=== PATIENT | male | born 1950 | race Caucasian/White ===

== ENCOUNTER 2017-11-16 08:35 | Inpatient (IN) | payer OTHER ==
--- NOTE | 2017-11-12 09:00 | EKG ---
Test Date: 2017-11-12 Test Time: 08:38:21 Director Of Web Marketing: JOSE MEASUREMENT RESULTS: Intervals: Rate: 95 ID: [id number] QRSD: 102 QT: 380 QTc: 477 [place]: P: 46 ID: [id number] QRS: 47 T: 48 INTERPRETIVE STATEMENTS: Normal sinus rhythm Possible Left atrial enlargement Borderline ECG No previous ECG available for comparison Electronically Signed On 11-12-17 08:59:56 CDT by Dash Keith
--- NOTE | 2017-11-12 09:51 | RAD REPORT ---
EXAM DESCRIPTION: RAD - Chest Pa And Lat (2 Views) - 11/12/2017 9:36 am CLINICAL HISTORY: Preop chest, pending cholecystectomy COMPARISON: None. TECHNIQUE: PA and lateral views of the chest were obtained. FINDINGS: The lungs are fibrotic. No failure, infiltrate or mass. As a baseline study, a minimal inf iltrate could be masked by fibrotic change. In the absence of any acute respiratory symptoms chest fi ndings are all believed to be chronic. Mediastinum is accentuated slightly by rotation. Heart size i s normal and central vasculature is within normal limits. No pleural effusion or pneumothorax seen. Thoracic spine degenerative changes are present with accentuated kyphosis. No acute compression frac tures suspected. No aortic abnormality. IMPRESSION: Chronic interstitial fibrotic pattern. Acute cardiopulmonary process is doubtful.
[2017-11-12 09:55] LABS: Absolute Lymphocytes (CBC) 1.1 K/uL (0.7-4.9); Absolute Monocytes 1.1 K/uL (0.1-1.3); Basophils % 0.6 % (0-1.3); Eosinophils % 6.5 % (0-4.4); Hematocrit 39.3 % (39.6-49.0); Lymphocytes % 14.4 % (15.3-44.8); MCH 33.6 pg (27.0-35.0); MCV 96.9 fL (80-100); MPV 8.8 fL (7.6-11.3); Monocytes % 14.1 % (3.3-12.3); RBC Red Blood Cell Count 4.06 M/uL (4.33-5.43)
[2017-11-12 10:21] LABS: BUN Blood Urea Nitrogen 4 mg/dL (7-18); Bicarbonate 28 mmol/L (21-32); Glucose Level 101 mg/dL (74-106); Potassium 3.6 mmol/L (3.5-5.1); Sodium Level 129 mmol/L (136-145)
[2017-11-12 10:23] LABS: Albumin 3.2 g/dL (3.4-5.0); Bilirubin Direct 0.2 mg/dL (0-0.2); Bilirubin Total 0.6 mg/dL (0.2-1.0); Protein, Total 7.5 g/dL (6.4-8.2)
[2017-11-16] MEDS ORDERED: BUPIVACAINE 0.5% PF 10 ML VIAL ONE (09:19)
[2017-11-16] MEDS ORDERED: ROCURONIUM 50 MG/5 ML VIAL IV ONE (09:20)
[2017-11-16] MEDS ORDERED: MIDAZOLAM HCL 2 MG/2 ML INJ ONE (09:20)
[2017-11-16] MEDS ORDERED: PROPOFOL 200 MG/20 ML VIAL IV ONE (09:20)
[2017-11-16] MEDS ORDERED: LIDOCAINE 1% MPF 5 ML VIAL ONE (09:20)
[2017-11-16] MEDS ORDERED: FENTANYL CITR 250 MCG/5 ML ONE (09:20)
[2017-11-16] MEDS ORDERED: CEFOXITIN/SWI 1gm 1 GM/10 ML SYR ONE (09:35)
[2017-11-16] MEDS ORDERED: Ringers Lactate 1,000 ML IV ONE ×3 (09:35→13:19)
[2017-11-16] MEDS ORDERED: NA CHLORIDE 0.9% 500 ML ONE (09:55)
[2017-11-16] MEDS ORDERED: NA CHLORIDE 0.9% 1,000 ML ONE (11:06)
[2017-11-16] MEDS ORDERED: ALBUMIN HUM 5% 500 ML IV ONE (11:10)
[2017-11-16] MEDS ORDERED: NS 0.9% VIAL 10 ML ONE (11:22)
[2017-11-16] MEDS ORDERED: VECURONIUM 10 MG/VIAL IV ONE (11:32)
[2017-11-16] MEDS ORDERED: METHYLENE BLUE 0.5% 10 ML AMP ONE ×2 (11:34→11:39)
[2017-11-16] MEDS ORDERED: Phenylephrine HCl 10 MG/ML 1 ML VIAL ONE (11:48)
[2017-11-16 12:17] LABS: Hematocrit 27.5 % (39.6-49.0)
[2017-11-16 12:39] LABS: BUN Blood Urea Nitrogen 5 mg/dL (7-18); Bicarbonate 25 mmol/L (21-32); Glucose Level 157 mg/dL (74-106); Potassium 3.5 mmol/L (3.5-5.1); Sodium Level 135 mmol/L (136-145)
[2017-11-16] MEDS: MEPERIDINE HCL 50 MG/ML AMP ONE ×2 (12:47→13:23)
[2017-11-16] MEDS ORDERED: Ringers Lactate 2,000 ML IV ONE (13:26)
[2017-11-16] MEDS ORDERED: FENTANYL CITR 100 MCG/2 ML ONE (13:57)
[2017-11-16] MEDS ORDERED: HYDROMORPHONE/PCA 10 MG/50 ML SYR IV PRN (15:00)
[2017-11-16] MEDS ORDERED: SODIUM CHLORIDE 0.9% 10ML INJ IV PRN ×2 (15:00)
[2017-11-16] MEDS ORDERED: NA CHLORIDE 0.9% 1,000 ML IV SCH (15:00)
[2017-11-16] MEDS ORDERED: LIDOCAINE 1% MPF 5 ML VIAL IM PRN (15:00)
[2017-11-16] MEDS: HYDROMORPHONE HCL 1 MG/ML INJ IV PRN ×3 (16:16→23:23)
[2017-11-16] MEDS: ONDANSETRON 4 MG/2 ML VIAL IV PRN (16:22)
--- NOTE | 2017-11-16 17:08 | RAD REPORT ---
EXAM DESCRIPTION: RAD - Chest Single View - 11/16/2017 4:56 pm CLINICAL HISTORY: Device placement PICC line placement COMPARISON: November 12, 2017 FINDINGS: A PICC line has been inserted with its tip in the superior vena cava. The lungs appear clear of acute infiltrate. The heart is mildly enlarged Artifact overlies the chest. IMPRESSION: PICC line with its tip in the superior vena cava
[2017-11-16] MEDS: METRONIDAZOLE 500mg IVPB 500 MG/100 ML BAG IV SCH ×2 (17:12→23:23)
[2017-11-16] MEDS: CEFOXITIN/SWI 1gm 1 GM/10 ML SYR IV SCH ×2 (17:30→23:24)
--- NOTE | 2017-11-16 17:38 | P.CNS ---
Date of Consult: 11/16/17 Reason for Consult: Medical management Requesting Physician: Martin Davis Primary Care Provider: Dr. Brewster Chief Complaint: Repair of choleduodenum fistula History of Present Illness: 67-year-old male presented to surgery for laparoscopic cholecystectomy for symptomatic cholelithiasis. Patient ended up with laparoscopic cholecystectomy, exploratory laparotomy, lysis of adhesions, open cholecystectomy and repair of choleduodenum fistula. I was asked to evaluate patient for medical management. Patient stable in recovery. Case discussed with surgery. Will review home medications. Previous records will be reviewed. Hemoglobin slightly low from initial presentation. Patient with hyponatremia. Patient not able to give further history. Will reassess tomorrow. Allergies No Known Allergies Allergy (Verified 11/16/17 09:58) Home medications list reviewed: Yes Home Medications: Amlodipine Besylate 10 mg PO [id number] 11/12/17 Atenolol 100 mg PO [id number] 11/12/17 Furosemide [Lasix] 40 mg PO DAILY 11/12/17 Gabapentin [Gralise] 300 mg PO DAILY 11/12/17 Ibuprofen 800 mg PO PRN PRN 11/12/17 L.acidoph,Paracasei, B.lactis [Probiotic] 1 each PO DAILY 11/12/17 Losartan Potassium 100 mg PO [id number] 11/12/17 Omeprazole [Prilosec] 40 mg PO DAILY 11/12/17 - Past Medical/Surgical History -: Hypertension -: GERD Past Surgical History: Unable to obtain Psychosocial/ Personal History: Patient is - Family History Father Medical History: Other (see notes) Family History: Reviewed- Non-Contributory - Social History Smoking Status: Unknown if ever smoked Alcohol use: No CD- Drugs: No Caffeine use: No Place of Residence: Home Review of Systems is unable to be obtained Physical Examination Temp Pulse Resp BP Pulse Ox 97.7 F 76 20 98/53 L 11/16/17 14:12 11/16/17 14:12 11/16/17 14:12 11/16/17 14:12 General: Alert, In no apparent distress, Cooperative HEENT: Atraumatic, Normocephalic Neck: Supple Respiratory: Clear to auscultation bilaterally, Normal air movement Cardiovascular: Normal pulses, Regular rate/rhythm Gastrointestinal: Hypoactive, Non-distended, Other (Postsurgical changes noted.) Musculoskeletal: No erythema, No tenderness, No warmth Integumentary: No erythema, No warmth, No cyanosis Neurological: Normal speech, Normal tone, Normal affect Laboratory Data (last 24 hrs) 11/16/17 11:58: Sodium 135 L, Potassium 3.5, BUN 5 L, Creatinine 0.60, Glucose 157 H 11/16/17 11:58: Hgb 9.6 L D, Hct 27.5 L D - Problems (1) Cholecystenteric fistula Current Visit: Yes Status: Acute Plan: Patient is status post open cholecystectomy, lysis of adhesions, repair of choleduodenum fistula. Case discussed briefly with surgery. Patient will continue with TPN for at least 1 week. Patient will have procedure next week to make sure fistula repair is in place. Continue monitor patient closely. Continue with IV fluids and TPN. Will make adjustments as appropriate. Will follow along. (2) Hyponatremia Current Visit: Yes Status: Acute Plan: Continue IV fluids. Will monitor closely. (3) Anemia Current Visit: Yes Status: Acute Plan: Likely postsurgical. Will monitor closely. Patient may require transfusion if hemoglobin less than 7.0 Qualifiers: Anemia type: other cause (4) Hypertension Current Visit: Yes Status: Chronic Plan: Will review home medication. Blood pressure stable this time. Hold medication at this time. Qualifiers: Hypertension type: essential hypertension Qualified Code(s): I10 - Essential (primary) hypertension Time Spent Managing Pts care (In Minutes): 55
[2017-11-16] MEDS ORDERED: KCL 20 MEQ/100 mL IVPB 20 MEQ/100 ML BAG IV SCH (21:00)
[2017-11-16] MEDS: AA 5%/D20W/ELECTROLYTES-TPN 2,000 ML, Lipids 20% 250 ML with MULTIVITAMINS INJ 10 ML IV SCH ×3 (21:01)
[2017-11-16] MEDS: SODIUM CHLORIDE 0.9% 10ML INJ IV SCH (23:24)
[2017-11-16] MEDS ORDERED: D50W 25 GM/50 ML SYRINGE IV PRN (23:49)
[2017-11-16] MEDS ORDERED: GLUCAGON 1 MG/VIAL IM PRN (23:49)
--- NOTE | 2017-11-17 00:04 | OP ---
Date of Procedure: 11/16/2017 Surgeon: Martin Davis MD Debeaker: Migel Malhotra MD. Preoperative Diagnoses: Chronic cholecystitis and cholelithiasis. Postoperative Diagnoses: Chronic cholecystitis and cholelithiasis. 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 Procedures Performed: Diagnostic laparoscopy, exploratory laparotomy, lysis of adhesions, cholecyste ctomy and repair of cholecystoduodenal fistula. Estimated Blood Loss: 450 cc. Specimen: Gallbladder and cholecystoduodenal fistula tissue. Findings: As above. Anesthesia: General. Complications: None. Drains: KELLI #10 flat. Record KELLI per protocol. Complications: None. Disposition: The patient tolerated the procedure in stable condition, taken to Recovery in good gene ral condition. Procedure In Detail: The patient brought to the OR, placed in supine position. General anesthesia b egun. The patient was prepped and draped in usual sterile fashion. Marcaine 0.5% was infiltrated lo wilda. A 15 blade used to make a 1 cm supraumbilical midline incision. Subcutaneous tissue divided. The fascia was identified and divided with #1 Vicryl. Stay suture was placed. Peritoneal cavity w as entered with blunt dissection. A 12-mm trocar was placed into the peritoneal cavity under direct vision. Pneumoperitoneum was established, and three 5 mm trocars placed, one in the epigastrium just to the right of midline and two in the right subcostal region. Laparoscopy revealed extensive adhes ions in the right upper quadrant between the liver and the peritoneal surface which was taken out wit h sharp dissection. Then, there was complete omental caking of the gallbladder which could not be vi sualized, very difficult to dissect laparoscopically. At this point, the case was converted to an op en procedure. A right subcostal incision was made. Fascia was identified and divided. The muscle w as divided. Posterior sheath was divided, and then the more adhesions were taken down. Liver was mo bilized into the wound and then careful dissection proceeded to take the omental adhesions down from the gallbladder. The gallbladder was attached to the duodenum, the first portion of it; and in order to separate it, there was a fistula there, so there remained a 3 cm opening in the duodenum which wa s confirmed by palpating the NG tube near by, and then this was controlled with Allis clamps for the time being, and then sharp and blunt dissection was utilized with lots of adhesions encountered, and the gallbladder was intrahepatic. There was bleeding noted which was controlled with 2-0 silk ties a nd cautery; and then cystic duct, cystic artery were clearly identified. Clips placed and 2-0 silk s uture used, and divided between clamps. The gallbladder removed and sent to Pathology as specimen. Then, the first portion was mobilized. Good mucosal edges were obtained and then an Endo RIVER staplin g device was used to close the open wound, opening in the duodenum, and there was no evidence of blee ding or leakage from the repair site noted, and right upper quadrant was irrigated. There was no inocente dence of any bile leakage or bleeding noted. Subsequently, the Mikal-Joy drain #10 flat, placed and secured next to the duodenal repair and the gallbladder fossa, and through this nylon used to sec ure the tube to the abdominal wall. Then, entire count was correct. Stay sutures at the umbilicus t ied to each other across the fascial defect and then #1 chromic used to close the posterior sheath an d #2 nylon used to close the fascia. Subcutaneous wounds were irrigated between layers of closure an d oliver used to close skin. Sterile dressing applied. Patient awakened, taken to Recovery in good g eneral condition. /MODL Voice ID: [id number] Report ID: [id number]
[2017-11-17] MEDS: INSULIN -REGULAR HUMAN 50 UNIT/0.5 ML ML SQ SCH ×4 (00:10→18:00)
[2017-11-17] MEDS: HYDROMORPHONE HCL 1 MG/ML INJ IV PRN ×5 (02:27→21:39)
[2017-11-17] MEDS: ONDANSETRON 4 MG/2 ML VIAL IV PRN (02:31)
[2017-11-17] MEDS: CEFOXITIN/SWI 1gm 1 GM/10 ML SYR IV SCH ×4 (05:02→23:51)
[2017-11-17] MEDS: METRONIDAZOLE 500mg IVPB 500 MG/100 ML BAG IV SCH ×4 (05:02→23:51)
[2017-11-17 06:33] LABS: Absolute Lymphocytes (CBC) 0.7 K/uL (0.7-4.9); Absolute Monocytes 1.1 K/uL (0.1-1.3); Absolute Neutrophil 9.2 K/uL (1.8-8.0); Basophils % 0.2 % (0-1.3); Eosinophils % 0.1 % (0-4.4); Hematocrit 29.6 % (39.6-49.0); Lymphocytes % 6.5 % (15.3-44.8); MCH 34.4 pg (27.0-35.0); MCV 97.4 fL (80-100); MPV 7.2 fL (7.6-11.3); Monocytes % 10.1 % (3.3-12.3); RBC Red Blood Cell Count 3.04 M/uL (4.33-5.43)
[2017-11-17 06:43] LABS: ALT/SGPT 65 U/L (12-78); AST/SGOT 51 U/L (15-37); Albumin 2.6 g/dL (3.4-5.0); Alkaline Phosphatase 48 U/L (45-117); BUN Blood Urea Nitrogen 8 mg/dL (7-18); Bicarbonate 25 mmol/L (21-32); Bilirubin Total 0.5 mg/dL (0.2-1.0); Glucose Level 166 mg/dL (74-106); Magnesium 1.6 mg/dL (1.8-2.4); Phosphorus 1.9 mg/dL (2.5-4.9); Potassium 3.7 mmol/L (3.5-5.1); Protein, Total 5.8 g/dL (6.4-8.2); Sodium Level 135 mmol/L (136-145)
[2017-11-17] MEDS ORDERED: POTASSIUM PHOS IN 0.9 % NACL 15 MMOL/250 ML BAG IV ONE (08:00)
[2017-11-17] MEDS ORDERED: MAGNESIUM SULFATE 1 gm IVPB 1 GM/100 ML BAG IV ONE (08:00)
[2017-11-17] MEDS ORDERED: HYDRALAZINE HCL 20 MG/ML VIAL IV PRN (08:07)
--- NOTE | 2017-11-17 08:07 | P.PN ---
Subjective Date of Service: 11/17/17 Primary Care Provider: Dr. Brewster Chief Complaint: Repair of choleduodenum fistula Subjective: Doing well (Patient doing well today. No significant abdominal pain noted.) Physical Examination - Vital Signs Temperature: 97.4 F Blood Pressure: 146/62 Pulse: 88 Respirations: 23 Pulse Ox (%): 96 - Physical Exam General: Alert, In no apparent distress, Oriented x3, Cooperative HEENT: Atraumatic Neck: Supple Respiratory: Clear to auscultation bilaterally, Normal air movement Cardiovascular: Normal pulses, Regular rate/rhythm Gastrointestinal: Normal bowel sounds, Hypoactive, Non-distended, No masses, No rebound, No guarding, Other (Abdominal binding in place. KELLI tube in place.) Musculoskeletal: No erythema, No tenderness, No warmth Integumentary: No tenderness/swelling, No erythema, No warmth, No cyanosis Neurological: Normal speech, Normal strength at 5/5 x4 extr, Normal tone, Normal affect - Studies Laboratory Data (last 24 hrs) 11/17/17 06:00: Sodium 135 L, Potassium 3.7, BUN 8, Creatinine 0.60, Glucose 166 H, Phosphorus 1.9 L, Magnesium 1.6 L, Total Bilirubin 0.5, AST 51 H, ALT 65 , Alkaline Phosphatase 48 11/17/17 06:00: WBC 11.1 H D, Hgb 10.4 L, Hct 29.6 L, Plt Count 344 11/17/17 05:00: Sodium Cancelled, Potassium Cancelled, BUN Cancelled, Creatinine Cancelled, Glucose Cancelled, Total Bilirubin Cancelled, AST Cancelled, ALT Cancelled, Alkaline Phosphatase Cancelled 11/16/17 11:58: Sodium 135 L, Potassium 3.5, BUN 5 L, Creatinine 0.60, Glucose 157 H 11/16/17 11:58: Hgb 9.6 L D, Hct 27.5 L D Medications List Reviewed: Yes Assessment & Plan - Problems (Diagnosis) (1) Cholecystenteric fistula Current Visit: Yes Status: Acute Plan: Patient is status post open cholecystectomy, lysis of adhesions, repair of choleduodenum fistula. TPN has been started. TPN will continue. Strict NPO at this time. Next week patient will have procedure to make sure repair of fistula has resolved. This was explained to the patient. Patient understands this. Continue incentive spirometer. Continue DVT prophylaxis. (2) Hyponatremia Current Visit: Yes Status: Acute Plan: Continue IV fluids/TPN. Will monitor closely. (3) Anemia Current Visit: Yes Status: Acute Plan: Likely postsurgical. Will monitor closely. Patient may require transfusion if hemoglobin less than 7.0 Qualifiers: Anemia type: other cause (4) Hypertension Current Visit: Yes Status: Chronic Plan: Will review home medication. Blood pressure stable this time. Hold medication at this time. Will provide IV medication as needed. Qualifiers: Hypertension type: essential hypertension Qualified Code(s): I10 - Essential (primary) hypertension (5) Hypomagnesemia Current Visit: Yes Status: Acute Plan: Will monitor and replace. (6) GERD (gastroesophageal reflux disease) Current Visit: Yes Status: Chronic Plan: Continue with PPI Qualifiers: Esophagitis presence: esophagitis presence not specified Qualified Code(s) : K21.9 - Gastro-esophageal reflux disease without esophagitis (7) Cholecystitis with cholelithiasis Current Visit: Yes Status: Chronic Plan: Patient status post cholecystectomy. Continue as above. Qualifiers: Cholelithiasis location: gallbladder Cholecystitis acuity: chronic Biliary obstruction: without biliary obstruction Qualified Code(s): K80.10 - Calculus of gallbladder with chronic cholecystitis without obstruction Discharge Plan: Home Plan to discharge in: Greater than 2 days Time Spent Managing Pts Care (In Minutes): 55
[2017-11-17] MEDS: ENOXAPARIN 40 MG/0.4 ML SQ SCH (08:37)
[2017-11-17] MEDS: SODIUM CHLORIDE 0.9% 10ML INJ IV SCH ×3 (08:37→21:39)
[2017-11-17] MEDS: PANTOPRAZOLE 40 MG INJ IV SCH (08:37)
--- NOTE | 2017-11-17 13:34 | PN ---
Date of Progress Note: 11/17/2017 Subjective: The patient is awake, alert. No complaint. Thirsty. Objective: His vital signs are stable. He is afebrile. Laboratory Data: Shows a white count 11.1, H and H is 10.4 and 29.6, slight left shift. Chemistry r eviewed; his sodium is 135, phosphorus and magnesium were low and being replaced, he is already on TP N. His NG tube put out 150 cc and has adequate urine output and his KELLI has a total of 130 cc serosan guineous fluid. Abdomen is benign. Assessment: Status post cholecystectomy and repair of a cholecystoduodenal fistula. Recommendations: Continue TPN, n.p.o., NG tube, IV antibiotics, electrolyte replacements. If the pa mitchell does well with physical therapy, he can be transferred to the regular floor. The patient will need a Gastrografin or barium study in a week to make sure the duodenum is healed prior to beginning oral diet. /MODL Voice ID: [id number] Report ID: [id number]
[2017-11-17] MEDS ORDERED: AA 5%/D20W/ELECTROLYTES-TPN 2,000 ML, Lipids 20% 250 ML with MULTIVITAMINS INJ 10 ML IV SCH ×3 (17:00)
[2017-11-17] MEDS: AA 5%/D20W/ELECTROLYTES-TPN 2,000 ML, Lipids 20% 250 ML with MULTIVITAMINS INJ 10 ML IV SCH ×3 (17:21)
[2017-11-18] MEDS: METRONIDAZOLE 500mg IVPB 500 MG/100 ML BAG IV SCH ×3 (05:16→17:52)
[2017-11-18] MEDS: CEFOXITIN/SWI 1gm 1 GM/10 ML SYR IV SCH ×3 (05:17→17:52)
[2017-11-18 05:56] LABS: Absolute Lymphocytes (CBC) 0.8 K/uL (0.7-4.9); Absolute Neutrophil 9.8 K/uL (1.8-8.0); Basophils % 0.2 % (0-1.3); Eosinophils % 0.7 % (0-4.4); Hematocrit 27.7 % (39.6-49.0); Lymphocytes % 6.9 % (15.3-44.8); MCV 97.1 fL (80-100); MPV 7.1 fL (7.6-11.3); Monocytes % 8.4 % (3.3-12.3); RBC Red Blood Cell Count 2.85 M/uL (4.33-5.43)
[2017-11-18] MEDS: INSULIN -REGULAR HUMAN 50 UNIT/0.5 ML ML SQ SCH ×4 (06:00→17:52)
[2017-11-18 06:14] LABS: ALT/SGPT 44 U/L (12-78); AST/SGOT 19 U/L (15-37); Albumin 2.4 g/dL (3.4-5.0); Alkaline Phosphatase 50 U/L (45-117); BUN Blood Urea Nitrogen 9 mg/dL (7-18); Bicarbonate 25 mmol/L (21-32); Bilirubin Total 0.3 mg/dL (0.2-1.0); Glucose Level 145 mg/dL (74-106); Phosphorus 1.8 mg/dL (2.5-4.9); Potassium 3.4 mmol/L (3.5-5.1); Sodium Level 133 mmol/L (136-145)
[2017-11-18] MEDS ORDERED: KCL 20 MEQ/100 mL IVPB 20 MEQ/100 ML BAG IV SCH (08:00)
[2017-11-18] MEDS ORDERED: POTASSIUM PHOS IN 0.9 % NACL 15 MMOL/250 ML BAG IV ONE (08:00)
--- NOTE | 2017-11-18 08:09 | P.PN ---
Subjective Date of Service: 11/18/17 Primary Care Provider: Dr. Brewster Chief Complaint: Repair of choleduodenum fistula Subjective: Doing well (Patient doing well this time. Patient ambulating but prefers to ambulate more.) Physical Examination - Vital Signs Temperature: 98 F Blood Pressure: 161/77 Pulse: 105 Respirations: 18 Pulse Ox (%): 93 - Physical Exam General: Alert, In no apparent distress, Oriented x3, Cooperative HEENT: Atraumatic, Other (NG tube in place) Neck: Supple Respiratory: Clear to auscultation bilaterally, Normal air movement Cardiovascular: Normal pulses, Regular rate/rhythm Gastrointestinal: Normal bowel sounds, Hypoactive, Soft and benign, No masses, No rebound, No guarding, Other (Abdominal binding in place.) Musculoskeletal: No erythema, No tenderness, No warmth Integumentary: No tenderness/swelling, No erythema, No warmth, No cyanosis Neurological: Normal speech, Normal strength at 5/5 x4 extr, Normal tone, Normal affect Lymphatics: No axilla or inguinal lymphadenopathy - Studies Laboratory Data (last 24 hrs) 11/18/17 05:23: Sodium 133 L, Potassium 3.4 L, BUN 9, Creatinine 0.50 L, Glucose 145 H, Phosphorus 1.8 L, Magnesium 2.0, Total Bilirubin 0.3, AST 19, ALT 44, Alkaline Phosphatase 50 11/18/17 05:23: WBC 11.8 H, Hgb 9.7 L, Hct 27.7 L, Plt Count 309 Medications List Reviewed: Yes Assessment & Plan - Problems (Diagnosis) (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 Continue TPN. Patient wishes to be more active. Will check to see if physical therapy can ambulate him at least twice daily. Patient with strict NPO. Case discussed with surgery yesterday. Stricture will need to be reassessed next week before oral intake is implemented. Continue with incentive spirometer. (2) Hyponatremia Onset Date: 11/17/17 Current Visit: Yes Status: Acute Plan: Continue IV TPN. Will monitor closely. (3) Anemia Onset Date: 11/17/17 Current Visit: Yes Status: Acute Plan: Likely postsurgical. Will monitor closely. Patient may require transfusion if hemoglobin less than 7.0 Qualifiers: Anemia type: other cause (4) Hypertension Onset Date: 11/17/17 Current Visit: Yes Status: Chronic Plan: Will provide IV medication as needed. Qualifiers: Hypertension type: essential hypertension Qualified Code(s): I10 - Essential (primary) hypertension (5) Hypomagnesemia Onset Date: 11/17/17 Current Visit: Yes Status: Acute Plan: Will monitor and replace. (6) GERD (gastroesophageal reflux disease) Onset Date: 11/17/17 Current Visit: Yes Status: Chronic Plan: Continue with PPI Qualifiers: Esophagitis presence: esophagitis presence not specified Qualified Code(s) : K21.9 - Gastro-esophageal reflux disease without esophagitis (7) Cholecystitis with cholelithiasis Onset Date: 11/17/17 Current Visit: Yes Status: Chronic Plan: Patient status post cholecystectomy. Continue as above. Qualifiers: Cholelithiasis location: gallbladder Cholecystitis acuity: chronic Biliary obstruction: without biliary obstruction Qualified Code(s): K80.10 - Calculus of gallbladder with chronic cholecystitis without obstruction Discharge Plan: Home Plan to discharge in: Greater than 2 days Time Spent Managing Pts Care (In Minutes): 55
[2017-11-18] MEDS: SODIUM CHLORIDE 0.9% 10ML INJ IV SCH ×3 (09:00→21:00)
[2017-11-18] MEDS: PANTOPRAZOLE 40 MG INJ IV SCH (10:11)
[2017-11-18] MEDS: ENOXAPARIN 40 MG/0.4 ML SQ SCH (10:11)
[2017-11-18] MEDS: HYDROMORPHONE HCL 1 MG/ML INJ IV PRN ×2 (11:56→18:14)
--- NOTE | 2017-11-18 13:59 | PN ---
Date of Progress Note: 11/18/2017 Subjective: The patient is awake, alert, no complaints. His vital signs are stable. Heart rate is slightly up. He is afebrile currently. He is awake, alert. His KELLI put out 20 cc. His urine output is more than adequate and NG tube put out 300 cc. Laboratory Data: His white count is 11.8, H and H is 9.7 and 27.7, slight left shift. Chemistry rev iewed. He has low phosphorus and potassium which is being replaced. Physical Examination: His abdomen is benign. The drainage from the KELLI is serosanguineous. Assessment: Status post cholecystectomy and repair of cholecystoduodenal fistula. Recommendations: Continue n.p.o., NG tube, IV antibiotics. We will discontinue the Lopez today and patient is clinically doing well. Encourage ambulation, DVT prophylaxis, and incentive spirometry. /MODL Voice ID: [id number] Report ID: [id number]
[2017-11-18] MEDS ORDERED: NA CHLORIDE 0.9% 250 ML IV ONE (14:03)
[2017-11-18] MEDS ORDERED: ENOXAPARIN 80 MG/0.8 ML SQ SCH (15:15)
[2017-11-18] MEDS: METOPROLOL TARTRATE 5 MG/5 ML INJ IV PRN (16:04)
[2017-11-18] MEDS ORDERED: AMIODARONE HCL 150 MG in D5W 100 ML IV STA (16:40)
[2017-11-18] MEDS: AA 5%/D20W/ELECTROLYTES-TPN 2,000 ML, Lipids 20% 250 ML with MULTIVITAMINS INJ 10 ML IV SCH ×3 (16:58)
[2017-11-18] MEDS ORDERED: AMIODARONE HCL 900 MG in Dextrose 5%-Water 482 ML IV SCH (17:00)
[2017-11-18] MEDS: ONDANSETRON 4 MG/2 ML VIAL IV PRN (18:14)
[2017-11-18] MEDS ORDERED: ACETAMINOPHEN 650MG/RECT SUPP PR PRN (19:03)
--- NOTE | 2017-11-18 20:05 | RAD REPORT ---
EXAM DESCRIPTION: [place] Single View11/18/2017 7:56 pm CLINICAL HISTORY: Shortness breath COMPARISON: November 16 FINDINGS: A mild left basilar opacity is present. The right lung appears clear. The heart is mildly enlarged. PICC line has its tip in the right atrium. Nasogastric tube has its tip in the stomach IMPRESSION: Mild left basilar opacity may represent atelectasis or infiltrate
[2017-11-18] MEDS: ENOXAPARIN 80 MG/0.8 ML SQ SCH (21:36)
[2017-11-18] MEDS: LORazepam 2 MG/ML VIAL IV PRN (21:37)
--- NOTE | 2017-11-19 00:18 | CON ---
Admitted to the ICU today from the floor by Dr. Dutta for new onset atrial fibrillation. History Of Present Illness: Mr. Garcia is a 67-year-old white male. He was admitted to the hospital few days ago and was seen by Dr. Dutta on November 16. He has a history of hypertension, gastroeso phageal reflux disease. He had cholecystitis and cholelithiasis and cholecystoduodenal fistula statu s post surgery by Dr. Davis and Dr. Malhotra. He tolerated the procedure well. Had multiple adhesio ns. Initially, he was to have a laparoscopic surgery, but he ended up with an open surgery because o f adhesions and fistulas. Has done well from a surgical standpoint, but today he went to atrial fibr illation with rapid ventricular response in the 140s. Dr. Dutta and I discussed the case. The isma ent was moved to the ICU and placed on IV amiodarone. He is still unable to take p.o. Lovenox was s tarted as well. Echocardiogram was ordered. Allergies: NONE. Review of Systems: Negative. Social History: Negative. Family History: Noncontributory. Medications: At home prior to admission include Norvasc, atenolol, Lasix, gabapentin, losartan, and Prilosec. Physical Examination: Vital Signs: Stable, atrial fibrillation. No symptoms. HEENT: Negative. Neck: Supple, no bruit. Chest: Clear. Cardiac: Revealed atrial fibrillation. Abdomen: Tender. No rebound or rigidity. Extremities: Revealed no clubbing, cyanosis, or edema. Laboratory Data: Creatinine is 0.5. Hemoglobin is 9.7. EKG showed atrial fibrillation. Impression And Plan: 1.New onset atrial fibrillation. The patient unable to take p.o. We will put him on amiodarone dri p after a bolus. Check an echocardiogram. Check a TSH. Continue Lovenox and see how he does. Hope fully, this is temporary and we can always give him IV beta-blockers in addition to the amiodarone on an as-needed basis if his heart rate stays over 120. 2.Hypertension, well controlled. 3.Gastroesophageal reflux disease. 4.Neuropathy. 5.Status post surgery for cholecystitis, for cholelithiasis, and for cholecystoduodenal fistula. ASHLEY/MODL Voice ID: [id number] Report ID: [id number]
[2017-11-19] MEDS: CEFOXITIN/SWI 1gm 1 GM/10 ML SYR IV SCH ×5 (00:27→23:54)
[2017-11-19] MEDS: METRONIDAZOLE 500mg IVPB 500 MG/100 ML BAG IV SCH ×5 (00:27→23:55)
[2017-11-19] MEDS: KCL 20 MEQ/100 mL IVPB 20 MEQ/100 ML BAG IV SCH ×2 (02:55→04:20)
[2017-11-19] MEDS: ONDANSETRON 4 MG/2 ML VIAL IV PRN ×3 (04:18→18:05)
[2017-11-19] MEDS: HYDROMORPHONE HCL 1 MG/ML INJ IV PRN ×3 (04:19→18:05)
[2017-11-19 05:25] LABS: Absolute Lymphocytes (CBC) 0.8 K/uL (0.7-4.9); Absolute Monocytes 0.8 K/uL (0.1-1.3); Absolute Neutrophil 8.1 K/uL (1.8-8.0); Basophils % 0.5 % (0-1.3); Eosinophils % 2.2 % (0-4.4); Hematocrit 26.8 % (39.6-49.0); Lymphocytes % 8.3 % (15.3-44.8); MCH 34.7 pg (27.0-35.0); MCV 97.4 fL (80-100); MPV 7.3 fL (7.6-11.3); Monocytes % 8.1 % (3.3-12.3); RBC Red Blood Cell Count 2.76 M/uL (4.33-5.43)
[2017-11-19 05:46] LABS: ALT/SGPT 32 U/L (12-78); AST/SGOT 14 U/L (15-37); Albumin 2.4 g/dL (3.4-5.0); Alkaline Phosphatase 49 U/L (45-117); BUN Blood Urea Nitrogen 6 mg/dL (7-18); Bicarbonate 27 mmol/L (21-32); Bilirubin Total 0.4 mg/dL (0.2-1.0); Glucose Level 136 mg/dL (74-106); Magnesium 1.9 mg/dL (1.8-2.4); Potassium 3.4 mmol/L (3.5-5.1); Protein, Total 6.1 g/dL (6.4-8.2); Sodium Level 133 mmol/L (136-145)
[2017-11-19] MEDS: INSULIN -REGULAR HUMAN 50 UNIT/0.5 ML ML SQ SCH ×5 (06:00→23:57)
[2017-11-19 06:13] LABS: Phosphorus 2.7 mg/dL (2.5-4.9)
[2017-11-19] MEDS ORDERED: SOD CHLORIDE 0.65% NASAL SPRAY NAS PRN (07:12)
--- NOTE | 2017-11-19 08:14 | P.PN ---
Subjective Date of Service: 11/19/17 Primary Care Provider: Dr. Brewster Chief Complaint: Repair of choleduodenum fistula Subjective: Doing well (Patient doing well. Patient converted to normal sinus rhythm after about 2 hr on amiodarone. Patient stable this time.) Physical Examination - Vital Signs Temperature: 97.1 F Blood Pressure: 148/75 Pulse: 86 Respirations: 14 Pulse Ox (%): 93 - Physical Exam General: Alert, In no apparent distress, Oriented x3, Cooperative HEENT: Atraumatic, Other (NG tube in place. Some nasal congestion noted.) Neck: Supple Respiratory: Clear to auscultation bilaterally, Normal air movement Cardiovascular: Normal pulses, Regular rate/rhythm Gastrointestinal: Hypoactive, Non-distended, Other (Abdominal binding in place.) Musculoskeletal: No erythema, No tenderness, No warmth Integumentary: No tenderness/swelling, No erythema, No warmth, No cyanosis Neurological: Normal speech, Normal strength at 5/5 x4 extr, Normal tone, Normal affect - Studies Laboratory Data (last 24 hrs) 11/19/17 05:01: Sodium 133 L, Potassium 3.4 L, BUN 6 L, Creatinine 0.50 L, Glucose 136 H, Phosphorus 2.7, Magnesium 1.9, Total Bilirubin 0.4, AST 14 L, ALT 32, Alkaline Phosphatase 49 11/19/17 05:01: WBC 10.0 D, Hgb 9.6 L, Hct 26.8 L, Plt Count 305 11/18/17 22:34: Potassium 3.2 L Medications List Reviewed: Yes Assessment & Plan - Problems (Diagnosis) (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 Continue TPN. Patient went into atrial fibrillation yesterday. Patient was transferred to ICU. Cardiology was consulted. Amiodarone was started. After about 2 hr on medication patient converted to normal sinus rhythm. Will continue with amiodarone. Continue with Lovenox. Continue with strict NPO. (2) Hyponatremia Onset Date: 11/17/17 Current Visit: Yes Status: Acute Plan: Continue IV TPN. Will monitor closely. (3) Anemia Onset Date: 11/17/17 Current Visit: Yes Status: Acute Plan: Likely postsurgical. Will monitor closely. Patient may require transfusion if hemoglobin less than 7.0 Qualifiers: Anemia type: other cause (4) Hypertension Onset Date: 11/17/17 Current Visit: Yes Status: Chronic Plan: Will provide IV medication as needed. Qualifiers: Hypertension type: essential hypertension Qualified Code(s): I10 - Essential (primary) hypertension (5) Hypomagnesemia Onset Date: 11/17/17 Current Visit: Yes Status: Acute Plan: Will monitor and replace. (6) GERD (gastroesophageal reflux disease) Onset Date: 11/17/17 Current Visit: Yes Status: Chronic Plan: Continue with PPI Qualifiers: Esophagitis presence: esophagitis presence not specified Qualified Code(s) : K21.9 - Gastro-esophageal reflux disease without esophagitis (7) Cholecystitis with cholelithiasis Onset Date: 11/17/17 Current Visit: Yes Status: Chronic Plan: Patient status post cholecystectomy. Continue as above. Qualifiers: Cholelithiasis location: gallbladder Cholecystitis acuity: chronic Biliary obstruction: without biliary obstruction Qualified Code(s): K80.10 - Calculus of gallbladder with chronic cholecystitis without obstruction (8) Atrial fibrillation Current Visit: Yes Status: Acute Plan: Patient placed to ICU and started on amiodarone. Patient now normal sinus rhythm. Cardiology consulted. Continue with IV amiodarone since the patient is on strict NPO. Will continue with anti coagulation therapy. Echocardiogram order. Tsh unremarkable. Qualifiers: Atrial fibrillation type: paroxysmal Qualified Code(s): I48.0 - Paroxysmal atrial fibrillation (9) Nasal congestion Current Visit: Yes Status: Acute Plan: Will provide nasal saline spray and Flonase. Discharge Plan: Home Plan to discharge in: Greater than 2 days Time Spent Managing Pts Care (In Minutes): 55
[2017-11-19] MEDS: FLUTICASONE 50MCG NASAL SPRAY NAS SCH (08:38)
[2017-11-19] MEDS: ENOXAPARIN 80 MG/0.8 ML SQ SCH ×2 (08:39→20:14)
[2017-11-19] MEDS: PANTOPRAZOLE 40 MG INJ IV SCH (08:40)
[2017-11-19] MEDS: SODIUM CHLORIDE 0.9% 10ML INJ IV SCH ×3 (08:42→20:14)
--- NOTE | 2017-11-19 09:23 | RAD REPORT ---
EXAM DESCRIPTION: RAD - Chest Single View - 11/19/2017 6:30 am CLINICAL HISTORY: picc placement COMPARISON: Chest Single View dated 11/18/2017; Chest Single View dated 11/16/2017; Chest Pa And Lat ( 2 Views) dated 11/12/2017 FINDINGS: Portable chest was obtained following placement of a right upper extremity PICC line. The catheter tip projects over the right atrium. Enteric tube descends in the stomach..
--- NOTE | 2017-11-19 09:33 | EKG ---
Test Date: 2017-11-18 Test Time: 14:06:26 Business Process Coordinator: SALENA MEASUREMENT RESULTS: Intervals: Rate: 140 [place]: QRSD: 96 QT: 292 QTc: 445 [place]: P: MN: QRS: 49 T: 198 INTERPRETIVE STATEMENTS: Atrial fibrillation with rapid ventricular response ST & T wave abnormality, consider lateral ischemia or digitalis effect Abnormal ECG Compared to ECG 11/12/2017 08:38:21 ST (T wave) deviation now present Possible ischemia now present Sinus rhythm no longer present Electronically Signed On 11-19-17 09:32:18 CDT by Tk Iverson
[2017-11-19] MEDS: AMIODARONE HCL 450 MG in D5W 241 ML IV SCH (12:29)
[2017-11-19] MEDS ORDERED: KCL 20 MEQ/100 mL IVPB 20 MEQ/100 ML BAG IV SCH (16:00)
[2017-11-19] MEDS: AA 5%/D20W/ELECTROLYTES-TPN 2,000 ML, Lipids 20% 250 ML with MULTIVITAMINS INJ 10 ML IV SCH ×3 (17:07)
--- NOTE | 2017-11-19 17:22 | ECHO ---
HEIGHT: 5 ft 9 in WEIGHT: 175 lb 0 oz DATE OF STUDY: 11/19/[address]: Robin Dutta DO 2-DIMENSIONAL: YES M.MODE: YES DOPPLER: YES COLOR FLOW: YES TDS: YES PORTABLE: YES DEFINITY: BUBBLE STUDY: DIAGNOSIS: ATRIAL FIBRILLATION CARDIAC HISTORY: CATHERIZATION: NO SURGERY: NO PROSTHETIC VALVE: NO PACEMAKER: NO MEASUREMENTS (cm) DIASTOLIC (NORMALS) SYSTOLIC (NORMALS) Ao Diam 3.0 (2.0-3.7) LVEF 56% 2 DIMENSIONAL ASSESSMENT: RIGHT ATRIUM: NORMAL LEFT ATRIUM: NORMAL RIGHT VENTRICLE: NORMAL LEFT VENTRICLE: NORMAL TRICUSPID VALVE: NORMAL MITRAL VALVE: NORMAL PULMONIC VALVE: NORMAL AORTIC VALVE: NORMAL PERICARDIAL EFFUSION: NONE AORTIC ROOT: NORMAL LEFT VENTRICULAR WALL MOTION: NORMAL DOPPLER/COLOR FLOW: NORMAL COMMENTS: NORMAL LEFT VENTRICULAR SIZE AND FUNCTION. NORMAL LEFT ATRIAL SIZE. NO EFFUSION. NO WALL MOTION ABNORMALITY. TECHNOLOGIST: JEFF MORTENSEN
[2017-11-19] MEDS: LORazepam 2 MG/ML VIAL IV PRN (20:34)
--- NOTE | 2017-11-19 22:11 | RAD REPORT ---
EXAM DESCRIPTION: RAD - Chest Single View - 11/19/2017 9:05 pm CLINICAL HISTORY: PICC line repositioning COMPARISON: November 19, November 18 TECHNIQUE: AP portable chest image was obtained 3 hours . FINDINGS: Tip of the right upper extremity PICC line is at distal SVC. There is slight motion degrad ation present. NG tube tip extends below the diaphragm. No new or progressive lung parenchymal finding. IMPRESSION: Right upper extremity PICC line in place. Tip is distal SVC.
[2017-11-20] MEDS: AMIODARONE HCL 450 MG in D5W 241 ML IV SCH ×3 (03:00→18:00)
[2017-11-20] MEDS: ONDANSETRON 4 MG/2 ML VIAL IV PRN ×2 (04:13→18:43)
[2017-11-20] MEDS: HYDROMORPHONE HCL 1 MG/ML INJ IV PRN ×2 (04:20→18:44)
[2017-11-20 05:39] LABS: Absolute Lymphocytes (CBC) 0.8 K/uL (0.7-4.9); Absolute Monocytes 0.7 K/uL (0.1-1.3); Absolute Neutrophil 4.6 K/uL (1.8-8.0); Basophils % 0.5 % (0-1.3); Eosinophils % 6.9 % (0-4.4); Hematocrit 28.7 % (39.6-49.0); Lymphocytes % 11.6 % (15.3-44.8); MCH 33.8 pg (27.0-35.0); MPV 7.7 fL (7.6-11.3); RBC Red Blood Cell Count 2.96 M/uL (4.33-5.43)
[2017-11-20] MEDS: METRONIDAZOLE 500mg IVPB 500 MG/100 ML BAG IV SCH ×3 (05:53→17:22)
[2017-11-20] MEDS: CEFOXITIN/SWI 1gm 1 GM/10 ML SYR IV SCH ×3 (05:53→17:22)
[2017-11-20] MEDS: INSULIN -REGULAR HUMAN 50 UNIT/0.5 ML ML SQ SCH ×3 (06:00→17:38)
[2017-11-20 06:26] LABS: ALT/SGPT 27 U/L (12-78); AST/SGOT 14 U/L (15-37); Albumin 2.3 g/dL (3.4-5.0); Alkaline Phosphatase 48 U/L (45-117); BUN Blood Urea Nitrogen 6 mg/dL (7-18); Bicarbonate 25 mmol/L (21-32); Bilirubin Total 0.3 mg/dL (0.2-1.0); Ferritin 327.2 ng/mL (26-388); Glucose Level 118 mg/dL (74-106); Magnesium 1.9 mg/dL (1.8-2.4); Phosphorus 3.3 mg/dL (2.5-4.9); Potassium 3.6 mmol/L (3.5-5.1); Sodium Level 132 mmol/L (136-145); Transferrin 116 mg/dL (200-360)
[2017-11-20] MEDS ORDERED: KCL 20 MEQ/100 mL IVPB 20 MEQ/100 ML BAG IV SCH (07:00)
[2017-11-20] MEDS ORDERED: ALTEPLASE 2 MG/VIAL IV SCH (08:00)
--- NOTE | 2017-11-20 08:21 | P.PN ---
Subjective Date of Service: 11/20/17 Primary Care Provider: Dr. Brewster Chief Complaint: Repair of choleduodenum fistula Subjective: Doing well Physical Examination - Vital Signs Temperature: 97.1 F Blood Pressure: 137/80 Pulse: 109 Respirations: 19 Pulse Ox (%): 100 - Physical Exam General: Alert, In no apparent distress, Oriented x3, Cooperative HEENT: Atraumatic Neck: Supple Respiratory: Clear to auscultation bilaterally, Normal air movement Cardiovascular: Irregular heart rate/rhythm (Atrial fibrillation, rate slightly elevated) Gastrointestinal: Normal bowel sounds, Soft and benign, Non-distended, No tenderness, No masses, No rebound, No guarding, Other (Abdominal binding in place) Musculoskeletal: No erythema, No tenderness, No warmth Integumentary: No tenderness/swelling, No erythema, No warmth, No cyanosis Neurological: Normal speech, Normal strength at 5/5 x4 extr, Normal tone, Normal affect - Studies Laboratory Data (last 24 hrs) 11/20/17 05:11: Sodium 132 L, Potassium 3.6, BUN 6 L, Creatinine 0.50 L, Glucose 118 H, Phosphorus 3.3, Magnesium 1.9, Total Bilirubin 0.3, AST 14 L, ALT 27, Alkaline Phosphatase 48 11/20/17 05:11: WBC 6.5 D, Hgb 10.0 L, Hct 28.7 L, Plt Count 332 11/19/17 13:55: Potassium 3.6 Medications List Reviewed: Yes Assessment & Plan - Problems (Diagnosis) (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 Continue TPN. Patient still going in and out of atrial fibrillation. Patient on amiodarone drip. Continue with physical therapy. Patient will remain in ICU. Patient will have procedure on Thursday to evaluate GI status. If stable after that time the patient will be started on oral intake. Anticipate discharge next week on Thursday if tolerating food. Case discussed with surgery. Patient remains strict NPO for now. (2) Hyponatremia Onset Date: 11/17/17 Current Visit: Yes Status: Acute Plan: Continue IV TPN. Will monitor closely. (3) Anemia Onset Date: 11/17/17 Current Visit: Yes Status: Acute Plan: Likely postsurgical mild acute blood loss with noted of iron deficiency anemia. Hemoglobin stable this time. Will consider iron supplementation. Will monitor closely. Patient may require transfusion if hemoglobin less than 7.0 Qualifiers: Anemia type: other cause (4) Hypertension Onset Date: 11/17/17 Current Visit: Yes Status: Chronic Plan: Will provide IV medication as needed. Qualifiers: Hypertension type: essential hypertension Qualified Code(s): I10 - Essential (primary) hypertension (5) Hypomagnesemia Onset Date: 11/17/17 Current Visit: Yes Status: Acute Plan: Will monitor and replace. (6) GERD (gastroesophageal reflux disease) Onset Date: 11/17/17 Current Visit: Yes Status: Chronic Plan: Continue with PPI Qualifiers: Esophagitis presence: esophagitis presence not specified Qualified Code(s) : K21.9 - Gastro-esophageal reflux disease without esophagitis (7) Cholecystitis with cholelithiasis Onset Date: 11/17/17 Current Visit: Yes Status: Chronic Plan: Patient status post cholecystectomy. Continue as above. Qualifiers: Cholelithiasis location: gallbladder Cholecystitis acuity: chronic Biliary obstruction: without biliary obstruction Qualified Code(s): K80.10 - Calculus of gallbladder with chronic cholecystitis without obstruction (8) Atrial fibrillation Current Visit: Yes Status: Acute Plan: Patient goes in and out of atrial fibrillation. Continue IV amiodarone. Tsh unremarkable. Echocardiogram also unremarkable. Qualifiers: Atrial fibrillation type: paroxysmal Qualified Code(s): I48.0 - Paroxysmal atrial fibrillation (9) Nasal congestion Current Visit: Yes Status: Acute Plan: Will continue with nasal saline spray and Flonase. Discharge Plan: Home Plan to discharge in: Greater than 2 days Time Spent Managing Pts Care (In Minutes): 55
[2017-11-20] MEDS: PANTOPRAZOLE 40 MG INJ IV SCH (08:28)
[2017-11-20] MEDS: SODIUM CHLORIDE 0.9% 10ML INJ IV SCH ×3 (08:28→21:04)
[2017-11-20] MEDS: ENOXAPARIN 80 MG/0.8 ML SQ SCH ×2 (08:29→21:03)
[2017-11-20] MEDS: FLUTICASONE 50MCG NASAL SPRAY NAS SCH (08:31)
--- NOTE | 2017-11-20 16:41 | PN ---
Date of Progress Note: 11/20/2017 Subjective: The patient is awake, alert, no complaint. NG output is minimal. KELLI output is minimal, serosanguineous in nature. Vital signs stable, afebrile. Laboratory Data: Reviewed. White count is normal. There is no left shift. Physical Examination: Abdomen is benign. Wound is clean dry and intact. Assessment: Status post cholecystectomy and repair of cholecystoduodenal fistula. Recommendations: Continue n.p.o., NG tube, TPN IV antibiotics. We will get an upper GI with Gastrog rafin on Thursday and the patient is on amiodarone drip for atrial fibrillation and is being anticoagul ated appropriately. /MODL Voice ID: [id number] Report ID: [id number]
[2017-11-20] MEDS: AA 5%/D20W/ELECTROLYTES-TPN 2,000 ML, Lipids 20% 250 ML with MULTIVITAMINS INJ 10 ML IV SCH ×3 (17:22)
[2017-11-20] MEDS: PHENOL 1.4% ORAL SPRAY 180ML MM PRN (21:04)
[2017-11-20] MEDS: LORazepam 2 MG/ML VIAL IV PRN (22:07)
[2017-11-21] MEDS: CEFOXITIN/SWI 1gm 1 GM/10 ML SYR IV SCH ×5 (00:12→23:44)
[2017-11-21] MEDS: METOPROLOL TARTRATE 5 MG/5 ML INJ IV PRN (00:12)
[2017-11-21] MEDS: METRONIDAZOLE 500mg IVPB 500 MG/100 ML BAG IV SCH ×5 (00:12→23:44)
[2017-11-21] MEDS: ONDANSETRON 4 MG/2 ML VIAL IV PRN ×3 (01:26→20:44)
[2017-11-21] MEDS: HYDROMORPHONE HCL 1 MG/ML INJ IV PRN ×5 (01:27→23:54)
[2017-11-21] MEDS: AMIODARONE HCL 450 MG in D5W 241 ML IV SCH ×4 (03:10→23:44)
[2017-11-21] MEDS: PHENOL 1.4% ORAL SPRAY 180ML MM PRN ×2 (05:01→18:19)
[2017-11-21] MEDS: INSULIN -REGULAR HUMAN 50 UNIT/0.5 ML ML SQ SCH ×5 (05:01→23:45)
[2017-11-21 05:09] LABS: Absolute Lymphocytes (CBC) 1.1 K/uL (0.7-4.9); Absolute Monocytes 0.9 K/uL (0.1-1.3); Absolute Neutrophil 4.5 K/uL (1.8-8.0); Basophils % 0.5 % (0-1.3); Eosinophils % 6.4 % (0-4.4); Hematocrit 29.2 % (39.6-49.0); Lymphocytes % 15.4 % (15.3-44.8); MCH 34.4 pg (27.0-35.0); MCV 97.3 fL (80-100); MPV 7.1 fL (7.6-11.3); Monocytes % 12.9 % (3.3-12.3)
[2017-11-21 05:32] LABS: ALT/SGPT 24 U/L (12-78); AST/SGOT 17 U/L (15-37); Albumin 2.4 g/dL (3.4-5.0); Alkaline Phosphatase 63 U/L (45-117); BUN Blood Urea Nitrogen 9 mg/dL (7-18); Bicarbonate 26 mmol/L (21-32); Bilirubin Total 0.3 mg/dL (0.2-1.0); Glucose Level 119 mg/dL (74-106); Magnesium 1.9 mg/dL (1.8-2.4); Phosphorus 3.6 mg/dL (2.5-4.9); Potassium 5.1 mmol/L (3.5-5.1); Protein, Total 6.4 g/dL (6.4-8.2); Sodium Level 132 mmol/L (136-145)
--- NOTE | 2017-11-21 07:35 | P.PN ---
Subjective Date of Service: 11/21/17 Primary Care Provider: Dr. Brewster Chief Complaint: Repair of choleduodenum fistula Subjective: Doing well, Other (Patient is passing some gas.) Physical Examination - Vital Signs Temperature: 98.7 F Blood Pressure: 152/77 Pulse: 78 Respirations: 13 Pulse Ox (%): 97 - Physical Exam General: Alert, In no apparent distress, Oriented x3, Cooperative HEENT: Atraumatic Neck: Supple Respiratory: Clear to auscultation bilaterally, Normal air movement Cardiovascular: Normal pulses, Regular rate/rhythm Gastrointestinal: Normal bowel sounds, Soft and benign, Non-distended, No tenderness, No masses, No rebound, No guarding Musculoskeletal: No erythema, No tenderness, No warmth Integumentary: No tenderness/swelling, No erythema, No warmth, No cyanosis Neurological: Normal speech, Normal strength at 5/5 x4 extr, Normal tone, Normal affect - Studies Laboratory Data (last 24 hrs) 11/21/17 04:51: Sodium 132 L, Potassium 5.1, BUN 9, Creatinine 0.60, Glucose 119 H, Phosphorus 3.6, Magnesium 1.9, Total Bilirubin 0.3, AST 17, ALT 24, Alkaline Phosphatase 63 11/21/17 04:51: WBC 7.0, Hgb 10.3 L, Hct 29.2 L, Plt Count 388 Medications List Reviewed: Yes Assessment & Plan - Problems (Diagnosis) (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 Continue TPN. Continue strict NPO. Patient now in normal sinus rhythm. Continue with amiodarone drip. Patient is passing gas. Patient will have GI evaluation on Thursday. If stable patient will start oral intake. Anticipate discharge next week on Thursday if tolerating food. (2) Hyponatremia Onset Date: 11/17/17 Current Visit: Yes Status: Acute Plan: Continue IV TPN. Will monitor closely. (3) Anemia Onset Date: 11/17/17 Current Visit: Yes Status: Acute Plan: Likely postsurgical mild acute blood loss with noted of iron deficiency anemia. Hemoglobin stable this time. Will consider iron supplementation. Will monitor closely. Patient may require transfusion if hemoglobin less than 7.0 Qualifiers: Anemia type: other cause (4) Hypertension Onset Date: 11/17/17 Current Visit: Yes Status: Chronic Plan: Will provide IV medication as needed. Qualifiers: Hypertension type: essential hypertension Qualified Code(s): I10 - Essential (primary) hypertension (5) Hypomagnesemia Onset Date: 11/17/17 Current Visit: Yes Status: Acute Plan: Will monitor and replace. (6) GERD (gastroesophageal reflux disease) Onset Date: 11/17/17 Current Visit: Yes Status: Chronic Plan: Continue with PPI Qualifiers: Esophagitis presence: esophagitis presence not specified Qualified Code(s) : K21.9 - Gastro-esophageal reflux disease without esophagitis (7) Cholecystitis with cholelithiasis Onset Date: 11/17/17 Current Visit: Yes Status: Chronic Plan: Patient status post cholecystectomy. Continue as above. Qualifiers: Cholelithiasis location: gallbladder Cholecystitis acuity: chronic Biliary obstruction: without biliary obstruction Qualified Code(s): K80.10 - Calculus of gallbladder with chronic cholecystitis without obstruction (8) Atrial fibrillation Current Visit: Yes Status: Acute Plan: Patient now in normal sinus rhythm. Continue IV amiodarone drip. Tsh unremarkable. Echocardiogram also unremarkable. Qualifiers: Atrial fibrillation type: paroxysmal Qualified Code(s): I48.0 - Paroxysmal atrial fibrillation (9) Nasal congestion Current Visit: Yes Status: Acute Plan: Will continue with nasal saline spray and Flonase. Discharge Plan: Home Plan to discharge in: Greater than 2 days Time Spent Managing Pts Care (In Minutes): 55
[2017-11-21] MEDS: FLUTICASONE 50MCG NASAL SPRAY NAS SCH (08:24)
[2017-11-21] MEDS: SODIUM CHLORIDE 0.9% 10ML INJ IV SCH ×3 (08:25→20:45)
[2017-11-21] MEDS: PANTOPRAZOLE 40 MG INJ IV SCH (08:25)
[2017-11-21] MEDS: ENOXAPARIN 80 MG/0.8 ML SQ SCH ×2 (08:25→20:42)
--- NOTE | 2017-11-21 13:33 | PN ---
Date of Progress Note: 11/21/2017 Subjective: The patient is awake, alert, no complaint. Vital signs stable, afebrile. Minimal seros anguineous output from KELLI. Minimal output from the NG tube. Laboratory Data: White count is normal. There is no left shift. Electrolytes are reviewed. Objective: Abdomen is benign. Assessment: Status post cholecystectomy and repair of cholecystoduodenal fistula and atrial fibrilla tion. Recommendations: Continue amiodarone b.i.d. We will get an upper GI with Gastrografin on Thursday. C ontinue antibiotics and TPN. /MODL Voice ID: [id number] Report ID: [id number]
[2017-11-21] MEDS: AA 5%/D20W/ELECTROLYTES-TPN 2,000 ML, Lipids 20% 250 ML with MULTIVITAMINS INJ 10 ML IV SCH ×3 (17:40)
[2017-11-21] MEDS: LORazepam 2 MG/ML VIAL IV PRN (20:43)
[2017-11-22] MEDS: METRONIDAZOLE 500mg IVPB 500 MG/100 ML BAG IV SCH ×4 (05:00→23:57)
[2017-11-22] MEDS: INSULIN -REGULAR HUMAN 50 UNIT/0.5 ML ML SQ SCH ×4 (05:00→23:59)
[2017-11-22] MEDS: CEFOXITIN/SWI 1gm 1 GM/10 ML SYR IV SCH ×4 (05:00→23:57)
[2017-11-22 05:44] LABS: Absolute Lymphocytes (CBC) 0.8 K/uL (0.7-4.9); Absolute Monocytes 1.4 K/uL (0.1-1.3); Absolute Neutrophil 10.3 K/uL (1.8-8.0); Basophils % 0.7 % (0-1.3); Eosinophils % 1.3 % (0-4.4); Lymphocytes % 6.2 % (15.3-44.8); MCH 34.1 pg (27.0-35.0); MCV 96.2 fL (80-100); MPV 7.2 fL (7.6-11.3); Monocytes % 10.6 % (3.3-12.3); RBC Red Blood Cell Count 2.91 M/uL (4.33-5.43)
[2017-11-22 06:07] LABS: ALT/SGPT 24 U/L (12-78); AST/SGOT 22 U/L (15-37); Albumin 2.3 g/dL (3.4-5.0); Alkaline Phosphatase 57 U/L (45-117); BUN Blood Urea Nitrogen 11 mg/dL (7-18); Bicarbonate 25 mmol/L (21-32); Bilirubin Total 0.4 mg/dL (0.2-1.0); Glucose Level 135 mg/dL (74-106); Magnesium 1.7 mg/dL (1.8-2.4); Potassium 4.1 mmol/L (3.5-5.1); Sodium Level 129 mmol/L (136-145)
[2017-11-22] MEDS ORDERED: MAGNESIUM SULFATE 1 gm IVPB 1 GM/100 ML BAG IV ONE (06:28)
--- NOTE | 2017-11-22 07:43 | P.PN ---
Subjective Date of Service: 11/22/17 Primary Care Provider: Dr. Brewster Chief Complaint: Repair of choleduodenum fistula Subjective: Other (Patient doing well. Patient reported some chest pain yesterday but unremarkable.) Physical Examination - Vital Signs Temperature: 97.7 F Blood Pressure: 125/77 Pulse: 93 Respirations: 17 Pulse Ox (%): 99 - Physical Exam General: Alert, In no apparent distress, Oriented x3, Cooperative HEENT: Atraumatic Neck: Supple Respiratory: Clear to auscultation bilaterally, Normal air movement Cardiovascular: Normal pulses, Regular rate/rhythm Gastrointestinal: Hypoactive (Throughout), Non-distended, No tenderness, No masses, No rebound, No guarding, Other (Abdominal binding in place) Musculoskeletal: No erythema, No tenderness, No warmth Integumentary: No tenderness/swelling, No erythema, No warmth, No cyanosis Neurological: Normal speech, Normal strength at 5/5 x4 extr, Normal tone, Normal affect Lymphatics: No axilla or inguinal lymphadenopathy - Studies Laboratory Data (last 24 hrs) 11/22/17 05:27: Sodium 129 L, Potassium 4.1, BUN 11, Creatinine 0.80, Glucose 135 H, Magnesium 1.7 L, Total Bilirubin 0.4, AST 22, ALT 24, Alkaline Phosphatase 57 11/22/17 05:27: WBC 12.8 H D, Hgb 9.9 L, Hct 28.0 L, Plt Count 403 Microbiology Data (last 24 hrs): 11/21/17 12:34 Sputum Gram Stain - Final Medications List Reviewed: Yes Assessment & Plan - Problems (Diagnosis) (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 Continue TPN. Continue strict NPO. Patient now in normal sinus rhythm. Continue with amiodarone drip. Patient is passing gas. Patient will have GI evaluation on Thursday. If stable patient will start oral intake. Will check chest x-ray today. Encourage incentive spirometer. Will continue with physical therapy. Anticipate discharge next week on Thursday if tolerating food. (2) Hyponatremia Onset Date: 11/17/17 Current Visit: Yes Status: Acute Plan: Continue IV TPN. Will monitor closely. (3) Anemia Onset Date: 11/17/17 Current Visit: Yes Status: Acute Plan: Likely postsurgical mild acute blood loss with noted of iron deficiency anemia. Hemoglobin stable this time. Will consider iron supplementation. Will monitor closely. Patient may require transfusion if hemoglobin less than 7.0 Qualifiers: Anemia type: other cause (4) Hypertension Onset Date: 11/17/17 Current Visit: Yes Status: Chronic Plan: Will provide IV medication as needed. Qualifiers: Hypertension type: essential hypertension Qualified Code(s): I10 - Essential (primary) hypertension (5) Hypomagnesemia Onset Date: 11/17/17 Current Visit: Yes Status: Acute Plan: Will monitor and replace. (6) GERD (gastroesophageal reflux disease) Onset Date: 11/17/17 Current Visit: Yes Status: Chronic Plan: Continue with PPI Qualifiers: Esophagitis presence: esophagitis presence not specified Qualified Code(s) : K21.9 - Gastro-esophageal reflux disease without esophagitis (7) Cholecystitis with cholelithiasis Onset Date: 11/17/17 Current Visit: Yes Status: Chronic Plan: Patient status post cholecystectomy. Continue as above. Encourage ambulation. Encourage incentive spirometer. Qualifiers: Cholelithiasis location: gallbladder Cholecystitis acuity: chronic Biliary obstruction: without biliary obstruction Qualified Code(s): K80.10 - Calculus of gallbladder with chronic cholecystitis without obstruction (8) Atrial fibrillation Current Visit: Yes Status: Acute Plan: Patient now in normal sinus rhythm. Continue IV amiodarone drip. Tsh unremarkable. Echocardiogram also unremarkable. Patient can be transition to oral medication once he is taking oral intake. Qualifiers: Atrial fibrillation type: paroxysmal Qualified Code(s): I48.0 - Paroxysmal atrial fibrillation (9) Nasal congestion Current Visit: Yes Status: Acute Plan: Will continue with nasal saline spray and Flonase. (10) Chest pain Current Visit: Yes Status: Acute Plan: Suspect atelectasis. Will check chest x-ray. Encourage incentive spirometer. Encourage ambulation. Qualifiers: Chest pain type: unspecified Qualified Code(s): R07.9 - Chest pain, unspecified Discharge Plan: Home Plan to discharge in: Greater than 2 days Time Spent Managing Pts Care (In Minutes): 55
[2017-11-22] MEDS: ENOXAPARIN 80 MG/0.8 ML SQ SCH ×2 (08:04→20:43)
[2017-11-22] MEDS: PANTOPRAZOLE 40 MG INJ IV SCH (08:04)
[2017-11-22] MEDS: SODIUM CHLORIDE 0.9% 10ML INJ IV SCH ×3 (08:05→20:44)
[2017-11-22] MEDS: FLUTICASONE 50MCG NASAL SPRAY NAS SCH (08:06)
[2017-11-22] MEDS: HYDROMORPHONE HCL 1 MG/ML INJ IV PRN ×3 (08:42→20:43)
[2017-11-22] MEDS: ONDANSETRON 4 MG/2 ML VIAL IV PRN ×2 (08:42→16:55)
[2017-11-22] MEDS: AMIODARONE HCL 450 MG in D5W 241 ML IV SCH (14:07)
--- NOTE | 2017-11-22 15:16 | PN ---
Subjective: The patient is awake, alert, had some chest discomfort yesterday. No radiation or anyth ing, and it did not last long. The patient went to sleep and woke up without any discomfort at all. His vitals have remained stable. He is afebrile. The laboratory data shows a slight increase in th e white count, and hyponatremia and hypomagnesemia. Abdomen is soft, nondistended, nontender. Wound is clean, dry and intact. KELLI put out minimal amount of serosanguineous fluid. NG tube, 200 cc over the last 24 hours. Assessment: Status post cholecystectomy and repair of cholecystoduodenal fistula. Recommendations: This patient is scheduled for upper GI with Gastrografin tomorrow morning. We will get the results; if everything is well, then we will proceed with a diet. Continue TPN and antibiot ics at time being. /MODL Voice ID: [id number] Report ID: [id number]
--- NOTE | 2017-11-22 15:41 | RAD REPORT ---
EXAM DESCRIPTION: RAD - Chest Single View - 11/22/2017 3:11 pm CLINICAL HISTORY: productive cough Chest pain. COMPARISON: Chest Single View dated 11/19/2017; Chest Single View dated 11/19/2017; Chest Single View dated 11/18/2017; Chest Single View dated 11/16/2017 FINDINGS: Portable technique limits examination quality. Mild linear opacities are present in the left lung base laterally probably representing a small area subsegmental atelectasis. The heart is upper limit normal size. Enteric tube descends in the stomach. Right-sided PICC line has tip in the SVC.
[2017-11-22] MEDS: AA 5%/D20W/ELECTROLYTES-TPN 2,000 ML, Lipids 20% 250 ML with MULTIVITAMINS INJ 10 ML IV SCH ×3 (17:27)
[2017-11-22] MEDS: LORazepam 2 MG/ML VIAL IV PRN (20:43)
[2017-11-23] MEDS: HYDROMORPHONE HCL 1 MG/ML INJ IV PRN ×5 (03:42→21:28)
[2017-11-23] MEDS: ONDANSETRON 4 MG/2 ML VIAL IV PRN ×3 (03:42→19:06)
[2017-11-23 05:16] LABS: Absolute Lymphocytes (CBC) 0.7 K/uL (0.7-4.9); Absolute Monocytes 1.1 K/uL (0.1-1.3); Basophils % 0.5 % (0-1.3); Eosinophils % 7.7 % (0-4.4); Hematocrit 27.6 % (39.6-49.0); Lymphocytes % 8.7 % (15.3-44.8); MCH 34.8 pg (27.0-35.0); MCV 97.9 fL (80-100); MPV 7.2 fL (7.6-11.3); Monocytes % 13.2 % (3.3-12.3); RBC Red Blood Cell Count 2.82 M/uL (4.33-5.43)
[2017-11-23] MEDS: METRONIDAZOLE 500mg IVPB 500 MG/100 ML BAG IV SCH ×4 (05:20→23:55)
[2017-11-23] MEDS: AMIODARONE HCL 450 MG in D5W 241 ML IV SCH ×2 (05:20→16:56)
[2017-11-23] MEDS: CEFOXITIN/SWI 1gm 1 GM/10 ML SYR IV SCH ×4 (05:20→23:55)
[2017-11-23 05:33] LABS: ALT/SGPT 25 U/L (12-78); AST/SGOT 20 U/L (15-37); Albumin 2.2 g/dL (3.4-5.0); Alkaline Phosphatase 52 U/L (45-117); BUN Blood Urea Nitrogen 10 mg/dL (7-18); Bicarbonate 28 mmol/L (21-32); Bilirubin Total 0.3 mg/dL (0.2-1.0); Glucose Level 145 mg/dL (74-106); Magnesium 2.1 mg/dL (1.8-2.4); Phosphorus 3.1 mg/dL (2.5-4.9); Potassium 4.5 mmol/L (3.5-5.1); Protein, Total 6.1 g/dL (6.4-8.2); Sodium Level 129 mmol/L (136-145)
[2017-11-23] MEDS: INSULIN -REGULAR HUMAN 50 UNIT/0.5 ML ML SQ SCH ×4 (06:00→23:56)
[2017-11-23] MEDS: ENOXAPARIN 80 MG/0.8 ML SQ SCH ×2 (08:12→20:47)
[2017-11-23] MEDS: FLUTICASONE 50MCG NASAL SPRAY NAS SCH (08:12)
[2017-11-23] MEDS: SODIUM CHLORIDE 0.9% 10ML INJ IV SCH ×3 (08:13→20:47)
[2017-11-23] MEDS: PANTOPRAZOLE 40 MG INJ IV SCH (08:14)
[2017-11-23] MEDS: LORazepam 2 MG/ML VIAL IV PRN ×2 (09:16→17:30)
--- NOTE | 2017-11-23 09:47 | EKG ---
Test Date: 2017-11-21 Test Time: 20:35:09 Linux Server Administrator: RT MEASUREMENT RESULTS: Intervals: Rate: 100 [place]: 176 QRSD: 102 QT: 378 QTc: 487 [place]: P: 30 [place]: 176 QRS: 37 T: 46 INTERPRETIVE STATEMENTS: Normal sinus rhythm Prolonged QT Abnormal ECG Compared to ECG 11/18/2017 14:06:26 Prolonged QT interval now present Atrial fibrillation no longer present ST (T wave) deviation no longer present Possible ischemia no longer present Electronically Signed On 11-23-17 09:45:48 CDT by Dash Keith
--- NOTE | 2017-11-23 11:06 | RAD REPORT ---
EXAM DESCRIPTION: RAD - Upper GI W/ Sm Bowel - 11/23/2017 10:50 am CLINICAL HISTORY: Surgical repair of choledocho duodenal fistula COMPARISON: None. FINDINGS: NG tube is in place. Manager Part imaging shows surgical staple line in the right upper quadrant. Cholecystectomy clips are in place. Drain tube is in place in the right upper quadrant. Chronic inte rstitial lung disease is present. No abnormal free air collections seen. Limited upper GI examination was performed. Patient was medicated and unable to stand or sit upright for the examination. Gastrografin contrast material was instilled via the indwelling NG tube. Stomach and upper abdomen imaging was performed. Gastric size in gastric mucosal fold pattern are normal. A minimal amount of contrast refluxed into t he lower thoracic esophagus, not unexpected given the presence of an NG tube. Patient was in a revers e Trendelenburg position to prevent or minimize possibility of Gastrografin aspiration. There was no delay in transit of contrast from the stomach into the duodenum. Near the second and thi rd portion duodenum junction approximately 2 centimeter contrast collection was identifiable on the m edial margin. A well-defined neck was identifiable. This is a duodenal diverticulum. No extravasation of contrast from the duodenum seen on any of the images. Examination was continued u ntil contrast reached well into the jejunum. IMPRESSION: No extravasation of contrast from the duodenum. No duodenal leak or persistence of the f istula seen. 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
--- NOTE | 2017-11-23 14:49 | P.PN ---
Subjective Date of Service: 11/23/17 Primary Care Provider: Dr. Brewster Chief Complaint: Repair of choleduodenum fistula Subjective: Improving Physical Examination - Vital Signs Temperature: 97.5 F Blood Pressure: 103/81 Pulse: 106 Respirations: 23 Pulse Ox (%): 97 - Physical Exam General: Alert, In no apparent distress, Oriented x3, Cooperative HEENT: Atraumatic Neck: Supple Respiratory: Clear to auscultation bilaterally, Normal air movement Cardiovascular: Irregular heart rate/rhythm (Atrial fibrillation, rate controlled) Gastrointestinal: Normal bowel sounds, Soft and benign, Non-distended, No tenderness, No masses, No rebound, No guarding Musculoskeletal: No erythema, No tenderness, No warmth Integumentary: No tenderness/swelling, No erythema, No warmth, No cyanosis Neurological: Normal speech, Normal strength at 5/5 x4 extr, Normal tone, Normal affect - Studies Laboratory Data (last 24 hrs) 11/23/17 04:50: Sodium 129 L, Potassium 4.5, BUN 10, Creatinine 0.60, Glucose 145 H, Phosphorus 3.1, Magnesium 2.1, Total Bilirubin 0.3, AST 20, ALT 25, Alkaline Phosphatase 52 11/23/17 04:50: WBC 8.5 D, Hgb 9.8 L, Hct 27.6 L, Plt Count 405 Microbiology Data (last 24 hrs): 11/21/17 12:34 Sputum Gram Stain - Final 11/21/17 12:34 Sputum Culture & Sensitivity - Final Medications List Reviewed: Yes Assessment & Plan - Problems (Diagnosis) (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 GI series shows no leak. Patient will be transitioned to clear liquid diet. If tolerating can remove NG tube. If tolerating diet can transfer patient to the floor and transition to oral medication. Patient currently on amiodarone drip, TPN. Continue with incentive spirometer as atelectasis is noted. Continue with physical therapy. Anticipate discharge by Thursday if tolerating regular food. I will turn the service over to Dr. Loza tomorrow. I will go over the plan of care with him. (2) Hyponatremia Onset Date: 11/17/17 Current Visit: Yes Status: Acute Plan: Continue IV TPN. Will monitor closely. If tolerating diet TPN can be discontinued. (3) Anemia Onset Date: 11/17/17 Current Visit: Yes Status: Acute Plan: Likely postsurgical mild acute blood loss with noted of iron deficiency anemia. Hemoglobin stable this time. Will consider iron supplementation. Will monitor closely. Patient may require transfusion if hemoglobin less than 7.0 Qualifiers: Anemia type: other cause (4) Hypertension Onset Date: 11/17/17 Current Visit: Yes Status: Chronic Plan: Will provide IV medication as needed. Qualifiers: Hypertension type: essential hypertension Qualified Code(s): I10 - Essential (primary) hypertension (5) Hypomagnesemia Onset Date: 11/17/17 Current Visit: Yes Status: Acute Plan: Will monitor and replace. (6) GERD (gastroesophageal reflux disease) Onset Date: 11/17/17 Current Visit: Yes Status: Chronic Plan: Continue with PPI Qualifiers: Esophagitis presence: esophagitis presence not specified Qualified Code(s) : K21.9 - Gastro-esophageal reflux disease without esophagitis (7) Cholecystitis with cholelithiasis Onset Date: 11/17/17 Current Visit: Yes Status: Chronic Plan: Patient status post cholecystectomy. Continue as above. Encourage ambulation. Encourage incentive spirometer. Qualifiers: Cholelithiasis location: gallbladder Cholecystitis acuity: chronic Biliary obstruction: without biliary obstruction Qualified Code(s): K80.10 - Calculus of gallbladder with chronic cholecystitis without obstruction (8) Atrial fibrillation Current Visit: Yes Status: Acute Plan: Patient now in normal sinus rhythm. Continue IV amiodarone drip. Tsh unremarkable. Echocardiogram also unremarkable. Patient can be transition to oral medication once he is taking oral intake. Qualifiers: Atrial fibrillation type: paroxysmal Qualified Code(s): I48.0 - Paroxysmal atrial fibrillation (9) Nasal congestion Current Visit: Yes Status: Acute Plan: Will continue with nasal saline spray and Flonase. (10) Chest pain Current Visit: Yes Status: Acute Plan: Suspect atelectasis. Continue with incentive spirometer. Qualifiers: Chest pain type: unspecified Qualified Code(s): R07.9 - Chest pain, unspecified (11) Atelectasis Current Visit: Yes Status: Acute Plan: Continue with incentive spirometer and ambulation. (12) Malnutrition Current Visit: Yes Status: Acute Plan: Patient currently on TPN. Patient to be transitioned from TPN to oral diet if tolerating clear liquid diet. Qualifiers: Malnutrition type: protein-calorie malnutrition Protein-calorie malnutrition severity: mild Qualified Code(s): E44.1 - Mild protein-calorie malnutrition Discharge Plan: Home Plan to discharge in: 48 Hours Time Spent Managing Pts Care (In Minutes): 55
[2017-11-23] MEDS: AA 5%/D20W/ELECTROLYTES-TPN 2,000 ML, Lipids 20% 250 ML with MULTIVITAMINS INJ 10 ML IV SCH ×3 (16:55)
[2017-11-24] MEDS: HYDROMORPHONE HCL 1 MG/ML INJ IV PRN ×3 (00:07→08:32)
[2017-11-24] MEDS: ONDANSETRON 4 MG/2 ML VIAL IV PRN (04:11)
[2017-11-24] MEDS: METRONIDAZOLE 500mg IVPB 500 MG/100 ML BAG IV SCH ×3 (05:32→17:11)
[2017-11-24] MEDS: CEFOXITIN/SWI 1gm 1 GM/10 ML SYR IV SCH ×3 (05:33→17:10)
[2017-11-24] MEDS: INSULIN -REGULAR HUMAN 50 UNIT/0.5 ML ML SQ SCH ×3 (06:00→18:00)
[2017-11-24 06:13] LABS: BUN Blood Urea Nitrogen 9 mg/dL (7-18); Bicarbonate 26 mmol/L (21-32); Glucose Level 141 mg/dL (74-106); Phosphorus 3.1 mg/dL (2.5-4.9); Potassium 3.9 mmol/L (3.5-5.1); Sodium Level 130 mmol/L (136-145)
[2017-11-24] MEDS ORDERED: KCL 20 MEQ/100 mL IVPB 20 MEQ/100 ML BAG IV SCH (07:00)
[2017-11-24] MEDS: AMIODARONE HCL 450 MG in D5W 241 ML IV SCH (08:32)
[2017-11-24] MEDS: ENOXAPARIN 80 MG/0.8 ML SQ SCH (08:32)
[2017-11-24] MEDS: PANTOPRAZOLE 40 MG INJ IV SCH (08:32)
[2017-11-24] MEDS: SODIUM CHLORIDE 0.9% 10ML INJ IV SCH ×3 (08:33→20:25)
[2017-11-24] MEDS: FLUTICASONE 50MCG NASAL SPRAY NAS SCH (08:35)
--- NOTE | 2017-11-24 10:46 | P.PN ---
Subjective Date of Service: 11/24/17 Primary Care Provider: Dr. Brewster Chief Complaint: Repair of choleduodenum fistula The patient feels gradually better, no nausea or vomiting, he is tolerating well clear liquids diet. No fever Physical Examination - Vital Signs Temperature: 97.8 F Blood Pressure: 133/70 Pulse: 89 Respirations: 13 Pulse Ox (%): 95 - Physical Exam General: Alert, In no apparent distress HEENT: Atraumatic, PERRLA, EOMI Neck: Supple, JVD not distended Respiratory: Clear to auscultation bilaterally, Normal air movement Cardiovascular: Normal S1 S2, Irregular heart rate/rhythm Gastrointestinal: Normal bowel sounds, No tenderness Musculoskeletal: No tenderness Integumentary: No rashes Neurological: Normal speech, Normal tone, Normal affect Lymphatics: No axilla or inguinal lymphadenopathy - Studies Laboratory Data (last 24 hrs) 11/24/17 05:26: Sodium 130 L, Potassium 3.9, BUN 9, Creatinine 0.40 L, Glucose 141 H, Phosphorus 3.1, Magnesium 2.0 Microbiology Data (last 24 hrs): 11/18/17 19:23 Blood - Blood Aerobic Blood Culture - Final No growth in 5 days. 11/18/17 19:23 Blood - Blood Anaerobic Blood Culture - Final No growth in 5 days. 11/18/17 19:30 Blood - Blood Aerobic Blood Culture - Final No growth in 5 days. 11/18/17 19:30 Blood - Blood Anaerobic Blood Culture - Final No growth in 5 days. 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 Current Visit: Yes Status: Acute (2) Hyponatremia Onset Date: 11/17/17 Current Visit: Yes Status: Acute (3) Cholecystitis with cholelithiasis Onset Date: 11/17/17 Current Visit: Yes Status: Chronic Qualifiers: Cholelithiasis location: gallbladder Cholecystitis acuity: chronic Biliary obstruction: without biliary obstruction Qualified Code(s): K80.10 - Calculus of gallbladder with chronic cholecystitis without obstruction - Plan 1) Cholecystitis: S/P cholecystectomy, F/U Dr Davis 2) Cholecystoduodenal fistula repair: The patient is gradually improving, he is tolerating well clear liquids, diet has been advanced to full liquids today. NGT will be D/C today. Continue monitoring. 3) Afib: rate is well controlled, will change amiodarone to PO today. Continue Lovenox, will switch to oral anticoagulant before discharge. 4) Hyponatremia: 130 today, continue monitoring. No symptomatic 5) plan: transfer to regular floor. - Code Status/Comfort Care Code Status Assessed: Yes Code Status: Full Code
[2017-11-24] MEDS: METOPROLOL TAR 50 MG TAB PO SCH ×2 (13:41→20:23)
--- NOTE | 2017-11-24 15:30 | PN ---
Date of Progress Note: 11/24/2017 Subjective: The patient is awake, alert, tolerating a little bit of his clear liquids. Residuals ar e less than 25 cc. Upper GI was reviewed with Dr. Zavala and no evidence of the leak. Objective: Vital Signs: Stable. Afebrile. Abdomen: Benign. KELLI, very minimal output, serosanguineous. Laboratory Data: White count is normal. Assessment: Status post cholecystectomy, repair of cholecystoduodenal fistula. Recommendations: We will advance the diet to full liquids. DC the NG tube. Taper the TPN off. The patient can be transferred to the floor on oral amiodarone once he is tolerating regular diet. Hope fully tomorrow or , he can be discharged to home. Plan of care discussed with Dr. Loza. /MODL Voice ID: [id number] Report ID: [id number]
[2017-11-24] MEDS: RIVAROXABAN 15 MG TABLET PO SCH (17:10)
[2017-11-24] MEDS: CODEINE 30MG/APAP 300MG TAB PO PRN (20:24)
[2017-11-24] MEDS: LORazepam 2 MG/ML VIAL IV PRN (21:07)
[2017-11-25] MEDS: METRONIDAZOLE 500mg IVPB 500 MG/100 ML BAG IV SCH ×5 (00:18→23:07)
[2017-11-25] MEDS: CEFOXITIN/SWI 1gm 1 GM/10 ML SYR IV SCH ×5 (00:18→23:08)
[2017-11-25] MEDS: CODEINE 30MG/APAP 300MG TAB PO PRN ×2 (00:30→21:30)
[2017-11-25 05:46] LABS: Absolute Lymphocytes (CBC) 1.1 K/uL (0.7-4.9); Absolute Monocytes 0.9 K/uL (0.1-1.3); Absolute Neutrophil 4.7 K/uL (1.8-8.0); Basophils % 1.4 % (0-1.3); Eosinophils % 8.1 % (0-4.4); Hematocrit 31.1 % (39.6-49.0); Lymphocytes % 14.9 % (15.3-44.8); MCH 33.5 pg (27.0-35.0); MCV 96.9 fL (80-100); MPV 7.9 fL (7.6-11.3); Monocytes % 11.9 % (3.3-12.3); RBC Red Blood Cell Count 3.21 M/uL (4.33-5.43)
[2017-11-25 05:53] LABS: BUN Blood Urea Nitrogen 7 mg/dL (7-18); Bicarbonate 25 mmol/L (21-32); Glucose Level 97 mg/dL (74-106); Magnesium 1.9 mg/dL (1.8-2.4); Phosphorus 2.6 mg/dL (2.5-4.9); Potassium 4.3 mmol/L (3.5-5.1); Sodium Level 132 mmol/L (136-145)
[2017-11-25] MEDS: INSULIN -REGULAR HUMAN 50 UNIT/0.5 ML ML SQ SCH ×5 (07:30→21:00)
[2017-11-25] MEDS: SODIUM CHLORIDE 0.9% 10ML INJ IV SCH ×2 (09:00→09:01)
[2017-11-25] MEDS: FLUTICASONE 50MCG NASAL SPRAY NAS SCH (09:00)
[2017-11-25] MEDS: PANTOPRAZOLE 40 MG INJ IV SCH (09:00)
[2017-11-25] MEDS: METOPROLOL TAR 50 MG TAB PO SCH ×2 (09:01→21:31)
--- NOTE | 2017-11-25 14:40 | PN ---
Date of Progress Note: 11/25/2017 Subjective: The patient is awake, alert, tolerating a little bit of his regular diet, but no nausea or vomiting. KELLI drain has 20 cc of serous fluid. Vital signs are stable. He is went into atrial fi brillation last night, but he is back into sinus. His abdomen is soft, slightly distended. Positive bowel sounds. No peritonitis. No tenderness. Assessment: Status post cholecystectomy repair of cholecystoduodenal fistula. Atrial fibrillation. Recommendations: I would like to keep the patient in 1 more day as he went into atrial fibrillation last night again, make sure he does not have any issues. Also encouraged him to tolerate regular t a little bit better prior to discharge. We will discontinue the KELLI drains and oliver prior to dis charge, which I am hoping would be likely tomorrow. /MODL Voice ID: [id number] Report ID: [id number]
--- NOTE | 2017-11-25 16:18 | EKG ---
Test Date: 2017-11-25 Test Time: 01:52:46 [place] [employer]: RT MEASUREMENT RESULTS: Intervals: Rate: 81 IL: 170 QRSD: 96 QT: 432 QTc: 501 [place]: P: 20 IL: 170 QRS: 59 T: 80 INTERPRETIVE STATEMENTS: Sinus rhythm with premature atrial complexes Low voltage QRS Nonspecific T wave abnormality Prolonged QT Abnormal ECG Compared to ECG 11/21/2017 20:35:09 Atrial premature complex(es) now present Low QRS voltage now present T-wave abnormality now present Electronically Signed On 11-25-17 16:14:39 CDT by Tk Iverson
--- NOTE | 2017-11-25 16:45 | P.PN ---
Subjective Date of Service: 11/25/17 Primary Care Provider: Dr. Brewster Chief Complaint: Repair of choleduodenum fistula Patient seen and examined at bedside with RN. Chart reviewed. Case discussed with general surgery. Currently patient has no complaints to offer. Has been doing well overall. Has been having a bowel movement and passed flatulence. Currently patient is awaiting discharge in 24-48 hr. Has been on clear liquid was advanced to a full liquid diet. Review of Systems 10-point ROS is otherwise unremarkable General: As per HPI Physical Examination - Vital Signs Temperature: 97 F Blood Pressure: 124/67 Pulse: 99 Respirations: 18 Pulse Ox (%): 95 - Physical Exam General: Alert, In no apparent distress HEENT: Atraumatic, PERRLA, EOMI Neck: Supple, JVD not distended Respiratory: Clear to auscultation bilaterally, Normal air movement Cardiovascular: Regular rate/rhythm, Normal S1 S2 Gastrointestinal: Normal bowel sounds, No tenderness Musculoskeletal: No tenderness Integumentary: No rashes Neurological: Normal speech, Normal tone, Normal affect Lymphatics: No axilla or inguinal lymphadenopathy - Studies Laboratory Data (last 24 hrs) 11/25/17 04:49: WBC 7.4, Hgb 10.8 L, Hct 31.1 L, Plt Count 543 H D 11/25/17 04:49: Sodium 132 L, Potassium 4.3, BUN 7, Creatinine 0.80, Glucose 97 , Phosphorus 2.6, Magnesium 1.9 Medications List Reviewed: Yes Assessment And Plan - Current Problems (Diagnosis) (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 This been doing well overall. Has been passing gas and had a bowel movement this morning. Ambulating well. Tolerating his clear liquid diet. Will advance to full liquid diet and then GI soft. Anticipate discharge in 24-48 hr. (2) Cholecystitis with cholelithiasis Onset Date: 11/17/17 Current Visit: Yes Status: Chronic Plan: Status post cholecystectomy. -general surgery on board. Appreciated recommendations. -on clear liquid diet well advanced to a full liquid diet and then GI soft if possible. Qualifiers: Cholelithiasis location: gallbladder Cholecystitis acuity: chronic Biliary obstruction: without biliary obstruction Qualified Code(s): K80.10 - Calculus of gallbladder with chronic cholecystitis without obstruction (3) GERD (gastroesophageal reflux disease) Onset Date: 11/17/17 Current Visit: Yes Status: Chronic Qualifiers: Esophagitis presence: esophagitis presence not specified Qualified Code(s) : K21.9 - Gastro-esophageal reflux disease without esophagitis (4) Hypertension Onset Date: 11/17/17 Current Visit: Yes Status: Chronic Qualifiers: Hypertension type: essential hypertension Qualified Code(s): I10 - Essential (primary) hypertension (5) Atrial fibrillation Current Visit: Yes Status: Chronic Qualifiers: Atrial fibrillation type: paroxysmal Qualified Code(s): I48.0 - Paroxysmal atrial fibrillation - Plan Anticipate discharge in 24-48 hr. Currently patient is on a clear liquid diet well advanced to a full liquid diet and then GI soft if patient is able to tolerate it while patient will be discharged home under stable condition. Discharge Plan: Home Plan to discharge in: 24 Hours - Code Status/Comfort Care Code Status Assessed: Yes Critical Care: No
[2017-11-25] MEDS: RIVAROXABAN 15 MG TABLET PO SCH (17:59)
[2017-11-25] MEDS ORDERED: LORazepam 2 MG/ML VIAL IV ONE (21:51)
[2017-11-26] MEDS: METRONIDAZOLE 500mg IVPB 500 MG/100 ML BAG IV SCH ×2 (05:01→11:14)
[2017-11-26] MEDS: CEFOXITIN/SWI 1gm 1 GM/10 ML SYR IV SCH ×2 (05:01→11:14)
--- NOTE | 2017-11-26 05:47 | PN ---
Date of Progress Note: 11/24/2017 Mr. Garcia had been followed in the hospital for atrial fibrillation following an extensive abdominal surgery. He was initially placed on IV amiodarone and converted to normal rhythm, but then he rever anabel back to atrial fibrillation with rate controlled on the IV amiodarone. He was able to take p.o. and was ready to go home, so we switched him to p.o. beta-blockers. We will continue Xarelto and I f eel that he can go home with rate control and Xarelto, and hopefully once the abdominal surgery sympt oms resolve, he will revert to normal rhythm. While he was in the hospital, he had a normal echo and normal thyroid. Dr. Davis is aware of the plan. I will make sure he sees me within the next week o r two. We will decide on his atrial fibrillation treatment down the road depending on his rate and h is symptoms. ASHLEY/FCO Voice ID: [id number] Report ID: [id number]
[2017-11-26] MEDS: INSULIN -REGULAR HUMAN 50 UNIT/0.5 ML ML SQ SCH ×2 (07:30→11:13)
[2017-11-26] MEDS: PANTOPRAZOLE 40 MG INJ IV SCH (08:32)
[2017-11-26] MEDS: METOPROLOL TAR 50 MG TAB PO SCH (08:32)
[2017-11-26] MEDS: FLUTICASONE 50MCG NASAL SPRAY NAS SCH (08:33)
--- NOTE | 2017-11-26 14:49 | PN ---
Date of Progress Note: 11/26/2017 Subjective: The patient is awake, alert, tolerating diet, ambulating, pain controlled on p.o. pain m edication. Objective: Vital signs: Stable, afebrile. Abdomen: KELLI, minimal serosanguinous drainage. Benign. Assessment: Status post cholecystectomy and repair of cholecystoduodenal fistula and atrial fibrilla tion. Recommendations: The patient is cleared from surgery for discharge. Cardiac meds per Dr. Iverson. Anxiety meds per Dr. Borrego. Followup in my office 10 days, call for appointment. Discharge instruct ions given. /MODL Voice ID: [id number] Report ID: [id number]
--- NOTE | 2017-12-19 23:27 | DS ---
Date of Discharge: 11/26/2017 Admitting Diagnosis: Symptomatic cholelithiasis. Discharge Diagnoses: Symptomatic cholelithiasis and cholecystoduodenal fistula. Procedures Performed: Diagnostic laparoscopy, exploratory laparotomy, lysis of adhesion, cholecystec fred, and repair of cholecystoduodenal fistula. Hospital Course: The patient is a 67-year-old gentleman with the aforementioned procedure. Postoper atively, he was in the ICU. Medicine was consulted to manage his medical issues. He did well in the ICU, was transferred to the floor. He was placed on TPN, IV antibiotics, and G tube. He remained f airly stable until he had an upper GI and small bowel series on the and there was no extravasati on of contrast from the duodenum, no duodenal leak, or fistula persistency. Subsequently, the patien t was started on diet. KELLI output was monitored. He tolerated his diet. There was no increasing KELLI output. It was serosanguineous. His laboratory data, electrolytes were checked and corrected and he was discharged to home on 11/26. He had some issues with anxiety and Dr. Borrego managed that and he had some issues with atrial fibrillation. Dr. Iverson was consulted and he managed that. He was con sulted during stay as well. He was started on Xarelto and metoprolol and he was tolerating that, amb ulating. Pain was controlled on p.o. pain medication, afebrile. Therefore, the patient was discharg ed to home. Disposition: Home. Condition: Stable. Discharge Instructions: Resume home medications as ordered by Dr. Borrego. Resume new medications as order by Dr. Borrego and Dr. Iverson. Followup: Follow up in my office in 1 week. Call for appointment. /MODL Voice ID: [id number] Report ID: [id number]
== END 2017-11-26 13:19 | disposition home or self-care (01) | DRG 415 ==
LOC: OR 08:35 → 3RD-ICU 12:20 → 2ND 11-17 15:40 → 3RD-ICU 11-18 16:23 → 2ND 11-24 14:52
PROVIDERS: ADMIT Surgery; ATTEND Family Medicine
PROC: 0DQ90ZZ Repair Duodenum, Open Approach (ICD-10-PCS; 2017-11-16)
PROC: 0DNW4ZZ Release Peritoneum, Percutaneous Endoscopic Approach (ICD-10-PCS; 2017-11-16)
PROC: 0FN40ZZ Release Gallbladder, Open Approach (ICD-10-PCS; 2017-11-16)
PROC: 02HV33Z Insertion of Infusion Device into Superior Vena Cava, Percutaneous Approach (ICD-10-PCS; 2017-11-16)
PROC: 0FT40ZZ Resection of Gallbladder, Open Approach (ICD-10-PCS; principal; 2017-11-16 10:00)
PROC: 3E0436Z Introduction of Nutritional Substance into Central Vein, Percutaneous Approach (ICD-10-PCS; 2017-11-17)
DX: K80.10 Calculus of gallbladder with chronic cholecystitis without obstruction (principal); E87.1 Hypo-osmolality and hyponatremia; D62 Acute posthemorrhagic anemia; J98.11 Atelectasis; E44.1 Mild protein-calorie malnutrition; Z53.31 Laparoscopic surgical procedure converted to open procedure; K21.9 Gastro-esophageal reflux disease without esophagitis; I48.0 Paroxysmal atrial fibrillation; I10 Essential (primary) hypertension; E83.42 Hypomagnesemia; R09.81 Nasal congestion; G62.9 Polyneuropathy, unspecified; K66.0 Peritoneal adhesions (postprocedural) (postinfection)
CPT/HCPCS: 36415; 71045; 71046; 74245; 80048; 80053; 80076; 82150; 82607; 82728; 82962; 83540; 83735; 84100; 84132; 84443; 84466; 85014; 85018; 85025; 86850; 86900; 86901; 87040; 87070; 87205; 88304; 93005; 93306; 97002; 97163; C9113; J0282; J1170; J1650; J2175; J2250; J2370; J2405; J3010; J3475; J7030; J7060; P9045

== ENCOUNTER 2018-08-14 18:56 | Inpatient (IN) | payer OTHER ==
[2018-08-14] MEDS ORDERED: IPRATROPIUM BROM 0.5MG/2.5ML ONE (19:15)
[2018-08-14] MEDS ORDERED: ALBUTEROL 2.5 MG/3 ML NEB SOL ONE (19:15)
[2018-08-14 19:22] LABS: Absolute Lymphocytes (CBC) 0.8 K/uL (0.7-4.9); Absolute Neutrophil 6.3 K/uL (1.8-8.0); Basophils % 0.7 % (0-1.3); Eosinophils % 12.9 % (0-4.4); Hematocrit 46.2 % (39.6-49.0); Lymphocytes % 8.9 % (15.3-44.8); Monocytes % 10.8 % (3.3-12.3); RBC Red Blood Cell Count 4.76 M/uL (4.33-5.43)
[2018-08-14] MEDS ORDERED: FUROSEMIDE 100 MG/10 ML VIAL IV ONE (19:22)
[2018-08-14 19:27] LABS: Protime INR 1.04
[2018-08-14 19:40] LABS: ALT/SGPT 21 U/L (12-78); AST/SGOT 12 U/L (15-37); Albumin 4.1 g/dL (3.4-5.0); Alkaline Phosphatase 89 U/L (45-117); BUN Blood Urea Nitrogen 8 mg/dL (7-18); Bicarbonate 27 mmol/L (21-32); Bilirubin Direct 0.2 mg/dL (0-0.2); Bilirubin Total 0.8 mg/dL (0.2-1.0); Glucose Level 115 mg/dL (74-106); Magnesium 1.7 mg/dL (1.8-2.4); NT PRO-BNP 96 pg/mL (<125); Potassium 3.5 mmol/L (3.5-5.1); Protein, Total 8.5 g/dL (6.4-8.2); Sodium Level 128 mmol/L (136-145); Troponin (Emerg Dept Use Only) < 0.02 ng/mL (0.0-0.045)
--- NOTE | 2018-08-14 19:44 | RAD REPORT ---
EXAM DESCRIPTION: Talya Single View08/14/2018 7:35 pm CLINICAL HISTORY: Shortness of breath COMPARISON: August 12, 2018 FINDINGS: The lungs appear clear of acute infiltrate. The heart is mildly enlarged IMPRESSION: No acute abnormalities displayed
--- NOTE | 2018-08-14 20:51 | EDPHYS ---
Physician Documentation [facility] Name: Javi Garcia Age: 67 yrs Sex: Male : 1950 Arrival Date: 08/14/2018 Time: 18:57 Bed 6 Private MD: ED Physician Brett Chase Historical: - Allergies: 08/14 19:21 No Known Allergies; ak1 - Home Meds: 19:21 Lasix Oral [Active]; Atenolol Oral [Active]; losartan oral oral [Active]; amlodipine ak1 oral [Active]; - PMHx: 19:21 CHF; COPD; Hypertension; ak1 - Immunization history:: Adult Immunizations unknown. - Social history:: Smoking status: Patient/guardian denies using tobacco, the patient reports quitting approximately .5 years ago. - Ebola Screening: : No symptoms or risks identified at this time. Vital Signs: 19:07 BP 196 / 110; Pulse 105; Resp 34; Temp 98.4(TE); Pulse Ox 85% on R/A; Weight 72.57 kg; ph Height 5 ft. 9 in. (175.26 cm); Pain 0/10; 19:21 BP 159 / 79; Pulse 112; Resp 20; Pulse Ox 100% on BiPAP; ak1 19:43 Pulse 106; Resp 24; Pulse Ox 100% on 45% BiPAP; ak1 20:16 BP 135 / 77; Pulse 100; Resp 15; Temp 98.1(TE); Pulse Ox 100% on 45% BiPAP; Pain 0/10; ak1 21:32 Pulse 107; Resp 25; Pulse Ox 89% on 2 lpm NC; ak1 21:45 BP 131 / 68; Pulse 97; Resp 18; Temp 98.1(TE); Pulse Ox 100% on 50% BiPAP; ak1 19:07 Body Mass Index 23.63 (72.57 kg, 175.26 cm) ph 19:43 RT decreased oxygen % from 50% to 40% ak1 MDM: 19:18 Patient medically screened. tw4 08/14 19:07 Order name: Basic Metabolic Panel 08/14 19:07 Order name: CBC with Diff 08/14 19:07 Order name: LFT's 08/14 19:07 Order name: Magnesium 08/14 19:07 Order name: NT PRO-BNP 08/14 19:07 Order name: PT-INR 08/14 19:07 Order name: Troponin (emerg Dept Use Only) 08/14 19:07 Order name: Blood Culture* 08/14 19:07 Order name: Basic Metabolic Panel EDDE 08/14 19:07 Order name: CBC with Automated Diff EDDE 08/14 19:08 Order name: Liver (Hepatic) Function EDDE 08/14 19:10 Order name: Lactate la1 08/14 20:51 Order name: Procalcitonin [facility] 08/14 21:01 Order name: Urine Dipstick--Ancillary (enter results) ar5 08/14 19:07 Order name: XRAY Chest (1 view) 08/14 19:07 Order name: EKG; Complete Time: 19:08 08/14 19:07 Order name: Cardiac monitoring; Complete Time: 19:13 08/14 19:07 Order name: EKG - Nurse/Tech; Complete Time: 19:13 08/14 19:07 Order name: IV Saline Lock; Complete Time: 19:29 08/14 19:07 Order name: Labs collected and sent; Complete Time: 19:29 08/14 19:07 Order name: O2 Per Protocol; Complete Time: 19:14 08/14 19:07 Order name: O2 Sat Monitoring; Complete Time: 19:14 Administered Medications: 19:10 Drug: Albuterol 2.5 mg Route: Inhalation; ak1 19:10 Drug: AtroVENT Aerosol 0.5 mg Route: Inhalation; ak1 19:15 Drug: Lasix 60 mg Route: IVP; Site: right antecubital; ak1 19:48 Follow up: Response: No adverse reaction; Other; Other - resp even and unlabored. ak1 Disposition: 08/14/18 20:50 Hospitalization ordered by Fercho Christensen for Observation. Preliminary diagnosis is Unspecified systolic (congestive) heart failure. - Bed requested for Telemetry/MedSurg (observation). - Status is Observation. ak1 - Condition is Stable. - Problem is new. - Symptoms have improved. UTI on Admission? No Signatures: Dispatcher [employer] EDDE hSea Patterson RN RN ak1 Sudha Medeiros RN RN cg Starr, Gregory, MD MD gs Brett Chase MD MD tw4 Corrections: (The following items were deleted from the chart) 21:45 20:50 Hospitalization Ordered by Fercho Christensen MD for Observation. Preliminary cg diagnosis is Unspecified systolic (congestive) heart failure. Bed requested for Telemetry/MedSurg (observation). Status is Observation. Condition is Stable. Problem is new. Symptoms have improved. UTI on Admission? No. tw4 21:48 21:45 08/14/2018 20:50 Hospitalization Ordered by Fercho Christensen MD for Observation. cg Preliminary diagnosis is Unspecified systolic (congestive) heart failure. Bed requested for Telemetry/MedSurg (observation). Status is Observation. Condition is Stable. Problem is new. Symptoms have improved. UTI on Admission? No. cg 22:40 21:48 08/14/2018 20:50 Hospitalization Ordered by Fercho Christensen MD for Observation. ak1 Preliminary diagnosis is Unspecified systolic (congestive) heart failure. Bed requested for Telemetry/MedSurg (observation). Status is Observation. Condition is Stable. Problem is new. Symptoms have improved. UTI on Admission? No. cg
--- NOTE | 2018-08-14 20:51 | ER ---
Nurse's Notes [facility] Name: Javi Garcia Age: 67 yrs Sex: Male : 1950 Arrival Date: 08/14/2018 Time: 18:57 Bed 6 Private MD: Diagnosis: Unspecified systolic (congestive) heart failure Presentation: 08/14 19:06 Acuity: PATRICIA 1 ph 19:17 Presenting complaint: states: increased SOB started tonight but original start ak1 date was . pt with "head cold" congestion and productive cough for a month. pt with increased bilateral lower leg swelling starting today. pt stated pt stopped smoking 6 months ago. Transition of care: patient was not received from another setting of care. Onset of symptoms is unknown. Care prior to arrival: None. 19:17 Method Of Arrival: Wheelchair ak1 19:28 Risk Assessment: Do you want to hurt yourself or someone else? Patient reports no ak1 desire to harm self or others. 19:28 Initial Sepsis Screen: Does the patient meet any 2 criteria? RR > 20 per min. HR > 90 ak1 bpm. Yes Does the patient have a suspected source of infection? Yes: Productive cough/pneumonia If YES to both, name of provider notified: Brett Chase MD Triage Assessment: 19:21 General: Appears distressed, uncomfortable, Behavior is calm, cooperative. Pain: Denies ak1 pain. EENT: Parent/caregiver reports the patient having nasal congestion since "a month or so". Neuro: Level of Consciousness is awake, alert, obeys commands, Oriented to person, place, time, situation, Hip Hop Dancer are equal bilaterally Moves all extremities. Gait is steady, Speech normal with SOB . Facial symmetry appears normal. Cardiovascular: No deficits noted. Respiratory: Reports shortness of breath at rest on exertion since 08/12/18 cough that is productive, Airway is patent Respiratory effort is labored, with retractions, Breath sounds with rhonchi Onset: The symptoms/episode began/occurred 08/12/18, the patient has moderate shortness of breath. GI: No signs and/or symptoms were reported involving the gastrointestinal system. : No signs and/or symptoms were reported regarding the genitourinary system. Derm: No signs and/or symptoms reported regarding the dermatologic system. Musculoskeletal: No signs and/or symptoms reported regarding the musculoskeletal system. Historical: - Allergies: 19:21 No Known Allergies; ak1 - Home Meds: 19:21 Lasix Oral [Active]; Atenolol Oral [Active]; losartan oral oral [Active]; amlodipine ak1 oral [Active]; - PMHx: 19:21 CHF; COPD; Hypertension; ak1 - Immunization history:: Adult Immunizations unknown. - Social history:: Smoking status: Patient/guardian denies using tobacco, the patient reports quitting approximately .5 years ago. - Ebola Screening: : No symptoms or risks identified at this time. Screenin:26 Abuse screen: Denies threats or abuse. Denies injuries from another. Nutritional ak1 screening: No deficits noted. Tuberculosis screening: No symptoms or risk factors identified. Fall Risk Ambulatory Aid- Crutches/Cane/Walker (15 pts). Assessment: 19:26 Cardiovascular: Rhythm is sinus tachycardia. ak1 19:27 Reassessment: pt improved since being placed on BiPap. pt tolerating BiPap well. pt and ak1 informed of possible admission. pt resp even and unlabored at this time. will continue to monitor. 20:19 Reassessment: Patient appears in no apparent distress at this time. Patient is alert, ak1 oriented x 3, equal unlabored respirations, skin warm/dry/pink. pt using urinal at this time. Patient denies pain at this time. 21:32 Reassessment: pt and family informed of admission status as well as wait for room ak1 assignment. pt placed on NC at 2L with oxygen saturation decreased to 89%. pt resp [address] Luna notified. RT paged to place pt back on Bipap. 21:46 Reassessment: pt resp even unlabored once placed by on BiPap. Patient denies pain at ak1 this time. Patient states symptoms have improved. Vital Signs: 19:07 BP 196 / 110; Pulse 105; Resp 34; Temp 98.4(TE); Pulse Ox 85% on R/A; Weight 72.57 kg; ph Height 5 ft. 9 in. (175.26 cm); Pain 0/10; 19:21 BP 159 / 79; Pulse 112; Resp 20; Pulse Ox 100% on BiPAP; ak1 19:43 Pulse 106; Resp 24; Pulse Ox 100% on 45% BiPAP; ak1 20:16 BP 135 / 77; Pulse 100; Resp 15; Temp 98.1(TE); Pulse Ox 100% on 45% BiPAP; Pain 0/10; ak1 21:32 Pulse 107; Resp 25; Pulse Ox 89% on 2 lpm NC; ak1 21:45 BP 131 / 68; Pulse 97; Resp 18; Temp 98.1(TE); Pulse Ox 100% on 50% BiPAP; ak1 19:07 Body Mass Index 23.63 (72.57 kg, 175.26 cm) ph 19:43 RT decreased oxygen % from 50% to 40% ak1 ED Course: 18:57 Patient arrived in ED. la1 19:06 Triage completed. ph 19:09 Inserted saline lock: 20 gauge in right antecubital area, using aseptic technique. hb Blood collected. 19:10 Shea Patterson, RN is Primary Nurse. ak1 19:18 Brett Chase MD is Attending Physician. tw4 19:25 Arm band placed on Patient placed in an exam room, on a stretcher, on oxygen, on ak1 classroom monitor, on pulse oximetry, Patient notified of wait time. 19:26 Patient has correct armband on for positive identification. Placed in gown. Bed in low ak1 position. Call light in reach. Side rails up X2. Adult w/ patient. cafeteria monitor on. Pulse ox on. NIBP on. 19:33 XRAY Chest (1 view) In Process Unspecified. EDMS 19:34 Warm blanket given. Pillow given. Head of bed elevated. ak1 20:48 Fercho Christensen MD is Hospitalizing Provider. tw4 21:46 No provider procedures requiring assistance completed. Patient admitted, IV remains in ak1 place. Administered Medications: 19:10 Drug: Albuterol 2.5 mg Route: Inhalation; ak1 19:10 Drug: AtroVENT Aerosol 0.5 mg Route: Inhalation; ak1 19:15 Drug: Lasix 60 mg Route: IVP; Site: right antecubital; ak1 19:48 Follow up: Response: No adverse reaction; Other; Other - resp even and unlabored. ak1 Output: 20:16 Urine: 300ml (Voided); Total: 300ml. ak1 21:43 Urine: 280ml (Voided); Total: 580ml. ak1 Outcome: 20:50 Decision to Hospitalize by Provider. tw4 21:46 Condition: stable ak1 21:46 Instructed on the need for admit. 22:39 Admitted to Tele accompanied by nurse, family with patient, via stretcher, room 424, ak1 with oxygen, with chart, Report called to [place] 22:40 Patient left the ED. ak1 Signatures: Dispatcher [employer] EDMS Colin Jennings RN RN la1 Krenek, Amber RN RN gallito1 Jumana Lynch RN RN ph Brian, Marycarmen, RN LUIS ALFREDO Brett Chase MD MD tw4 Corrections: (The following items were deleted from the chart) 19:10 19:07 BP 196 / 110; Pulse 105bpm; Resp 32bpm; ph ph 20:23 20:16 BP 135 / 77; Pulse 100bpm; Resp 15bpm; Pulse Ox 100% 02 45% BiPAP; Pain 0/10; ak1 ak1 21:44 21:43 Pulse 107bpm; Resp 25bpm; Pulse Ox 89% 2 lpm Nasal Cannula; ak1 ak1 21:46 21:45 Pulse 97bpm; Resp 18bpm; Pulse Ox 100% 02 50% BiPAP; ak1 ak1
[2018-08-14] MEDS ORDERED: METHYLPREDNISOLONE 125 MG INJ IV ONE (21:05)
--- NOTE | 2018-08-14 21:25 | P.HP ---
Certification for Inpatient Patient admitted to: Observation With expected LOS: <2 Midnights Practitioner: I am a practitioner with admitting privileges, knowledge of patient current condition, hospital course, and medical plan of care. Services: Services provided to patient in accordance with Admission requirements found in Title 42 Section 412.3 of the Code of Federal Regulations Patient History Date of Service: 08/14/18 Reason for admission: acute respirtory failure History of Present Illness: Mr Garcia is a 67 years old male with history of COPD, chronic diastolic CHF, HTN, who start about 3 weeks ago with progressive SOB. He states that previously had a cold for a few days. He has had more cough than usual, but did not change sputum color, no history of fever or chills. No chest pain. He noticed increasing in lower extremity edema. Lasix was recently increasing by his PCP to 60 mg daily due to his symptoms. Today his brought him to ER due to worsening symptoms. At arrival his O2 sat was 85% on RA. No fever, BP was 196/110, HR 105. He was placed on BiPAP and treated with IV lasix. The patient responded well to diuretics, and improved his symptoms. Lab work shows normal WBC count, normal lactate, procalcitonin still pending, sodium level 128 , similar to previous encountes. CXR no acute abnormalities, according to ratiologist report. Allergies No Known Allergies Allergy (Verified 11/16/17 09:58) Home Medications: Furosemide [Lasix*] 40 mg PO DAILY 11/12/17 Gabapentin [Gralise] 300 mg PO DAILY 11/12/17 Ibuprofen 800 mg PO PRN PRN 11/12/17 L.acidoph,Paracasei, B.lactis [Probiotic] 1 each PO DAILY 11/12/17 Omeprazole [Prilosec] 40 mg PO DAILY 11/12/17 ALPRAZolam [Xanax] 0.25 mg PO BEDTIME PRN #4 tab 11/26/17 Metoprolol Tartrate [Lopressor*] 50 mg PO BID #60 tab 11/26/17 Rivaroxaban [Xarelto*] 15 mg PO DAILY AT SUPPER #30 tablet 11/26/17 - Past Medical/Surgical History Diabetic: No -: Hypertension -: GERD -: chronic diastolic CHF -: paroxismal A.Fib -: HTN -: COPD -: Diagnostic laparoscopy -: exploratory laparotomy -: lysis of adhesion -: cholecystectomy Psychosocial/ Personal History: Patient is - Family History Family History: Reviewed- Non-Contributory - Family History Father -: Other (see notes) - Social History Smoking Status: Former smoker (currently still vaping) Alcohol use: Yes CD- Drugs: No Caffeine use: No Place of Residence: Home Review of Systems 10-point ROS is otherwise unremarkable Physical Examination - Physical Exam General: Alert, In no apparent distress HEENT: Atraumatic, PERRLA, Mucous membr. moist/pink, EOMI, Sclerae nonicteric Neck: Supple, 2+ carotid pulse no bruit, No LAD, Without JVD or thyroid abnormality Respiratory: Diminished, Crackles/rales (bibasilar rales), Expiratory wheezes Cardiovascular: Regular rate/rhythm, Normal S1 S2 Gastrointestinal: Normal bowel sounds, No tenderness Musculoskeletal: No tenderness Integumentary: No rashes Neurological: Normal speech, Normal strength at 5/5 x4 extr, Normal tone, Normal affect Lymphatics: No axilla or inguinal lymphadenopathy - Studies Laboratory Data (last 24 hrs) 08/14/18 19:05: PT 12.3, INR 1.04 08/14/18 19:05: WBC 9.4, Hgb 15.8, Hct 46.2, Plt Count 302 08/14/18 19:05: Sodium 128 L, Potassium 3.5, BUN 8, Creatinine 0.77, Glucose 115 H, Magnesium 1.7 L, Total Bilirubin 0.8, AST 12 L, ALT 21, Alkaline Phosphatase 89 Assessment and Plan - Problems (Diagnosis) (1) Acute respiratory failure Current Visit: Yes Status: Acute Qualifiers: Respiratory failure complication: hypoxia Qualified Code(s): J96.01 - Acute respiratory failure with hypoxia (2) COPD (chronic obstructive pulmonary disease) Current Visit: Yes Status: Acute Qualifiers: COPD type: unspecified COPD Qualified Code(s): J44.9 - Chronic obstructive pulmonary disease, unspecified (3) Hyponatremia Onset Date: 11/17/17 Current Visit: No Status: Acute (4) Hypertension Onset Date: 11/17/17 Current Visit: No Status: Chronic Qualifiers: Hypertension type: essential hypertension Qualified Code(s): I10 - Essential (primary) hypertension - Plan Will admit the patient due to acute respiratory failure due to CHF exacerbation. He has signs of bronchospasm, that might be secondary to CHF, but also consider COPD exacerbation. Hyponatremia, likely due to volume overload. Will continue with IV lasix, start IV steroids and breathing treatments. Consult Dr Iverson for evaluation and recommendations. - Advance Directives Does patient have a Living Will: No Does patient have a Durable POA for Healthcare: No - Code Status/Comfort Care Code Status Assessed: Yes Code Status: Full Code
[2018-08-14] MEDS ORDERED: METHYLPREDNISOLONE 125 MG INJ ONE (21:50)
[2018-08-14 22:04] LABS: Urine Blood NEGATIVE (NEG); Urine Glucose NEGATIVE (NEG); Urine Protein NEGATIVE (NEG)
[2018-08-14] MEDS ORDERED: MAGNESIUM SULFATE 1 gm IVPB 1 GM/100 ML BAG IV ONE (23:13)
[2018-08-14] MEDS ORDERED: ALBUTEROL 2.5 MG/3 ML NEB SOL NEB PRN (23:18)
[2018-08-14] MEDS ORDERED: ONDANSETRON 4 MG/2 ML VIAL IV PRN (23:18)
[2018-08-14] MEDS ORDERED: POTASSIUM CL SA 10 MEQ TAB PO ONE (23:27)
[2018-08-15] MEDS: ALPRAZOLAM 0.25 MG TABLET PO PRN ×2 (00:03→20:51)
--- NOTE | 2018-08-15 06:19 | EKG ---
Test Date: 2018-08-14 Test Time: 19:10:10 Dental Assisting Instructor: GENNARO MEASUREMENT RESULTS: Intervals: Rate: 106 [place]: 178 QRSD: 98 QT: 342 QTc: 454 Finley: P: 48 [place]: 178 QRS: 55 T: 67 INTERPRETIVE STATEMENTS: Sinus tachycardia with occasional premature ventricular complexes Low voltage QRS Nonspecific ST and T wave abnormality Abnormal ECG Compared to ECG 11/25/2017 01:52:46 Ventricular premature complex(es) now present ST (T wave) deviation now present Sinus rhythm no longer present Atrial premature complex(es) no longer present T-wave abnormality no longer present Prolonged QT interval no longer present Electronically Signed On 08-15-18 06:19:04 CDT by Dash Keith
[2018-08-15 06:28] LABS: Urine Appearance CLEAR; Urine Bilirubin NEGATIVE (NEG); Urine Blood NEGATIVE (NEG); Urine Color YELLOW; Urine Glucose NEGATIVE (NEG); Urine Protein 1+ (NEG); Urine Urobilinogen 0.2 mg/dL (0.2-1.0); Urine pH 5.5 (5.0-7.0)
[2018-08-15 06:33] LABS: Urine Microscopic Reflex ORDER UMIC
[2018-08-15 06:34] LABS: Absolute Lymphocytes (CBC) 0.2 K/uL (0.7-4.9); Absolute Monocytes 0.1 K/uL (0.1-1.3); Absolute Neutrophil 5.8 K/uL (1.8-8.0); Basophils % 0.2 % (0-1.3); Eosinophils % 0.1 % (0-4.4); Hematocrit 42.1 % (39.6-49.0); Lymphocytes % 3.1 % (15.3-44.8); MPV 7.6 fL (7.6-11.3); Monocytes % 1.7 % (3.3-12.3); RBC Red Blood Cell Count 4.34 M/uL (4.33-5.43)
[2018-08-15 06:49] LABS: BUN Blood Urea Nitrogen 8 mg/dL (7-18); Bicarbonate 28 mmol/L (21-32); Glucose Level 169 mg/dL (74-106); Potassium 4.2 mmol/L (3.5-5.1); Sodium Level 128 mmol/L (136-145)
[2018-08-15 06:53] LABS: Urine Bacteria <20 /HPF (NONE SEEN); Urine Culture Reflex Order NOT NEEDED; Urine RBC <5 /HPF (NONE SEEN)
[2018-08-15 06:54] LABS: Urine Mucus SLIGHT /HPF (NONE SEEN)
[2018-08-15 08:18] LABS: Blood Morphology Comment NOT SEEN (NOT SEEN); Platelet Estimate ADEQ
[2018-08-15] MEDS ORDERED: FUROSEMIDE 40 MG/4 ML VIAL IV SCH (09:00)
[2018-08-15] MEDS ORDERED: PNEUMOCOCCAL VACCINE 0.5 ML IMVAC ONE (10:00)
--- NOTE | 2018-08-15 12:06 | P.PN ---
Subjective Date of Service: 08/15/18 Chief Complaint: acute respirtory failure pt seen and examined no overnight events saturating 94% on 2 l NC Review of Systems 10-point ROS is otherwise unremarkable Physical Examination - Vital Signs Temperature: 96.6 F Blood Pressure: 153/74 Pulse: 85 Respirations: 18 Pulse Ox (%): 94 - Physical Exam General: Alert, In no apparent distress, Oriented x3 HEENT: Atraumatic, Normocephalic, PERRLA Neck: Supple, JVD not distended Respiratory: Normal air movement, Inspiratory wheezes Cardiovascular: No edema, Regular rate/rhythm, Normal S1 S2 Gastrointestinal: Normal bowel sounds, Soft and benign, Non-distended Musculoskeletal: No clubbing, No swelling, No erythema, No tenderness Integumentary: No rashes Neurological: Normal speech - Studies Laboratory Data (last 24 hrs) 08/14/18 19:05: PT 12.3, INR 1.04 08/14/18 19:05: WBC 9.4, Hgb 15.8, Hct 46.2, Plt Count 302 08/14/18 19:05: Sodium 128 L, Potassium 3.5, BUN 8, Creatinine 0.77, Glucose 115 H, Magnesium 1.7 L, Total Bilirubin 0.8, AST 12 L, ALT 21, Alkaline Phosphatase 89 Assessment And Plan - Current Problems (Diagnosis) (1) Acute respiratory failure Current Visit: Yes Status: Acute Qualifiers: Respiratory failure complication: hypoxia Qualified Code(s): J96.01 - Acute respiratory failure with hypoxia (2) COPD (chronic obstructive pulmonary disease) Current Visit: Yes Status: Acute Qualifiers: COPD type: unspecified COPD Qualified Code(s): J44.9 - Chronic obstructive pulmonary disease, unspecified (3) Anemia Onset Date: 11/17/17 Current Visit: No Status: Acute Qualifiers: Anemia type: other cause (4) Hyponatremia Onset Date: 11/17/17 Current Visit: Yes Status: Acute - Plan Acute hypoxic respiratory failure most likley due to CHF VS COPD started on lasix IV losartan I & O daily weight f/up repeat echo cardiology consult O2 therapy nebulizers hyponatremia most likly hypervolumic nephrology consult monitor Na fluid restriction Afib continue xaretlo DVt ppx Discharge Plan: Home Plan to discharge in: 48 Hours
[2018-08-15] MEDS: FUROSEMIDE 40 MG/4 ML VIAL IV SCH ×2 (13:27→20:51)
--- NOTE | 2018-08-15 13:50 | CON ---
History Of Present Illness: Mr. Garcia has had about a week history of progressively worsening shortness of breath. He notices it is worse if he lays down. He has also noted weight gain, swelling of his shins and feet. Mr. Garcia has not changed any of his dietary habits or medications recently. He had atrial fibrillation in October 2017 that was related to his surgery and presently has not had any atrial fib since then. 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 Presently, he does not take any medications for AFib, no anticoagulant. Remotely something more than 10 years ago, he was diagnosed with a viral cardiomyopathy. A cardiac cath was done. His coronary arteries were normal. His ejection fraction was low. He was placed on medications, and several years later, the ejection fraction was normal. He continued the medications, and in October 2017, his ejection fraction was normal. Echocardiogram was normal. He has not had any chest pain. He has had shortness of breath, orthopnea, paroxysmal nocturnal dyspnea, edema. The patient does not follow a low-sodium diet. He smokes intermittently , but none for the last 6 months. Since he has been here in the hospital, he has had diuresis and seems to be breathing somewhat better. He has had normal troponins. His chest x-ray reveals pulmonary edema, cardiomegaly consistent with congestive heart failure. His sodium is low at 128, creatinine 0.77. Blood sugars are 115 and 169 since he has been here. Outpatient Medications: Omeprazole, furosemide, losartan, atenolol, and amlodipine. Allergies: HE HAS NO ALLERGIES. Physical Examination: Vital signs: He is 5 feet and 10 inches, 182 pounds, mildly overweight. Lungs: Reveal diffuse wheezes and crackles. Heart: Reveals normal heart tones. Apical impulse maybe a little bit laterally displaced. I do not appreciate diastolic or systolic murmur. Abdomen: Mildly obese, but tender. Extremities: 2+ edema. Distal pulses palpable. Electrocardiogram reveals sinus tachycardia, occasional PVCs, low voltage QRS, nonspecific ST and T-wave abnormality. Impression: The patient has congestive heart failure. I wonder if he has developed coronary heart disease. He does not seem to be on a statin or follow a low-sodium diet or low-fat diet, so he may have developed coronary heart disease. His EF may have deteriorated. Since he was last seen for his heart failure, may be mostly diastolic, so we should do a nuclear stress test and echo , put him on appropriate medications for heart failure, teach him about sodium restriction. PARKER/FCO Voice ID: [id number] Report ID: [id number] HANH
--- NOTE | 2018-08-15 16:42 | CON ---
Date of Consultation: 08/15/2018 Consulting Physician: Dr. Mckay. Reason For Consultation: Hyponatremia. History Of Present Illness: This is a 67-year-old gentleman with significant past medical history of COPD, congestive heart failure, diastolic dysfunction, hypertension. The patient was brought to the hospital because of shortness of breath that was gradually getting worse, try as outpatient with inc reasing the Lasix, but his shortness of breath and leg swelling get worse. For that reason, he repor anabel to the emergency room. In the emergency room, the patient was hypertensive, diastolic was above 110 and systolic 196 and hypoxemic saturation down to 85. The patient was placed on diuresis. Prima ry workup showed elevated BNP and congestion on the chest x-ray. With hyponatremia down to 128 for t hat reason, we have been consulted. The patient according to him he is excessive drinker and drink o n a daily basis beer and also drink water excessively. The patient taking occasional nonsteroidal. No fever or chills. No sputum. Past Medical History: Include; 1.Hypertension. 2.COPD. 3.Congestive heart failure, diastolic dysfunction. Home Medication: Include Lasix 40 mg, gabapentin, ibuprofen occasionally, omeprazole, alprazolam, me toprolol, and Xarelto. Past Surgical History: Include abdominal surgery, adhesiolysis, and cholecystectomy. Family History: Positive for hypertension. Social History: Ex-smoker, active alcohol, denies drug abuse. Review of Systems: Head and Neck: No red eye. No ear pain. GI: No nausea. No vomiting. : No polyuria. No dysuria. No hematuria. Vault Manager: Not applicable. Respiratory: Has shortness of breath. Cardiovascular: He has orthopnea, has leg swelling. Endocrine: No polydipsia. Skin: No rash. Neuro: No neuropathy. Musculoskeletal: No pain. Physical Examination: Vital Signs: When I saw the patient, blood pressure of 153/74, pulse of 85, afebrile. Chest: Crackles bilateral base. Heart: S1, S2. Regular. Abdomen: Soft. Nontender. Extremity: Trace edema, has venous stasis. Neurological: Alert and oriented x3. No focal. Laboratory Data: Sodium 128, potassium of 4.2, bicarb 28.3, BUN 8, creatinine 0.7, calcium 8.9. Uri ne analysis; specific gravity of 1.010. Chest x-ray; cardiomegaly with congestion bilateral. Current Medications: In the hospital include, 1.Albuterol. 2.Xarelto. 3.Alprazolam. 4.Lasix. 5.Zofran. 6.Magnesium. 7.Solu-Medrol. 8.KCl. Assessment And Plan: 1.Hyponatremia secondary to dilutional, secondary to congestive heart failure. I am going to go ahe ad and place the patient on a fluid restriction. Increase Lasix to 3 times a day and we will follow up the response. I am going to go ahead and send for cortisol level, TSH, and urine electrolyte and we will follow up. I had long discussion with the patient in the presence of the regarding the need of fluid restriction. The patient still not convinced. We will follow up. 2.Hypertension. We will utilize blood pressure for more diuresis. 3.Congestive heart failure, diastolic dysfunction as by Cardiology. Continue diuresis. 4.Hypokalemia, status post supplement, resolved. Thank you, Dr. Mckay for allowing us to participate in the care of your patient. BASILIO Voice ID: [id number] Report ID: [id number]
[2018-08-15] MEDS: RIVAROXABAN 15 MG TABLET PO SCH (16:57)
[2018-08-16 07:20] LABS: Albumin 3.4 g/dL (3.4-5.0); BUN Blood Urea Nitrogen 14 mg/dL (7-18); Bicarbonate 32 mmol/L (21-32); Glucose Level 111 mg/dL (74-106); Phosphorus 3.4 mg/dL (2.5-4.9); Potassium 3.7 mmol/L (3.5-5.1); Sodium Level 132 mmol/L (136-145)
[2018-08-16] MEDS ORDERED: REGADENOSON 0.4 MG/5 ML SYR IV ONE (08:39)
[2018-08-16] MEDS: FUROSEMIDE 40 MG/4 ML VIAL IV SCH ×3 (08:46→21:25)
[2018-08-16] MEDS ORDERED: HOME MED 1 EA UNK (Losartan Potassium [Losartan Potassium] 1 TAB) PO SCH (09:00)
[2018-08-16] MEDS ORDERED: ATENOLOL PO SCH (09:00)
[2018-08-16] MEDS: LOSARTAN POTASSIUM 50 MG TABLET PO SCH (10:09)
[2018-08-16] MEDS: POTASSIUM CL SA 10 MEQ TAB PO SCH (10:09)
[2018-08-16] MEDS: ATENOLOL 50 MG TAB PO SCH (10:10)
[2018-08-16] MEDS: IPRATROPIUM BROM 0.5MG/2.5ML NEB PRN (10:25)
--- NOTE | 2018-08-16 10:32 | ECHO ---
HEIGHT: 5 ft 10 in WEIGHT: 180 lb 4.8 oz DATE OF STUDY: 08/16/[address]: Dash Keith MD 2-DIMENSIONAL: YES M.MODE: YES DOPPLER: YES COLOR FLOW: YES TDS: YES PORTABLE: NO DEFINITY: NO BUBBLE STUDY: NO DIAGNOSIS: CONGESTIVE HEART FAILURE CARDIAC HISTORY: CATHERIZATION: NO SURGERY: NO PROSTHETIC VALVE: NO PACEMAKER: NO MEASUREMENTS (cm) DIASTOLIC (NORMALS) SYSTOLIC (NORMALS) IVSd 1.1 (0.6-1.2) LA Diam 2.8 (1.9-4.0) LVEF 67% LVIDd 3.3 (3.5-5.7) LVIDs 2.1 (2.0-3.5) %FS 36% LVPWd 1.2 (0.6-1.2) Ao Diam 3.4 (2.0-3.7) 2 DIMENSIONAL ASSESSMENT: RIGHT ATRIUM: NORMAL LEFT ATRIUM: NORMAL RIGHT VENTRICLE: NORMAL LEFT VENTRICLE: NORMAL TRICUSPID VALVE: NORMAL MITRAL VALVE: NORMAL PULMONIC VALVE: NORMAL AORTIC VALVE: NORMAL PERICARDIAL EFFUSION: NONE AORTIC ROOT: NORMAL LEFT VENTRICULAR WALL MOTION: NORMAL DOPPLER/COLOR FLOW: IMPAIRED LEFT VENTRICULAR RELAXATION. COMMENTS: NORMAL 2D ECHOCARDIOGRAM. IMPAIRED LEFT VENTRICULAR RELAXATION, OTHERWISE NORMAL CARDIAC DOPPLER. TECHNOLOGIST: Evon WHITE
--- NOTE | 2018-08-16 11:24 | P.PN ---
Subjective Date of Service: 08/16/18 Chief Complaint: acute respirtory failure Patient seen and examined at bedside with RN. Chart reviewed. Case discussed with nephrology, cardiology at this time. Currently patient is waiting echo and stress test this morning. Saturating well on 2 L of nasal cannula. Does complain of having a lot of cough this morning. Review of Systems 10-point ROS is otherwise unremarkable Physical Examination - Vital Signs Temperature: 97.9 F Blood Pressure: 140/78 Pulse: 92 Respirations: 20 Pulse Ox (%): 93 - Physical Exam General: Alert, Oriented x3 Respiratory: Normal air movement, Crackles/rales, Expiratory wheezes, Inspiratory wheezes Cardiovascular: Regular rate/rhythm, Normal S1 S2 Gastrointestinal: Normal bowel sounds, No tenderness Musculoskeletal: No tenderness, Swelling (2+ pedal edema bilaterally) Integumentary: No rashes Neurological: Normal speech, Normal tone, Normal affect Lymphatics: No axilla or inguinal lymphadenopathy - Studies Medications List Reviewed: Yes Assessment And Plan - Current Problems (Diagnosis) (1) Acute respiratory failure Current Visit: Yes Status: Acute Plan: Acute respiratory failure most likely secondary to CHF versus COPD exacerbation -patient currently off of BiPAP and on nasal cannula saturating well -will continue to monitor patient closely Qualifiers: Respiratory failure complication: hypoxia Qualified Code(s): J96.01 - Acute respiratory failure with hypoxia (2) CHF (congestive heart failure) Current Visit: Yes Status: Acute Plan: Acute on chronic congestive heart failure exacerbation -echocardiogram and stress test pending at this time -patient currently on Lasix t.i.d. -appears to be improving today -fluid restriction, low sodium diet and daily weights at this time -will monitor patient closely Qualifiers: Heart failure type: unspecified Heart failure chronicity: acute on chronic Qualified Code(s): I50.9 - Heart failure, unspecified (3) COPD (chronic obstructive pulmonary disease) Current Visit: Yes Status: Acute Plan: COPD with acute exacerbation -duo nebs, currently on oxygen 2 L saturating well -will monitor patient closely Qualifiers: COPD type: COPD with acute exacerbation Qualified Code(s): J44.1 - Chronic obstructive pulmonary disease with (acute) exacerbation (4) Hyponatremia Onset Date: 11/17/17 Current Visit: Yes Status: Acute Plan: Hyponatremia with initial sodium less than 120 now resolving -patient currently on fluid restriction and low sodium diet. -sodium levels today 132, will continue to monitor (5) Atrial fibrillation Current Visit: No Status: Chronic Plan: Currently patient on beta-michael along with anti coagulation as well Qualifiers: Atrial fibrillation type: paroxysmal Qualified Code(s): I48.0 - Paroxysmal atrial fibrillation (6) GERD (gastroesophageal reflux disease) Onset Date: 11/17/17 Current Visit: No Status: Chronic Qualifiers: Esophagitis presence: esophagitis presence not specified Qualified Code(s) : K21.9 - Gastro-esophageal reflux disease without esophagitis (7) Hypertension Onset Date: 11/17/17 Current Visit: No Status: Chronic Qualifiers: Hypertension type: essential hypertension Qualified Code(s): I10 - Essential (primary) hypertension - Plan Pending clinical improvement at this time. Discharge Plan: Home Plan to discharge in: 48 Hours - Code Status/Comfort Care Code Status Assessed: Yes Critical Care: No
[2018-08-16] MEDS: LEVALBUTEROL 0.63 MG/3 ML NEB NEB SCH ×2 (14:20→19:38)
--- NOTE | 2018-08-16 15:44 | RAD REPORT ---
EXAM DESCRIPTION: NM - Rest Stress Cardiac Imaging - 08/16/2018 3:37 pm CLINICAL HISTORY: Chest pain. COMPARISON: None. TECHNIQUE: The patient was administered approximately 10mCi of Tc 99m Sestamibi prior to resting SPE CT imaging of the heart. The patient was then administered approximately 30 mCi of Tc 99m Sestamibi f ollowing exercise or pharmacologic stress. Multiplanar SPECT images were reviewed. FINDINGS: There is uniformity of radiotracer uptake involving the entire left ventricular myocardiu m on rest and stress images. The left ventricular ejection fraction equals 56% IMPRESSION: Negative for a myocardial perfusion defect
[2018-08-16] MEDS: RIVAROXABAN 15 MG TABLET PO SCH (16:10)
[2018-08-16] MEDS ORDERED: ACETAMINOPHEN 500 MG TAB PO PRN (18:19)
[2018-08-16] MEDS: ALPRAZOLAM 0.25 MG TABLET PO PRN (21:24)
[2018-08-16] MEDS ORDERED: GUAIFENESIN/CODEINE 5ML UCUP PO ONE (23:35)
[2018-08-17] MEDS: LEVALBUTEROL 0.63 MG/3 ML NEB NEB SCH ×4 (01:50→20:00)
--- NOTE | 2018-08-17 02:20 | PN ---
Date of Progress Note: 08/16/2018 Chief Complaint: Hypertensive kidney disease, hyponatremia, congestive heart failure. The patient w as found to have dilutional hyponatremia secondary to congestive heart failure with cardiorenal syndr ome. DICTATION ENDS HERE EB/MODKeven Voice ID: [id number] Report ID: [id number]
[2018-08-17 05:02] LABS: Albumin 3.3 g/dL (3.4-5.0); Potassium 3.6 mmol/L (3.5-5.1)
[2018-08-17] MEDS ORDERED: POTASSIUM CL SA 10 MEQ TAB PO ONE (06:00)
--- NOTE | 2018-08-17 07:35 | PN ---
Date of Progress Note: 08/16/2018 Chief Complaint: Hypertensive kidney disease, hyponatremia, congestive heart failure. History Of Present Illness: The patient was found to have dilutional hyponatremia secondary to conge stive heart failure with cardiorenal syndrome. The patient is 67-year-old man with significant histo ry of COPD, congestive heart failure with diastolic dysfunction, hypertension. He presented to the [facility] because of shortness of breath and this was gradually improving with Lasix. He was found to have hypoxemic respiratory failure with hypertensive emergency. Blood pressure was u p to 196/110 and BNP was elevated. Chest x-ray showed vascular congestion and the patient was on O2 nasal cannula for hypoxemic respiratory failure, SpO2 was 85. Review of Systems: Denies fever, chills. Physical Examination: Lungs: Few crackles at bases. Heart: S1-S2. Abdomen: Soft, benign. Extremities: Edema of both legs. Laboratory Date: Sodium 132 , potassium 3.7, chloride 95, CO2 32, BUN 14, creatinine 0.74, albumin 3 .3. Impression And Plan: Cardiorenal syndrome, hyponatremia. The patient is responding to diuretic. Co ntinue low-sodium diet and p.o. fluid restriction. The patient developed hyponatremia secondary to c ongestive heart failure exacerbation. The patient is tolerating Lasix. Renal function is stable. C ontinue to monitor for any other evidence of hyponatremia etiology. Cortisol level and TSH levels we re ordered. Congestive heart failure, diastolic dysfunction. Continue diuresis with Lasix. Hypokalemia, resolved. Supplementation as needed. Monitor magnesium level. JOSH/FCO Voice ID: [id number] Report ID: [id number]
--- NOTE | 2018-08-17 08:53 | TREADPHA ---
DX: CHEST PAIN Date of Study: 08/16/2018 Ht: 5 10 Wt: 178 lb 1.6 oz Consulting Physician: ALYSHA MEDICATIONS: PROVENTIL, XANAX, LASIX, TENORMIN, COZAAR HISTORY: CONGESTIVE HEART FAILURE, GERD, ATRIAL FIBRILLATION, HYPERTENSION, COPD, FORMER SMOKER QUIT X6 MONTHS AGO. PHYSICIAL EXAMINATION: RESTING B.P.: 127/69 RESTING H.R.: 71 RESTING EKG: NORMAL PROTOCOL: LEXISCAN EXERCISE TIME: 3:30 B.P. AT PEAK STRESS: 146/65 IMPRESSION: LEXISCAN STRESS TEST PERFORMED. CARDIOLITE INJECTED PER PROTOCOL. NO SUPRA VENTRICULAR TACHYCARDIA, NO VENTRICULAR TACHYCARDIA, NOTED. NO ARRHYTHMIAS, DENIES CHEST PAIN. SEE NUCLEAR MEDICINE REPORT. NON DIAGNOSTIC EKG WITH LEXISCAN STRESS.
[2018-08-17] MEDS: POTASSIUM CL SA 10 MEQ TAB PO SCH (08:57)
[2018-08-17] MEDS: FUROSEMIDE 40 MG/4 ML VIAL IV SCH (08:57)
[2018-08-17] MEDS: ATENOLOL 50 MG TAB PO SCH (08:57)
[2018-08-17] MEDS: LOSARTAN POTASSIUM 50 MG TABLET PO SCH (08:57)
[2018-08-17] MEDS ORDERED: ALPRAZOLAM 0.25 MG TABLET PO ONE (09:16)
--- NOTE | 2018-08-17 10:59 | RAD REPORT ---
EXAM DESCRIPTION: RAD - Chest Pa And Lat (2 Views) - 08/17/2018 10:41 am CLINICAL HISTORY: Acute CHF exacerbation COMPARISON: Aug 14 2018, October 2017 TECHNIQUE: PA and lateral views of the chest were obtained. FINDINGS: The lungs are fibrotic. No peripheral mass or consolidation. Fullness of the left hilum is not clearly different from prior imaging. Heart size is normal. Upper lobe vasculature within norm al limits. No pleural effusion or pneumothorax seen. No acute bony finding noted. No aortic abnorma lity. IMPRESSION: Patient has chronic interstitial lung disease that is not substantially different from c omparison. Heart, vasculature and lung markings do not indicate any significant degree of failure or volume over load.
--- NOTE | 2018-08-17 11:27 | P.DS ---
Admission Date: 08/15/18 Discharge Date: 08/17/18 Disposition: ROUTINE DISCHARGE Discharge Condition: GOOD Reason for Admission: acute respirtory failure Consultations: Cardiology - Problems (1) Acute respiratory failure Current Visit: Yes Status: Acute Qualifiers: Respiratory failure complication: hypoxia Qualified Code(s): J96.01 - Acute respiratory failure with hypoxia (2) CHF (congestive heart failure) Current Visit: Yes Status: Acute Qualifiers: Heart failure type: unspecified Heart failure chronicity: acute on chronic Qualified Code(s): I50.9 - Heart failure, unspecified (3) COPD (chronic obstructive pulmonary disease) Current Visit: Yes Status: Acute Qualifiers: COPD type: COPD with acute exacerbation Qualified Code(s): J44.1 - Chronic obstructive pulmonary disease with (acute) exacerbation (4) Hyponatremia Onset Date: 11/17/17 Current Visit: Yes Status: Acute (5) Atrial fibrillation Current Visit: No Status: Chronic Qualifiers: Atrial fibrillation type: paroxysmal Qualified Code(s): I48.0 - Paroxysmal atrial fibrillation (6) GERD (gastroesophageal reflux disease) Onset Date: 11/17/17 Current Visit: No Status: Chronic Qualifiers: Esophagitis presence: esophagitis presence not specified Qualified Code(s) : K21.9 - Gastro-esophageal reflux disease without esophagitis (7) Hypertension Onset Date: 11/17/17 Current Visit: No Status: Chronic Qualifiers: Hypertension type: essential hypertension Qualified Code(s): I10 - Essential (primary) hypertension Brief History of Present Illness: Mr Garcia is a 67 years old male with history of COPD, chronic diastolic CHF, HTN, who start about 3 weeks ago with progressive SOB. He states that previously had a cold for a few days. He has had more cough than usual, but did not change sputum color, no history of fever or chills. No chest pain. He noticed increasing in lower extremity edema. Lasix was recently increasing by his PCP to 60 mg daily due to his symptoms. Today his brought him to ER due to worsening symptoms. At arrival his O2 sat was 85% on RA. No fever, BP was 196/110, HR 105. He was placed on BiPAP and treated with IV lasix. The patient responded well to diuretics, and improved his symptoms. Lab work shows normal WBC count, normal lactate, procalcitonin still pending, sodium level 128 , similar to previous encountes. CXR no acute abnormalities, according to ratiologist report. Hospital Course: Overall during the hospital stay patient remained stable Patient was initially admitted to the hospital for acute respiratory failure which was most likely multifactorial in reasons. Patient had acute exacerbate of congestive heart failure, COPD exacerbation, hyponatremia on presentation. For patient's acute exacerbation of congestive heart failure patient was started on Lasix. Recently Lasix was increased to 60 mg daily by PCP however patient continued to get lower extremity edema and short of breath. Here on admission patient was started on 40 mg IV t.i.d.. Cardiology was consulted. Who also recommended patient to stop taking Norvasc and continue with losartan that he takes at home along with atenolol. Patient had marked improvement in his symptoms. At the time echo and stress test were also recommended by cardiology. Patient had echo and stress test done here in the hospital which were both within normal limits. Patient had marked improvement on the Lasix and had diuresed adequately at that time his Lasix was converted to 40 mg b.i.d.. Patient was weaned off of oxygen successfully as well. For patient's COPD exacerbation patient was started on duo nebs here in the hospital along with oxygen which she was weaned off successfully. For patient's hyponatremia which is most likely secondary to dilutional hyponatremia secondary to volume overload. Patient was kept on fluid restriction low-sodium diet along with Lasix which helped bring his sodium up to 134. At that time nephrology recommended the patient can be safely discharged home under stable condition and have close monitoring by PCP upon discharge. Patient was educated on low sodium diet along with fluid restriction 1 L and increase in Lasix to 40 mg b.i.d. now. Patient demonstrated understanding and agreed with the plan of care and thus was discharged home under stable condition. He was asked to follow up with cardiology, nephrology, and pulmonology in about 1-2 days post discharge along with primary care provider is well. Vital Signs/Physical Exam: Temp Pulse Resp BP Pulse Ox 98.2 F 76 24 H 123/64 96 08/17/18 08:00 08/17/18 08:57 08/17/18 08:00 08/17/18 08:57 08/17/18 08:00 General: Alert, In no apparent distress, Oriented x3 HEENT: Atraumatic, PERRLA, EOMI Neck: Supple, JVD not distended Respiratory: Clear to auscultation bilaterally, Normal air movement Cardiovascular: Regular rate/rhythm, Normal S1 S2 Gastrointestinal: Normal bowel sounds, No tenderness Musculoskeletal: No tenderness Integumentary: No rashes Neurological: Normal speech, Normal tone, Normal affect Lymphatics: No axilla or inguinal lymphadenopathy Laboratory Data at Discharge: WBC 6.2 K/uL (4.3-10.9) D 08/15/18 05:45 Hgb 14.8 g/dL (13.6-17.9) 08/15/18 05:45 Hct 42.1 % (39.6-49.0) 08/15/18 05:45 Plt Count 280 K/uL (152-406) 08/15/18 05:45 PT 12.3 SECONDS (9.5-12.5) 08/14/18 19:05 INR 1.04 08/14/18 19:05 Sodium 134 mmol/L (136-145) L 08/17/18 04:03 Potassium 3.6 mmol/L (3.5-5.1) 08/17/18 04:03 BUN 20 mg/dL (7-18) H 08/17/18 04:03 Creatinine 0.94 mg/dL (0.55-1.3) 08/17/18 04:03 Glucose 98 mg/dL (74-106) 08/17/18 04:03 Phosphorus 4.0 mg/dL (2.5-4.9) 08/17/18 04:03 Magnesium 2.1 mg/dL (1.8-2.4) 08/15/18 05:45 Total Bilirubin 0.8 mg/dL (0.2-1.0) 08/14/18 19:05 AST 12 U/L (15-37) L 08/14/18 19:05 ALT 21 U/L (12-78) 08/14/18 19:05 Alkaline Phosphatase 89 U/L (45-117) 08/14/18 19:05 Troponin I < 0.02 ng/mL (0.0-0.045) 08/15/18 07:50 Home Medications: Omeprazole [Prilosec] 40 mg PO DAILY 11/12/17 Atenolol 1 tab PO DAILY 08/15/18 Losartan Potassium 1 tab PO DAILY 08/15/18 Furosemide [Lasix*] 40 mg PO BID #60 tab 08/17/18 Rivaroxaban [Xarelto*] 15 mg PO DAILY AT SUPPER #30 tablet 08/17/18 New Medications: Furosemide [Lasix*] 40 mg PO BID #60 tab Rivaroxaban [Xarelto*] 15 mg PO DAILY AT SUPPER #30 tablet Diet: Regular Activity: Ad edelmira Followup: Tk Iverson MD [ACTIVE - CAN ADMIT] - 1 Week
[2018-08-17] MEDS ORDERED: PNEUMOCOCCAL VACCINE 0.5 ML IMVAC ONE (12:00)
--- NOTE | 2018-08-17 12:20 | P.PN ---
Subjective Date of Service: 08/17/18 Chief Complaint: acute respirtory failure Subjective: No new changes NA 134 repeated CXR: chronic changes, no pul edema or effusion wheezing, pulmonary f/u no need for O2 at this point cleared for discharge from nephrology point of view Physical Examination - Vital Signs Temperature: 98.2 F Blood Pressure: 123/64 Pulse: 76 Respirations: 24 Pulse Ox (%): 96 - Physical Exam General: Oriented x3, Mild distress HEENT: Atraumatic Neck: Supple, Without JVD or thyroid abnormality Respiratory: Inspiratory wheezes Cardiovascular: No edema, Regular rate/rhythm, Normal S1 S2 Gastrointestinal: Normal bowel sounds, Soft and benign - Studies Medications List Reviewed: Yes Assessment And Plan - Current Problems (Diagnosis) (1) Hyponatremia Onset Date: 11/17/17 Current Visit: Yes Status: Acute - Plan Hypervolemic Hyponatremia Improved on lasix fluid restriction HTN controlled CHF cont lasix COPD as pe rpulmonary
--- NOTE | 2018-08-17 12:47 | P.CNS ---
Date of Consult: 08/17/18 Reason for Consult: COPD exacerbation Chief Complaint: Shortness of breath History of Present Illness: Patient is 67 years of age former smoker quit about 5 months ago as been complaining of progressive dyspnea and was seen by his primary care doctor and headquarters and was prescribed but in inhaler according to his he became worse over the past week currently is patient is unable to speak a significantly distressed at the bedside unable to cough up sputum cardiac workup has been negative so far patient took [id number] medications with no relief has some swelling of his lower extremities Allergies No Known Allergies Allergy (Verified 08/14/18 22:44) Home Medications: Omeprazole [Prilosec] 40 mg PO DAILY 11/12/17 Atenolol 1 tab PO DAILY 08/15/18 Losartan Potassium 1 tab PO DAILY 08/15/18 Furosemide [Lasix*] 40 mg PO BID #60 tab 08/17/18 Rivaroxaban [Xarelto*] 15 mg PO DAILY AT SUPPER #30 tablet 08/17/18 predniSONE [Prednisone*] 20 mg PO BID #15 tab 08/17/18 - Past Medical/Surgical History Diabetic: No -: Hypertension -: GERD -: chronic diastolic CHF -: paroxismal A.Fib -: HTN -: COPD -: Diagnostic laparoscopy -: exploratory laparotomy -: lysis of adhesion -: cholecystectomy -: right ankle surgery Psychosocial/ Personal History: Patient is - Family History Father Medical History: Other (see notes) Notes: heart attack Mother Notes: heart attack - Social History Smoking Status: Unknown if ever smoked Alcohol use: Yes CD- Drugs: No Caffeine use: Yes Place of Residence: Home Review of Systems 10-point ROS is otherwise unremarkable General: Weakness Respiratory: Cough, Shortness of Breath Physical Examination Temp Pulse Resp BP Pulse Ox 98.2 F 76 24 H 123/64 96 08/17/18 12:20 08/17/18 12:20 08/17/18 12:20 08/17/18 12:20 08/17/18 12:20 General: Alert, Moderate distress Respiratory: Expiratory wheezes Cardiovascular: No edema, Normal S1 S2 - Problems (1) COPD exacerbation Current Visit: Yes Status: Acute Plan: Patient is 67 years of age admitted with worsening dyspnea became worse over the past week he has significantly distress right now I suggested aggressive bronchodilator therapy add steroids arterial blood gases resume BiPAP cardiac workup so far nondiagnostic echocardiogram is normal history of 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
[2018-08-17] MEDS: ARFORMOTEROL TARTRATE 15 MCG/2 ML VIAL.NEB NEB SCH ×2 (13:15→20:04)
[2018-08-17] MEDS: IPRATROPIUM BROM 0.5MG/2.5ML NEB PRN ×2 (13:15→20:04)
[2018-08-17] MEDS: METHYLPREDNISOLONE 40 MG INJ IV SCH ×2 (13:27→18:15)
[2018-08-17 13:29] LABS: Arterial Blood Carboxyhemoglob 0.9 % (0-1.5); Blood Gas Oxyhemoglobin 93.5 % (94-97)
[2018-08-17] MEDS ORDERED: FUROSEMIDE 40 MG TABLET PO SCH (17:00)
[2018-08-17] MEDS: RIVAROXABAN 15 MG TABLET PO SCH (17:51)
[2018-08-17] MEDS: FUROSEMIDE 40 MG TABLET PO SCH (17:51)
[2018-08-17] MEDS ORDERED: BENZONATATE 100 MG CAP PO ONE (20:57)
[2018-08-17] MEDS: ALPRAZOLAM 0.25 MG TABLET PO PRN (21:22)
[2018-08-18] MEDS: METHYLPREDNISOLONE 40 MG INJ IV SCH ×2 (00:26→08:40)
[2018-08-18] MEDS: ALPRAZOLAM 0.25 MG TABLET PO PRN (00:27)
[2018-08-18] MEDS: LEVALBUTEROL 0.63 MG/3 ML NEB NEB SCH ×2 (01:28→07:40)
[2018-08-18] MEDS: IPRATROPIUM BROM 0.5MG/2.5ML NEB PRN ×2 (01:29→07:40)
[2018-08-18 05:06] LABS: Albumin 3.4 g/dL (3.4-5.0); BUN Blood Urea Nitrogen 17 mg/dL (7-18); Bicarbonate 30 mmol/L (21-32); Glucose Level 136 mg/dL (74-106); Phosphorus 3.1 mg/dL (2.5-4.9); Sodium Level 130 mmol/L (136-145)
[2018-08-18] MEDS: ARFORMOTEROL TARTRATE 15 MCG/2 ML VIAL.NEB NEB SCH (07:40)
[2018-08-18] MEDS: ATENOLOL 50 MG TAB PO SCH (08:40)
[2018-08-18] MEDS: LOSARTAN POTASSIUM 50 MG TABLET PO SCH (08:40)
[2018-08-18] MEDS: FUROSEMIDE 40 MG TABLET PO SCH (08:41)
[2018-08-18] MEDS: POTASSIUM CL SA 10 MEQ TAB PO SCH (08:42)
--- NOTE | 2018-08-18 12:18 | P.PN ---
Subjective Date of Service: 08/18/18 Chief Complaint: Shortness of breath Patient seen and examined at bedside with RN. Chart reviewed. Case discussed with nephrology, cardiology and pulmonology at this time patient with marked improvement overnight. Review of Systems 10-point ROS is otherwise unremarkable Physical Examination - Vital Signs Temperature: 97.8 F Blood Pressure: 149/83 Pulse: 83 Respirations: 18 Pulse Ox (%): 95 - Physical Exam General: Alert, In no apparent distress HEENT: Atraumatic, PERRLA, EOMI Neck: Supple, JVD not distended Respiratory: Clear to auscultation bilaterally, Normal air movement Cardiovascular: Regular rate/rhythm, Normal S1 S2 Gastrointestinal: Normal bowel sounds, No tenderness Musculoskeletal: No tenderness Integumentary: No rashes Neurological: Normal speech, Normal tone, Normal affect Lymphatics: No axilla or inguinal lymphadenopathy - Studies Medications List Reviewed: Yes Assessment And Plan - Current Problems (Diagnosis) (1) Acute respiratory failure Status: Acute Plan: Acute respiratory failure most likely secondary to CHF versus COPD exacerbation -patient currently off of BiPAP and oxygen doing well Qualifiers: Respiratory failure complication: hypoxia Qualified Code(s): J96.01 - Acute respiratory failure with hypoxia (2) CHF (congestive heart failure) Status: Acute Plan: Acute on chronic congestive heart failure exacerbation -echo and stress test within normal limits -switch to oral Lasix did well overall -cardiology consulted. Appreciated recommendations -per cardiology patient okay to be Dc home Qualifiers: Heart failure type: unspecified Heart failure chronicity: acute on chronic Qualified Code(s): I50.9 - Heart failure, unspecified (3) COPD (chronic obstructive pulmonary disease) Status: Acute Plan: COPD with acute exacerbation -patient started on Symbicort and prednisone here in the hospital with marked improvement -pulmonology consulted. Appreciated recommendations -patient ready to be discharged home today per homes recommendation on some will order prednisone oral Qualifiers: COPD type: COPD with acute exacerbation Qualified Code(s): J44.1 - Chronic obstructive pulmonary disease with (acute) exacerbation (4) Hyponatremia Onset Date: 11/17/17 Status: Resolved Plan: Hyponatremia with initial sodium less than 120 -now resolved (5) Atrial fibrillation Status: Chronic Plan: Currently patient on beta-michael along with anti coagulation as well Qualifiers: Atrial fibrillation type: paroxysmal Qualified Code(s): I48.0 - Paroxysmal atrial fibrillation (6) GERD (gastroesophageal reflux disease) Onset Date: 11/17/17 Status: Chronic Qualifiers: Esophagitis presence: esophagitis presence not specified Qualified Code(s) : K21.9 - Gastro-esophageal reflux disease without esophagitis (7) Hypertension Onset Date: 11/17/17 Status: Chronic Qualifiers: Hypertension type: essential hypertension Qualified Code(s): I10 - Essential (primary) hypertension - Plan Patient ready for discharge home today Discharge Plan: Home Plan to discharge in: 24 Hours - Code Status/Comfort Care Code Status Assessed: Yes Critical Care: No
--- NOTE | 2018-08-18 12:20 | P.PN ---
Subjective Date of Service: 08/18/18 Chief Complaint: COPD exacerbation Subjective: Improving (Patient has done very well today he has shortness of breath is significantly better is ready to go home) Review of Systems General: Weakness Respiratory: Shortness of Breath Physical Examination - Vital Signs Temperature: 97.8 F Blood Pressure: 149/83 Pulse: 83 Respirations: 18 Pulse Ox (%): 95 - Physical Exam General: Alert, Oriented x3 Neck: Supple Respiratory: Clear to auscultation bilaterally, Diminished Cardiovascular: No edema, Regular rate/rhythm - Studies Medications List Reviewed: Yes Assessment & Plan - Problems (Diagnosis) (1) COPD exacerbation Status: Acute Plan: Patient is doing better he can be discharged home on prednisone and a long- acting bronchodilator to follow up with me in 2 weeks he will need outpatient pulmonary function testing patient has also quit smoking he does not qualify for home O2 (2) Alcohol abuse Status: Acute Plan: Patient has been console not to drink he had drinks about a 6 pack a day vital signs are stable
--- NOTE | 2018-08-18 15:23 | PN ---
Date of Progress Note: 08/18/2018 Subjective: The patient is feeling better. The patient was admitted with CHF exacerbation and sympt omatic hyponatremia. The patient was placed on fluid restriction and aggressive diuresis, feeling be tter. Sodium is trending up. The patient is planned for discharge today. Physical Examination: Vital Signs: The patient's blood pressure 122/78, pulse of 88. Chest: Clear to auscultation. Heart: S1, S2. Systolic murmur. Abdomen: Soft, nontender. Extremities: No edema. Laboratory Data: Reviewed. Current Medication: For the patient include; 1.Rituximab. 2.Losartan 100. 3.Lasix 40 b.i.d. 4.Alprazolam, breathing treatment. Laboratory Data: WBC 6.2, H and H 14.8/42.1, platelets 280. Sodium 130, potassium 4, bicarb 30, BUN 17, creatinine 0.7. Calcium and phosphorus within normal limit. Assessment And Plan: 1.Hyponatremia secondary to dilutional hypervolemic secondary to congestive heart failure, respondin g very well to current diuresis regimen, reinforced for the patient for fluid restriction and we will monitor the patient as outpatient. 2.Hypertension, controlled optimal. Continue current medication. 3.Coronary artery disease with congestive heart failure as above. We will try to establish better volume control. 4.Hyperkalemia, resolved. BASILIO Voice ID: [id number] Report ID: [id number]
== END 2018-08-18 11:05 | disposition home or self-care (01) | DRG 291 ==
LOC: ER 18:56 → ERHOLD 21:08 → 4TH 22:13 → OBSVTOIN 08-15 15:55
PROVIDERS: ADMIT Internal Medicine; ATTEND Internal Medicine
DX: I11.0 Hypertensive heart disease with heart failure (principal); J96.01 Acute respiratory failure with hypoxia; E87.1 Hypo-osmolality and hyponatremia; J44.1 Chronic obstructive pulmonary disease with (acute) exacerbation; I50.33 Acute on chronic diastolic (congestive) heart failure; I48.0 Paroxysmal atrial fibrillation; D64.9 Anemia, unspecified; E87.6 Hypokalemia; F10.10 Alcohol abuse, uncomplicated; I25.10 Atherosclerotic heart disease of native coronary artery without angina pectoris; K21.9 Gastro-esophageal reflux disease without esophagitis; Z23 Encounter for immunization; Z87.891 Personal history of nicotine dependence
CPT/HCPCS: 36415; 71045; 71046; 78452; 80048; 80069; 80076; 81003; 81015; 82533; 82805; 83605; 83735; 83880; 83930; 83935; 84132; 84145; 84300; 84443; 84484; 85025; 85610; 87040; 87070; 87205; 90471; 90670; 93005; 93017; 93306; 94660; 94760; 96365; 96374; 99291; 99292; A9500; G0378; J1940; J2785; J2920; J2930; J3475; J7605

== ENCOUNTER 2023-06-01 11:51 | Inpatient (IN) | payer OTHER ==
--- OUTSIDE RECORDS SUMMARY | 2023-06-01 11:54 | XMS REPORT | Continuity of Care Document ---
Author Name Unknown Address [address] [place] [address] [address] th[address] Address 1200 [facility] 1 [address] [place] [address] Care Team Providers Care Professor Of Literature Name Role Phone Christiano Robles Attending Clinician Unavailab le Payers Payer Name Policy Type Policy Number Effective Date Expirati on Date Source Allergies, Adverse Reactions, Alerts Allergy Name Allergy Type Status Severity Reaction(s) Onset Date Inactive Date Treating Clinician Comments Source No Known Drug Allergie s DA Active U 04-02 00:00: 00 [facility] predniso lone DA Active U Rash 04-02 00:00: 00 [facility] Encounters Start Date/Time End Date/Time Encounter Type Admission Type Attending Clinicians [facility] Facility Care Department Encounter ID Source 2023-04-02 12:31:00 2023-04-02 16:00:00 Outpatient Elective Christiano Robles [facility] [id number] 73 [facility] Notes Date/Time Note Provider Source 2023-04-02 14:48:00 [id number]:48:00 [facility] [address] [place] [address] Opthalmology Operative Note Signed Patient: Javi Garcia Medical Record#: [id number] : 1950 Acct:[id number] Age/Sex: 72 / M ADM Date: 04/02/23 Loc: [facility] Room: Report Number: [id number] Attending Dr: Christiano Robles MD General Surgery Operative Note Date of Procedure: 04/02/23 Time of Procedure: 14:48 Detailed Description of Procedure: PreOperative Diagnosis retinal detachment of the right eye with multiple retinal breaks PostOperative Diagnosis; same Procedure(s) Performed; vitrectomy endo photocoagulation gas fluid exchange Surgeon Christiano Robles M.D. Director Of Home Economics None Anesthesia Retrobulbar Block, Monitor Anesthesia Care Estimated Blood Loss Negligible Complications None Technique/Description The patient was given a retrobulbar block as well as retrobulbar steroid injection under monitored anesthesia care. The facial area was prepped and draped in the usual sterile fashion for ophthalmic surgery. A wire lid speculum was inserted. Three 25-gauge cannulas were placed superiorly and a chandelier light was placed inferiorly.. Anterior, central and posterior vitrectomy was carried out with the vitrector. Scleral depression was used to fine a larger horseshoe tear at the 2 o'clock position and a smaller 1 at the 11 o'clock position. These were marked with endo cautery and a posterior drainage retinotomy was made superior to the optic nerve. In air exchange was taken and subretinal fluid was successfully aspirated through the retinotomy. Double rows of endo photocoagulation placed around the drainage retinotomy and around both horseshoe tears. Additional photocoagulation was placed in triple rows in the retina periphery from 9:00 to 3:00 o'clock in casethere was another small missed break. Air was then exchanged for 22% sulfur hex a fluoride. All cannulas were removed, neomycin, polymyxin and dexamethasone ophthalmic ointment instilled and then a double patch applied over the eye. Disposition Patient was taken to the Day Surgery Unit in stable condition. Then discharged home after meeting Day Surgery Unit criteria. Keep patch on until tomorrow. No heavy lifting. Resume regular diet and systemic medications. Begin eye drops as prescribed. Follow-up in the office in the next 1-2 weeks. Dictated By: Christiano Robles MD Dictated By: Signed By: Christiano Robles MD 04/02/23 1451 DD/ 1448 TD/TT: 04/02/23 1448 Collection Systems Administrator: ASHLEY cc: ASHLEY; [id number]* Christiano Robles MD; Abdelrahman Brewster MD P.OPHT.OPNOphthalmology Operative [id number] HuertaA2024-01-04T14:48:00P.OPHT.OPN AVAvailable for patient [id number]:52:12 [facility] 2023-04-02 11:42:00 [id number]:42:00 [facility] [address] [place] [id number] Ophthalmology H P Signed Patient: JAVI GARCIA Medical Record#: [id number] : 1950 Acct:[id number] Age/Sex: 72 / M Admit/Reg Date: 04/02/23 Loc: [facility] Room: Report Number: [id number] Attending Dr: Christiano Robles MD Surgical HPI Date of Encounter: 04/02/23 Time of Encounter: 11:42 History of Present Illness: CHIEF COMPLAINT: Decreased vision of the right eye HISTORY OF PRESENT ILLNESS: Patient reports decreased vision of the right eye for the past 7 days. He noticed a inferior veil like loss of vision that was preceded by eyes seeing a large number of black dots. ALLERGIES: Oral prednisolone caused skin rash. Patient has used other steroids without complication and is currently using dexamethasone orally. MEDICATION LIST: Dexamethasone, omeprazole, alprazolam, citalopram, Xarelto, for most of my, losartan, atenolol, doxepin, hydroxycline HCL PAST MEDICAL HISTORY: Atrial fibrillation, bursitis of the spine, chronic obstructive pulmonary disease PAST SURGICAL HISTORY: Cataract posterior chamber lens implant both eyes hernia repair, cholecystectomy, ankle surgery, dental implant, FAMILY HISTORY: Negative retinal lid disorders SOCIAL HISTORY: Vapes tobacco REVIEW OF SYSTEMS: Denies cough fever shortness of breath PHYSICAL EXAM: General well-developed well-nourished male no acute distress. Eye examination visual acuity right eye measures hand motions only. Slit-lamp examination shows posterior chamber lens implant with early to moderate capsular haze. Dilated retinal examination shows macula off retinal detachment with only the lower 3rd of the retina attached there to superior horseshoe tears. Heart irregular rate. Abdomen soft nondistended. Allergies/Adverse Reactions: prednisolone Allergy (Verified 04/02/23 10:37) Rash Family/Social History Smoking Status: Former tobacco user Surgical A P (1) Retinal detachment with multiple breaks, right eye Status: Acute Assessment and Plan: Plan 25 gauge vitrectomy endo photocoagulation gas fluid exchange plan to use chandelier light. - Attestation Attestation: I have reviewed and updated the patient's past medical, social, and family history as necessary and have reviewed pertinent laboratory findings. Confirm PMH/FSH Attestation: Yes Problem List Attestation Statement: I have documented a relevant problem and problem plan for this visit. Attending Confirm Problem: Yes Attending Problem List Check: Pass Surgical Quality VTE Risk Level: Very low Dictated By: Christiano Robles MD Signed By: Christiano Robles MD 04/02/23 1150 DD/ 1142 TD/TT: 04/02/23 1142 Collection Systems Administrator: ASHLEY cc: ASHLEY* Christiano Robles MD P.OPHT.HPOphthalmology History \T\ XhxmataoNAEDJ48KaxwieqgzNita [id number]:42:00P.OPHT.[facility] VAvailable for patient [id number]:50:55 [facility]
[2023-06-01 12:32] LABS: Absolute Lymphocytes (CBC) 0.3 K/uL (0.7-4.9); Basophils % 0.2 % (0-1.3); Hematocrit 39.1 % (39.6-49.0); Lymphocytes % 3.3 % (15.3-44.8); MCV 98.7 fL (80-100); MPV 6.8 fL (7.6-11.3); Platelets 277 thou/uL (152-406); RBC Red Blood Cell Count 3.96 M/uL (4.33-5.43)
[2023-06-01 12:35] LABS: Protime INR 2.49
[2023-06-01 12:47] LABS: Specific Gravity 1.012 (1.005-1.030); Urine Bacteria None Seen /HPF (<20); Urine Bilirubin NEGATIVE (Negative); Urine Blood Negative (Negative); Urine Clarity Turbid (Clear); Urine Color Light-Yellow (Yellow); Urine Glucose NEGATIVE (Negative); Urine Protein NEGATIVE (Negative); Urine RBC <5 /HPF (None Seen); Urine Urobilinogen Normal (Normal)
[2023-06-01 12:47] LABS: Anion Gap 10.6 mEq/L (5.0-15.0); Potassium 3.6 mEq/L (3.5-5.1)
[2023-06-01] MEDS ORDERED: NA CHLORIDE 0.9% 500 ML ONE (12:59)
--- NOTE | 2023-06-01 13:11 | RAD REPORT ---
EXAM DESCRIPTION: [place] Single View06/01/2023 12:52 pm CLINICAL HISTORY: recent fall;Cough COMPARISON: Chest Pa And Lat (2 Views) dated 08/17/2018; Chest Single View dated 08/14/2018; Chest Pa And Lat (2 Views) dated 08/12/2018; Chest Single View dated 11/22/2017 TECHNIQUE: Portable AP view of the chest. FINDINGS: Patchy right midlung opacity with volume loss may indicate low or collapsed probably invol ving the middle lobe. Patient rotation somewhat limits evaluation. No pneumothorax or effusion. The c ardiomediastinal contours are unremarkable. IMPRESSION: Findings suggesting lobar collapse on the right with volume loss, probably involving the middle lobe. Concomitant pneumonia is difficult to exclude.
[2023-06-01 13:16] LABS: Band Neutrophils 1 % (0-1); Blood Morphology Comment NOT SEEN (NOT SEEN); Platelet Estimate ADEQ
--- NOTE | 2023-06-01 13:33 | RAD REPORT ---
EXAM DESCRIPTION: CT - Abdomen Pelvis W Contrast - 06/01/2023 1:07 pm CLINICAL HISTORY: recent trauma, no BM COMPARISON: Head C Spine Cap Wo Con dated 05/29/2023 TECHNIQUE: Thin cut axial CT imaging of the abdomen and pelvis was performed following intravenous a dministration of 100 mL Isovue 300. Multiplanar reformats were generated and reviewed. All CT scans are performed using dose optimization technique as appropriate and may include automated exposure control or mA/KV adjustment according to patient size. FINDINGS: Small right pleural effusion with underlying segmental atelectasis. The liver, spleen, adrenal glands, and pancreas show no suspicious findings. Gallbladder was surgical ly removed. Symmetric renal function is seen with no hydronephrosis or suspicious renal mass. Mildly distended small bowel loops, with short-segment air-fluid levels. No all discrete transition p oint. Moderate stool burden along the proximal colon. Appendix is unremarkable. No bowel wall thicken ing. No free air, free fluid or inflammatory stranding. No hernia, mass or bulky lymphadenopathy. The urinary bladder is without significant finding. Moderate compression deformity at L2, with mild adjacent paraspinous edematous changes. Posterior cor tical buckling of the vertebral body, at least mildly effacing the ventral CSF space. Mild superior e ndplate compression deformity at L1 is likely chronic. Healing bilateral lower rib fractures IMPRESSION: Likely acute/recent superior endplate compression deformity at L2. Mild effacement of th e ventral CSF space due to buckled posterior vertebral body cortex. Degree of compression is progress li since the prior CT. Mildly distended small bowel loops, suggesting ileus. Small right pleural effusion with underlying segmental atelectasis. Other incidental findings as above.
--- NOTE | 2023-06-01 15:01 | RAD REPORT ---
EXAM DESCRIPTION: CT - Thorax Wo Con - 06/01/2023 1:34 pm CLINICAL HISTORY: abnormal CXR;Cough COMPARISON: Lung Cancer Screening CT W/O dated 05/01/2022; Lung Cancer Screening CT W/O dated 07/30/2020 ; Lung Cancer Screening CT W/O dated 04/22/2019; Chest Single View dated 06/01/2023 TECHNIQUE: Axial thin cut images of the chest were obtained without IV contrast. Multiplanar reforma ts were generated and reviewed. All CT scans are performed using dose optimization technique as appropriate and may include automated exposure control or mA/KV adjustment according to patient size. FINDINGS: Small right pleural effusion with subsegmental dependent atelectasis predominantly involvi ng the right lower lobe. Additional platelike atelectasis in the peripheral right upper lobe. Overall right lung volume loss with right tracheal deviation. Mild predominantly subpleural emphysematous ch anges. Small right pleural effusion. No discrete consolidative changes or air bronchogram. No pneumot horax. No abnormal mediastinal or hilar masses or lymphadenopathy seen. No significant aortic or pulmonary a rtery findings. Assessment is limited in the absence of IV contrast. No chest wall mass or abnormal axillary lymphadenopathy. Evaluation of the solid abdominal structures reveals no suspicious findings. Healing left fourth, fifth, and seventh rib fractures. IMPRESSION: Small right pleural effusion. Atelectatic changes throughout the right lung, predominantly dependent, with volume loss. Healing left fourth, fifth, and seventh rib fractures.
--- NOTE | 2023-06-01 15:13 | ER ---
Nurse's Notes [facility] Name: Javi Garcia Age: 72 yrs Sex: Male : 1950 Arrival Date: 06/01/2023 Time: 11:51 Bed 5 Private MD: Diagnosis: Ileus, unspecified;Hypo-osmolality and hyponatremia Presentation: 05/31 12:00 Chief complaint:. ko1 12:00 Chief complaint: EMS states: called for generalized weakness and a fall a week ago, ko1 still complains of pain that has not been relieved despite pain medications. Coronavirus screen: At this time, the client does not indicate any symptoms associated with coronavirus-19. Ebola Screen: No symptoms or risks identified at this time. Initial Sepsis Screen: Does the patient meet any 2 criteria? No. Patient's initial sepsis screen is negative. Does the patient have a suspected source of infection? No. Patient's initial sepsis screen is negative. Risk Assessment: Do you want to hurt yourself or someone else? Patient reports no desire to harm self or others. Onset of symptoms is unknown. 12:00 Method Of Arrival: EMS: [facility] ko1 12:00 Acuity: PATRICIA 3 ko1 Triage Assessment: 12:00 General: Appears in no apparent distress. uncomfortable, Behavior is cooperative, ko1 appropriate for age. Pain: Complains of pain in "all over". Historical: - Allergies: 12:54 Prednisone; ko1 - Home Meds: 12:54 amlodipine oral [Active]; Atenolol Oral [Active]; Lasix Oral [Active]; losartan Oral ko1 [Active]; - PMHx: 12:54 Bursitis right hip; CHF; Hypertension; COPD; neuropathy; Alcohol dependence; ko1 - Immunization history:: Adult Immunizations unknown. - Social history:: Smoking status: Patient/guardian denies using tobacco, but has a distant history of tobacco abuse, Patient uses alcohol, on a daily basis. claims drinking about a 6 pack/day. patient/guardian reports chronic longstanding heavy alcohol consumption. - Family history:: not pertinent. - Hospitalizations: : No recent hospitalization is reported. Screenin:05 [facility] ED Fall Risk Assessment (Adult) History of falling in the last 3 months, ko1 including since admission Yes- fall prone (multiple falls) (3 pts) Confusion or Disorientation Yes (5 pts) Intoxicated or Sedated No (0 pts) Impaired Gait Yes (1 pt) Mobility Assist Device Used Yes (1 pt) Altered Elimination No (0 pt) Score/Fall Risk Level 3 or more points = High Risk Oriented to surroundings, Maintained a safe environment, Educated pt \\T\\ family on fall prevention, incl call for assistance when getting out of bed, Assessed \\T\\ reinforced patient's understanding of fall precautions, Provided non-skid footwear, Hourly rounding (assess needs \\T\\ fall precautionary measures) done, Used ambulatory aids as needed (educated on \\T\\ assisted with), Used gait belt as appropriate Implemented a Fall Risk Plan of Care, Apply high fall risk patient identification: yellow non skid footwear/ fall signage, Remained w/in arm's length of patient and in sight while toileting, Offered frequent toileting (1:1 observation), Remained with patient while ambulating, Utilized family, sitter, or virtual stem crusher as indicated. Abuse screen: Denies threats or abuse. Denies injuries from another. Nutritional screening: No deficits noted. Tuberculosis screening: No symptoms or risk factors identified. Assessment: 12:00 General: Appears in no apparent distress. Behavior is cooperative, appropriate for age. ko1 Pain: Complains of pain in generalized. Neuro: No deficits noted. Cardiovascular: No deficits noted. Respiratory: No deficits noted. GI: No deficits noted. : No deficits noted. EENT: No deficits noted. Derm: No deficits noted. Musculoskeletal: Reports weakness in generalized. 18:01 Reassessment: attempted to call report, Kiersten will call me back. ko1 18:12 Reassessment:. ko1 Vital Signs: 12:00 BP 121 / 79; Pulse 61; Resp 15; Temp 98; Pulse Ox 97% on R/A; ko1 12:00 BP 152 / 66; Pulse 71; Resp 16; Pulse Ox 98% ; ko1 14:30 BP 144 / 75; Pulse 69; Resp 15; Pulse Ox 98% ; ko1 17:44 BP 182 / 98; Pulse 67; Resp 17; Pulse Ox 98% ; ko1 ED Course: 11:55 Patient arrived in ED. rn 11:55 Amilcar Martines MD is Attending Physician. rn 11:59 Brendan, Aditi, RN is Primary Nurse. ko1 12:00 Inserted saline lock: 20 gauge in left antecubital area, using aseptic technique. Blood ko1 collected. 12:00 Arm band placed on right wrist. Patient placed in an exam room, on a stretcher, on ko1 fountain manager, on pulse oximetry, Patient notified of wait time. 12:05 Patient has correct armband on for positive identification. Allergy band placed. Fall ko1 risk band placed. Placed in gown. Bed in low position. Call light in reach. Side rails up X2. Provided Education on: na. Client placed on continuous cardiac and pulse oximetry monitoring. NIBP monitoring applied. junior designer on. Door closed. Noise minimized. Lights dimmed. Warm blanket given. 12:30 Assisted with urinal. ko1 12:39 Urinalysis w/ reflexes Sent. ko1 12:53 XRAY Chest (1 view) In Process Unspecified. EDMS 12:54 Triage completed. ko1 13:09 CT Abd/Pelvis - IV Contrast Only In Process Unspecified. EDMS 13:35 CT Chest Wo Con In Process Unspecified. EDMS 15:00 Assisted with urinal. Repositioned patient. ko1 15:11 Jason Gan MD is Hospitalizing Provider. rn 16:00 First set of blood cultures drawn by md. ko1 16:10 Initial lab(s) drawn, by me, sent to lab. ko1 16:15 Second set of blood cultures drawn by me. ko1 16:19 Lactate w/ 2H reflex if indic. Sent. ko1 16:19 Blood Culture Adult (2) Sent. ko1 17:00 Assisted with urinal. ko1 17:45 No provider procedures requiring assistance completed. Patient admitted, IV remains in ko1 place. Administered Medications: 13:20 Drug: NS 0.9% IV 500 ml IV at bolus once Route: IV; Rate: bolus; Site: left antecubital;ko1 14:30 Follow up: Response: No adverse reaction; IV Status: Completed infusion; IV Intake: ko1 500ml 16:19 Drug: Rocephin IV 1 grams IV at calculated rate once; Given slow IV push per pharmacy ko1 instructions Route: IV; Rate: calculated rate; Site: left antecubital; 17:37 Follow up: Response: No adverse reaction; IV Status: Completed infusion; IV Intake: ko1 100ml 17:48 Follow up: IV Status: Completed infusion ko1 16:19 Drug: Zithromax IVPB 500 mg IVPB once over 1 hrs; mix in 250 mL NS Route: IVPB; Infused ko1 Over: 1 hrs; Site: left antecubital; 17:36 Follow up: Response: No adverse reaction; IV Status: Completed infusion; IV Intake: ko1 250ml 17:48 Follow up: IV Status: Completed infusion ko1 Medication: 12:05 VIS not applicable for this client. ko1 Intake: 14:30 IV: 500ml; Total: 500ml. ko1 17:36 IV: 250ml; Total: 750ml. ko1 17:37 IV: 100ml; Total: 850ml. ko1 17:52 PO: 120ml (Water); IV: 800ml (IV Fluid); Total: 1770ml. ko1 Output: 17:52 Urine: 650ml (Voided); Total: 650ml. ko1 Outcome: 15:13 Decision to Hospitalize by Provider. rn 15:30 Admitted to ER Hold. Please see [facility] for further documentation. ko1 15:30 Condition: stable 15:30 Instructed on the need for admit, 18:12 Admitted to Med/surg accompanied by tech, via stretcher, room 401, with chart, Report ko1 called to LUIS ALFREDO Burch 18:12 Condition: stable 18:12 Instructed on the need for admit, 18:30 Patient left the ED. ko1 Signatures: Dispatcher [employer] EDAmilcar Ambrocio MD MD rn Oliver, Kathy, RN RN ko1 Corrections: (The following items were deleted from the chart) 12:57 12:54 Allergies: No Known Allergies; ko1 ko1
--- NOTE | 2023-06-01 15:13 | EDPHYS ---
Physician Documentation [facility] Name: Javi Garcia Age: 72 yrs Sex: Male : 1950 Arrival Date: 06/01/2023 Time: 11:51 Bed 5 Private MD: ED Physician Amilcar Martines HPI: 05/31 11:58 This 72 yrs old Male presents to ER via Unassigned with complaints of weak, no BM. rn 11:58 Patient reports generalized weakness and malaise. Fell approximately 1 week ago, no rn fractures to the back but states has been hurting since then. Has chronic back injuries as well. Patient reports generalized weakness and malaise for the last few days and no bowel movement for several days. Is passing gas. No vomiting or diarrhea. No chest pain or trouble breathing. Positive for mild cough.. Onset: The symptoms/episode began/occurred 1 week(s) ago. Severity of symptoms: At their worst the symptoms were moderate in the emergency department the symptoms are unchanged. The patient has not experienced similar symptoms in the past. The patient has been recently seen by a physician: The patient has been recently seen at the [facility] Emergency Department. Historical: - Allergies: 12:54 Prednisone; ko1 - Home Meds: 12:54 amlodipine oral [Active]; Atenolol Oral [Active]; Lasix Oral [Active]; losartan Oral ko1 [Active]; - PMHx: 12:54 Bursitis right hip; CHF; Hypertension; COPD; neuropathy; Alcohol dependence; ko1 - Immunization history:: Adult Immunizations unknown. - Social history:: Smoking status: Patient/guardian denies using tobacco, but has a distant history of tobacco abuse, Patient uses alcohol, on a daily basis. claims drinking about a 6 pack/day. patient/guardian reports chronic longstanding heavy alcohol consumption. - Family history:: not pertinent. - Hospitalizations: : No recent hospitalization is reported. ROS: 11:58 Constitutional: Negative for fever, chills, and weight loss, Neck: Negative for injury, rn pain, and swelling, Cardiovascular: Negative for chest pain, palpitations, and edema, Respiratory: Negative for shortness of breath, cough, wheezing, and pleuritic chest pain, Abdomen/GI: Positive for constipation and no bowel movement for 5 days Back: Positive for chronic back pain, no new injuries MS/Extremity: Negative for injury and deformity, Skin: Negative for injury, rash, and discoloration, Neuro: Positive for generalized weakness and malaise Exam: 11:58 Constitutional: This is a well developed, well nourished patient who is awake, alert, rn and in no acute distress. ENT: Dry mucous membranes, no stridor Chest/axilla: Normal chest wall appearance and motion. Nontender with no deformity. No lesions are appreciated. Cardiovascular: Regular rate and rhythm. No pulse deficits. Respiratory: Occasional cough during exam, clear bilateral breath sounds without signs of rib fracture or splinting Abdomen/GI: Soft, non-tender, nondistended MS/ Extremity: Pulses diminished but equal, no cyanosis. Signs of peripheral vascular disease evident. Neurovascular intact. Full, normal range of motion. Equal circumference. Neuro: Awake and alert, GCS 15, oriented to person, place. Cranial nerves II-XII grossly intact. Motor strength 4/5 in all extremities. Sensory grossly intact. Vital Signs: 12:00 BP 121 / 79; Pulse 61; Resp 15; Temp 98; Pulse Ox 97% on R/A; ko1 12:00 BP 152 / 66; Pulse 71; Resp 16; Pulse Ox 98% ; ko1 14:30 BP 144 / 75; Pulse 69; Resp 15; Pulse Ox 98% ; ko1 17:44 BP 182 / 98; Pulse 67; Resp 17; Pulse Ox 98% ; ko1 MDM: 11:55 Patient medically screened. rn 15:10 Differential Diagnosis altered mental status, Dehydration, electrolyte disorder, UTI, rn atelectasis, . Data reviewed: vital signs, nurses notes, lab test result(s), radiologic studies, CT scan, plain films, and as a result, I will admit patient. Consideration of Admission/Observation Patient was admitted/placed on observation. Escalation of care including admission/observation considered. Counseling: I had a detailed discussion with the patient and/or guardian regarding the historical points, exam findings, and any diagnostic results supporting the discharge/admit diagnosis, lab results, radiology results, the need for further work-up and treatment in the hospital. ED course: No acute findings and CT chest or abdomen and pelvis. Imaging shows healing rib fractures with small pleural effusion and abdomen shows possible ileus with subacute compression fracture of L2. Patient neurologically intact. Patient here today more for generalized weakness and constipation/ileus. Will admit to hospitalist service for the ileus and hyponatremia.. 05/31 11:56 Order name: CBC with Diff; Complete Time: 13:23 rn 05/31 11:56 Order name: Basic Metabolic Panel; Complete Time: 12:50 rn 05/31 11:56 Order name: Protime (+inr); Complete Time: 12:42 rn 05/31 11:56 Order name: Ptt, Activated; Complete Time: 12:42 rn 05/31 11:56 Order name: Urinalysis w/ reflexes; Complete Time: 12:50 rn 05/31 11:56 Order name: BNP; Complete Time: 12:50 rn 05/31 13:16 Order name: Manual Differential; Complete Time: 13:23 EDNH 05/31 15:10 Order name: Blood Culture Adult (2) rn 05/31 15:10 Order name: Lactate w/ 2H reflex if indic.; Complete Time: 16:55 rn 05/31 16:59 Order name: CBC with Automated Diff EDMS 05/31 16:59 Order name: CBC with Automated Diff EDMS 05/31 16:59 Order name: Comprehensive Metabolic Panel EDMS 05/31 16:59 Order name: Comprehensive Metabolic Panel EDMS 05/31 16:59 Order name: Protime (+INR) EDMS 05/31 16:59 Order name: Protime (+INR) EDMS 05/31 16:59 Order name: PTT, Activated Partial Thromb EDMS 05/31 16:59 Order name: PTT, Activated Partial Thromb EDMS 05/31 16:59 Order name: Troponin High Sensitivity EDMS 05/31 16:59 Order name: Troponin High Sensitivity EDMS 05/31 17:00 Order name: Basic Metabolic Panel EDMS 05/31 11:56 Order name: XRAY Chest (1 view); Complete Time: 13:16 rn 05/31 11:58 Order name: CT Abd/Pelvis - IV Contrast Only; Complete Time: 14:14 rn 05/31 13:22 Order name: CT Chest Wo Con; Complete Time: 15:06 rn 05/31 16:59 Order name: Physical Therapy Consult EDMS 05/31 17:00 Order name: Social Service Consult EDNH 05/31 11:56 Order name: IV Start; Complete Time: 12:52 rn Administered Medications: 13:20 Drug: NS 0.9% IV 500 ml IV at bolus once Route: IV; Rate: bolus; Site: left antecubital;ko1 14:30 Follow up: Response: No adverse reaction; IV Status: Completed infusion; IV Intake: ko1 500ml 16:19 Drug: Rocephin IV 1 grams IV at calculated rate once; Given slow IV push per pharmacy ko1 instructions Route: IV; Rate: calculated rate; Site: left antecubital; 17:37 Follow up: Response: No adverse reaction; IV Status: Completed infusion; IV Intake: ko1 100ml 17:48 Follow up: IV Status: Completed infusion ko1 16:19 Drug: Zithromax IVPB 500 mg IVPB once over 1 hrs; mix in 250 mL NS Route: IVPB; Infused ko1 Over: 1 hrs; Site: left antecubital; 17:36 Follow up: Response: No adverse reaction; IV Status: Completed infusion; IV Intake: ko1 250ml 17:48 Follow up: IV Status: Completed infusion ko1 Disposition Summary: 06/01/23 15:13 Hospitalization Ordered Notes: Hospitalization Status: Inpatient Admission rn Provider: Jason Gan rn Location: Telemetry/[facility] (Inpatient) rn Condition: Stable rn Problem: new rn Symptoms: have improved rn Bed/Room Type: Standard rn Room Assignment: 401(06/01/23 17:40) bd Diagnosis - Ileus, unspecified rn - Hypo-osmolality and hyponatremia rn Forms: - Medication Reconciliation Form rn - SBAR form rn - Leadership Thank You Letter rn Signatures: Dispatcher [employer] Dee Yan Roman, MD MD rn Oliver, Kathy, RN RN ko1 Corrections: (The following items were deleted from the chart) 12:57 12:54 Allergies: No Known Allergies; ko1 ko1 17:40 15:13 rn bd
[2023-06-01] MEDS ORDERED: CEFTRIAXONE 1000 MG/VIAL ONE (15:16)
[2023-06-01] MEDS ORDERED: NA CHLORIDE 0.9% 250 ML ONE (15:16)
[2023-06-01] MEDS ORDERED: AZITHROMYCIN 500 MG INJ IVPB ONE (15:16)
--- NOTE | 2023-06-01 16:47 | P.HP ---
Certification for Inpatient Patient admitted to: Inpatient With expected LOS: >2 Midnights Patient will require the following post-hospital care: Home Health Services Practitioner: I am a practitioner with admitting privileges, knowledge of patient current condition, hospital course, and medical plan of care. Services: Services provided to patient in accordance with Admission requirements found in Title 42 Section 412.3 of the Code of Federal Regulations Patient History Date of Service: 06/01/23 Reason for admission: Status post fall with L3 compression fracture; hyponatremia; myopathy History of Present Illness: Patient is a 72-year-old gentleman came to the hospital with generalized weakness. Patient apparently had suffered a fall 4 days ago. He was brought into the emergency room and patient had a L2 compression fracture at that time. Patient was ambulatory and was able to go home. Patient states that he is fallen on 4 different occasions this year. He is got rib fractures that appear to be healing as well as the lumbar compression fracture that was mentioned. There does appear to be some cord compression. Patient denies any ra diculopathy. I did tell the family that we do not have spine surgery available at this hospital, and that they wanted to transfer then we would be happy to try to get him transferred. However, they elected to stay at our facility for medical management. Will do further evaluation with an MRI imaging. Will also need to correct patient's sodium as patient with severe hyponatremia. Patient will be given saline and will slowly correct patient's sodium with IV fluids. Will check a urine sodium level as well. Patient has a history of tobacco abuse and quit about 10 years ago. He has diagnosed COPD as well as coronary artery disease. Patient appears to have some peripheral arterial disease which may be contributing to his myopathy and muscular atrophy. Patient will be admitted for an MRI of the spine as well as correction of his sodium. Once again, I did offer family the attempt to try to transfer from the emergency room, but they elected to stay in the hospital for further treatment. Allergies No Known Allergies Allergy (Verified 08/14/18 22:44) Home Medications: Omeprazole [Prilosec] 40 mg PO DAILY 11/12/17 Losartan Potassium 1 tab PO DAILY 08/15/18 atenoloL [Atenolol] 1 tab PO DAILY 08/15/18 Furosemide [Lasix*] 40 mg PO BID #60 tab 08/17/18 Rivaroxaban [Xarelto*] 15 mg PO DAILY AT SUPPER #30 tablet 08/17/18 predniSONE [Prednisone*] 20 mg PO BID #15 tab 08/17/18 Budesonide/Formoterol Fumarate [Symbicort 80-4.5 Mcg Inhaler] 2 puff IH BID #1 hfa.aer.ad 08/18/18 - Past Medical/Surgical History Diabetic: No -: Hypertension -: GERD -: chronic diastolic CHF -: paroxismal A.Fib -: HTN -: COPD -: Diagnostic laparoscopy -: exploratory laparotomy -: lysis of adhesion -: cholecystectomy -: right ankle surgery Psychosocial/ Personal History: Patient is - Family History Father Medical History: Other (see notes) Notes: heart attack Mother Notes: heart attack - Social History Smoking Status: Former smoker Alcohol use: Yes CD- Drugs: No Caffeine use: Yes Review of Systems 10-point ROS is otherwise unremarkable Physical Examination - Vital Signs Temperature: 98 F (reviewed) - Physical Exam General: Alert, In no apparent distress, Oriented x3 HEENT: Atraumatic, PERRLA, Mucous membr. moist/pink, EOMI, Sclerae nonicteric Neck: Supple, 2+ carotid pulse no bruit, No LAD, Without JVD or thyroid abnormality Respiratory: Clear to auscultation bilaterally, Normal air movement Cardiovascular: Regular rate/rhythm, Normal S1 S2, Systolic murmur Gastrointestinal: Normal bowel sounds, Soft and benign, Non-distended, No tenderness Musculoskeletal: No clubbing, No swelling, No tenderness Neurological: Normal speech, Normal tone, Sensation intact, Cranial nerves 3-12 intact, Normal affect, Abnormal gait, Abnormal strength Lymphatics: No axilla or inguinal lymphadenopathy - Studies Laboratory Data (last 24 hrs) 06/01/23 06/01/23 06/01/23 12:15 12:15 12:15 WBC 8.10 Hgb 13.8 Hct 39.1 L Plt Count 277 PT 26.7 H INR 2.49 APTT 39.1 H Sodium 117 L* Potassium 3.6 BUN 10 Creatinine 0.80 Glucose 119 H Assessment & Plan - Problems (Diagnosis) (1) Acute respiratory failure Current Visit: No Status: Acute Qualifiers: Respiratory failure complication: hypoxia Qualified Code(s): J96.01 - Acute respiratory failure with hypoxia (2) Atelectasis Current Visit: No Status: Acute (3) CHF (congestive heart failure) Current Visit: No Status: Acute Qualifiers: Heart failure type: unspecified Heart failure chronicity: acute on chronic Qualified Code(s): I50.9 - Heart failure, unspecified (4) COPD (chronic obstructive pulmonary disease) Current Visit: No Status: Acute Qualifiers: COPD type: COPD with acute exacerbation Qualified Code(s): J44.1 - Chronic obstructive pulmonary disease with (acute) exacerbation (5) Malnutrition Current Visit: No Status: Acute Qualifiers: Malnutrition type: protein-calorie malnutrition Protein-calorie malnutrition severity: mild Qualified Code(s): E44.1 - Mild protein-calorie malnutrition (6) Atrial fibrillation Current Visit: No Status: Chronic Qualifiers: Atrial fibrillation type: paroxysmal Qualified Code(s): I48.0 - Paroxysmal atrial fibrillation (7) GERD (gastroesophageal reflux disease) Onset Date: 11/17/17 Current Visit: No Status: Chronic Qualifiers: Esophagitis presence: esophagitis presence not specified Qualified Code(s): K21.9 - Gastro-esophageal reflux disease without esophagitis (8) Hypertension Onset Date: 11/17/17 Current Visit: No Status: Chronic Qualifiers: Hypertension type: essential hypertension Qualified Code(s): I10 - Essential (primary) hypertension (9) Hyponatremia Onset Date: 11/17/17 Current Visit: No Status: Resolved - Plan Plan: 1. MRI of the lumbar spine 2. Continue with saline 3. Sodium levels every 6 hours 4. Fractional excretion of sodium 5. Decadron IV 6. Physical therapy consultation 7. Echocardiogram to further evaluate cardiac function 8. GI and DVT prophylaxis Discharge Plan: Home Plan to discharge in: Greater than 2 days - Advance Directives Does patient have a Living Will: No Does patient have a Durable POA for Healthcare: No - Code Status/Comfort Care Code Status Assessed: Yes Code Status: Full Code Critical Care: No Time Spent Managing PTS Care (In Minutes): 45
[2023-06-01] MEDS ORDERED: ONDANSETRON 4 MG/2 ML VIAL IV PRN (16:52)
[2023-06-01] MEDS ORDERED: MORPHINE 2 MG/ML SYR IV PRN (16:52)
[2023-06-01 19:26] LABS: Anion Gap 11.7 mEq/L (5.0-15.0); Potassium 3.7 mEq/L (3.5-5.1)
[2023-06-01 19:44] VITALS: BMI 25.7
[2023-06-01] MEDS: dexAMETHasone 4 MG/ML VIAL IV SCH (20:08)
[2023-06-01] MEDS: NA CHLORIDE 0.9% 1,000 ML IV SCH (20:08)
[2023-06-02 06:22] LABS: Absolute Lymphocytes (CBC) 0.2 K/uL (0.7-4.9); Lymphocytes % 2.5 % (15.3-44.8); MCV 98.7 fL (80-100); MPV 6.7 fL (7.6-11.3); Platelets 275 thou/uL (152-406); RBC Red Blood Cell Count 3.95 M/uL (4.33-5.43)
[2023-06-02 06:34] LABS: Albumin 2.8 g/dL (3.4-5.0); Albumin/Globulin Ratio 0.7 (1.1-1.8); Anion Gap 11.8 mEq/L (5.0-15.0); Bilirubin Total 0.6 mg/dL (0.2-1.0); Potassium 4.8 mEq/L (3.5-5.1); Protein, Total 6.6 g/dL (6.4-8.2); Troponin High Sensitivity 6.4 pg/mL (<58.9)
[2023-06-02 06:37] LABS: Protime INR 1.26
--- NOTE | 2023-06-02 07:52 | P.PN ---
Subjective Date of Service: 06/02/23 Chief Complaint: Status post fall with L3 compression fracture; hyponatremia; myopathy Status post fall with compression fracture, myopathy, moderate generalized weakness requires assistance with ADL - Physical Exam General: Alert, In no apparent distress, Oriented x2 HEENT: Atraumatic, PERRLA, Mucous membr. moist/pink, EOMI, Sclerae nonicteric Neck: Supple, 2+ carotid pulse no bruit, No LAD, Without JVD or thyroid abnormality Respiratory: Clear to auscultation bilaterally, Normal air movement Cardiovascular: Regular rate/rhythm, Normal S1 S2, Systolic murmur Gastrointestinal: Normal bowel sounds, Soft and benign, Non-distended, No tenderness Musculoskeletal: No clubbing, No swelling, No tenderness Neurological: Normal speech, Normal tone, Sensation intact, Cranial nerves 3-12 intact, Normal affect, Abnormal gait, Abnormal strength Lymphatics: No axilla or inguinal lymphadenopathy <[place] - Last Filed: 06/02/23 16:40> Date of Service: 06/02/23 <Jason Gan - Last Filed: 06/05/23 15:57> Review of Systems PER HPI <Any [place] - Last Filed: 06/02/23 16:40> Physical Examination - Vital Signs Temperature: 97 F Blood Pressure: 190/94 Pulse: 89 Respirations: 17 Pulse Ox (%): 100 - Studies Laboratory Data (last 24 hrs) 06/01/23 06/01/23 06/01/23 12:15 12:15 12:15 WBC 8.10 Hgb 13.8 Hct 39.1 L Plt Count 277 PT 26.7 H INR 2.49 APTT 39.1 H Sodium 117 L* Potassium 3.6 BUN 10 Creatinine 0.80 Glucose 119 H <Any [place] - Last Filed: 06/02/23 16:40> Assessment And Plan - Plan Assessment plan Frequent falls L2 Compression fractures Rib fractures fourth, fifth, and seventh rib fractures. Myopathy Muscular atrophy Fall precautions, Pending MRI of the spine, As needed analgesics PT eval moderate to max assist with transfers, unsafe to ambulate independently Acute on chronic heart failure unknown baseline Atelectasis Acute hypoxic respiratory failure COPD O2 2 L keep sats greater than 90% Resume home nebs IV Decadron Elevated BNP 2908 CXR IMPRESSION: Findings suggesting lobar collapse on the right with volume loss, probably involving the middle lobe. Concomitant pneumonia is difficult to exclude. Chest CT IMPRESSION: Small right pleural effusion.Atelectatic changes throughout the right lung, predominantly dependent, with volume loss. Healing left fourth, fifth, and seventh rib fractures. Incentive spirometer, pulmonary consult Brain MRI ordered Bilateral lower extremity arterial ultrasound ordered Echocardiogram Hyponatremia Gentle IV fluids Serial sodium Malnutrition GERD Dietary consult Hypertension Resume appropriate home meds Full code DVT Diet: Cardiac Disposition , lives at home - Code Status/Comfort Care Code Status: Full Code Time Spent Managing PTS Care (In Minutes): 35 <[place] - Last Filed: 06/02/23 16:40> - Current Problems (Diagnosis) (1) Acute respiratory failure Current Visit: No Status: Acute Qualifiers: Respiratory failure complication: hypoxia Qualified Code(s): J96.01 - Acute respiratory failure with hypoxia (2) Atelectasis Current Visit: No Status: Acute (3) CHF (congestive heart failure) Current Visit: No Status: Acute Qualifiers: Heart failure type: unspecified Heart failure chronicity: acute on chronic Qualified Code(s): I50.9 - Heart failure, unspecified (4) COPD (chronic obstructive pulmonary disease) Current Visit: No Status: Acute Qualifiers: COPD type: COPD with acute exacerbation Qualified Code(s): J44.1 - Chronic obstructive pulmonary disease with (acute) exacerbation (5) Malnutrition Current Visit: No Status: Acute Qualifiers: Malnutrition type: protein-calorie malnutrition Protein-calorie malnutrition severity: mild Qualified Code(s): E44.1 - Mild protein-calorie malnutrition (6) Atrial fibrillation Current Visit: No Status: Chronic Qualifiers: Atrial fibrillation type: paroxysmal Qualified Code(s): I48.0 - Paroxysmal atrial fibrillation (7) GERD (gastroesophageal reflux disease) Onset Date: 11/17/17 Current Visit: No Status: Chronic Qualifiers: Esophagitis presence: esophagitis presence not specified Qualified Code(s): K21.9 - Gastro-esophageal reflux disease without esophagitis (8) Hypertension Onset Date: 11/17/17 Current Visit: No Status: Chronic Qualifiers: Hypertension type: essential hypertension Qualified Code(s): I10 - Essential (primary) hypertension (9) Hyponatremia Onset Date: 11/17/17 Current Visit: No Status: Resolved <Jason Gan - Last Filed: 06/05/23 15:57> Date of Service: 06/02/23 Patient seen and examined. Patient's mentation is altered secondary to sundowning and delirium. Start low-dose Seroquel. Continue with gentle hydration and prednisone for pain. Patient participating with physical therapy. <Jason Gan - Last Filed: 06/05/23 15:57>
[2023-06-02] MEDS: ACETAMINOPHEN 500 MG TAB PO PRN (11:21)
[2023-06-02 12:36] LABS: Blood Morphology Comment NOT SEEN (NOT SEEN); Platelet Estimate ADEQ; White Blood Cell Scan OK (OK)
[2023-06-02] MEDS: FUROSEMIDE 40 MG TABLET PO SCH (17:16)
[2023-06-03 00:55] VITALS: O2SAT 95
[2023-06-03] MEDS ORDERED: ALPRAZOLAM 0.5 MG TABLET PO PRN (02:47)
[2023-06-03] MEDS ORDERED: PANTOPRAZOLE 40MG TABLET PO PRN (02:47)
[2023-06-03] MEDS: ALPRAZOLAM 0.5 MG TABLET ONE (03:10)
[2023-06-03] MEDS: LABETALOL 20 MG/4ML SYRINGE IV ONE (03:12)
[2023-06-03] MEDS: ALPRAZOLAM 0.5 MG TABLET PO PRN (03:20)
--- NOTE | 2023-06-03 05:26 | P.PN ---
Subjective Date of Service: 06/03/23 Chief Complaint: Status post fall with L3 compression fracture; hyponatremia; myopathy Status post fall with compression fracture, myopathy, moderate generalized weakness requires assistance with ADL Patient confused, trying to calm out of bed today, at the - Physical Exam General: Alert, In no apparent distress, Oriented x2 HEENT: Atraumatic, PERRLA, Mucous membr. moist/pink, EOMI, Sclerae nonicteric Neck: Supple, 2+ carotid pulse no bruit, No LAD, Without JVD or thyroid abnormality Respiratory: Clear to auscultation bilaterally, Normal air movement Cardiovascular: Regular rate/rhythm, Normal S1 S2, Systolic murmur Gastrointestinal: Normal bowel sounds, Soft and benign, Non-distended, No tenderness Musculoskeletal: No clubbing, No swelling, No tenderness Neurological: Normal speech, Normal tone, Sensation intact, Cranial nerves 3-12 intact, Normal affect, Abnormal gait, Abnormal strength Lymphatics: No axilla or inguinal lymphadenopathy <[place] - Last Filed: 06/03/23 18:13> Date of Service: 06/03/23 <Jason Gan - Last Filed: 06/05/23 15:58> Review of Systems HPI <Any Bay - Last Filed: 06/03/23 18:13> Physical Examination - Vital Signs Temperature: 97 F Blood Pressure: 203/89 Pulse: 93 Respirations: 18 Pulse Ox (%): 95 <Any [place] - Last Filed: 06/03/23 18:13> Assessment And Plan - Plan Assessment plan Frequent falls L2 Compression fractures Rib fractures fourth, fifth, and seventh rib fractures. Myopathy Muscular atrophy Fall precautions, Pending MRI of the spine, As needed analgesics PT eval moderate to max assist with transfers, unsafe to ambulate independently Acute on chronic heart failure unknown baseline Atelectasis Acute hypoxic respiratory failure COPD O2 2 L keep sats greater than 90% Resume home nebs IV Decadron Elevated BNP 2908 CXR IMPRESSION: Findings suggesting lobar collapse on the right with volume loss, probably involving the middle lobe. Concomitant pneumonia is difficult to exclude. Chest CT IMPRESSION: Small right pleural effusion.Atelectatic changes throughout the right lung, predominantly dependent, with volume loss. Healing left fourth, fifth, and seventh rib fractures. Incentive spirometer, pulmonary consult Brain MRI ordered Bilateral lower extremity arterial ultrasound ordered Echocardiogram PAD Cardiology consulted Duplex arterial ultrasound-IMPRESSION: Findings indicating moderate to advanced right and moderate left peripheral vascular disease, with concern for focal stenosis along the right mid superficial femoral artery. Bilateral lower extremity weakness-not a candidate for intervention due to the stability of lumbar fractures Hyponatremia Gentle IV fluids Serial sodium Malnutrition GERD Dietary consult Hypertension Resume appropriate home meds Full code DVT Diet: Cardiac Disposition plan disposition [facility] - Code Status/Comfort Care Code Status: Full Code Critical Care: No Time Spent Managing PTS Care (In Minutes): 35 <Any [place] - Last Filed: 06/03/23 18:13> - Current Problems (Diagnosis) (1) Acute respiratory failure Current Visit: No Status: Acute Qualifiers: Respiratory failure complication: hypoxia Qualified Code(s): J96.01 - Acute respiratory failure with hypoxia (2) Atelectasis Current Visit: No Status: Acute (3) CHF (congestive heart failure) Current Visit: No Status: Acute Qualifiers: Heart failure type: unspecified Heart failure chronicity: acute on chronic Qualified Code(s): I50.9 - Heart failure, unspecified (4) COPD (chronic obstructive pulmonary disease) Current Visit: No Status: Acute Qualifiers: COPD type: COPD with acute exacerbation Qualified Code(s): J44.1 - Chronic obstructive pulmonary disease with (acute) exacerbation (5) Malnutrition Current Visit: No Status: Acute Qualifiers: Malnutrition type: protein-calorie malnutrition Protein-calorie malnutrition severity: mild Qualified Code(s): E44.1 - Mild protein-calorie malnutrition (6) Atrial fibrillation Current Visit: No Status: Chronic Qualifiers: Atrial fibrillation type: paroxysmal Qualified Code(s): I48.0 - Paroxysmal atrial fibrillation (7) GERD (gastroesophageal reflux disease) Onset Date: 11/17/17 Current Visit: No Status: Chronic Qualifiers: Esophagitis presence: esophagitis presence not specified Qualified Code(s): K21.9 - Gastro-esophageal reflux disease without esophagitis (8) Hypertension Onset Date: 11/17/17 Current Visit: No Status: Chronic Qualifiers: Hypertension type: essential hypertension Qualified Code(s): I10 - Essential (primary) hypertension (9) Hyponatremia Onset Date: 11/17/17 Current Visit: No Status: Resolved <Jason Gan - Last Filed: 06/05/23 15:58> Date of Service: 06/03/23 Patient seen and examined. Patient's mentation is improved. Continue with MRI and proceed with physical therapy. Continue with low-dose Seroquel. Continue with physical therapy and arrange for group home facility placement. <Jason Gan - Last Filed: 06/05/23 15:58>
[2023-06-03] MEDS: atenoloL 50 MG TAB ONE (05:33)
[2023-06-03] MEDS: LOSARTAN POTASSIUM 50 MG TABLET ONE (05:33)
[2023-06-03] MEDS: atenoloL 50 MG TAB PO SCH (05:36)
[2023-06-03] MEDS: LOSARTAN POTASSIUM 50 MG TABLET PO SCH (05:36)
[2023-06-03] MEDS: HALOPERIDOL LACT 5 MG/ML INJ IV ONE (06:12)
--- NOTE | 2023-06-03 08:17 | RAD REPORT ---
EXAM DESCRIPTION: US - Lower Extremity Arterial Bilat - 06/02/2023 11:52 pm CLINICAL HISTORY: pad COMPARISON: No comparisons TECHNIQUE: Bilateral lower extremity arterial Doppler examination was performed with adele montejo FINDINGS: Up to moderate atherosclerotic calcific plaque throughout both lower extremity arterial sy stems, more pronounced on the right. Biphasic waveforms are seen along the right common femoral artery and throughout the left lower extre mity arterial system to the level of the dorsalis pedis artery. Monophasic waveforms are seen along the remainder of the right lower extremity arterial system. Focal peak systolic velocity elevation at the level of the mid SFA. Reduced peak systolic velocities throu ghout the remainder of the distal lower extremity. IMPRESSION: Findings indicating moderate to advanced right and moderate left peripheral vascular dis ease, with concern for focal stenosis along the right mid superficial femoral artery.
[2023-06-03] MEDS ORDERED: FUROSEMIDE 40 MG TABLET PO SCH (09:00)
[2023-06-03] MEDS: CITALOPRAM 10 MG TABLET PO SCH (09:40)
[2023-06-03] MEDS: predniSONE 20 MG TAB PO SCH (09:43)
[2023-06-03 10:37] LABS: Absolute Lymphocytes (CBC) 0.2 K/uL (0.7-4.9); Hematocrit 38.2 % (39.6-49.0); MCV 98.9 fL (80-100); MPV 6.4 fL (7.6-11.3); Platelets 318 thou/uL (152-406); RBC Red Blood Cell Count 3.86 M/uL (4.33-5.43)
[2023-06-03] MEDS ORDERED: HALOPERIDOL LACT 5 MG/ML INJ IV PRN (10:40)
[2023-06-03] MEDS: NICOTINE 21 MG/PAT TD SCH ×2 (10:43→20:14)
[2023-06-03 11:00] LABS: Anion Gap 11.8 mEq/L (5.0-15.0); Potassium 3.8 mEq/L (3.5-5.1)
[2023-06-03] MEDS: QUETIAPINE 25 MG TAB PO ONE (11:38)
[2023-06-03] MEDS: METOPROLOL TARTRATE 5 MG/5 ML INJ IV SCH (11:40)
--- NOTE | 2023-06-03 17:39 | P.CNS ---
Date of Consult: 06/03/23 Chief Complaint: Status post fall with L3 compression fracture; hyponatremia; myopathy History of Present Illness: patient with PMH of AF, CHF and PAD presented with fall, multiple fractures including vertebrae and ribs, cardiology were consulted for weak legs, loss of muscle mass and abnormal SATISH. Allergies No Known Allergies Allergy (Verified 08/14/18 22:44) Home Medications: Omeprazole [Prilosec] 40 mg PO DAILY PRN 11/12/17 Losartan Potassium 1 tab PO DAILY 08/15/18 atenoloL [Atenolol] 100 mg PO BID 08/15/18 Rivaroxaban [Xarelto*] 15 mg PO DAILY AT SUPPER #30 tablet 08/17/18 predniSONE [Prednisone*] 20 mg PO BID #15 tab 08/17/18 ALPRAZolam [Xanax*] 1 tab PO PRN PRN 06/02/23 Citalopram [Celexa*] 10 mg PO DAILY 06/02/23 Furosemide [Lasix*] 40 mg PO DAILY 06/02/23 - Past Medical/Surgical History Diabetic: No -: Hypertension -: GERD -: chronic diastolic CHF -: paroxismal A.Fib -: HTN -: COPD -: Diagnostic laparoscopy -: exploratory laparotomy -: lysis of adhesion -: cholecystectomy -: right ankle surgery Psychosocial/ Personal History: Patient is - Family History Father Medical History: Heart disease, Other (see notes) Notes: heart attack Mother Medical History: Heart disease Notes: heart attack - Social History Smoking Status: Former smoker Alcohol use: Yes CD- Drugs: No Caffeine use: Yes Place of Residence: Home Review of Systems 10-point ROS is otherwise unremarkable Physical Examination Temp Pulse Resp BP Pulse Ox 97.5 F 93 H 18 161/96 H 94 06/03/23 12:00 06/03/23 11:41 06/03/23 11:41 06/03/23 11:41 06/03/23 11:41 General: Alert HEENT: Atraumatic Neck: Supple Respiratory: Clear to auscultation bilaterally Cardiovascular: No edema, Normal S1 S2 Capillary refill: <2 Seconds Gastrointestinal: Normal bowel sounds Musculoskeletal: No clubbing - Problems (1) PAD (peripheral artery disease) Current Visit: Yes Status: Acute Plan: patient with prior diagnosis of peripheral arterial disease, patient bilateral legs and feet are weak but warm to touch and no signs of wounds or infections, US duplex was reviewed and our recommendation will be to continue medical management at this time as patient is not candidate for intervention with his disability from lumbar fractures as there is no sign of acute limb ischemia. follow up with cardiology as outpatient to discuss further plans as outpatient.
[2023-06-03] MEDS: QUETIAPINE 25 MG TAB PO SCH (20:14)
[2023-06-04 07:42] LABS: Anion Gap 9.1 mEq/L (5.0-15.0); Potassium 4.1 mEq/L (3.5-5.1)
[2023-06-04] MEDS: ALPRAZOLAM 1 MG TABLET PO ONE (08:34)
[2023-06-04] MEDS ORDERED: NICOTINE 21 MG/PAT TD SCH (09:00)
[2023-06-04 09:35] LABS: Absolute Lymphocytes (CBC) 0.3 K/uL (0.7-4.9); Basophils % 0.1 % (0-1.3); Hematocrit 39.7 % (39.6-49.0); Lymphocytes % 4.4 % (15.3-44.8); MCV 100.2 fL (80-100); MPV 6.6 fL (7.6-11.3); Platelets 298 thou/uL (152-406); RBC Red Blood Cell Count 3.96 M/uL (4.33-5.43)
--- NOTE | 2023-06-04 09:59 | P.PN ---
Subjective Date of Service: 06/04/23 Chief Complaint: Status post fall with L3 compression fracture; hyponatremia; myopathy Status post fall with compression fracture, myopathy, moderate generalized weakness requires assistance with ADL at bedside, MRI of brain ordered, lumbar spine ordered - Physical Exam General: Alert, In no apparent distress, Oriented x2 HEENT: Atraumatic, PERRLA, Mucous membr. moist/pink, EOMI, Sclerae nonicteric Neck: Supple, 2+ carotid pulse no bruit, No LAD, Without JVD or thyroid abnormality Respiratory: Clear to auscultation bilaterally, Normal air movement Cardiovascular: Regular rate/rhythm, Normal S1 S2, Systolic murmur Gastrointestinal: Normal bowel sounds, Soft and benign, Non-distended, No tenderness Musculoskeletal: No clubbing, No swelling, No tenderness Neurological: Normal speech, Normal tone, Sensation intact, Cranial nerves 3-12 intact, Normal affect, Abnormal gait, Abnormal strength Lymphatics: No axilla or inguinal lymphadenopathy <Any Bay - Last Filed: 06/04/23 18:19> Date of Service: 06/04/23 <Jason Gan - Last Filed: 06/05/23 15:59> Review of Systems Per HPI <Any Bay - Last Filed: 06/04/23 18:19> Physical Examination - Vital Signs Temperature: 97.8 F Blood Pressure: 195/96 Pulse: 89 Respirations: 16 Pulse Ox (%): 97 <Any Bay - Last Filed: 06/04/23 18:19> Assessment And Plan - Plan Assessment plan Frequent falls acute L2 Compression fractures acute Rib fractures fourth, fifth, and seventh rib fractures. Myopathy acute Muscular atrophy acute Fall precautions, Pending MRI of the spine, As needed analgesics PT eval moderate to max assist with transfers, unsafe to ambulate independently 06/03 MRI of the L-spine IMPRESSION: Subacute/recent moderate compression deformity along the L2 endplates most pronounced at the superior endplate, stable compared to the 06/01/2023 CT.Buckling of the posterior L2 cortex contributes to mild central canal stenosis with crowding of the cauda equina roots at that level.Other mild spondylotic changes with mild bilateral neural foraminal narrowing at L1-2 (progressive since the prior MRI), and stable bilateral mild neural foraminal narrowing at L5-S1 3/7Brain MRI pending radiology for report Acute on chronic heart failure unknown baseline PAD Cardiology consulted Duplex arterial ultrasound-IMPRESSION: Findings indicating moderate to advanced right and moderate left peripheral vascular disease, with concern for focal amalia nosis along the right mid superficial femoral artery. Bilateral lower extremity weakness-not a candidate for intervention due to the stability of lumbar fractures Follow-up with cardiology outpatient Atelectasis improving Acute hypoxic respiratory failure COPD O2 2 L keep sats greater than 90% Resume home nebs IV Decadron Elevated BNP 2908 CXR IMPRESSION: Findings suggesting lobar collapse on the right with volume loss, probably involving the middle lobe. Concomitant pneumonia is difficult to exclude. Chest CT IMPRESSION: Small right pleural effusion.Atelectatic changes throughout the right lung, predominantly dependent, with volume loss. Healing left fourth, fifth, and seventh rib fractures. Incentive spirometer, pulmonary consult Hyponatremia improving Gentle IV fluids sodium 118, 123, 126 Serial sodium Malnutrition GERD Dietary consult Hypertension Resume appropriate home meds Full code DVT Diet: Cardiac Disposition plan disposition [facility] Discharge Plan: Group Home Physician Review: Patient Assessed, Agree with Above Assessment and Plan Critical Care: No Time Spent Managing PTS Care (In Minutes): 35 <Any Bay - Last Filed: 06/04/23 18:19> - Current Problems (Diagnosis) (1) Acute respiratory failure Current Visit: No Status: Acute Qualifiers: Respiratory failure complication: hypoxia Qualified Code(s): J96.01 - Acute respiratory failure with hypoxia (2) Atelectasis Current Visit: No Status: Acute (3) CHF (congestive heart failure) Current Visit: No Status: Acute Qualifiers: Heart failure type: unspecified Heart failure chronicity: acute on chronic Qualified Code(s): I50.9 - Heart failure, unspecified (4) COPD (chronic obstructive pulmonary disease) Current Visit: No Status: Acute Qualifiers: COPD type: COPD with acute exacerbation Qualified Code(s): J44.1 - Chronic obstructive pulmonary disease with (acute) exacerbation (5) Malnutrition Current Visit: No Status: Acute Qualifiers: Malnutrition type: protein-calorie malnutrition Protein-calorie malnutrition severity: mild Qualified Code(s): E44.1 - Mild protein-calorie malnutrition (6) Atrial fibrillation Current Visit: No Status: Chronic Qualifiers: Atrial fibrillation type: paroxysmal Qualified Code(s): I48.0 - Paroxysmal atrial fibrillation (7) GERD (gastroesophageal reflux disease) Onset Date: 11/17/17 Current Visit: No Status: Chronic Qualifiers: Esophagitis presence: esophagitis presence not specified Qualified Code(s): K21.9 - Gastro-esophageal reflux disease without esophagitis (8) Hypertension Onset Date: 11/17/17 Current Visit: No Status: Chronic Qualifiers: Hypertension type: essential hypertension Qualified Code(s): I10 - Essential (primary) hypertension (9) Hyponatremia Onset Date: 11/17/17 Current Visit: No Status: Resolved <Jason Gan - Last Filed: 06/05/23 15:59> Date of Service: 06/04/23 Patient seen and examined. Patient's mentation is improved. MRI completed. MRI of the brain is negative and MRI of the L-spine with no cord compression. Participating with therapy. Wean off of Seroquel. Continue with physical therapy and arrange for retirement facility placement. <Jason Gan - Last Filed: 06/05/23 15:59>
[2023-06-04 10:31] LABS: Band Neutrophils 1 % (0-1); Blood Morphology Comment NOT SEEN (NOT SEEN); Platelet Estimate ADEQ
[2023-06-04] MEDS: METOPROLOL TAR 25 MG TAB PO SCH (17:34)
--- NOTE | 2023-06-04 17:49 | RAD REPORT ---
EXAM DESCRIPTION: MRI - Lumbar Spine Wo Con - 06/04/2023 4:51 pm CLINICAL HISTORY: COMPRESSION FX COMPARISON: Lumbar Spine Wo Con dated 02/22/2020; Thorax Wo Con dated 06/01/2023; Abdomen Pelvis W C ontrast dated 06/01/2023; Head C Spine Cap Wo Con dated 05/29/2023; Brain Wo Cont dated 06/04/2023 TECHNIQUE: Multiplanar multisequence MRI of the lumbar spine performed, without intravenous gadolini um contrast. FINDINGS: Preserved lumbar lordosis without spondylolisthesis. Stable moderate compression deformit y most pronounced along the superior endplate at L2, with moderate marrow edematous changes throughou t the vertebral body, extending along the pedicles. Buckling of the posterior L2 cortex, extending ap proximately 3 mm posteriorly. Mild superior endplate compression deformity with possible Schmorl's no de at L1, without adjacent marrow signal abnormality. Other vertebral body heights are well maintaine d. No other suspicious marrow signal. No paraspinal masses or edema. Conus terminates at the T12-L1 level. Crowding of the cauda equina roots opposite upper L2 level. Cau da equina roots are otherwise unremarkable, with no clumping or thickening. T12-L1: No significant findings. L1-L2: Overall mild canal stenosis opposite upper L2 level. Mild ligamentum flavum buckling at this l evel contributes to the findings. Mild bilateral foraminal narrowing. L2-L3: Mild facet degenerative changes and trace effusion on the right. No significant canal or slim inal stenosis. L3-L4 level: No significant findings. L4-L5 level: No significant findings. L5-S1 level: Mild disc height loss and broad-based posterior disc bulge. . Mild bilateral facet arthr opathy with trace effusions and small extrinsic synovial cysts. Bilateral mild neural foraminal narro wing. IMPRESSION: Subacute/recent moderate compression deformity along the L2 endplates most pronounced at the superior endplate, stable compared to the 06/01/2023 CT. Buckling of the posterior L2 cortex contributes to mild central canal stenosis with crowding of the c auda equina roots at that level. Other mild spondylotic changes with mild bilateral neural foraminal narrowing at L1-2 (progressive si nce the prior MRI), and stable bilateral mild neural foraminal narrowing at L5-S1.
--- NOTE | 2023-06-04 18:38 | RAD REPORT ---
EXAM DESCRIPTION: MRI - Brain Wo Cont - 06/04/2023 4:51 pm CLINICAL HISTORY: WEAKNESS/AMS COMPARISON: Head CT 05/29/2023 TECHNIQUE: Multiplanar multisequence MRI of the brain performed without IV contrast. FINDINGS: No evidence of acute infarct or other diffusion signal abnormality. Left superior cerebell ar small region of encephalomalacia and adjacent gliosis, stable. Right cerebellar focus of encephalo malacia as well. Findings suggest sequelae of remote ischemia. No evidence of acute intracranial hemorrhage or abnormal extra-axial fluid collections. Moderate diffuse parenchymal volume loss. Ventricular caliber is stable. Midline structures are unrem arkable. Mild periventricular white matter T2/FLAIR hyperintensities, nonspecific, but suggestive of chronic s mall vessel ischemic changes. No mass effect or midline shift. Major vascular flow voids are preserved. Patchy opacification of the right mastoid air cells. Mucosal thickening with small air-fluid level ri ght maxillary sinus. IMPRESSION: No acute intracranial process. Chronic findings including sequelae of remote ischemia involving the cerebellar hemispheres most nota octaviano on the left, and nonspecific periventricular T2/FLAIR white matter signal abnormalities, most sug gestive of chronic small vessel ischemic changes.
[2023-06-05 06:53] LABS: Absolute Lymphocytes (CBC) 0.3 K/uL (0.7-4.9); Hematocrit 38.9 % (39.6-49.0); MCV 99.8 fL (80-100); MPV 6.5 fL (7.6-11.3); Platelets 291 thou/uL (152-406)
[2023-06-05 07:20] LABS: Albumin 2.7 g/dL (3.4-5.0); Albumin/Globulin Ratio 0.8 (1.1-1.8); Anion Gap 8.5 mEq/L (5.0-15.0); Bilirubin Total 0.7 mg/dL (0.2-1.0); Potassium 3.5 mEq/L (3.5-5.1); Protein, Total 6.2 g/dL (6.4-8.2); Thyroid Stimulating Hormone 0.253 uIU/mL (0.358-3.740)
--- NOTE | 2023-06-05 07:59 | P.DS ---
Admission Date: 06/01/23 Discharge Date: 06/05/23 Reason for Admission: Status post fall with L3 compression fracture; hyponatremia; myopathy Brief History of Present Illness: 72-year-old gentleman came to the hospital with generalized weakness. Patient apparently had suffered a fall 4 days ago. He was brought into the emergency room and patient had a L2 compression fracture at that time. Patient was ambulatory and was able to go home. Patient states that he is fallen on 4 dif ferent occasions this year. He is got rib fractures that appear to be healing as well as the lumbar compression fracture that was mentioned. There does appear to be some cord compression. Patient denies any radiculopathy. I did tell the family that we do not have spine surgery available at this hospital, and that they wanted to transfer then we would be happy to try to get him transferred. However, they elected to stay at our facility for medical management. Will do further evaluation with an MRI imaging. Will also need to correct patient's sodium as patient with severe hyponatremia. Patient will be given saline and will slowly correct patient's sodium with IV fluids. Will check a urine sodium level as well. Patient has a history of tobacco abuse and quit about 10 years ago. He has diagnosed COPD as well as coronary artery disease. Patient appears to have some peripheral arterial disease which may be contributing to his myopathy and muscular atrophy. Patient will be admitted for an MRI of the spine as well as correction of his sodium. Once again, I did offer family the attempt to try to transfer from the emergency room, but they elected to stay in the hospital for further treatment. - Physical Exam General: Alert, In no apparent distress, Oriented x3 HEENT: Atraumatic, PERRLA, Mucous membr. moist/pink, EOMI, Sclerae nonicteric Neck: Supple, 2+ carotid pulse no bruit, No LAD, Without JVD or thyroid abnormality Respiratory: Clear to auscultation bilaterally, Normal air movement Cardiovascular: Regular rate/rhythm, Normal S1 S2, Systolic murmur Gastrointestinal: Normal bowel sounds, Soft and benign, Non-distended, No tenderness Musculoskeletal: No clubbing, No swelling, No tenderness Neurological: Normal speech, Normal tone, Sensation intact, Cranial nerves 3-12 intact, Normal affect, Abnormal gait, Abnormal strength Lymphatics: No axilla or inguinal lymphadenopathy Hospital Course: 72 year-old male patient presented with frequent falls, L2 compression fracture, difficulty with ambulation. Family opted to stay in [facility] neurosurgery eval. Was noted to have rib fractures, hyponatremia, frequent falls, peripheral arterial disease contributed to myopathy. L2 compression fracture atelectasis with acute hypoxic respiratory failure. Congestive heart failure. COPD, malnutrition, Condition improved with physical therapy, normal saline. As needed analgesic patient tolerating diet, stable for discharge to [facility] with follow-up appointment with primary care physician. PROBLEM: Delirium versus metabolic encephalopathy likely secondary chronic ischemic small vessel disease Frequent falls Rib fracture L2 compression fracture Hyponatremia Myopathy Muscular atrophy COPD PAD patient not a candidate for intervention due to lumbar fractures PT evaluation and treatment evaluated by physical therapy-patient has been confused throughout hospital stay, standing active mid to the limited due to fear of falling standing for 10 seconds quickly returns to sitting easily irritated, Delirium versus metabolic encephalopathy likely secondary chronic ischemic small vessel disease, patient requiring Haldol, Xanax, 05/31 CT of the abdomen pelvis IMPRESSION: Likely acute/recent superior endplate compression deformity at L2. Mild effacement of the ventral CSF space due to buckled posterior vertebral body cortex. Degree of compression is progressive since the prior CT. Mildly distended small bowel loops, suggesting ileus. Small right pleural effusion with underlying segmental atelectasis. Other incidental findings as above 05/31 Chest x-ray IMPRESSION: Findings suggesting lobar collapse on the right with volume loss, probably involving the middle lobe. Concomitant pneumonia is difficult to exclude 06/01 Doppler ultrasound IMPRESSION: Findings indicating moderate to advanced right and moderate left peripheral vascular disease, with concern for focal stenosis along the right mid superficial femoral artery. Not stable for intervention 06/03 Lumbar MRI IMPRESSION: Subacute/recent moderate compression deformity along the L2 endplates most pronounced at the superior endplate, stable compared to the 06/01/2023 CT, Buckling of the posterior L2 cortex contributes to mild central canal stenosis with crowding of the cauda equina roots at that level. Other mild spondylotic changes with mild bilateral neural foraminal narrowing at L1-2 (progressive since the prior MRI), and stable bilateral mild neural foraminal narrowing at L5-S1 06/03 Brain MRI-MPRESSION: No acute intracranial process. Chronic findings including sequelae of remote ischemia involving the cerebellar hemispheres most notably on the left, and nonspecific periventricular T2/FLAIR white matter signal abnormalities, most suggestive of chronic small vessel ischemic changes. Continue home medicines as previously prescribed GOAL: Clear understanding of disease process INSTRUCTIONS: Physician Discharge Instructions: -Follow-up with PCP in 1 to 2 weeks -Please call Dr. Gan at [phone] if any questions regarding hospital stay -Please call nursing station at [phone] if any nursing or medication questions -Return to the emergency room if symptoms worsen Diet: ADA, low sodium Activity: Fall precautions <[place] - Last Filed: 06/05/23 07:42> Admission Date: 06/01/23 Discharge Date: 06/05/23 - Problems (1) Acute respiratory failure Current Visit: No Status: Acute Qualifiers: Respiratory failure complication: hypoxia Qualified Code(s): J96.01 - Acute respiratory failure with hypoxia (2) Atelectasis Current Visit: No Status: Acute (3) CHF (congestive heart failure) Current Visit: No Status: Acute Qualifiers: Heart failure type: unspecified Heart failure chronicity: acute on chronic Qualified Code(s): I50.9 - Heart failure, unspecified (4) COPD (chronic obstructive pulmonary disease) Current Visit: No Status: Acute Qualifiers: COPD type: COPD with acute exacerbation Qualified Code(s): J44.1 - Chronic obstructive pulmonary disease with (acute) exacerbation (5) Malnutrition Current Visit: No Status: Acute Qualifiers: Malnutrition type: protein-calorie malnutrition Protein-calorie malnutrition severity: mild Qualified Code(s): E44.1 - Mild protein-calorie malnutrition (6) Atrial fibrillation Current Visit: No Status: Chronic Qualifiers: Atrial fibrillation type: paroxysmal Qualified Code(s): I48.0 - Paroxysmal atrial fibrillation (7) GERD (gastroesophageal reflux disease) Onset Date: 11/17/17 Current Visit: No Status: Chronic Qualifiers: Esophagitis presence: esophagitis presence not specified Qualified Code(s): K21.9 - Gastro-esophageal reflux disease without esophagitis (8) Hypertension Onset Date: 11/17/17 Current Visit: No Status: Chronic Qualifiers: Hypertension type: essential hypertension Qualified Code(s): I10 - Essential (primary) hypertension (9) Hyponatremia Onset Date: 11/17/17 Current Visit: No Status: Resolved <Jason Gan - Last Filed: 06/05/23 16:00> Disposition: TRANSFER TO [facility] Discharge Condition: GOOD Vital Signs/Physical Exam: Temp Pulse Resp BP Pulse Ox 97.9 F 77 16 178/90 H 98 06/05/23 04:00 06/05/23 06:50 06/05/23 04:00 06/05/23 06:50 06/05/23 04:00 Laboratory Data at Discharge: WBC 7.00 thou/uL (4.3-10.9) 06/05/23 06:17 Hgb 13.6 g/dL (13.6-17.9) 06/05/23 06:17 Hct 38.9 % (39.6-49.0) L 06/05/23 06:17 Plt Count 291 thou/uL (152-406) 06/05/23 06:17 PT 13.8 SECONDS (9.5-12.5) H 06/02/23 05:50 INR 1.26 06/02/23 05:50 APTT 32.2 SECONDS (24.3-36.9) 06/02/23 05:50 Sodium 125 mEq/L (136-145) L 06/05/23 06:17 Potassium 3.5 mEq/L (3.5-5.1) D 06/05/23 06:17 BUN 15 mg/dL (7-18) 06/05/23 06:17 Creatinine 0.74 mg/dL (0.70-1.30) 06/05/23 06:17 Glucose 94 mg/dL (74-106) 06/05/23 06:17 Total Bilirubin 0.7 mg/dL (0.2-1.0) 06/05/23 06:17 AST 24 U/L (15-37) 06/05/23 06:17 ALT 68 U/L (16-61) H 06/05/23 06:17 Alkaline Phosphatase 84 U/L (45-117) 06/05/23 06:17 <Any Bay - Last Filed: 06/05/23 07:42> Vital Signs/Physical Exam: Temp Pulse Resp BP Pulse Ox 97.1 F 80 17 152/82 H 94 06/05/23 12:00 06/05/23 12:00 06/05/23 12:00 06/05/23 12:00 06/05/23 12:00 Laboratory Data at Discharge: WBC 7.00 thou/uL (4.3-10.9) 06/05/23 06:17 Hgb 13.6 g/dL (13.6-17.9) 06/05/23 06:17 Hct 38.9 % (39.6-49.0) L 06/05/23 06:17 Plt Count 291 thou/uL (152-406) 06/05/23 06:17 PT 13.8 SECONDS (9.5-12.5) H 06/02/23 05:50 INR 1.26 06/02/23 05:50 APTT 32.2 SECONDS (24.3-36.9) 06/02/23 05:50 Sodium 125 mEq/L (136-145) L 06/05/23 06:17 Potassium 3.5 mEq/L (3.5-5.1) D 06/05/23 06:17 BUN 15 mg/dL (7-18) 06/05/23 06:17 Creatinine 0.74 mg/dL (0.70-1.30) 06/05/23 06:17 Glucose 94 mg/dL (74-106) 06/05/23 06:17 Total Bilirubin 0.7 mg/dL (0.2-1.0) 06/05/23 06:17 AST 24 U/L (15-37) 06/05/23 06:17 ALT 68 U/L (16-61) H 06/05/23 06:17 Alkaline Phosphatase 84 U/L (45-117) 06/05/23 06:17 <Jason Gan - Last Filed: 06/05/23 16:00> Diet: AHA Activity: Fall precautions Time spent managing pt's care (in minutes): 55 <Any [place] - Last Filed: 06/05/23 07:42> <Jason Gan - Last Filed: 06/05/23 16:00> Home Medications: Omeprazole [Prilosec] 40 mg PO DAILY PRN 11/12/17 Losartan Potassium 1 tab PO DAILY 08/15/18 Rivaroxaban [Xarelto*] 15 mg PO DAILY AT SUPPER #30 tablet 08/17/18 ALPRAZolam [Xanax*] 1 tab PO PRN PRN 06/02/23 Citalopram [Celexa*] 10 mg PO DAILY 06/02/23 Furosemide [Lasix*] 40 mg PO DAILY 06/02/23 Metoprolol Tartrate [Lopressor*] 25 mg PO BID 6AM 6PM #30 tab 06/05/23 Nicotine [Nicoderm*] 21 mg TD Q24H #30 patch 06/05/23 Quetiapine [Seroquel] 25 mg PO BEDTIME #10 tab 06/05/23 Sodium Chloride Tab [Sodium Chloride*] 2 gm PO BID #120 tab 06/05/23 predniSONE [Prednisone*] 20 mg PO BID #11 tab 06/05/23 New Medications: Metoprolol Tartrate [Lopressor*] 25 mg PO BID 6AM 6PM #30 tab Nicotine [Nicoderm*] 21 mg TD Q24H #30 patch predniSONE [Prednisone*] 20 mg PO BID #11 tab Quetiapine [Seroquel] 25 mg PO BEDTIME #10 tab Sodium Chloride Tab [Sodium Chloride*] 2 gm PO BID #120 tab Physician Discharge Instructions: 72 year-old male patient presented with frequent falls, L2 compression fracture, difficulty with ambulation. Family opted to stay in [facility]. Was noted to have rib fractures, hyponatremia, frequent falls, peripheral arterial disease contributed to myopathy. L2 compression fracture atelectasis with acute hypoxic respiratory failure. Congestive heart failure. COPD, malnutrition, Condition improved with physical therapy, normal saline. As needed analgesic patient tolerating diet, stable for discharge to senior care [facility] with follow-up appointment with primary care physician. PROBLEM: Delirium versus metabolic encephalopathy likely secondary chronic ischemic small vessel disease Frequent falls Rib fracture L2 compression fracture Hyponatremia Myopathy Muscular atrophy COPD PAD patient not a candidate for intervention due to lumbar fractures PT evaluation and treatment evaluated by physical therapy-patient has been confused throughout hospital stay, standing active mid to the limited due to fear of falling standing for 10 seconds quickly returns to sitting easily irritated, Fall precaution Delirium versus metabolic encephalopathy likely secondary chronic ischemic small vessel disease, patient requiring Haldol, Xanax, 3/4 CT of the abdomen pelvis IMPRESSION: Likely acute/recent superior endplate compression deformity at L2. Mild effacement of the ventral CSF space due to buckled posterior vertebral body cortex. Degree of compression is progressive since the prior CT. Mildly distended small bowel loops, suggesting ileus. Small right pleural effusion with underlying segmental atelectasis. Other incidental findings as above 05/31 Chest x-ray IMPRESSION: Findings suggesting lobar collapse on the right with volume loss, probably involving the middle lobe. Concomitant pneumonia is difficult to exclude 06/01 Doppler ultrasound IMPRESSION: Findings indicating moderate to advanced right and moderate left peripheral vascular disease, with concern for focal stenosis along the right mid superficial femoral artery. Not stable for intervention 06/03 Lumbar MRI IMPRESSION: Subacute/recent moderate compression deformity along the L2 endplates most pronounced at the superior endplate, stable compared to the 06/01/2023 CT, Buckling of the posterior L2 cortex contributes to mild central canal stenosis with crowding of the cauda equina roots at that level. Other mild spondylotic changes with mild bilateral neural foraminal narrowing at L1-2 (progressive since the prior MRI), and stable bilateral mild neural foraminal narrowing at L5-S1 06/03 Brain MRI-MPRESSION: No acute intracranial process. Chronic findings including sequelae of remote ischemia involving the cerebellar hemispheres most notably on the left, and nonspecific periventricular T2/FLAIR white matter signal abnormalities, most suggestive of chronic small vessel ischemic changes. Continue home medicines as previously prescribed GOAL: Clear understanding of disease process INSTRUCTIONS: Physician Discharge Instructions: -Follow-up with PCP in 1 to 2 weeks -Please call Dr. Gan at [phone] if any questions regarding hospital stay -Please call nursing station at [phone] if any nursing or medication questions -Return to the emergency room if symptoms worsen Diet: ADA, low sodium Activity: Fall precautions Followup: Logan Brewster MD [Primary Care Provider] -
[2023-06-05 15:32] VITALS: BP 152/82; TEMP 97.1
--- NOTE | 2023-06-08 10:51 | ECHO ---
HEIGHT: 5 ft 9 in WEIGHT: 174 lb 0 oz DATE OF STUDY: 06/05/[address]: Jason Gan MD 2-DIMENSIONAL: YES M.MODE: YES DOPPLER: YES COLOR FLOW: YES TDS: YES PORTABLE: YES DEFINITY: NO BUBBLE STUDY: NO DIAGNOSIS: ATRIAL FIBRILLATION WITH RAPID VENTRICULAR RESPONSE CARDIAC HISTORY: CATHERIZATION: SURGERY: PROSTHETIC VALVE: PACEMAKER: MEASUREMENTS (cm) DIASTOLIC (NORMALS) SYSTOLIC (NORMALS) IVSd (0.6-1.2) LA Diam (1.9-4.0) LVEF % LVIDd (3.5-5.7) LVIDs (2.0-3.5) %FS % LVPWd (0.6-1.2) Ao Diam (2.0-3.7) 2 DIMENSIONAL ASSESSMENT: RIGHT ATRIUM: NOT WELL VISUALIZED LEFT ATRIUM: NOT WELL VISUALIZED RIGHT VENTRICLE: NORMAL LEFT VENTRICLE: NORMAL TRICUSPID VALVE: NORMAL MITRAL VALVE: NORMAL PULMONIC VALVE: NOT SEEN AORTIC VALVE: NORMAL PERICARDIAL EFFUSION: SMALL AORTIC ROOT: NOT SEEN LEFT VENTRICULAR WALL MOTION: NORMAL DOPPLER/COLOR FLOW: DIASTOLIC DYSFUNCTION. COMMENTS: 1. LIMITED STUDY. 2. NORMAL LEFT VENTRICULAR SYSTOLIC FUNCTION. LEFT VENTRICULAR EJECTION FRACTION 55-60%. NORMAL WALL MOTION. 3. DIASTOLIC DYSFUNCTION. TECHNOLOGIST: FLORES FRANCISCO
== END 2023-06-05 17:12 | DRG 640 ==
LOC: ER 11:51 → ERHOLD 17:07 → 4TH 17:41
PROVIDERS: ADMIT Hospitalist; ATTEND Hospitalist
DX: E87.1 Hypo-osmolality and hyponatremia (principal); G93.41 Metabolic encephalopathy; I50.33 Acute on chronic diastolic (congestive) heart failure; J96.01 Acute respiratory failure with hypoxia; K56.7 Ileus, unspecified; J44.1 Chronic obstructive pulmonary disease with (acute) exacerbation; E44.1 Mild protein-calorie malnutrition; J98.11 Atelectasis; F05 Delirium due to known physiological condition; I11.0 Hypertensive heart disease with heart failure; I73.9 Peripheral vascular disease, unspecified; I48.0 Paroxysmal atrial fibrillation; G72.9 Myopathy, unspecified; K21.9 Gastro-esophageal reflux disease without esophagitis; M62.50 Muscle wasting and atrophy, not elsewhere classified, unspecified site; I25.10 Atherosclerotic heart disease of native coronary artery without angina pectoris; S32.029D Unspecified fracture of second lumbar vertebra, subsequent encounter for fracture with routine healing; S22.42XD Multiple fractures of ribs, left side, subsequent encounter for fracture with routine healing; R29.6 Repeated falls; Z88.8 Allergy status to other drugs, medicaments and biological substances; Z79.01 Long term (current) use of anticoagulants; Z91.81 History of falling; Z68.25 Body mass index [BMI] 25.0-25.9, adult; Z90.49 Acquired absence of other specified parts of digestive tract; Z79.52 Long term (current) use of systemic steroids; Z87.891 Personal history of nicotine dependence; Z79.899 Other long term (current) drug therapy
CPT/HCPCS: 36415; 70551; 71045; 71250; 72148; 74177; 80048; 80053; 81001; 83605; 83880; 84439; 84443; 84484; 85025; 85610; 85730; 86140; 87040; 93306; 93925; 94010; 96361; 96365; 96368; 97110; 97116; 97161; 97530; 99285; J0696; J1100; J1630; J7030; J7040; J7050; J7512; Q9967

== ENCOUNTER 2023-10-26 09:18 | Inpatient (IN) | payer OTHER ==
--- OUTSIDE RECORDS SUMMARY | 2023-10-26 09:20 | XMS REPORT | Continuity of Care Document ---
Author Name Unknown Address [address] [place] [address] [address] thconnect Address [address] [facility] [address] [place] [address] Care Team Providers Care Steam And Power Supervisor Name Role Phone Christiano Robles Attending Clinician Unavailab le Payers Payer Name Policy Type Policy Number Effective Date Expirati on Date Source Allergies, Adverse Reactions, Alerts Allergy Name Allergy Type Status Severity Reaction(s) Onset Date Inactive Date Treating Clinician Comments Source No Known Drug Allergie s DA Active U 04-02 00:00: 00 [facility] predniso lone DA Active U Rash 04-02 00:00: 00 [facility] Encounters Start Date/Time End Date/Time Encounter Type Admission Type Attending Clinicians [facility] Facility Care Department Encounter ID Source 2023-04-02 12:31:00 2023-04-02 16:00:00 Outpatient Elective Christiano Robles [facility] [id number] [facility] Notes Date/Time Note Provider Source 2023-04-02 14:48:00 [id number]:48:00 [facility] [address] [place] [address] Opthalmology Operative Note Signed Patient: Javi Garcia Medical Record#: [id number] : 1950 Acct:[id number] Age/Sex: 72 / M ADM Date: 04/02/23 Loc: [facility] Room: Report Number: [id number]: Christiano Robles MD General Surgery Operative Note Date of Procedure: 04/02/23 Time of Procedure: 14:48 Detailed Description of Procedure: PreOperative Diagnosis retinal detachment of the right eye with multiple retinal breaks PostOperative Diagnosis; same Procedure(s) Performed; vitrectomy endo photocoagulation gas fluid exchange Surgeon Christiano Robles M.D. Registered Nurse Cardiac None Anesthesia Retrobulbar Block, Monitor Anesthesia Care [...] 04/02/23 1451 DD/ 1448 TD/TT: 04/02/23 1448 Equipment Operator: ASHLEY cc: ASHLEY; [id number]* Christiano Robles MD; Abdelrahman Brewster MD P.OPHT.OPNOphthalmology Operative [id number] HuertaA2024-01-04T14:48:00P.OPHT.OPN AVAvailable for patient [id number]:52:12 [facility] 2023-04-02 11:42:00 [id number]:42:00 [facility] [address] [place] [id number] Ophthalmology H P Signed Patient: JAVI GARCIA Medical Record#: [id number] : 1950 Acct:[id number] Age/Sex: 72 / M Admit/Reg Date: 04/02/23 Loc: [facility] Room: Report Number: [id number]: Christiano Robles MD Surgical HPI [...] 04/02/23 1150 DD/ 1142 TD/TT: 04/02/23 1142 Equipment Operator: ASHLEY cc: ASHLEY* Christiano Robles MD P.OPHT.HPOphthalmology History \T\ [id number] [id number]:42:00P.OPHT.[facility] VAvailable for patient [id number]:50:55 [facility]
[2023-10-26] MEDS ORDERED: LEVALBUTEROL 1.25 MG/3 ML NEB ONE (09:36)
[2023-10-26 09:53] LABS: Absolute Basophils 0.1 K/uL (0-0.5); Absolute Eosinophils 0.3 K/uL (0-0.5); Absolute Lymphocytes (CBC) 0.8 K/uL (0.7-4.9); Absolute Monocytes 0.8 K/uL (0.1-1.3); Absolute Neutrophil 4.3 K/uL (1.8-8.0); Basophils % 0.9 % (0-1.3); Eosinophils % 4.3 % (0-4.4); Hematocrit 37.1 % (39.6-49.0); Hemoglobin 12.3 g/dL (13.6-17.9); Lymphocytes % 13.3 % (15.3-44.8); MCH 32.1 pg (27.0-35.0); MCHC 33.3 g/dL (32.0-36.0); MCV 96.3 fL (80-100); MPV 6.6 fL (7.6-11.3); Monocytes % 12.5 % (3.3-12.3); Platelets 321 thou/uL (152-406); RBC Red Blood Cell Count 3.85 M/uL (4.33-5.43); Red Cell Distribution Width 14.6 % (12.1-15.2)
[2023-10-26 10:05] LABS: SARS-CoV-2 Antigen CONTROL BLUE LINE VIS/BG OK; SARS-CoV-2 Antigen Rapid Res Negative (Negative)
[2023-10-26 10:09] LABS: PT Prothrombin Time 13.2 SECONDS (9.4-12.5); Protime INR 1.18
[2023-10-26 10:15] LABS: Albumin 3.1 g/dL (3.4-5.0); Albumin/Globulin Ratio 0.9 (1.1-1.8); Anion Gap 8.7 mEq/L (5.0-15.0); Bilirubin Total 0.5 mg/dL (0.2-1.0); Globulin 3.3 g/dL (2.3-3.5); Potassium 3.7 mEq/L (3.5-5.1); Protein, Total 6.4 g/dL (6.4-8.2); Troponin High Sensitivity 5.6 pg/mL (<58.9)
[2023-10-26] MEDS ORDERED: FUROSEMIDE 40 MG/4 ML VIAL ONE (10:44)
--- NOTE | 2023-10-26 10:55 | RAD REPORT ---
EXAM DESCRIPTION: [place] Single View10/26/2023 10:22 am CLINICAL HISTORY: DYSPNEA COMPARISON: Chest Single View dated 06/01/2023; Chest Pa And Lat (2 Views) dated 08/17/2018; Chest Sing le View dated 08/14/2018; Chest Pa And Lat (2 Views) dated 08/12/2018 TECHNIQUE: Portable AP view of the chest. FINDINGS: Right basilar atelectasis with volume loss and rightward shift of the mediastinal structur es again seen. Decreased penetration limits evaluation, however there appears to be new right basilar airspace opacity and/or small effusion. No pneumothorax or other sizable effusion. The cardiomedias tinal contours are unremarkable. IMPRESSION: Possible new right basilar airspace opacity with small effusion.
--- NOTE | 2023-10-26 11:10 | ER ---
Nurse's Notes [facility] Name: Javi Garcia Age: 73 yrs Sex: Male : 1950 Arrival Date: 10/26/2023 Time: 09:18 Bed 6 Private MD: Diagnosis: COPD/ Chronic obstructive pulmonary disease with (acute) exacerbation;Acute pulmonary edema Presentation: 10/25 09:23 Chief complaint: EMS states: Difficulty breathing since last night, pt does not use ld1 home O2. Coronavirus screen: At this time, the client does not indicate any symptoms associated with coronavirus-19. Ebola Screen: No symptoms or risks identified at this time. Care prior to arrival: Medication(s) given: Albuterol Neb x 1, Atrovent Neb x 1. Care prior to arrival: Medication(s) given: SoluMedrol 125mg. 09:23 Method Of Arrival: EMS: [facility] ld1 11:39 Initial Sepsis Screen: Does the patient meet any 2 criteria? No. Patient's initial ld1 sepsis screen is negative. Does the patient have a suspected source of infection? No. Patient's initial sepsis screen is negative. Risk Assessment: Do you want to hurt yourself or someone else? Patient reports no desire to harm self or others. Onset of symptoms was October 26, 2023. 11:39 Acuity: PATRICIA 3 ld1 Triage Assessment: : General: Appears in no apparent distress. comfortable, Behavior is calm, cooperative, ld1 appropriate for age. Pain: Denies pain. EENT: No signs and/or symptoms were reported regarding the EENT system. Neuro: Level of Consciousness is awake, alert, obeys commands, Oriented to person, place, time, situation, Appropriate for age. Cardiovascular: Capillary refill < 3 seconds Patient's skin is warm and dry. Respiratory: Reports shortness of breath at rest on exertion Airway is patent Respiratory effort is even, unlabored. GI: Abdomen is flat, non-distended. : No signs and/or symptoms were reported regarding the genitourinary system. Derm: No signs and/or symptoms reported regarding the dermatologic system. Musculoskeletal: No signs and/or symptoms reported regarding the musculoskeletal system. Historical: - Allergies: 09:24 Prednisone; ld1 - Home Meds: 09:24 Xarelto oral [Active]; ld1 - PMHx: 09:24 Bursitis right hip; Alcohol dependence; CHF; COPD; Hypertension; neuropathy; Atrial ld1 fibrillation; - Immunization history:: Adult Immunizations up to date. - Infectious Disease History:: Denies. - Family history:: not pertinent. - Hospitalizations: : No recent hospitalization is reported. - Social history:: Smoking status: Patient/guardian denies using tobacco, the patient reports quitting approximately 1 years ago. Screenin:24 [facility] ED Fall Risk Assessment (Adult) History of falling in the last 3 months, ld1 including since admission No falls in past 3 months (0 pts) Confusion or Disorientation No (0 pts) Intoxicated or Sedated No (0 pts) Impaired Gait Yes (1 pt) Mobility Assist Device Used Yes (1 pt) Altered Elimination No (0 pt) Score/Fall Risk Level 0 - 2 = Low Risk Oriented to surroundings, Maintained a safe environment, Educated pt \T\ family on fall prevention, incl call for assistance when getting out of bed, Assessed \T\ reinforced patient's understanding of fall precautions, Provided non-skid footwear, Hourly rounding (assess needs \T\ fall precautionary measures) done, Used ambulatory aids as needed (educated on \T\ assisted with), Used gait belt as appropriate. Abuse screen: Denies threats or abuse. Denies injuries from another. Nutritional screening: No deficits noted. Tuberculosis screening: No symptoms or risk factors identified. Assessment: 09:29 Reassessment: See triage assessment. ld1 Vital Signs: 09:24 BP 135 / 76; Pulse 89; Resp 18; Temp 98.2(TE); Pulse Ox 98% on R/A; Weight 79 kg; ld1 Height 5 ft. 8 in. ; Pain 0/10; 09:50 BP 137 / 74; Pulse 81; Resp 18; Pulse Ox 100% on R/A; ld1 13:18 BP 127 / 94; Pulse 107; Resp 18; Pulse Ox 98% on R/A; ld1 09:24 Body Mass Index 26.48 (79.00 kg, 172.72 cm) ld1 09:24 Pain Scale: Adult ld1 ED Course: : Patient arrived in ED. rn 09:22 Amilcar Martines MD is Attending Physician. rn 09:23 Melanie Haney RN is Primary Nurse. ld1 09:24 Maintain EMS IV. Dressing intact. Good blood return noted. Site clean \T\ dry. Gauge \T\ ld 1 site: 20G LAC. 09:24 No provider procedures requiring assistance completed. Inserted saline lock: 20 gauge ld1 in right forearm, using aseptic technique. Blood collected. Flushed with 10 mL NS. 09:24 Patient has correct armband on for positive identification. Placed in gown. Bed in low ld1 position. Call light in reach. Side rails up X2. electronic device monitor on. Pulse ox on. NIBP on. Door closed. Noise minimized. Warm blanket given. 09:25 Initial lab(s) drawn, by vt, sent to lab. First set of blood cultures drawn by vt. zm 09:29 Arm band placed on right wrist. ld1 09:40 Second set of blood cultures drawn by me. zm 09:48 Troponin High Sensitivity Sent. zm 09:48 BNP Sent. zm 09:48 Flu Sent. zm 09:48 SARS RAPID Sent. zm 09:48 Blood Culture Adult (2) Sent. zm 09:48 CBC with Diff Sent. zm 09:48 CMP Sent. zm 09:48 Lactate w/ 2H reflex if indic. Sent. zm 09:48 Protime (+inr) Sent. zm 09:48 Ptt, Activated Sent. zm 09:48 COVID swab sent to lab. Flu and/or RSV swab sent to lab. zm 10:24 Chest Single View XRAY In Process Unspecified. EDMS 11:10 Jason Gan MD is Hospitalizing Provider. rn 11:39 Triage completed. ld1 18:57 Patient admitted, IV remains in place. ld1 Administered Medications: 09:50 Drug: Levalbuterol Inhalation 1.25 mg Inhalation once Route: Inhalation; ld1 12:19 Drug: Furosemide IVP 40 mg IVP once; give over 2 minutes Route: IVP; Site: left ld1 antecubital; 12:53 Drug: Rocephin IV 1 grams IV at calculated rate once; Given slow IV push per pharmacy ld1 instructions Route: IV; Rate: calculated rate; Site: left antecubital; 12:53 Drug: Zithromax IVPB 500 mg IVPB once over 1 hrs; mix in 250 mL NS Route: IVPB; Infused ld1 Over: 1 hrs; Site: right wrist; Medication: 09:24 VIS not applicable for this client. ld1 Outcome: 11:10 Decision to Hospitalize by Provider. rn 18:57 Admitted to Med/surg accompanied by marian thompson 18:57 Condition: stable 18:57 Instructed on the need for admit, 18:57 Patient left the ED. ld1 Signatures: Dispatcher [employer] EDAmilcar Ambrocio MD MD rn Sims, Lauren, RN RN ld1 Martinez, Zaina zm
--- NOTE | 2023-10-26 11:10 | EDPHYS ---
Physician Documentation [facility] Name: Javi Garcia Age: 73 yrs Sex: Male : 1950 Arrival Date: 10/26/2023 Time: 09:18 Bed 6 Private MD: ED Physician Amilcar Martines HPI: 10/25 09:25 This 73 yrs old Male presents to ER via EMS with complaints of sob. rn 09:25 The patient has shortness of breath at rest, with light activity. Onset: The rn symptoms/episode began/occurred 2 day(s) ago. Duration: The symptoms are intermittent. The patient's shortness of breath is aggravated by exertion, light activity, is alleviated by nebulizer treatment. Associated signs and symptoms: Pertinent positives: non-productive cough, Pertinent negatives: chest pain, dizziness, fever, hemoptysis. Severity of symptoms: At their worst the symptoms were moderate in the emergency department the symptoms have improved. The patient has experienced similar episodes in the past. Patient reports shortness of breath for the last 2 days, has a history of COPD, CHF and atrial fibrillation. Takes Xarelto. Denies fever or chills. Does not feel sick. No trauma or fall. Reports generalized weakness. Given Solu-Medrol and nebulizer treatment by EMS with improvement of symptoms.. Historical: - Allergies: 09:24 Prednisone; ld1 - Home Meds: 09:24 Xarelto oral [Active]; ld1 - PMHx: 09:24 Bursitis right hip; Alcohol dependence; CHF; COPD; Hypertension; neuropathy; Atrial ld1 fibrillation; - Immunization history:: Adult Immunizations up to date. - Infectious Disease History:: Denies. - Family history:: not pertinent. - Hospitalizations: : No recent hospitalization is reported. - Social history:: Smoking status: Patient/guardian denies using tobacco, the patient reports quitting approximately 1 years ago. ROS: 09:25 Constitutional: Negative for fever, chills, and weight loss, Cardiovascular: Negative rn for chest pain, palpitations, and edema, Respiratory: Positive for shortness of breath and cough with wheezing Abdomen/GI: Negative for abdominal pain, nausea, vomiting, diarrhea, and constipation, MS/Extremity: Negative for injury and deformity, Neuro: Negative for headache, numbness, tingling, and seizure, Exam: 09:25 Constitutional: This is a well developed, well nourished patient who is awake, alert, rn and in no acute distress. ENT: No stridor Cardiovascular: Irregularly irregular rhythm. No pulse deficits. Respiratory: Mild tachypnea, faint wheezing with diminished breath sounds at the bases Abdomen/GI: Soft, nontender MS/ Extremity: Pulses equal, no cyanosis. Neurovascular intact. Full, normal range of motion. Equal circumference. Neuro: Awake and alert, GCS 15 10:30 ECG was reviewed by the Attending Physician. rn Vital Signs: 09:24 BP 135 / 76; Pulse 89; Resp 18; Temp 98.2(TE); Pulse Ox 98% on R/A; Weight 79 kg; ld1 Height 5 ft. 8 in. ; Pain 0/10; 09:50 BP 137 / 74; Pulse 81; Resp 18; Pulse Ox 100% on R/A; ld1 13:18 BP 127 / 94; Pulse 107; Resp 18; Pulse Ox 98% on R/A; ld1 09:24 Body Mass Index 26.48 (79.00 kg, 172.72 cm) ld1 09:24 Pain Scale: Adult ld1 MDM: 09:22 Patient medically screened. rn 11:08 Differential diagnosis: Anxiety Reaction Bronchitis CHF exacerbation, Chronic rn Obstructive Pulmonary Disease Myocardial Infarction pneumonia, Pneumothorax pulmonary edema. Data reviewed: vital signs, nurses notes, lab test result(s), EKG, radiologic studies, plain films, and as a result, I will admit patient. Consideration of Admission/Observation Patient was admitted/placed on observation. Escalation of care including admission/observation considered. Counseling: I had a detailed discussion with the patient and/or guardian regarding the presence of at least one elevated blood pressure reading (>120/80) during this emergency department visit, lab results, radiology results, the need for further work-up and treatment in the hospital. Response to treatment: the patient's symptoms have mildly improved after treatment, and as a result, I will admit patient. ED course: Patient improved, workup reveals likely combination of CHF and COPD with questionable left lower lobe infiltrate. Will admit to hospitalist and started on antibiotics.. 10/25 09:23 Order name: Blood Culture Adult (2) rn 10/25 09:23 Order name: CBC with Diff; Complete Time: 10:24 rn 10/25 09:23 Order name: CMP; Complete Time: 10:24 10/25 09:23 Order name: Lactate w/ 2H reflex if indic.; Complete Time: 10:24 10/25 09:23 Order name: Protime (+inr); Complete Time: 10:24 10/25 09:23 Order name: Ptt, Activated; Complete Time: 10:24 10/25 09:23 Order name: SARS RAPID; Complete Time: 10:24 10/25 09:23 Order name: Flu; Complete Time: 10:10/25 09:23 Order name: BNP; Complete Time: 10:24 10/25 09:23 Order name: Troponin High Sensitivity; Complete Time: 10:24 10/25 09:23 Order name: Chest Single View XRAY; Complete Time: 10:55 10/25 09:23 Order name: Accucheck; Complete Time: 09:10/25 09:23 Order name: Cardiac monitoring; Complete Time: 09:10/25 09:23 Order name: EKG - Nurse/Tech; Complete Time: 09:45 10/25 09:23 Order name: IV Saline Lock - Large Bore; Complete Time: :10/25 09:23 Order name: Labs collected and sent; Complete Time: :45 10/25 09:23 Order name: O2 Per Protocol; Complete Time: :10/25 09:23 Order name: O2 Sat Monitoring; Complete Time: :10/25 09:23 Order name: Vital Signs; Complete Time: 09:28 rn EC:30 Rate is 80 beats/min. Rhythm is irregularly irregular. QRS [place] is Normal. QRS interval rn is normal. QT interval is normal. No Q waves. T waves are Normal. No ST changes noted. Clinical impression: Atrial Fibrillation. Interpreted by me. Reviewed by me. Administered Medications: 09:50 Drug: Levalbuterol Inhalation 1.25 mg Inhalation once Route: Inhalation; ld1 12:19 Drug: Furosemide IVP 40 mg IVP once; give over 2 minutes Route: IVP; Site: left ld1 antecubital; 12:53 Drug: Rocephin IV 1 grams IV at calculated rate once; Given slow IV push per pharmacy ld1 instructions Route: IV; Rate: calculated rate; Site: left antecubital; 12:53 Drug: Zithromax IVPB 500 mg IVPB once over 1 hrs; mix in 250 mL NS Route: IVPB; Infused ld1 Over: 1 hrs; Site: right wrist; Disposition Summary: 10/26/23 11:10 Hospitalization Ordered Notes: Hospitalization Status: Inpatient Admission rn Provider: Jason Gan rn Condition: Stable rn Problem: an acute exacerbation rn Symptoms: have improved rn Bed/Room Type: Standard rn Location: Telemetry/MedSurg (Inpatient)(10/26/23 16:43) bd Room Assignment: 215(10/26/23 16:43) bd Diagnosis - COPD/ Chronic obstructive pulmonary disease with (acute) exacerbation rn - Acute pulmonary edema rn Forms: - Medication Reconciliation Form rn - SBAR form rn - Leadership Thank You Letter rn Signatures: Dispatcher [employer] EDDee Jernigan Roman, MD MD rn Sims, Lauren, RN RN ld1 Natalee Slater RN RN kb3 Corrections: (The following items were deleted from the chart) 12:57 11:10 Telemetry/MedSurg (Inpatient) rn kb3 12:57 11:10 rn kb3 16:43 12:57 [facility] ER HOLD kb3 bd 16:43 12:57 ERHOLD- kb3 bd
[2023-10-26] MEDS ORDERED: CEFTRIAXONE 1000 MG/VIAL ONE (12:21)
[2023-10-26] MEDS ORDERED: NA CHLORIDE 0.9% 250 ML ONE (12:21)
[2023-10-26] MEDS ORDERED: AZITHROMYCIN 500 MG INJ IVPB ONE (12:21)
[2023-10-26] MEDS: NA CHLORIDE 0.9% 1,000 ML IV SCH (13:44)
[2023-10-26 13:53] VITALS: BMI 25.4
--- NOTE | 2023-10-26 13:57 | P.HP ---
Certification for Inpatient Patient admitted to: Observation With expected LOS: <2 Midnights Patient will require the following post-hospital care: None Practitioner: I am a practitioner with admitting privileges, knowledge of patient current condition, hospital course, and medical plan of care. Services: Services provided to patient in accordance with Admission requirements found in Title 42 Section 412.3 of the Code of Federal Regulations Patient History Date of Service: 10/26/23 Reason for admission: COPD exacerbation History of Present Illness: 73-year-old male with history of chronic diastolic congestive heart failure, atrial fibrillation on chronic anticoagulation, hypertension, GERD, COPD, BPH presents to the emergency department with chief complaint of shortness of breath. His family at bedside report progressive dyspnea worsening over the course of the last 2 days. He was evaluated in the emergency department and his labs were significant for white blood cell 6.3 hemoglobin 12.3 medic at 37.1 sodium 125 chloride 92 creatinine 0.64 lactic acid 1.3 BNP 1652 he tested negative for COVID chest x- ray was obtained which revealed possible new right basilar airspace opacity with small effusion. On 06/01/[address] scan of his chest which showed small right pleural effusion, atelectatic changes throughout the right lung, predominantly dependent with volume loss. Healing left fourth, fifth and seventh rib fractures. He denies any fever, chills or ill contacts, denies any edema of lower extremities. ED provider wishes to admit patient under observation for suspected COPD exacerbation. Allergies No Known Allergies Allergy (Verified 08/14/18 22:44) Home Medications: Omeprazole [Prilosec] 40 mg PO DAILY PRN 11/12/17 Losartan Potassium 1 tab PO DAILY 08/15/18 Rivaroxaban [Xarelto*] 15 mg PO DAILY AT SUPPER #30 tablet 08/17/18 ALPRAZolam [Xanax*] 1 tab PO PRN PRN 06/02/23 Citalopram [Celexa*] 10 mg PO DAILY 06/02/23 Furosemide [Lasix*] 40 mg PO DAILY 06/02/23 Metoprolol Tartrate [Lopressor*] 25 mg PO BID 6AM 6PM #30 tab 06/05/23 Nicotine [Nicoderm*] 21 mg TD Q24H #30 patch 06/05/23 Quetiapine [Seroquel] 25 mg PO BEDTIME #10 tab 06/05/23 Sodium Chloride Tab [Sodium Chloride*] 2 gm PO BID #120 tab 06/05/23 predniSONE [Prednisone*] 20 mg PO BID #11 tab 06/05/23 - Past Medical/Surgical History Has patient received pneumonia vaccine in the past: Yes Diabetic: No -: Hypertension -: GERD -: chronic diastolic CHF -: paroxismal A.Fib -: HTN -: COPD -: Diagnostic laparoscopy -: exploratory laparotomy -: lysis of adhesion -: cholecystectomy -: right ankle surgery Psychosocial/ Personal History: Patient is - Family History Father -: Heart disease, Other (see notes) Notes: heart attack Mother -: Heart disease Notes: heart attack - Social History Smoking Status: Never smoker Alcohol use: Yes CD- Drugs: No Caffeine use: Yes Place of Residence: Home Review of Systems 10-point ROS is otherwise unremarkable Respiratory: Shortness of Breath Physical Examination - Physical Exam General: Alert, In no apparent distress, Oriented x3 HEENT: Atraumatic, PERRLA, Mucous membr. moist/pink, EOMI, Sclerae nonicteric Neck: Supple, 2+ carotid pulse no bruit, No LAD, Without JVD or thyroid abnormality Respiratory: Diminished, Expiratory wheezes (Mild) Cardiovascular: Regular rate/rhythm, Normal S1 S2 Gastrointestinal: Normal bowel sounds, No tenderness Musculoskeletal: No tenderness Integumentary: No rashes Neurological: Normal gait, Normal speech, Normal strength at 5/5 x4 extr, Normal tone, Normal affect Lymphatics: No axilla or inguinal lymphadenopathy - Studies Laboratory Data (last 24 hrs) 10/26/23 10/26/23 10/26/23 09:40 09:40 09:40 WBC 6.30 Hgb 12.3 L Hct 37.1 L Plt Count 321 PT 13.2 H INR 1.18 APTT 32.0 Sodium 125 L Potassium 3.7 BUN 7 Creatinine 0.64 L Glucose 94 Total Bilirubin 0.5 AST 11 L ALT 26 Alkaline Phosphatase 75 Microbiology Data (last 24 hrs): 10/26/23 09:36 Nasopharnyx Influenza Type A Antigen Screen - Final 10/26/23 09:36 Nasopharnyx Influenza Type B Antigen Screen - Final Assessment and Plan - Plan Assessment: Dyspnea, suspect COPD with exacerbation Hyponatremia Chronic diastolic congestive heart failure Paroxysmal atrial fibrillation on chronic anticoagulation Hypertension GERD BPH Plan: Dyspnea, suspect COPD with exacerbation Currently takes dexamethasone 1 mg daily Pulmonology consulted, recommends increasing dexamethasone to 1 mg twice daily Continue as needed laser treatments, inhalers Appreciate further input from pulmonology Hyponatremia Similar to discharge numbers from previous admission Additional labs and urine studies ordered Continue gentle IV fluids overnight, patient does not appear grossly overloaded at this time Chronic diastolic congestive heart failure Was taken off his diuretic a few months ago by cardiology given concern for hyponatremia Echocardiogram performed on 06/05/2023 showed normal ejection fraction, diastolic dysfunction Monitor volume status closely Paroxysmal atrial fibrillation on chronic anticoagulation Continue metoprolol, Xarelto Hypertension GERD BPH Home medications continued DVT PPX: Continue Xarelto Code status: Full Discharge Plan: Home Plan to discharge in: 24 Hours - Advance Directives Does patient have a Living Will: No Does patient have a Durable POA for Healthcare: No - Code Status/Comfort Care Code Status Assessed: Yes (Full code) Critical Care: No Time Spent Managing Pts Care (In Minutes): 70
[2023-10-26] MEDS ORDERED: ALBUTEROL 2.5 MG/3 ML NEB SOL ONE (14:08)
[2023-10-26] MEDS: ALBUTEROL 2.5 MG/3 ML NEB SOL NEB SCH (14:20)
[2023-10-26] MEDS ORDERED: NA CHLORIDE 0.9% 1,000 ML ONE (14:33)
[2023-10-26] MEDS ORDERED: METOPROLOL TAR 25 MG TAB ONE (16:26)
[2023-10-26] MEDS ORDERED: RIVAROXABAN 20 MG TABLET PO ONE (16:26)
[2023-10-26] MEDS: RIVAROXABAN 15 MG TABLET PO SCH (16:28)
[2023-10-26] MEDS: METOPROLOL TAR 25 MG TAB PO SCH (17:30)
[2023-10-26] MEDS: DULERA 200/5 (MOMETASONE/FORMOTEROL) INHALER IH SCH (20:51)
[2023-10-26] MEDS: dexAMETHasone 4 MG TAB PO SCH (20:52)
[2023-10-26] MEDS: TAMSULOSIN 0.4 MG SR CAP PO SCH (20:52)
[2023-10-27] MEDS: QUETIAPINE 25 MG TAB ONE (00:29)
[2023-10-27] MEDS: QUETIAPINE 25 MG TAB PO SCH (00:34)
[2023-10-27] MEDS: HALOPERIDOL LACT 5 MG/ML INJ IV PRN (03:12)
[2023-10-27 05:07] LABS: Absolute Lymphocytes (CBC) 0.1 K/uL (0.7-4.9); Absolute Monocytes 0.2 K/uL (0.1-1.3); Absolute Neutrophil 3.5 K/uL (1.8-8.0); Basophils % 0.1 % (0-1.3); Hematocrit 36.4 % (39.6-49.0); Hemoglobin 12.5 g/dL (13.6-17.9); Lymphocytes % 3.5 % (15.3-44.8); MCH 32.4 pg (27.0-35.0); MCHC 34.4 g/dL (32.0-36.0); MCV 94.4 fL (80-100); MPV 6.3 fL (7.6-11.3); Monocytes % 5.4 % (3.3-12.3); Nucleated Red Blood Cells % 0.2 % (0-0); Platelets 306 thou/uL (152-406); RBC Red Blood Cell Count 3.85 M/uL (4.33-5.43)
[2023-10-27 05:21] LABS: Anion Gap 9.7 mEq/L (5.0-15.0); Potassium 3.7 mEq/L (3.5-5.1); Thyroid Stimulating Hormone 0.406 uIU/mL (0.358-3.740)
[2023-10-27] MEDS: PANTOPRAZOLE 40MG TABLET PO SCH (05:29)
[2023-10-27 06:46] LABS: Differential Total Cells Count 100; Lymphocytes 2 % (15-42); Monocytes 4 % (0-10); Segmented Neutrophils 94 % (40-80)
[2023-10-27 06:47] LABS: Blood Morphology Comment NOTED (NOT SEEN); Hypochromasia 1+; Platelet Estimate ADEQ
[2023-10-27] MEDS: CITALOPRAM 10 MG TABLET PO SCH (09:46)
[2023-10-27] MEDS: POTASSIUM CL SA 10 MEQ TAB PO ONE (09:46)
[2023-10-27] MEDS: HALOPERIDOL LACT 5 MG/ML INJ IM ONE (09:47)
[2023-10-27] MEDS: NICOTINE 14 MG/PAT TD SCH (11:24)
--- NOTE | 2023-10-27 12:50 | P.PN ---
Date of Service: 10/27/23 Subjective: Became agitated overnight requiring Haldol Agitated this morning ROS: 10 point ROS as noted above, otherwise negative Physical exam GEN: Alert, confused, oriented x 2, agitated HEENT: Normal conjunctiva, sclera anicteric CV: Regular rate and rhythm, no edema Pulm: Nonlabored respirations on room air ABD: Soft, nontender, nondistended MSK: No joint tenderness Integumentary: No rashes Neuro: Normal speech, normal affect Vitals reviewed Assessment: Dyspnea, suspect COPD with exacerbation versus acute on chronic diastolic congestive heart failure Agitation/delirium Hyponatremia Chronic diastolic congestive heart failure Paroxysmal atrial fibrillation on chronic anticoagulation Hypertension GERD BPH Plan: Dyspnea, suspect COPD with exacerbation versus acute on chronic diastolic congestive heart failure Currently takes dexamethasone 1 mg daily Pulmonology consulted, recommends increasing dexamethasone to 2 mg twice daily Continue as needed laser treatments, inhalers Repeat echocardiogram orderedechocardiogram May 2023 shows normal EF with diastolic dysfunction Patient taken off of his diuretics given his history of hyponatremia as well as lack of volume overload when seen outpatient Given concern of orthopnea, worsening dyspnea will start on spironolactone 25 mg by mouth twice daily Cardiology consulted Agitation/delirium Patient became very agitated overnight Is very suspicious of staff, very defensive Confused, oriented x 2 Similar episode during previous hospitalization in May Discussed with , reports this seems to happen when he is hospitalized As needed antipsychotics, redirection Hyponatremia Similar to discharge numbers from previous admission Started on spironolactone for possible acute on chronic diastolic congestive heart failure Monitor sodium level daily, cardiology consulted given possible need for diuresis with hyponatremia Paroxysmal atrial fibrillation on chronic anticoagulation Continue metoprolol, Xarelto Hypertension GERD BPH Home medications continued DVT PPX: Continue Xarelto Code status: Full Discharge Plan: Home Plan to discharge in: 24 to 48 hours Time Spent Managing Pts Care (In Minutes): 35
--- NOTE | 2023-10-27 13:47 | EKG ---
Test Date: 2023-10-26 Test Time: 09:46:01 [employer] Wind Up Helper: Keven VALENZUELA MEASUREMENT RESULTS: Intervals: Rate: 80 MN: QRSD: 104 QT: 396 QTc: 456 [place]: P: MN: QRS: 49 T: 63 INTERPRETIVE STATEMENTS: Atrial fibrillation Nonspecific ST abnormality, probably digitalis effect Abnormal ECG Compared to ECG 08/14/2018 19:10:10 Sinus tachycardia no longer present Ventricular premature complex(es) no longer present ST (T wave) deviation still present Electronically Signed On 10-27-23 13:45:56 CDT by Flaco Baldwin
--- NOTE | 2023-10-27 19:04 | CON ---
Date of Consultation: 10/27/2023 Reason For Consultation: Shortness of breath and ruling out heart failure. History Of Present Illness: 73-year-old male with history of diastolic heart failure, atrial fibrill ation, hypertension, COPD, enlarged prostate, presented with shortness of breath and that is progress li over the past 2 days. In the outpatient arena, he was put on low-dose Lasix in the past for his diastolic heart failure, but due to low sodium, Lasix was discontinued. Upon evaluation in the emerg ency room, was diagnosed with COPD exacerbation. I was consulted to rule out heart failure. I saw h im by bedside. There is no orthopnea or lower extremity edema or any signs of acute heart failure at the present time. No chest pain, but he appears to be confused with delirium since hospitalization. Past Medical History: As outlined above in the HPI. Medications: Refer to reconciliation sheet for detailed list. Allergies: NO KNOWN DRUG ALLERGIES. Family History: No premature coronary artery disease or cancer. Social History: He does not smoke or drink. Does not use any drugs. Review of Systems: All systems were reviewed and they were negative except as mentioned in HPI. Physical Examination: Vital Signs: Reviewed. Head and Neck: Pupils are equal, reactive to light. Intact eye movements. No JVD. No cervical lym phadenopathy. Neck is supple. Thyroid is not enlarged. Lungs: Clear to auscultation bilaterally. Decreased breathing sounds. No accessory muscle use or m uscle retraction. Heart: Irregular. No extra sounds. Abdomen: Soft, nontender. Bowel sounds positive. No organomegaly. No masses or hernia. No rigidi ty or rebound. Extremities: No clubbing or cyanosis. No edema. Neurologic: Alert, awake, oriented x3. No acute focal deficits appreciated. Investigations: BUN 8, creatinine 0.62, sodium 126. NT-proBNP is 1652 and hemoglobin is 12.8. Ches t x-ray showed possible pneumonia in the right lower lung. Assessment And Recommendations: 1.Shortness of breath, likely due to chronic obstructive pulmonary disease exacerbation, pneumonia. He does not look fluid overloaded clinically, even though NT-proBNP is elevated, but he has chronic diastolic heart failure. I believe treatment should be directed toward chronic obstructive pulmonary disease exacerbation and Pulmonary is on board. 2.Hyponatremia. He has history of congestive heart failure. With diuretics, he drops his sodium fu rther. Recommend Nephrology evaluation to evaluate the etiology behind hyponatremia. He is not flui d overloaded to give him that low sodium and this is not cardiac in origin and further investigation is recommended. 3.Atrial fibrillation. Increase metoprolol to 50 mg twice a day and continue Xarelto. 4.Elevated NT-proBNP, but no acute heart failure symptoms or signs at this moment. We will continue to monitor. SR/MODL Voice ID: [id number] Report ID: [id number]
[2023-10-27] MEDS: SPIRONOLACTONE 25 MG TABLET PO SCH (21:16)
[2023-10-28 06:18] LABS: Absolute Lymphocytes (CBC) 0.3 K/uL (0.7-4.9); Absolute Monocytes 0.5 K/uL (0.1-1.3); Absolute Neutrophil 5.3 K/uL (1.8-8.0); Basophils % 0.1 % (0-1.3); Eosinophils % 0.1 % (0-4.4); Hematocrit 34.7 % (39.6-49.0); Hemoglobin 11.9 g/dL (13.6-17.9); Lymphocytes % 4.5 % (15.3-44.8); MCH 32.6 pg (27.0-35.0); MCHC 34.3 g/dL (32.0-36.0); MCV 94.9 fL (80-100); MPV 6.5 fL (7.6-11.3); Monocytes % 8.4 % (3.3-12.3); Neutrophils % 86.9 % (41.7-73.7); Platelets 334 thou/uL (152-406); RBC Red Blood Cell Count 3.65 M/uL (4.33-5.43); Red Cell Distribution Width 14.8 % (12.1-15.2)
[2023-10-28 06:27] LABS: Anion Gap 9.1 mEq/L (5.0-15.0); Potassium 4.1 mEq/L (3.5-5.1)
--- NOTE | 2023-10-28 08:12 | P.CNS ---
Date of Consult: 10/27/23 Reason for Consult: Shortness of breath Chief Complaint: COPD exacerbation History of Present Illness: Patient is 73 years of age. With acute onset of dyspnea with orthopnea worse over the preceding week. In the hospital he remains very agitated disoriented present at the bedside denies any fever or chills compliant with his medication darted taking the dexamethasone over the weekend with no relief noticed audible wheezing and it appeared in the emergency room.'s of agitation when he gets admitted to the hospital Currently his diuretics were discontinued due to hyponatremia by cardiology Allergies No Known Allergies Allergy (Verified 08/14/18 22:44) Home Medications: Omeprazole [Prilosec] 40 mg PO DAILY PRN 11/12/17 Losartan Potassium 1 tab PO DAILY 08/15/18 Rivaroxaban [Xarelto*] 15 mg PO DAILY AT SUPPER #30 tablet 08/17/18 ALPRAZolam [Xanax*] 1 tab PO PRN PRN 06/02/23 Citalopram [Celexa*] 10 mg PO DAILY 06/02/23 Furosemide [Lasix*] 40 mg PO DAILY 06/02/23 Metoprolol Tartrate [Lopressor*] 25 mg PO BID 6AM 6PM #30 tab 06/05/23 Nicotine [Nicoderm*] 21 mg TD Q24H #30 patch 06/05/23 Quetiapine [Seroquel] 25 mg PO BEDTIME #10 tab 06/05/23 Sodium Chloride Tab [Sodium Chloride*] 2 gm PO BID #120 tab 06/05/23 predniSONE [Prednisone*] 20 mg PO BID #11 tab 06/05/23 - Past Medical/Surgical History Diabetic: No -: Hypertension -: GERD -: chronic diastolic CHF -: paroxismal A.Fib -: HTN -: COPD -: Diagnostic laparoscopy -: exploratory laparotomy -: lysis of adhesion -: cholecystectomy -: right ankle surgery Psychosocial/ Personal History: Patient is - Family History Father Medical History: Heart disease, Other (see notes) Notes: heart attack Mother Medical History: Heart disease Notes: heart attack - Social History Smoking Status: Former smoker Alcohol use: Yes CD- Drugs: No Caffeine use: Yes Place of Residence: Home Review of Systems is unable to be obtained Physical Examination Temp Pulse Resp BP Pulse Ox 97.8 F 91 H 18 165/85 H 99 07//24 04:00 10/28/23 04:00 10/28/23 04:00 10/28/23 04:00 10/28/23 04:00 General: Alert, Delirious Respiratory: Expiratory wheezes Cardiovascular: No edema, Regular rate/rhythm, Normal S1 S2 Gastrointestinal: Normal bowel sounds, Soft and benign Musculoskeletal: No clubbing, No swelling, No contractures - Problems (1) Respiratory distress Current Visit: Yes Status: Acute Plan: Patient is 73 years of age admitted with respiratory distress patient is mildly hyponatremic normal white count chest x-ray shows cardiomegaly minimal and interstitial changes BNP is elevated previous echocardiogram did show diastolic dysfunction agree with spironolactone for now and dexamethasone oxygenation s atisfactory
[2023-10-28] MEDS: METOPROLOL TAR 25 MG TAB PO SCH (09:16)
--- NOTE | 2023-10-28 11:03 | P.PN ---
Subjective Date of Service: 10/28/23 Chief Complaint: COPD exacerbation Subjective: No new changes, No C/O voiced, Tolerating diet, Ambulating, Improving Review of Systems 10-point ROS is otherwise unremarkable Physical Examination - Vital Signs Temperature: 96.1 F Blood Pressure: 182/99 Pulse: 71 Respirations: 16 Pulse Ox (%): 99 - Physical Exam General: Alert, In no apparent distress HEENT: Atraumatic, PERRLA, EOMI Neck: Supple, JVD not distended Respiratory: Clear to auscultation bilaterally, Normal air movement Cardiovascular: Regular rate/rhythm, Normal S1 S2 Gastrointestinal: Normal bowel sounds, No tenderness Musculoskeletal: No tenderness Integumentary: No rashes Neurological: Normal speech, Normal tone, Normal affect Lymphatics: No axilla or inguinal lymphadenopathy - Studies Medications List Reviewed: Yes Assessment And Plan - Current Problems (Diagnosis) (1) CHF (congestive heart failure) Current Visit: No Status: Acute Plan: Patient looks euvolemic on exam Stop IV Lasix continue lisinopril 20 mg daily continue metoprolol 50 mg BID continue spironlactone 25 mg daily may add hydralazine 25 mg TID if still hard to control BP cut back lasix to 40 mg oral daily Qualifiers: Heart failure type: unspecified Heart failure chronicity: acute on chronic Qualified Code(s): I50.9 - Heart failure, unspecified (2) Atrial fibrillation Current Visit: No Status: Chronic Plan: continue metoprolol and xarelto Qualifiers: Atrial fibrillation type: paroxysmal Qualified Code(s): I48.0 - Paroxysmal atrial fibrillation (3) Hypertension Onset Date: 11/17/17 Current Visit: No Status: Chronic Plan: continue medications as above. Qualifiers: Hypertension type: essential hypertension Qualified Code(s): I10 - Essential (primary) hypertension
--- NOTE | 2023-10-28 11:44 | P.PN ---
Date of Service: 10/28/23 Subjective: Mental status better with present Still easily agitated No acute events overnight breathing better Sodium still on the low side ROS: 10 point ROS as noted above, otherwise negative Physical exam GEN: Alert, confused, oriented x 2, agitated HEENT: Normal conjunctiva, sclera anicteric CV: Regular rate and rhythm, no edema Pulm: Nonlabored respirations on room air ABD: Soft, nontender, nondistended MSK: No joint tenderness Integumentary: No rashes Neuro: Normal speech, normal affect Vitals reviewed Assessment: Dyspnea, suspect COPD with exacerbation versus acute on chronic diastolic congestive heart failure Agitation/delirium Hyponatremia Chronic diastolic congestive heart failure Paroxysmal atrial fibrillation on chronic anticoagulation Hypertension GERD BPH Plan: Dyspnea, suspect COPD with exacerbation versus acute on chronic diastolic congestive heart failure Currently takes dexamethasone 1 mg daily Pulmonology consulted, recommends increasing dexamethasone to 2 mg twice daily Continue as needed laser treatments, inhalers Repeat echocardiogram orderedechocardiogram May 2023 shows normal EF with diastolic dysfunction Patient taken off of his diuretics given his history of hyponatremia as well as lack of volume overload when seen outpatient Given concern of orthopnea, worsening dyspnea will start on spironolactone 25 mg by mouth twice daily Cardiology consulted along with nephrology Agitation/delirium Patient became very agitated overnight Is very suspicious of staff, very defensive Confused, oriented x 2 Similar episode during previous hospitalization in May Discussed with , reports this seems to happen when he is hospitalized As needed antipsychotics, redirection Hyponatremia Similar to discharge numbers from previous admission Nephrology conuslted and following Started on spironolactone for possible acute on chronic diastolic congestive heart failure Monitor sodium level daily, cardiology consulted given possible need for diuresis with hyponatremia Paroxysmal atrial fibrillation on chronic anticoagulation Continue metoprolol, Xarelto Hypertension GERD BPH Home medications continued DVT PPX: Continue Xarelto Code status: Full Discharge Plan: Home Plan to discharge in: 24hours Time Spent Managing Pts Care (In Minutes): 35
[2023-10-28 13:10] LABS: Specific Gravity 1.008 (1.005-1.030); Sqamous Epithelial None Seen /HPF (None Seen); UR PROTEIN 9.4 mg/dL (<11.9); Urine Bacteria None Seen /HPF (<20); Urine Bilirubin NEGATIVE (Negative); Urine Blood Negative (Negative); Urine Clarity Clear (Clear); Urine Color Light-Yellow (Yellow); Urine Culture Reflex Order NOT NEEDED; Urine Glucose NEGATIVE (Negative); Urine Ketones NEGATIVE (Negative); Urine Microscopic Reflex YN ORDER UMIC; Urine Nitrite NEGATIVE (Negative); Urine Protein NEGATIVE (Negative); Urine Protein/Creatinine Ratio 0.25 ratio (<0.15); Urine RBC <5 /HPF (None Seen); Urine Urobilinogen Normal (Normal); Urine WBC <5 /HPF (<5)
[2023-10-28] MEDS ORDERED: FUROSEMIDE 40 MG/4 ML VIAL IV SCH (14:00)
--- NOTE | 2023-10-28 14:01 | RAD REPORT ---
[facility] 11[facility]54 am CLINICAL HISTORY: COPD COMPARISON: Chest Single View dated 10/26/2023; Chest Single View dated 06/01/2023; Chest Pa And Lat (2 Views) dated 08/17/2018; Chest Single View dated 08/14/2018 TECHNIQUE: Portable AP view of the chest. FINDINGS: Stable volume loss in the right lung. Progressive central interstitial prominence, with en largement of the central vascular structures. No pneumothorax or effusion. Stable cardiomegaly and s table tortuosity of the thoracic aorta. IMPRESSION: Findings suggesting congestive heart failure. Please correlate clinically.
--- NOTE | 2023-10-28 14:30 | CON ---
Date of Consultation: 10/28/2023 Consulting Physician: Dr. Martines. Reason For Consultation: Hyponatremia. History Of Present Illness: This is a pleasant 73-year-old gentleman with significant past medical history of congestive heart failure, hypertension, hyperlipidemia, COPD, benign prostate hypertrophy, the patient came to the hospital because of shortness of breath, found to have hypocalcemia. The patient also found to have hyponatremia, sodium down to 125. For that reason, we have been consulted. The patient apparently at home being on diuresis. No hydrochlorothiazide. The patient used to be on salt tablet also. Reviewing the record for the patient, the patient was admitted for hyponatremia before with secondary to dilutional. The patient was started on diuresis, improved. At that time, his sodium was down to 128. The patient also has episode of hyponatremia before early in May. Past Medical History: Includes: 1. Hypertension. 2. COPD. 3. Congestive heart failure. 4. Diastolic dysfunction. Past Surgical History: Include adhesiolysis, cholecystectomy. Family History: Positive for hypertension. Social History: Ex-smoker. Active alcohol. Denied drugs abuse. Medications: Home medications include: 1. Lasix. 2. Furosemide. 3. Salt tablet 2 g. 4. Citalopram. 5. Omeprazole. 6. Prednisone. Current medication in the hospital includes: 1. Citalopram. 2. Nicotine. 3. Metoprolol. 4. Spironolactone. 5. Flomax. Review of Systems: Head and Neck: No red eye. No ear pain. GI: No nausea. No vomiting. : No polyuria. No dysuria. No hematuria. SILK FOLDER: Not applicable. Respiratory: Has shortness of breath. Cardiovascular: No chest pain. Has shortness of breath or has orthopnea. Endocrine: No polydipsia. Skin: No rash. Physical Examination: Vital Signs: When I saw the patient, blood pressure 182/99, pulse of 71, afebrile. Chest: Has rales bilateral. Heart: S1, S2. Systolic murmur. Abdomen: Soft, nontender. Extremities: Trace edema. Neurologic: Alert. No focality. Laboratory Data: Sodium 124, potassium 4.1, bicarb 27, BUN 12, creatinine 0.6, calcium 8.7. WBC 6.1, hemoglobin 11.9. Chest x-ray had cardiomegaly with congestion bilateral. Assessment And Plan: 1. Hyponatremia, dilutional secondary to congestive heart failure with exacerbation. I am going to go ahead and resume the Lasix for the patient and we will resume his salt tablet. I am going to send for the workup and we will follow up the patient. 2. Hypertension, not controlled, over volume. We will utilize blood pressure for more diuresis. 3. Congestive heart failure with exacerbation. We will optimize the fluid status for the patient. 4. Hypokalemia. I agree with adding spironolactone. Time spent examining the patient [id number] reviewing data lab and the radiology placing orders discussing the case with the patient discussing the case with the team assembly line machine operator including hospitalist and nursing staff more than 75 minutes BASILIO Voice ID: [id number] Report ID: [id number] MTDD
[2023-10-28] MEDS: FUROSEMIDE 40 MG/4 ML VIAL IV ONE (14:47)
[2023-10-28] MEDS: SODIUM CHLORIDE 1 GM TAB PO SCH (17:00)
[2023-10-28] MEDS: FUROSEMIDE 40 MG/4 ML VIAL IV SCH (20:22)
[2023-10-28] MEDS: HALOPERIDOL LACT 5 MG/ML INJ IV PRN (23:18)
[2023-10-29 05:42] LABS: Absolute Lymphocytes (CBC) 0.4 K/uL (0.7-4.9); Absolute Monocytes 0.7 K/uL (0.1-1.3); Absolute Neutrophil 5.8 K/uL (1.8-8.0); Basophils % 0.1 % (0-1.3); Eosinophils % 0.1 % (0-4.4); Hematocrit 38.8 % (39.6-49.0); Hemoglobin 13.4 g/dL (13.6-17.9); Lymphocytes % 5.4 % (15.3-44.8); MCH 32.7 pg (27.0-35.0); MCHC 34.6 g/dL (32.0-36.0); MCV 94.4 fL (80-100); MPV 6.8 fL (7.6-11.3); Monocytes % 10.1 % (3.3-12.3); Neutrophils % 84.3 % (41.7-73.7); Platelets 334 thou/uL (152-406); RBC Red Blood Cell Count 4.11 M/uL (4.33-5.43); Red Cell Distribution Width 15.1 % (12.1-15.2)
[2023-10-29 06:10] LABS: Albumin 3.5 g/dL (3.4-5.0); Anion Gap 6.5 mEq/L (5.0-15.0); Phosphorus 4.4 mg/dL (2.5-4.9); Potassium 3.5 mEq/L (3.5-5.1); Thyroid Stimulating Hormone 0.72 uIU/mL (0.358-3.740); Uric Acid 4.4 mg/dL (3.5-7.2)
[2023-10-29] MEDS ORDERED: FUROSEMIDE 40 MG TABLET PO SCH (09:00)
[2023-10-29] MEDS: POTASSIUM CL SA 10 MEQ TAB PO ONE (09:02)
[2023-10-29] MEDS: lisinopriL 20 MG TAB PO SCH (09:03)
--- NOTE | 2023-10-29 12:51 | ECHO ---
HEIGHT: 5 ft 8 in WEIGHT: 167 lb 0 oz DATE OF STUDY: 10/28/[address]: Colin Jennings NP 2-DIMENSIONAL: YES M.MODE: YES DOPPLER: YES COLOR FLOW: YES TDS: YES PORTABLE: YES DEFINITY: BUBBLE STUDY: DIAGNOSIS: DYSPNEA CARDIAC HISTORY: CATHERIZATION: SURGERY: PROSTHETIC VALVE: PACEMAKER: MEASUREMENTS (cm) DIASTOLIC (NORMALS) SYSTOLIC (NORMALS) IVSd 1.1 (0.6-1.2) LA Diam 4.7 (1.9-4.0) LVEF 35-40% LVIDd 3.7 (3.5-5.7) LVIDs 3.0 (2.0-3.5) %FS 19% LVPWd 1.0 (0.6-1.2) Ao Diam (2.0-3.7) 2 DIMENSIONAL ASSESSMENT: RIGHT ATRIUM: NORMAL LEFT ATRIUM: MODERATE DILATED RIGHT VENTRICLE: NORMAL LEFT VENTRICLE: NORMAL TRICUSPID VALVE: MILD TRICUSPID REGURGITATION MITRAL VALVE: TRACE MITRAL REGURGITATION PULMONIC VALVE: NORMAL AORTIC VALVE: TRACE AORTIC REGURGITATION PERICARDIAL EFFUSION: NONE AORTIC ROOT: NORMAL LEFT VENTRICULAR WALL MOTION: MODERATE GLOBAL HYPOKINESIS DOPPLER/COLOR FLOW: DIASTOLIC DYSFUNCTION COMMENTS: 1. MODERATE GLOBAL HYPOKINESIS, EJECTION FRACTION 35-40%, MODERATE REDUCED LEFT VENTRICULAR SYSTOLIC FUNCTION 2. DIASTOLIC DYSFUNCTION 3. MILD PULMONARY HYPERTENSION (RIGHT VENTRICULAR SYSTOLIC PRESSURE 40 mmHg) TECHNOLOGIST: FLORES FRANCISCO
--- NOTE | 2023-10-29 13:10 | PN ---
Date of Progress Note: 10/29/2023 Subjective: The patient was admitted to the hospital with hyponatremia secondary to dilutional superimposed with cardiorenal syndrome. The patient was started on diuresis. Resume salt tablet. The patient used to be on salt tablet, discontinued 1 month ago by Cardiology. Physical Examination: Vital Signs: Blood pressure 131/67, pulse of 71, afebrile. Chest: Clear to auscultation in the upper zone, crackles in both bases. Heart: S1, S2. Systolic murmur. Abdomen: Soft, nontender. Extremities: Trace edema. Neuro: Alert. No focality. Laboratory Data: Hemoglobin 13.4. Sodium 125, potassium 3.5, bicarb 34, BUN 16, creatinine 0.7, calcium 9.2. Urinalysis: Urine osmolality 292, urine sodium 51, potassium 18. Current Medications: The patient is on include albuterol, nicotine, lisinopril 20, spironolactone, metoprolol, Lasix, dexamethasone, salt tablet. Assessment And Plan: 1. 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 I am going to go ahead and increase salt tablet to t.i.d. Continue Lasix. Okay to switch the Lasix to oral. If sodium continued to trend up tomorrow, patient will be cleared from the renal standpoint for discharge planning. 2. Hypertension. Continue lisinopril. We will optimize the fluid status with diuresis. 3. Congestive heart failure with exacerbation. Continue current diuresis. Okay to switch the Lasix to b.i.d. orally. Continue fluid restriction. 4. Hypokalemia. The patient is started on spironolactone. We will follow up. Time spent examining the patient [id number] reviewing data lab and the radiology placing orders discussing the case with the patient discussing the case with the steam locomotive firer/fireman including hospitalist and nursing staff more than 55 minutes BASILIO Voice ID: [id number] Report ID: [id number] HANH
--- NOTE | 2023-10-29 13:23 | P.PN ---
Date of Service: 10/29/23 Subjective: Mental status better with present Still easily agitated No acute events overnight breathing better Sodium still on the low side but improved ROS: 10 point ROS as noted above, otherwise negative Physical exam GEN: Alert, confused, oriented x 2, agitated HEENT: Normal conjunctiva, sclera anicteric CV: Regular rate and rhythm, no edema Pulm: Nonlabored respirations on room air ABD: Soft, nontender, nondistended MSK: No joint tenderness Integumentary: No rashes Neuro: Normal speech, normal affect Vitals reviewed Assessment: Dyspnea, suspect COPD with exacerbation Acute systolic congestive heart failure Agitation/delirium Hyponatremia Chronic diastolic congestive heart failure Paroxysmal atrial fibrillation on chronic anticoagulation Hypertension GERD BPH Plan: Dyspnea, suspect COPD with exacerbation Acute systolic congestive heart failure Currently takes dexamethasone 1 mg daily Pulmonology consulted, recommends increasing dexamethasone to 2 mg twice daily Continue as needed laser treatments, inhalers echocardiogram May 2023 shows normal EF with diastolic dysfunction Repeat echocardiogram 10/26 ordered shows 1.MODERATE GLOBAL HYPOKINESIS, EJECTION FRACTION 35-40%, MODERATE REDUCED LEFT VENTRICULAR SYSTOLIC FUNCTION 2. DIASTOLIC DYSFUNCTION 3. MILD PULMONARY HYPERTENSION (RIGHT VENTRICULAR SYSTOLIC PRESSURE 40 mmHg) CXR 10/27 showed pulmonary congestion Started in IV lasix 10/27 transition to PO Agitation/delirium Agitation/delerium improved, much better when is around Is very suspicious of staff, very defensive Confused, oriented x 2 Similar episode during previous hospitalization in May Discussed with , reports this seems to happen when he is hospitalized As needed antipsychotics, redirection Hyponatremia Improved slightly from yesterday Started on lasix and salt tabs If Improving in AM can DC Paroxysmal atrial fibrillation on chronic anticoagulation Continue metoprolol, Xarelto Hypertension GERD BPH Home medications continued DVT PPX: Continue Xarelto Code status: Full Discharge Plan: Home Plan to discharge in: 24hours Time Spent Managing Pts Care (In Minutes): 35
[2023-10-29] MEDS: SODIUM CHLORIDE 1 GM TAB PO SCH (15:03)
[2023-10-29] MEDS: ACETAMINOPHEN 325 MG TABLET PO PRN (15:03)
[2023-10-29] MEDS: FUROSEMIDE 40 MG TABLET PO SCH (17:00)
[2023-10-30 05:38] LABS: Anion Gap 9.9 mEq/L (5.0-15.0); Phosphorus 3.6 mg/dL (2.5-4.9); Potassium 3.9 mEq/L (3.5-5.1)
[2023-10-30] MEDS: POTASSIUM CL SA 10 MEQ TAB PO ONE (09:34)
--- NOTE | 2023-10-30 11:50 | P.PN ---
Date of Service: 10/30/23 Subjective: Mental status better with present Still easily agitated No acute events overnight breathing better Sodium dropped from 125 to 123 ROS: 10 point ROS as noted above, otherwise negative Physical exam GEN: Alert, confused, oriented x 2 HEENT: Normal conjunctiva, sclera anicteric CV: Regular rate and rhythm, no edema Pulm: Nonlabored respirations on room air ABD: Soft, nontender, nondistended MSK: No joint tenderness Integumentary: No rashes Neuro: Normal speech, normal affect Vitals reviewed Assessment: Dyspnea, suspect COPD with exacerbation Acute systolic congestive heart failure Agitation/delirium Hyponatremia Paroxysmal atrial fibrillation on chronic anticoagulation Hypertension GERD BPH Plan: Dyspnea, suspect COPD with exacerbation Acute systolic congestive heart failure Currently takes dexamethasone 1 mg daily Pulmonology consulted, recommends increasing dexamethasone to 2 mg twice daily Continue as needed laser treatments, inhalers echocardiogram May 2023 shows normal EF with diastolic dysfunction Repeat echocardiogram 10/26 ordered shows 1.MODERATE GLOBAL HYPOKINESIS, EJECTION FRACTION 35-40%, MODERATE REDUCED LEFT VENTRICULAR SYSTOLIC FUNCTION 2. DIASTOLIC DYSFUNCTION 3. MILD PULMONARY HYPERTENSION (RIGHT VENTRICULAR SYSTOLIC PRESSURE 40 mmHg) CXR 10/27 showed pulmonary congestion Started in IV lasix 10/27 transitioned to PO 10/28 Agitation/delirium Agitation/delerium improved, much better when is around Is very suspicious of staff, very defensive Confused, oriented x 2 Similar episode during previous hospitalization in May Discussed with , reports this seems to happen when he is hospitalized As needed antipsychotics, redirection Hyponatremia Improved worse Started on oral lasix and salt tabs Nephrology recommends monitoring one more day Paroxysmal atrial fibrillation on chronic anticoagulation Continue metoprolol, Xarelto Hypertension GERD BPH Home medications continued DVT PPX: Continue Xarelto Code status: Full Discharge Plan: Home Plan to discharge in: 24hours Time Spent Managing Pts Care (In Minutes): 35
--- NOTE | 2023-10-31 00:37 | PN ---
Date of Progress Note: 10/30/2023 Chief Complaint: Hyponatremia secondary to cardiorenal syndrome. Sodium level has declined. Kristen gates is on a diuretic and Lasix is used for hyponatremia. The patient has superimposed cardiorenal synd mike and SIADH. He is started on sodium chloride tablets. Review of Systems: Denies chest pain, palpitation. Physical Examination: Lungs: Clear to auscultation bilaterally. Heart: S1, S2. Abdomen: Soft, benign. Extremities: Slight edema. Laboratory Data: Sodium 125, potassium 3.5, bicarbonate 34, creatinine 0.7, BUN 16, calcium 9.2. Ur ine osmolality 292, urine sodium Impression And Plan: 1.Hyponatremia secondary to SIADH and cardiorenal syndrome. The patient is started on sodium chlori de tablets. He may need urea for additional effect of hyponatremia management. The patient will con tinue p.o. fluid restriction. Continue Lasix. 2.Hypertension. The patient will continue IFEANYI inhibitor. 3.Congestive heart failure exacerbation, on diuretics. Continue to monitor renal function and wagner nue p.o. fluid restriction. EB/MODL Voice ID: [id number] Report ID: [id number]
[2023-10-31 05:45] LABS: Anion Gap 8.1 mEq/L (5.0-15.0); Phosphorus 3.8 mg/dL (2.5-4.9); Potassium 4.1 mEq/L (3.5-5.1)
[2023-10-31] MEDS: UREA 15 GM POWDER PACKET PO SCH (09:00)
--- NOTE | 2023-10-31 11:26 | P.PN ---
Date of Service: 10/31/23 Subjective: Mental status better with present No acute events overnight breathing better Sodium improved slightly to 124 ROS: 10 point ROS as noted above, otherwise negative Physical exam GEN: Alert, confused, oriented x 2 HEENT: Normal conjunctiva, sclera anicteric CV: Regular rate and rhythm, no edema Pulm: Nonlabored respirations on room air ABD: Soft, nontender, nondistended MSK: No joint tenderness Integumentary: No rashes Neuro: Normal speech, normal affect Vitals reviewed Assessment: Dyspnea, suspect COPD with exacerbation Acute systolic congestive heart failure Agitation/delirium Hyponatremia Paroxysmal atrial fibrillation on chronic anticoagulation Hypertension GERD BPH Plan: Dyspnea, suspect COPD with exacerbation Acute systolic congestive heart failure Currently takes dexamethasone 1 mg daily Pulmonology consulted, recommends increasing dexamethasone to 2 mg twice daily Continue as needed laser treatments, inhalers echocardiogram May 2023 shows normal EF with diastolic dysfunction Repeat echocardiogram 10/26 ordered shows 1.MODERATE GLOBAL HYPOKINESIS, EJECTION FRACTION 35-40%, MODERATE REDUCED LEFT VENTRICULAR SYSTOLIC FUNCTION 2. DIASTOLIC DYSFUNCTION 3. MILD PULMONARY HYPERTENSION (RIGHT VENTRICULAR SYSTOLIC PRESSURE 40 mmHg) CXR 10/27 showed pulmonary congestion Started on IV lasix 10/27 transitioned to PO 10/28 Agitation/delirium Agitation/delerium improved, much better when is around Is very suspicious of staff, very defensive Confused, oriented x 2 Similar episode during previous hospitalization in May Discussed with , reports this seems to happen when he is hospitalized As needed antipsychotics, redirection Hyponatremia Improved to 124 today Started on oral lasix and salt tabs Started on urea sodium now If not improving may need tolvaptan per nephrology Paroxysmal atrial fibrillation on chronic anticoagulation Continue metoprolol, Xarelto Hypertension GERD BPH Home medications continued DVT PPX: Continue Xarelto Code status: Full Discharge Plan: Home Plan to discharge in: 24hours Time Spent Managing Pts Care (In Minutes): 35
[2023-10-31 14:31] LABS: Specific Gravity 1.009 (1.005-1.030); Sqamous Epithelial None Seen /HPF (None Seen); Urine Bacteria None Seen /HPF (<20); Urine Bilirubin NEGATIVE (Negative); Urine Blood Negative (Negative); Urine Clarity Clear (Clear); Urine Color Colorless (Yellow); Urine Crystals Unidentified Few /HPF (None Seen); Urine Culture Reflex Order NOT NEEDED; Urine Glucose NEGATIVE (Negative); Urine Ketones NEGATIVE (Negative); Urine Microscopic Reflex YN ORDER UMIC; Urine Nitrite NEGATIVE (Negative); Urine Protein NEGATIVE (Negative); Urine RBC <5 /HPF (None Seen); Urine Urobilinogen Normal (Normal); Urine WBC <5 /HPF (<5)
[2023-10-31] MEDS ORDERED: ALBUTEROL 2.5 MG/3 ML NEB SOL NEB PRN (16:15)
--- NOTE | 2023-10-31 17:24 | PN ---
Date of Progress Note: 10/31/2023 Subjective: The patient was admitted to the hospital with cardiorenal syndrome, over-volume, hyponatremia. The patient was started on salt tablet and Lasix. The patient still on low salt level. Physical Examination: Vital Signs: Blood pressure 136/82, pulse of 71. Chest: Clear to auscultation. Heart: S1, S2, regular, systolic murmur. Abdomen: Soft, nontender. Extremities: No edema. Neurologic: Alert. No focality. Lab: Hemoglobin 13.4. Sodium 124, potassium 4.1, bicarb 29, BUN 19, creatinine 0.6. Calcium 9, phosphorus 3.8. Current Medications: The patient on include albuterol, nicotine, lisinopril 20 mg, spironolactone, citalopram, Lasix 40 b.i.d. Assessment And Plan: 1. Hyponatremia, dilutional. I am going to go ahead and continue on the Lasix. Continue salt tablet. The patient was started on urea. We will place the patient on fluid restriction and we will monitor the patient. 2. Hypertension, controlled, optimal. Continue current treatment. 3. Congestive heart failure with exacerbation. Continue diuresis. 4. Chronic hyponatremia with exacerbation. Differential diagnosis secondary to dilutional/SIADH. We will continue Lasix and continue salt tablet. We added urea. If we fail, we will consider adding tolvaptan. Time spent examining the patient [id number] reviewing data lab and the radiology placing orders discussing the case with the patient discussing the case with the collection team lead including hospitalist and nursing staff more than 55 minutes BASILIO Voice ID: [id number] Report ID: [id number] HANH
[2023-11-01 05:34] LABS: Albumin 2.9 g/dL (3.4-5.0); Anion Gap 6.1 mEq/L (5.0-15.0); Phosphorus 3.8 mg/dL (2.5-4.9); Potassium 4.1 mEq/L (3.5-5.1); Uric Acid 4.5 mg/dL (3.5-7.2)
--- NOTE | 2023-11-01 11:13 | P.PN ---
Date of Service: 11/01/23 Subjective: Mental status better with present No acute events overnight breathing better Sodium remained at 124 ROS: 10 point ROS as noted above, otherwise negative Physical exam GEN: Alert, confused, oriented x 2 HEENT: Normal conjunctiva, sclera anicteric CV: Regular rate and rhythm, no edema Pulm: Nonlabored respirations on room air ABD: Soft, nontender, nondistended MSK: No joint tenderness Integumentary: No rashes Neuro: Normal speech, normal affect Vitals reviewed Assessment: Dyspnea, suspect COPD with exacerbation Acute systolic congestive heart failure Agitation/delirium Hyponatremia Paroxysmal atrial fibrillation on chronic anticoagulation Hypertension GERD BPH Plan: Dyspnea, suspect COPD with exacerbation Acute systolic congestive heart failure Currently takes dexamethasone 1 mg daily Pulmonology consulted, recommends increasing dexamethasone to 2 mg twice daily Continue as needed laser treatments, inhalers echocardiogram May 2023 shows normal EF with diastolic dysfunction Repeat echocardiogram 10/26 ordered shows 1.MODERATE GLOBAL HYPOKINESIS, EJECTION FRACTION 35-40%, MODERATE REDUCED LEFT VENTRICULAR SYSTOLIC FUNCTION 2. DIASTOLIC DYSFUNCTION 3. MILD PULMONARY HYPERTENSION (RIGHT VENTRICULAR SYSTOLIC PRESSURE 40 mmHg) CXR 10/27 showed pulmonary congestion Started on IV lasix 10/27 transitioned to PO 10/28 Agitation/delirium Agitation/delerium improved, much better when is around Is very suspicious of staff, very defensive Confused, oriented x 2 Similar episode during previous hospitalization in May Discussed with , reports this seems to happen when he is hospitalized As needed antipsychotics, redirection Hyponatremia Remains the same at 124 today Started on oral lasix and salt tabs Started on urea sodium now If not improving may need tolvaptan per nephrology Await nephrology recommendations today Paroxysmal atrial fibrillation on chronic anticoagulation Continue metoprolol, Xarelto Hypertension GERD BPH Home medications continued DVT PPX: Continue Xarelto Code status: Full Discharge Plan: Home Plan to discharge in: 24hours Time Spent Managing Pts Care (In Minutes): 35
[2023-11-01] MEDS: TOLVAPTAN 15 MG TABLET PO ONE (13:17)
--- NOTE | 2023-11-01 16:08 | PN ---
Date of Progress Note: 11/01/2023 Subjective: The patient was admitted to the hospital with the CHF exacerbation, hyponatremia. Lindsey elizabeth was started on salt tablet, then we added urea with the diuresis. Patient still did not improve i n his sodium level. Objective: Vital Signs: When I saw the patient, blood pressure 116/73, pulse of 72, afebrile. Corrine ent had good urine output of 1400. Chest: Clear to auscultation. Heart: S1, S2. Regular. Abdomen: Soft, nontender. Extremities: No edema. Neurologic: Alert. No focality. Laboratory Data: Hemoglobin 13.4, sodium 124, potassium 4.1, bicarb 30, BUN 44, creatinine 0.7, uric acid 4.5, calcium 8.7, phosphorus 3.9, albumin 2.9. Urine sodium 61. Current Medications: The patient on, it includes Flomax, lisinopril, metoprolol, haloperidol, Lasix 40 b.i.d., pantoprazole, salt tablet 20 g t.i.d., urea 15 b.i.d. 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 Had a component of overvolume. I had a long discussion with the patient's family. Given the cur rent situation, patient is going to be candidate to be initiated on tolvaptan. Explained risks, bene fits, alternatives. We will start the patient on tolvaptan. Our differential is going to be if he h as reset osmostat, the need for tolvaptan is going to be temporary. Otherwise, if it is not reset os mostat, at that time, patient is going to need to be permanently on tolvaptan. We will consult [employer] at that time for provide coverage and approval by the insurance. 2.Hypertension. We will continue to utilize the blood pressure for more diuresis. 3.Congestive heart failure with exacerbation. Continue diuresis. We will start tolvaptan. 4.Deconditioning. Continue PT, OT. TONIO/MODL Voice ID: [id number] Report ID: [id number]
[2023-11-01 19:58] LABS: Anion Gap 4.2 mEq/L (5.0-15.0); Potassium 4.2 mEq/L (3.5-5.1)
[2023-11-02 06:50] LABS: Phosphorus 3.6 mg/dL (2.5-4.9)
[2023-11-02] MEDS: dexAMETHasone 4 MG TAB PO SCH (09:59)
[2023-11-02] MEDS: lisinopriL 10 MG TAB PO SCH (09:59)
--- NOTE | 2023-11-02 12:55 | P.PN ---
Date of Service: 11/02/23 Subjective: Mental status better with present No acute events overnight breathing better Sodium increased with tolvaptan ROS: 10 point ROS as noted above, otherwise negative Physical exam GEN: Alert, confused, oriented x 2 HEENT: Normal conjunctiva, sclera anicteric CV: Regular rate and rhythm, no edema Pulm: Nonlabored respirations on room air ABD: Soft, nontender, nondistended MSK: No joint tenderness Integumentary: No rashes Neuro: Normal speech, normal affect Vitals reviewed Assessment: Dyspnea, suspect COPD with exacerbation Acute systolic congestive heart failure Agitation/delirium Hyponatremia Paroxysmal atrial fibrillation on chronic anticoagulation Hypertension GERD BPH Plan: Dyspnea, suspect COPD with exacerbation Acute systolic congestive heart failure Currently takes dexamethasone 1 mg daily Pulmonology consulted, recommends increasing dexamethasone to 2 mg twice daily Continue as needed laser treatments, inhalers echocardiogram May 2023 shows normal EF with diastolic dysfunction Repeat echocardiogram 10/26 ordered shows 1.MODERATE GLOBAL HYPOKINESIS, EJECTION FRACTION 35-40%, MODERATE REDUCED LEFT VENTRICULAR SYSTOLIC FUNCTION 2. DIASTOLIC DYSFUNCTION 3. MILD PULMONARY HYPERTENSION (RIGHT VENTRICULAR SYSTOLIC PRESSURE 40 mmHg) CXR 10/27 showed pulmonary congestion Trialed lasix+paige+salt tabs+Urea NA without significant improvement in sodium Given dose of tolvaptan 10/31, 11/01 Started on IV lasix 10/27, stopped 11/01 AM while on tolvaptan After second dose of tolvaptan 11/01 if sodium increases nephrology does not anticipate needing outpatient treatment with tolvaptan Would plan on resuming lasix at 40mg once daily and the salt tabs as previously ordered at [facility] with close follow up Was on spironolactone during hospitalization, stopped 10/30 by nephro, did not previously take this at home Agitation/delirium Overall doing much better, able to hold coversation etc Agitation/delerium improved, much better when is around Confused, oriented x 2 Similar episode during previous hospitalization in May Discussed with , reports this seems to happen when he is hospitalized As needed antipsychotics, redirection Hyponatremia Improved to 129 today with tolvaptan dose yesterday Lasix stopped while on tolvaptan After second dose of tolvaptan 11/01 if sodium increases nephrology does not anticipate needing outpatient treatment with tolvaptan Would plan on resuming lasix at 40mg once daily and the salt tabs as previously ordered at [facility] with close follow up Was on spironolactone during hospitalization, stopped 10/30 by nephro, did not previously take this at home Nephrology following Paroxysmal atrial fibrillation on chronic anticoagulation Continue metoprolol, Xarelto Hypertension Lisinopril was added, dose now reduced from 20mg to 10mg daily 11/01 GERD BPH Home medications continued DVT PPX: Continue Xarelto Code status: Full Discharge Plan: Home Plan to discharge in: 24hours Time Spent Managing Pts Care (In Minutes): 35
[2023-11-02] MEDS: TOLVAPTAN 15 MG TABLET PO SCH (14:47)
[2023-11-02 19:13] LABS: Anion Gap 6.8 mEq/L (5.0-15.0); Potassium 4.8 mEq/L (3.5-5.1)
--- NOTE | 2023-11-02 20:29 | PN ---
Date of Progress Note: 11/02/2023 Chief Complaint: Hyponatremia, chronic. Subjective: Patient was admitted to the hospital with congestive heart failure exacerbation. There was severe hyponatremia present. Previously, patient was taking sodium chloride tablets. During thi s hospitalization, Lasix was added to prevent congestive heart failure exacerbation. Patient has his tory of systolic dysfunction. He had some fluid overload, but this was improving with diuretic thera py, although sodium level has not improved. Patient was instructed about p.o. fluid restriction. Noah medrano is chronically on dexamethasone and cortisol level done in the hospital showed value below norm al ranges. Patient is on dexamethasone and dose was increased to 4 mg twice a day during this admiss ion. Patient did not respond to fluid restriction and combination of sodium chloride tablets with La six. Lisinopril dose was also decreased. Patient received urea for hyponatremia and sodium level di d not respond to previous treatment. He was initiated on tolvaptan and sodium level gradually improv ed over the last 24 hours. Patient denies fever, chills. Physical Examination: Lungs: Clear to auscultation bilaterally. Heart: S1, S2. Abdomen: Soft, benign. Extremities: No edema. No clubbing. No cyanosis. Laboratory Data: Yesterday, blood work showed sodium 124, potassium 4.1, bicarbonate 30, BUN 44, cre atinine 0.7, uric acid 4.5, albumin 2.9. Urine sodium 61. Impression And Plan: 1.Hyponatremia, mostly secondary to syndrome of inappropriate antidiuretic hormone in the setting of history of chronic obstructive pulmonary disease. Patient presented to the hospital with severe amanda rtness of breath with combination of chronic obstructive pulmonary disease exacerbation and congestiv e heart failure exacerbation. Patient was started on Lasix and sodium chloride tablets were used to control hyponatremia. Urea was also started to control hyponatremia. Patient was started on tolvapt an. Plan is to monitor electrolytes. Likely, patient will not require tolvaptan permanently. Above was discussed with the patient and with his , who was at the bedside. 2.Hypertension. Continue to adjust medication. Avoid HCTZ. 3.Congestive heart failure with exacerbation. Continue diuretic. 4.Deconditioning. Per primary team. EB/MODL Voice ID: [id number] Report ID: [id number]
[2023-11-03 05:36] LABS: Hemoglobin 14.3 g/dL (13.6-17.9); MCH 31.9 pg (27.0-35.0); MCHC 33.2 g/dL (32.0-36.0); MCV 96.1 fL (80-100); MPV 6.9 fL (7.6-11.3); Platelets 334 thou/uL (152-406); RBC Red Blood Cell Count 4.47 M/uL (4.33-5.43); Red Cell Distribution Width 14.8 % (12.1-15.2)
[2023-11-03 05:43] LABS: Anion Gap 6.2 mEq/L (5.0-15.0); Potassium 4.2 mEq/L (3.5-5.1)
[2023-11-03 07:30] VITALS: O2SAT 98
[2023-11-03] MEDS ORDERED: DEMECLOCYCLINE HCL 150 MG TABLET PO SCH ×2 (14:00→21:00)
--- NOTE | 2023-11-03 15:11 | P.DS ---
Admission Date: 10/27/23 Discharge Date: 11/03/23 Disposition: DC HOME/HOME HEALTH CARE Reason for Admission: COPD exacerbation Hospital Course: 73-year-old male with history of chronic diastolic congestive heart failure, atrial fibrillation on chronic anticoagulation, hypertension, GERD, COPD, BPH presented to the emergency department with chief complaint of progressive shortness of breath. He was evaluated in the emergency department and his labs were significant for white blood cell 6.3 hemoglobin 12.3 medic at 37.1 sodium 125 chloride 92 creatinine 0.64 lactic acid 1.3 BNP 1652 he tested negative for COVID. On 06/01/[address] scan of his chest which showed small right pleural effusion, atelectatic changes throughout the right lung, predominantly dependent with volume loss. Healing left fourth, fifth and seventh rib fractures. Patient was admitted to the medical floor and treated for COPD exacerbation with dexamethasone, scheduled bronchodilators. Diagnosis Dyspnea. COPD with exacerbation Acute systolic congestive heart failure Agitation/delirium Hyponatremia secondary to SIADH Paroxysmal atrial fibrillation on chronic anticoagulation Hypertension GERD BPH Patient noted to have hyponatremia which was managed with fluid restriction. Nephrology evaluated patient and prescribe salt tablets and urea-Na. Sodium level did not respond much to treatment. He was also on IV Lasix for CHF exacerbation. Patient's sodium level improved significantly after he was given a couple of doses of subcutaneous tolvaptan. Sodium level has improved to 130. Nephrology has ordered demeclocycline to continue treatment for hyponatremia. Patient has clinically improved, he is asymptomatic and deemed stable for discharge Agitation/delirium Overall doing much better, able to hold coversation etc Agitation/delerium improved, much better when is around Confused, oriented x 2 Similar episode during previous hospitalization in May Discussed with , reports this seems to happen when he is hospitalized As needed antipsychotics, redirection Paroxysmal atrial fibrillation on chronic anticoagulation Continue metoprolol, Xarelto Hypertension Lisinopril was added, dose now reduced from 20mg to 10mg daily 11/01 GERD BPH Home medications continued Vital Signs/Physical Exam: Temp Pulse Resp BP Pulse Ox 96.6 F L 107 H 15 103/56 L 99 11/03/23 12:00 11/03/23 12:00 11/03/23 12:00 11/03/23 12:00 11/03/23 12:00 General: Alert, In no apparent distress HEENT: Mucous membr. moist/pink Neck: Supple, JVD not distended Respiratory: Clear to auscultation bilaterally, Normal air movement Cardiovascular: No edema, Regular rate/rhythm, Normal S1 S2 Gastrointestinal: Normal bowel sounds, Soft and benign, Non-distended Musculoskeletal: No swelling Neurological: Normal strength at 5/5 x4 extr Laboratory Data at Discharge: WBC 10.80 thou/uL (4.3-10.9) 11/03/23 04:28 Hgb 14.3 g/dL (13.6-17.9) 11/03/23 04:28 Hct 43.0 % (39.6-49.0) 11/03/23 04:28 Plt Count 334 thou/uL (152-406) 11/03/23 04:28 PT 13.2 SECONDS (9.4-12.5) H 10/26/23 09:40 INR 1.18 10/26/23 09:40 APTT 32.0 SECONDS (24.3-36.9) 10/26/23 09:40 Sodium 130 mEq/L (136-145) L 11/03/23 04:28 Potassium 4.2 mEq/L (3.5-5.1) 11/03/23 04:28 BUN 68 mg/dL (7-18) H 11/03/23 04:28 Creatinine 0.95 mg/dL (0.70-1.30) 11/03/23 04:28 Glucose 94 mg/dL (74-106) 11/03/23 04:28 Uric Acid 4.5 mg/dL (3.5-7.2) 11/01/23 04:35 Phosphorus 3.6 mg/dL (2.5-4.9) 11/02/23 05:27 Total Bilirubin 0.5 mg/dL (0.2-1.0) 10/26/23 09:40 AST 11 U/L (15-37) L 10/26/23 09:40 ALT 26 U/L (16-61) 10/26/23 09:40 Alkaline Phosphatase 75 U/L (45-117) 10/26/23 09:40 Home Medications: Omeprazole [Prilosec] 40 mg PO DAILY PRN 11/12/17 Rivaroxaban [Xarelto*] 15 mg PO DAILY AT SUPPER #30 tablet 08/17/18 Citalopram [Celexa*] 20 mg PO DAILY 06/02/23 Metoprolol Tartrate [Lopressor*] 25 mg PO BID 6AM 6PM #30 tab 06/05/23 Budesonide/Formoterol Fumarate [Symbicort 160-4.5 Mcg Inhaler] 2 puff IH DAILY PRN 10/29/23 Tamsulosin [Flomax*] 0.4 mg PO DAILY 10/29/23 dexAMETHasone [Dexamethasone] 1 mg PO DAILY PRN 10/29/23 Albuterol Inhaler [Ventolin Inhaler*] 2 puff IH Q4H PRN #1 inh 11/03/23 Demeclocycline HCl [Declomycin] 300 mg PO TID #90 tab 11/03/23 Sodium Chloride Tab [Sodium Chloride*] 1 gm PO TID #90 tab 11/03/23 Urea [Ure-Na] 15 gm PO BID #60 packet 11/03/23 New Medications: Demeclocycline HCl [Declomycin] 300 mg PO TID #90 tab Sodium Chloride Tab [Sodium Chloride*] 1 gm PO TID #90 tab Urea [Ure-Na] 15 gm PO BID #60 packet Albuterol Inhaler [Ventolin Inhaler*] 2 puff IH Q4H PRN #1 inh PRN Reason: Shortness Of Breath Physician Discharge Instructions: 73-year-old male with history of chronic diastolic congestive heart failure, atrial fibrillation on chronic anticoagulation, hypertension, GERD, COPD, BPH presented to the emergency department with chief complaint of progressive shortness of breath. He was evaluated in the emergency department and his labs were significant for white blood cell 6.3 hemoglobin 12.3 medic at 37.1 sodium 125 chloride 92 creatinine 0.64 lactic acid 1.3 BNP 1652 he tested negative for COVID. On 06/01/[address] scan of his chest which showed small right pleural effusion, atelectatic changes throughout the right lung, predominantly dependent with volume loss. Healing left fourth, fifth and seventh rib fractures. Patient was admitted to the medical floor and treated for COPD exacerbation with dexamethasone, scheduled bronchodilators. Patient noted to have hyponatremia which was managed with fluid restriction. Nephrology evaluated patient and prescribe salt tablets and urea-Na. Sodium level did not respond much to treatment. He was also on IV Lasix for CHF exacerbation. Patient's sodium level improved significantly after he was given a couple of doses of subcutaneous tolvaptan. Sodium level has improved to 130. Nephrology has ordered demeclocycline to continue treatment for hyponatremia. Patient has clinically improved, he is asymptomatic and deemed stable for discharge Agitation/delirium Overall doing much better, able to hold coversation etc Agitation/delerium improved, much better when is around Confused, oriented x 2 Similar episode during previous hospitalization in May Discussed with , reports this seems to happen when he is hospitalized As needed antipsychotics, redirection Paroxysmal atrial fibrillation on chronic anticoagulation Continue metoprolol, Xarelto Hypertension Lisinopril was added, dose now reduced from 20mg to 10mg daily 11/01 GERD BPH Home medications continued Fluid restriction to 1500 mL/day. Diet: AHA Followup: Gilberto Van MD [ACTIVE - CAN ADMIT] - 1-2 Weeks Logan Brewster MD [Primary Care Provider] - 1 Week Time spent managing pt's care (in minutes): 36
[2023-11-03 16:12] VITALS: BP 107/57; TEMP 97
--- NOTE | 2023-11-03 17:04 | PN ---
Date of Progress Note: 11/03/2023 Subjective: The patient was admitted to the hospital with acute kidney, hyponatremia secondary to SI ADH. The patient failed on salt tablet with Lasix and urea. The patient received tolvaptan 2 doses, response sodium trending up. Currently sodium up to 130. The patient off Lasix. Continue on the s alt tablet. The patient had polyuria secondary to the tolvaptan. Physical Examination: Vital Signs: Blood pressure 103/58, pulse of 100, afebrile, the patient had good urine output. Chest: Clear to auscultation. Heart: S1, S2 regular. Abdomen: Soft, nontender. Extremities: No edema. Neuro: Alert. No focality. Laboratory Data: WBC 10.8, hemoglobin 14.3. Sodium 130, potassium 4.2, bicarb 32, BUN 68, creatinin e 0.9, calcium 8.9. Current Medications: The patient on include metoprolol 50, tolvaptan 15, Tylenol, citalopram, halope ridol, dexamethasone, pantoprazole. Assessment And Plan: 1.Hyponatremia secondary to SIADH. The patient responded to tolvaptan. We will continue on tolvapt an. I will add demeclocycline just in case tolvaptan not going to get approved as outpatient. We wi ll consult social organization professor to get prior authorization for the medication as the patient will not be abl e to afford it. 2.Hypertension. With presence of low blood pressure, keep holding Lasix, decrease metoprolol and we will follow up the patient. 3.Congestive heart failure, currently normal volume. Continue tolvaptan. Hold Lasix. 4.COPD with exacerbation. As by primary. TONIO/FCO Voice ID: [id number] Report ID: [id number]
[2023-11-03] MEDS ORDERED: METOPROLOL TAR 25 MG TAB PO SCH (18:00)
== END 2023-11-03 15:57 | disposition home health service (06) | DRG 190 ==
LOC: ER 09:18 → ERHOLD 11:58 → 2ND 17:11 → OBSVTOIN 10-27 12:34
PROVIDERS: ADMIT Internal Medicine; ATTEND Internal Medicine
DX: J44.1 Chronic obstructive pulmonary disease with (acute) exacerbation (principal); I50.21 Acute systolic (congestive) heart failure; F05 Delirium due to known physiological condition; E22.2 Syndrome of inappropriate secretion of antidiuretic hormone; I11.0 Hypertensive heart disease with heart failure; I48.0 Paroxysmal atrial fibrillation; E83.51 Hypocalcemia; K21.9 Gastro-esophageal reflux disease without esophagitis; N40.0 Benign prostatic hyperplasia without lower urinary tract symptoms; S22.42XD Multiple fractures of ribs, left side, subsequent encounter for fracture with routine healing; R06.03 Acute respiratory distress; Z88.8 Allergy status to other drugs, medicaments and biological substances; Z79.01 Long term (current) use of anticoagulants; Z11.52 Encounter for screening for COVID-19; Z79.52 Long term (current) use of systemic steroids; Z90.49 Acquired absence of other specified parts of digestive tract; Z87.891 Personal history of nicotine dependence; Z79.899 Other long term (current) drug therapy
CPT/HCPCS: 36415; 71045; 80048; 80053; 80069; 81001; 82533; 82570; 83605; 83880; 83930; 83935; 84132; 84156; 84300; 84439; 84443; 84484; 84550; 85025; 85027; 85610; 85730; 87040; 87804; 87811; 93005; 93306; 94640; 94760; 97110; 97116; 97161; 97530; 97542; 99285; G0378; J0696; J1630; J1940; J3535; J7030; J7050; J7613; J7614; J8499; J8540

== ENCOUNTER 2024-04-28 11:56 | Day surgery (SDC) | payer OTHER ==
--- NOTE | 2024-04-25 12:22 | RAD REPORT ---
EXAMINATION: TWO VIEW CHEST XR CLINICAL INDICATION: Pre-op pending heart catheterization TECHNIQUE: 2 views of the chest was performed. COMPARISON: 10/28/2023 FINDINGS: Moderate bilateral pleural effusions, larger on the right. Mild interstitial pulmonary edema suspecte d. The heart is moderately to severely enlarged. No displaced fractures evident. IMPRESSION: Moderate CHF versus volume overload pattern.
[2024-04-25 12:32] LABS: Absolute Eosinophils 0.2 K/uL (0-0.5); Absolute Lymphocytes (CBC) 0.4 K/uL (0.7-4.9); Absolute Monocytes 0.9 K/uL (0.1-1.3); Absolute Neutrophil 3.7 K/uL (1.8-8.0); Basophils % 0.8 % (0-1.3); Eosinophils % 3.1 % (0-4.4); Hematocrit 35.2 % (39.6-49.0); Hemoglobin 11.9 g/dL (13.6-17.9); Lymphocytes % 7.6 % (15.3-44.8); MCH 31.9 pg (27.0-35.0); MCHC 33.9 g/dL (32.0-36.0); MCV 94.2 fL (80-100); Monocytes % 16.5 % (3.3-12.3); Platelets 278 thou/uL (152-406); RBC Red Blood Cell Count 3.73 M/uL (4.33-5.43); Red Cell Distribution Width 14.9 % (12.1-15.2)
[2024-04-25 12:44] LABS: PT Prothrombin Time 13.4 SECONDS (9.4-12.5); PTT, Activated Partial Thromb 31.3 SECONDS (24.3-36.9); Protime INR 1.28
[2024-04-25 12:47] LABS: Anion Gap 8.8 mEq/L (5.0-15.0); Potassium 3.8 mEq/L (3.5-5.1)
--- NOTE | 2024-04-27 12:34 | EKG ---
Test Date: 2024-04-25 Test Time: 12:27:12 [facility] Detox[facility] Specialist: MELQUIADES MEASUREMENT RESULTS: Intervals: Rate: 98 NH: QRSD: 98 QT: 378 QTc: 482 [place]: P: NH: QRS: 9 T: 46 INTERPRETIVE STATEMENTS: Atrial fibrillation with premature ventricular or aberrantly conducted complexes Low voltage QRS Prolonged QT Abnormal ECG Compared to ECG 10/26/2023 09:46:01 Ventricular premature complex(es) now present Low QRS voltage now present Prolonged QT interval now present ST (T wave) deviation no longer present Electronically Signed On 04-27-24 12:31:35 MEDICAL DATA ENTRY CLERK by John Weir
[2024-04-28] MEDS ORDERED: HEPA 1000U/500MLS 2,000 UNIT/1,000 ML BAG IV ONE (13:16)
[2024-04-28] MEDS ORDERED: MIDAZOLAM HCL 2 MG/2 ML INJ ONE (13:17)
[2024-04-28] MEDS ORDERED: LIDOCAINE 1% 20 ML MDV ONE (13:17)
[2024-04-28] MEDS ORDERED: HEPARIN 5000 UNIT/ML 1 ML VIAL ONE (13:17)
[2024-04-28] MEDS ORDERED: HEPARIN 10,000 UNIT/10 ML VIAL IV ONE (13:17)
[2024-04-28] MEDS ORDERED: CLOPIDOGREL 75 MG TABLET ONE (13:17)
[2024-04-28] MEDS ORDERED: ATROPINE SULF 1 MG/10 ML SYR IV ONE (13:17)
[2024-04-28] MEDS ORDERED: VERAPAMIL HCL 10 MG/4 ML VIAL IV ONE (13:17)
[2024-04-28] MEDS ORDERED: TICAGRELOR 90 MG TABLET PO ONE (13:18)
[2024-04-28] MEDS ORDERED: FENTANYL CITR 100 MCG/2 ML ONE (13:18)
[2024-04-28] MEDS ORDERED: ASPIRIN 325 MG TAB ONE (13:18)
[2024-04-28] MEDS: NA CHLORIDE 0.9% 500 ML ONE (14:40)
[2024-04-28 17:36] VITALS: TEMP 97.3
[2024-04-28 17:53] VITALS: BP 116/59; O2SAT 97
--- NOTE | 2024-04-28 19:55 | OP ---
Date of Procedure: 04/28/2024 Surgeon: GLO GRAVES Procedures Performed: 1. Selective coronary angiogram. 2. Left heart catheterization. Indication: Unstable angina. Access: Right radial artery 6-American, closed with TR band. Complications: None. Bleeding: Less than 50 mL. Anesthesia: Total sedation time is 45 minutes. Used fentanyl and Versed. Description Of Procedure: After risks, and benefits, and alternatives were explained, the patient ag mary ellen to procedure and signed informed consent. The patient was brought into cardiac catheterization laboratory, prepped and draped in usual sterile fashion. Then, I accessed right radial artery using pediatric micropuncture kit and placed 6-American Slender sheath and took 5-American Thelma 4.0 catheter i nto the aortic root, engaged the left main and right coronary artery and then took standard views. C atheter was pushed over the wire into the LV, measured the LVEDP. Pullback did not record any gradie nt and then removed the catheter and the sheath, placed TR band with good hemostasis. Findings: 1. Left main is normal. 2. LAD; proximal segment is normal. Mid segment, there is long 50% to 60% stenosis. Diagonal 1 has ostial 50% to 60% stenosis. The rest of the LAD becomes small with luminal irregularities. 3. Left circumflex; proximal 50% stenosis. Rest of it is with luminal irregularities. 4. RCA; proximal 20%, distal 20%, very large and dominant. Conclusion: Moderate coronary artery disease, slightly elevated LVEDP. Recommendation: Medical management and periodic stress test. SR/MODL Voice ID: [id number] Report ID: [id number]
== END 2024-04-28 17:03 | disposition home or self-care (01) ==
LOC: PRE 11:56 → CCL 17:03
PROVIDERS: ATTEND Internal Medicine
DX: I25.110 Atherosclerotic heart disease of native coronary artery with unstable angina pectoris (principal); I10 Essential (primary) hypertension; E78.5 Hyperlipidemia, unspecified; Z88.8 Allergy status to other drugs, medicaments and biological substances
CPT/HCPCS: 93005; 85025; 80048; 36415; 85610; 85730; 71046; 93458; 76937; C1893; Q9966; J1644; J2003; J2250; J3010; J7040; 99152; 99153; J0461

== ENCOUNTER 2024-05-12 11:35 | Inpatient (IN) | payer OTHER ==
--- OUTSIDE RECORDS SUMMARY | 2024-05-12 11:37 | XMS REPORT | Continuity of Care Document ---
Author Name Unknown Address [address] [facility] [address] [place] [address] [facility] thconnect Address [address] [facility] [place] [address] Care Team Providers Care Senior Caregiver Name Role Phone Aletha Riley Primary Care Physician [phone] Nalini Howard MD Attending Clinician [phone] Pob, Adc Lab Main Attending Clinician UnavailNALINI Carter Attending Clinician Unavailable Christiano Robles Attending Clinician UnavailNALINI Serna Admitting Clinician Unavailable Payers Payer Name Policy Type Policy Number Effective Date Expirati on Date Source Allergies, Adverse Reactions, Alerts Allergy Name Allergy Type Status Severity Reaction(s) Onset Date Inactive Date Treating Clinician Comments Source Predniso ne Propensi ty to adverse reaction s Active Rash 2023-12-14 00:00: 00 [facility] PREDNISO NE DRUG INGREDI Active Rash 2023-12-14 00:00: 00 [facility] No Known Drug Allergie s DA Active U 04-02 00:00: 00 [facility] predniso lone DA Active U Rash 04-02 00:00: 00 [facility] Social History Social Habit Start Date Stop Date Quantity Comments Source Sexual orientation U [facility] Sex assigned at 1950 00:00:00 1950 00:00:00 [facility] Smoking Status Start Date Stop Date Source Tobacco smoking consumption unknown [facility] Medications Ordered Medication Name Filled Medication Name Start Date Stop Date Current Medication? Ordering Clinician Indication Dosage Frequency Signature (SIG) Comments Components Source ciprofloxac in HCl 500 mg tablet 2023-03 00:00: 00 01-09 04:59 :00 No [id number] 500mg Take 1 tablet by mouth every 12 (twelve) hours for 5 days. [facility] sulfamethox azole-trime thoprim (BACTRIM DS) 800-160 mg per tablet 2023-03 0 00:00: 00 01-03 00:00 :00 No [id number] 1{tbl} Take 1 tablet by mouth in the morning and 1 tablet in the evening. Do all this for 7 days. [facility] metoprolol tartrate 25 mg tablet 12-14 11:15: 46 Yes 2 tablets Orally Twice a day for 90 days [facility] rivaroxaban (XARELTO) 15 mg tablet 12-14 11:15: 46 Yes TAKE 1 TABLET BY MOUTH EVERY DAY EVENING MEAL [facility] citalopram 20 mg tablet 12-14 11:15: 46 Yes TAKE 1 TABLET BY MOUTH EVERY DAY Orally Once a day for 90 days [facility] dexAMETHaso ne 1 mg tablet 12-14 11:15: 46 Yes 1 tablet Orally daily [facility] omeprazole 40 mg capsule 12-14 11:15: 46 Yes 40mg Take 1 capsule by mouth in the morning. [facility] budesonide- formoteroL 160-4.5 mcg/actuati on inhaler 12-14 11:15: 46 Yes INHALE 2 PUFFS 2 TIMES A DAY FOR 30 DAYS [facility] vit C/E/zinc ox/isabel/lut /zeax (ICAPS AREDS2 ORAL) 12-14 11:15: 46 Yes Take by mouth. [facility] albuterol 90 mcg/actuati on inhaler 11-20 00:00: 00 Yes INHALE 1 PUFF INTO THE LUNGS EVERY 4 HOURS NEEDED FOR 30 DAYS [facility] tamsulosin 0.4 mg 24 hr capsule 3-13 00:00: 00 06-04 05:59 :00 No .4mg 1 capsule. [facility] Vital Signs Vital Name Observation Time Observation Value Comments S heidi Systolic blood pressure 2024-01-05 19:50:00 99 mm[Hg] [place] [facility] Diastolic blood pressure 2024-01-05 19:50:00 45 mm[Hg] [place] [facility] Heart rate 2024-01-05 19:50:00 65 /min [facility] Body temperature 2024-01-05 19:47:00 36.33 Carolyn [facility] Oxygen saturation in Arterial blood by Pulse oximetry 2024-01-05 19:47:00 93 /min [facility] Procedures Procedure Date / Time Performed Performing Clinicia n Source KHARI,POST-VOID RES,US,NON-IMAGING [facility]24-01-05 [facility]00[facility] [facility] 2023-12-29 19:46:48 Marlon Howard [facility] Encounters Start Date/Time End Date/Time Encounter Type Admission Type Attending Clinicians Care Facility Care Department Encounter ID Source 2024-01-02 00:00:00 2024-02-06 18:24:49 [facility] 1.0.114 350.1.13.10 [id number] [id number] [facility] 2024-01-28 00:00:00 2024-01-28 13:20:57 Telephone Mindi [facility] 1.840.114 350.1.13.10 4.2.7.2.686 [id number] [facility] 2024-01-05 14:30:00 2024-01-05 15:50:07 Office Visit Mindi [facility] [id number] 350.1.13.10 4.2.7.2.686 [id number] [facility] 2024-01-03 00:00:00 2024-01-03 11:25:28 Telephone Nalini Howard [facility] [id number] 350.1.13.10 4.2.7.2.686 [id number] [facility] 2024-01-02 00:00:00 2024-01-02 14:44:42 Telephone Nalini Howard [facility] [id number] 350.1.13.10 4.2.7.2.686 [id number] [facility] 2023-12-31 14:00:00 2023-12-31 14:15:00 Certified Pathology Assistant Visit [facility] 1.2.840.114 350.1.13.10 4.2.7.2.686 [id number] [facility] 2023-12-31 14:00:00 2023-12-31 14:00:00 [facility] [id number] 2023-12-29 14:21:54 2023-12-29 23:59:00 [facility] [id number] [facility] 2023-12-29 14:21:54 2023-12-29 23:59:00 Hospital Encounter Rollyluisjean-paulNalini [facility] [id number] 350.1.13.10 4.2.7.2.686 [id number] [facility] 2023-04-02 12:31:00 2023-04-02 16:00:00 Outpatient Elective Christiano Robles [facility] [id number] [facility] Results Test Description Test Time Test Comments Results Result Co mments Source [facility] [id number] 00:56:29EXAM: CT PELVIS WO CONTRAST ORDERING PROVIDER: NALINI HOWARD HISTORY: 73 years-old Male; Ordered Indication: need to assess prostatesize , prior to VARGAS surgery . TECHNIQUE: Axial CT of the pelvis wasperformed without intravenouscontrast. Coronal and sagittal reconstructions were obtained. COMPARISON: None FINDINGS: The prostate measures 2.2 x 4.5 x 3.3 cm with an estimated ellipsoid volumeof 17.1 mL. No suspicious pelvic mass is seen. The urinary bladder has diffuse wallthickening which may beseen with cystitis or chronic outlet obstruction. Severe aortoiliac atherosclerotic calcifications are present. The included gastrointestinal tract has no obstruction. A large volume ofsolid stools pr esent. A normal appendix is seen. Colonic diverticula arenoted. Fat-containing ventral hernias are noted. No aggressive osseous lesion isvisualized. Severe degenerative changes and possible avascularnecrosis ofthe right femoral head are seen.[facility] Notes Date/Time Note Provider Source 2024-01-28 13:20:17 uri [facility] 2024-01-05 08:35:59 Spouse notified. POC to be discussed during office visit. [facility] Guerline Lynch RN [facility] 2024-01-05 08:18:12 Yes for assessment, will not perform cysto [facility] 2024-01-04 17:29:01 Ok, no need to stop citalopram then Continue bactrim and repeat Ucx this week, UTI may have resolved T [facility] 2024-01-04 16:30:18 Spouse notified of recommendations. Aware I will get clarification with provider on how long he should hold citalopram and if it is safe to stop medication or should be tapered. Patient will stop bactrim now and pick remover cipro. Will wait for clarification prior to taking cipro Guerline Lynch RN [facility] 2024-01-04 13:27:29 Addended by: NALINI HOWARD on: 01/04/2024 01:27 PM Modules accepted: Orders [facility] 2024-01-04 13:24:38 Stop bactrim Stop citalopram for 7 days day and 2 days priro to Cipro for 5 days and 2 days after finishing cipro [facility] 2024-01-04 10:45:26 Images from the original note were not included. Guerline Lynch RN [facility] 2024-01-02 14:40:52 UTI Other results within baseline Small prostate on CT around 17 cc Plan Oral abx sent and pre procedure abx , pending final Ucx results RTC for cysto as scheduled Follow up with PCP for : Severe aortoiliac atherosclerotic calcifications are present. Constipation Fat-containing ventral hernias are noted. 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 [facility] 2023-04-02 14:48:00 [facility] enter [address] [place] [address] Opthalmology Operative Note Signed Patient: Arabella Garcia Medical Record#: [id number] : 1950 Acct:[id number] Age/Sex: 72 / M ADM Date: 04/02/23 Loc: [facility] Room: Report Number: [id number]: Christiano Robles MD General Surgery Operative Note Date of Procedure: 04/02/23 Time of Procedure: 14:48 Detailed Description of Procedure: PreOperative Diagnosis retinal detachment of the right eye with multiple retinal breaks PostOperative Diagnosis; same Procedure(s) Performed; vitrectomy endo photocoagulation gas fluid exchange Surgeon Christiano Robles M.D. Medical Coordinator Pesticide Use None Anesthesia Retrobulbar Block, Monitor Anesthesia Care [...] periphery from 9:00 to 3:00 o'clock in case there was another small missed break. Air was [...] 04/02/23 1451 DD/ 1448 TD/TT: 04/02/23 1448 Clinic Office Coordinator: ASHLEY cc: ASHLEY; [id number]* Christiano Robles MD; Abdelrahman Brewster MD [facility] 2023-04-02 11:42:00 [facility] C enter [address] [place] [address] Ophthalmology H P Signed Patient: ARABELLA GARCIA Medical Record#: [id number] : 1950 Acct:[id number] Age/Sex: 72 / M Admit/Reg Date: 04/02/23 Loc: [facility] Room: Report Number: [id number]: Christiano Robles MD Surgical HPI [...] 04/02/23 1150 DD/ 1142 TD/TT: 04/02/23 1142 Clinic Office Coordinator: ASHLEY cc: ASHLEY* Christiano Robles MD [facility]
[2024-05-12] MEDS: AMIODARONE HCL 900 MG in Dextrose 5%-Water 482 ML IV SCH (12:00)
[2024-05-12 12:12] LABS: Absolute Eosinophils 0.1 K/uL (0-0.5); Absolute Lymphocytes (CBC) 0.6 K/uL (0.7-4.9); Absolute Monocytes 1.2 K/uL (0.1-1.3); Absolute Neutrophil 6.4 K/uL (1.8-8.0); Basophils % 0.4 % (0-1.3); Eosinophils % 1.3 % (0-4.4); Hematocrit 38.6 % (39.6-49.0); Hemoglobin 13.3 g/dL (13.6-17.9); Lymphocytes % 7.4 % (15.3-44.8); MCHC 34.4 g/dL (32.0-36.0); MCV 93.2 fL (80-100); MPV 7.1 fL (7.6-11.3); Monocytes % 14.8 % (3.3-12.3); Neutrophils % 76.1 % (41.7-73.7); Platelets 322 thou/uL (152-406); RBC Red Blood Cell Count 4.15 M/uL (4.33-5.43); Red Cell Distribution Width 14.7 % (12.1-15.2)
--- NOTE | 2024-05-12 12:30 | RAD REPORT ---
EXAMINATION: ONE VIEW CHEST XR CLINICAL INDICATION: DYSPNEA TECHNIQUE: Frontal chest projection is submitted. Examination is limited by patient positioning and t echnique. COMPARISON: 04/25/2024, 10/28/2023 FINDINGS: Moderate bilateral pulmonary opacities are present likely pulmonary edema. Small moderate bilateral p leural effusions also present. The heart is moderately enlarged in size. No displaced fractures identified. Aortic atherosclerosis. IMPRESSION: Moderately severe CHF versus volume overload pattern.
[2024-05-12 12:38] LABS: Albumin 3.3 g/dL (3.4-5.0); Albumin/Globulin Ratio 0.8 (1.1-1.8); Anion Gap 9.1 mEq/L (5.0-15.0); Bilirubin Direct 0.3 mg/dL (0-0.2); Bilirubin Indirect, Calculated 0.6 mg/dL (0.2-0.8); Bilirubin Total 0.9 mg/dL (0.2-1.0); Globulin 3.9 g/dL (2.3-3.5); Potassium 4.1 mEq/L (3.5-5.1); Protein, Total 7.2 g/dL (6.4-8.2); Thyroid Stimulating Hormone 2.74 uIU/mL (0.358-3.740); Troponin High Sensitivity 7.5 pg/mL (<58.9)
--- NOTE | 2024-05-12 13:25 | ER ---
Nurse's Notes [facility] Name: Javi Garcia Age: 73 yrs Sex: Male : 1950 Arrival Date: 05/12/2024 Time: 11:35 Bed 4 Private MD: Diagnosis: Atrial fibrillation with rapid ventricular rate;Hyponatremia;Pulmonary edema Presentation: 05/12 11:43 Chief complaint: Patient states: A fib is acting up, sent in by Dr. Baldwin for further ll1 evaluation. Report fatigue and weakness. Coronavirus screen: Client denies travel out of the [place] in the last 14 days. At this time, the client does not indicate any symptoms associated with coronavirus-19. Ebola Screen: Patient denies travel to an Ebola-affected area in the 21 days before illness onset. Initial Sepsis Screen: Does the patient meet any 2 criteria? No. Patient's initial sepsis screen is negative. Does the patient have a suspected source of infection? No. Patient's initial sepsis screen is negative. Risk Assessment: Do you want to hurt yourself or someone else? Patient reports no desire to harm self or others. 11:43 Method Of Arrival: Wheelchair ll1 11:43 Acuity: PATRICIA 2 ll1 Triage Assessment: 11:44 General: Appears in no apparent distress. Behavior is calm, cooperative, appropriate ll1 for age, Reports fatigue for. Pain: Denies pain. Neuro: Reports weakness. Cardiovascular: Reports A fib. Historical: - Allergies: 11:42 Prednisone; ll1 - PMHx: 11:42 Alcohol dependence; Atrial fibrillation; Bursitis right hip; CHF; COPD; Hypertension; ll1 neuropathy; - Immunization history:: Adult Immunizations up to date. - Infectious Disease History:: Denies. - Social history:: Smoking status: Patient/guardian denies using tobacco, the patient reports quitting approximately 5 years ago. - Family history:: not pertinent. Screenin:43 [facility] ED Fall Risk Assessment (Adult) History of falling in the last 3 months, kc6 including since admission No falls in past 3 months (0 pts) Confusion or Disorientation No (0 pts) Intoxicated or Sedated No (0 pts) Impaired Gait Yes (1 pt) Mobility Assist Device Used Yes (1 pt) Altered Elimination No (0 pt) Score/Fall Risk Level 0 - 2 = Low Risk Oriented to surroundings, Maintained a safe environment, Educated pt \T\ family on fall prevention, incl call for assistance when getting out of bed. Abuse screen: Denies threats or abuse. Denies injuries from another. Nutritional screening: No deficits noted. Tuberculosis screening: No symptoms or risk factors identified. Assessment: 12:40 General: Appears in no apparent distress. uncomfortable, well groomed, well developed, kc6 Behavior is cooperative, appropriate for age, anxious. Pain: Denies pain. Neuro: Level of Consciousness is awake, alert, obeys commands, Oriented to person, place, time, situation, Appropriate for age. Cardiovascular: Denies chest pain, Heart tones S1 S2 present Capillary refill < 3 seconds Edema is 3+ to left midcalf, left ankle, right midcalf and right ankle is 4+ to left midcalf, left ankle, right midcalf and right ankle Rhythm is atrial fibrillation. 12:41 Respiratory: Reports shortness of breath on exertion Airway is patent Trachea midline kc6 Respiratory effort is even, using tripod position, Respiratory pattern is symmetrical, tachypnea Breath sounds with wheezes bilaterally. GI: No signs and/or symptoms were reported involving the gastrointestinal system. : No signs and/or symptoms were reported regarding the genitourinary system. EENT: No signs and/or symptoms were reported regarding the EENT system. Derm: No signs and/or symptoms reported regarding the dermatologic system. Skin is intact, is healthy with good turgor, Skin is pink, warm \T\ dry. Musculoskeletal: No signs and/or symptoms reported regarding the musculoskeletal system. Circulation, motion, and sensation intact. Range of motion: intact in all extremities. 13:48 Reassessment: Patient appears in no apparent distress at this time. No changes from kc6 previously documented assessment. Patient and/or family updated on plan of care and expected duration. Pain level reassessed. Patient is alert, oriented x 3, equal unlabored respirations, skin warm/dry/pink. Vital Signs: 11:43 Weight 72.57 kg; Height 5 ft. 9 in. ; Pain 0/10; ll1 11:46 BP 142 / 80; Pulse 110; Resp 18; Temp 97; Pulse Ox 99% on R/A; ll1 12:43 BP 122 / 69; Pulse 80; Resp 16 S; Pulse Ox 98% on R/A; kc6 13:48 BP 143 / 76; Pulse 91; Resp 16 S; Pulse Ox 97% on R/A; kc6 11:43 Body Mass Index 23.63 (72.57 kg, 175.26 cm) ll1 11:43 Pain Scale: Adult ll1 ED Course: 11:35 Patient arrived in ED. im 11:36 Jaime Hein MD is Attending Physician. rt 11:42 Arm band placed on Patient placed in an exam room, on a stretcher. ll1 11:44 Triage completed. ll1 11:49 Sabrina Easton RN is Primary Nurse. kc6 12:06 XRAY Chest (1 view) In Process Unspecified. EDMS 12:42 Patient has correct armband on for positive identification. Bed in low position. Call kc6 light in reach. Side rails up X2. Adult w/ patient. bus driver/monitor on. Pulse ox on. NIBP on. Door closed. Noise minimized. Lights dimmed. Pillow given. 12:42 Inserted saline lock: 22 gauge in right antecubital area, using aseptic technique. kc6 Blood collected. Flushed with 10 mL NS. Patient maintains SpO2 saturation greater than 95% on room air. 13:22 Avery Martines MD is Hospitalizing Provider. rt Administered Medications: 12:00 Drug: amiodarone IVPB 900 mg, D5W IV 500 ml IVPB at 1 mg/min continuous; for 6 hrs, iw then change to 0.5 mg/min Route: IVPB; Rate: 1 mg/min; Site: right antecubital; Outcome: 13:24 Decision to Hospitalize by Provider. rt 15:16 Patient left the ED. ph Signatures: Dispatcher [employer] EDMS Neris Quick RN RN iw Hall, Patricia, RN RN ph Lewis, Lynsay, RN RN 1 Sabrina Easton RN RN kc Jaime Hein MD MD rt Manda Joaquin im Corrections: (The following items were deleted from the chart) 12:42 12:40 Cardiovascular: Denies chest pain, Heart tones S1 S2 present kc6 kc6
--- NOTE | 2024-05-12 13:25 | EDPHYS ---
Physician Documentation [facility] Name: Javi Garcia Age: 73 yrs Sex: Male : 1950 Arrival Date: 05/12/2024 Time: 11:35 Bed 4 Private MD: ED Physician Jaime Hein HPI: 05/12 11:59 This 73 yrs old Male presents to ER via Wheelchair with complaints of Afib. rt 11:59 Patient was sent from cardiology office for initiation of amiodarone drip for A-fib. rt Patient states that has been feeling progressively weaker, short of breath for the past several months. States that is difficult for him to walk. The patient denies chest pain, denies other acute complaints at this time, symptoms are moderate in severity, no other aggravating or alleviating factors.. Historical: - Allergies: 11:42 Prednisone; ll1 - PMHx: 11:42 Alcohol dependence; Atrial fibrillation; Bursitis right hip; CHF; COPD; Hypertension; ll1 neuropathy; - Immunization history:: Adult Immunizations up to date. - Infectious Disease History:: Denies. - Social history:: Smoking status: Patient/guardian denies using tobacco, the patient reports quitting approximately 5 years ago. - Family history:: not pertinent. ROS: 11:59 Constitutional: Negative for fever, chills, and weight loss, Neuro: Negative for rt headache, weakness, numbness, tingling, and seizure, 11:59 Cardiovascular: Positive for edema, paroxysmal nocturnal dyspnea, 11:59 Respiratory: Positive for shortness of breath, wheezing, 11:59 MS/extremity: Positive for swelling, Negative for pain, Exam: 11:59 Constitutional: This is a well developed, well nourished patient who is awake, alert, rt and in no acute distress. Head/Face: Normocephalic, atraumatic. Chest/axilla: Normal chest wall appearance and motion. Nontender with no deformity. No lesions are appreciated. Cardiovascular: Regular rate and rhythm with a normal S1 and S2. No gallops, murmurs, or rubs. Normal PMI, no JVD. No pulse deficits. Skin: Warm, dry with normal turgor. Normal color with no rashes, no lesions, and no evidence of cellulitis. 11:59 ECG was reviewed by the Attending Physician. 11:59 Respiratory: Bibasilar crackles, no respiratory distress, 11:59 Musculoskeletal/extremity: 3+ pitting bilateral lower extremity edema, symmetric, chronic appearing. Vital Signs: 11:43 Weight 72.57 kg; Height 5 ft. 9 in. ; Pain 0/10; ll1 11:46 BP 142 / 80; Pulse 110; Resp 18; Temp 97; Pulse Ox 99% on R/A; ll1 12:43 BP 122 / 69; Pulse 80; Resp 16 S; Pulse Ox 98% on R/A; kc6 13:48 BP 143 / 76; Pulse 91; Resp 16 S; Pulse Ox 97% on R/A; kc6 11:43 Body Mass Index 23.63 (72.57 kg, 175.26 cm) ll1 11:43 Pain Scale: Adult ll1 MDM: 11:37 Medical Screening Exam initiated rt 14:41 Differential Diagnosis A-fib, hyponatremia, CHF. Data reviewed: vital signs, nurses rt notes, lab test result(s), EKG, radiologic studies. Consideration of Admission/Observation Patient was admitted/placed on observation. Management of patient was discussed with the following: Hospitalist: Agrees to admit. I considered the following discharge prescriptions or medication management in the emergency department Medications were administered in the Emergency Department. See MAR. Independent interpretation of the following test(s) in the Emergency Department X-Ray: My interpretation is Pulmonary edema syndrome interpretation of x-ray images. Care significantly affected by the following chronic conditions: Atrial fibrillation. Counseling: I had a detailed discussion with the patient and/or guardian regarding the historical points, exam findings, and any diagnostic results supporting the discharge/admit diagnosis, lab results, radiology results, the need for further work-up and treatment in the hospital. 05/12 11:47 Order name: Basic Metabolic Panel; Complete Time: 12:38 rt 05/12 11:47 Order name: CBC with Diff; Complete Time: 12:32 rt 05/12 11:47 Order name: LFT's; Complete Time: 12:38 rt 05/12 11:47 Order name: NT PRO-BNP; Complete Time: 12:38 rt 05/12 11:47 Order name: Troponin HS; Complete Time: 12:38 rt 05/12 11:47 Order name: TSH; Complete Time: 12:38 rt 05/12 13:40 Order name: Basic Metabolic Panel EDMS 05/12 13:40 Order name: Basic Metabolic Panel EDMS 05/12 13:40 Order name: Basic Metabolic Panel EDMS 05/12 13:40 Order name: Basic Metabolic Panel EDMS 05/12 13:40 Order name: Basic Metabolic Panel EDMS 05/12 13:40 Order name: CBC with Automated Diff EDMS 05/12 13:40 Order name: CBC with Automated Diff EDMS 05/12 13:41 Order name: CBC with Automated Diff EDMS 05/12 13:41 Order name: CBC with Automated Diff EDMS 05/12 13:41 Order name: CBC with Automated Diff EDMS 05/12 13:41 Order name: Magnesium EDMS 05/12 13:41 Order name: Magnesium EDMS 05/12 13:41 Order name: Magnesium EDMS 05/12 13:41 Order name: Magnesium EDMS 05/12 13:41 Order name: Magnesium EDMS 05/12 13:41 Order name: T4 Free EDMS 05/12 13:41 Order name: T4 Free EDMS 05/12 11:47 Order name: XRAY Chest (1 view); Complete Time: 12:32 rt 05/12 13:37 Order name: CL CARDIOVERSION EXTERNAL EDMS 05/12 13:37 Order name: LAM Transesoph. Echo EDMS 05/12 11:47 Order name: Cardiac monitoring; Complete Time: 11:49 rt 05/12 11:47 Order name: EKG - Nurse/Tech; Complete Time: 11:49 rt 05/12 11:47 Order name: IV Saline Lock; Complete Time: 11:58 rt 05/12 11:47 Order name: Labs collected and sent; Complete Time: 11:58 rt 05/12 11:47 Order name: O2 Per Protocol; Complete Time: 11:49 rt 05/12 11:47 Order name: O2 Sat Monitoring; Complete Time: 11:49 rt EC:59 Rate is 86 beats/min. Rhythm is irregularly irregular, A fib with Occasional PVCs. QRS rt [place] is Normal. QRS interval is normal. QT interval is normal. No Q waves. Interpreted by me. Administered Medications: 12:00 Drug: amiodarone IVPB 900 mg, D5W IV 500 ml IVPB at 1 mg/min continuous; for 6 hrs, iw then change to 0.5 mg/min Route: IVPB; Rate: 1 mg/min; Site: right antecubital; Disposition Summary: 05/12/24 13:24 Hospitalization Ordered Notes: Hospitalization Status: Inpatient Admission rt Provider: Avery Martines rt Location: Telemetry/MedSurg (Inpatient) rt Condition: Fair rt Problem: new rt Symptoms: are unchanged rt Bed/Room Type: Standard rt Room Assignment: 212(05/12/24 14:00) ja Diagnosis - Atrial fibrillation with rapid ventricular rate rt - Hyponatremia rt - Pulmonary edema rt Forms: - Medication Reconciliation Form rt - SBAR form rt - Leadership Thank You Letter rt Critical care time excluding procedures: 14:41 Critical care time: Bedside Care: 30 minutes, Consultation: 5 minutes. Total time: 35 rt minutes Signatures: Dispatcher [employer] EDNeris Terry, RN LUIS ALFREDO Lucho Arevalo RN RN ja1 Chicho Lewis RN RN ll1 Sabrina Easton RN RN [id number] Jaime Hein MD MD rt Corrections: (The following items were deleted from the chart) 11:48 11:48 BASIC METABOLIC PANEL+C.LAB.BRZ ordered. EDMS EDMS 11:48 11:48 CBC+H.LAB.BRZ ordered. EDMS EDMS 11:48 11:48 HEPATIC FUNCTION+C.LAB.BRZ ordered. EDMS EDMS 11:48 11:48 PROBNP+C.LAB.BRZ ordered. EDMS EDMS 11:48 11:48 Troponin High Sensitivity+C.LAB.BRZ ordered. EDMS EDMS 11:48 11:48 THYROID STIMULAT HORMONE+C.LAB.BRZ ordered. EDMS EDMS 11:48 11:48 Chest Single View+RAD.RAD.BRZ ordered. EDMS EDMS 14:00 13:24 rt ja1
--- NOTE | 2024-05-12 16:05 | P.HP ---
Certification for Inpatient Patient admitted to: Inpatient With expected LOS: >2 Midnights Patient will require the following post-hospital care: None Practitioner: I am a practitioner with admitting privileges, knowledge of patient current condition, hospital course, and medical plan of care. Services: Services provided to patient in accordance with Admission requirements found in Title 42 Section 412.3 of the Code of Federal Regulations Patient History Date of Service: 05/12/24 Reason for admission: CHF, A-fib, hyponatremia History of Present Illness: 73-year-old male with history of chronic systolic congestive heart failure, paroxysmal atrial fibrillation, chronic hyponatremia, COPD, hypertension, GERD, BPH presents to the emergency department after being referred from his percussion instructor for shortness of breath, lower extremity edema, atrial fibrillation with rapid ventricular response. Upon arrival to the emergency department patient's heart rate was elevated around 100 and irregular in atrial fibrillation. He was noted to have pitting edema of bilateral lower extremities. His labs were significant for a sodium of 125 chloride of 93 BNP of 5702 hemoglobin of 13.3 and hematocrit of 38.6. Chest x-ray was performed which showed moderately severe CHF versus volume overload pattern. Patient's percussion instructor recommended amiodarone infusion and likely LAM cardioversion tomorrow. Patient will be admitted for CHF exacerbation, rapid A- fib and hyponatremia Allergies prednisone Allergy (Severe, Verified 04/25/24 11:05) Hives/Rash Home Medications: Omeprazole [Prilosec] 40 mg PO DAILY PRN 11/12/17 Rivaroxaban [Xarelto*] 15 mg PO DAILY AT SUPPER #30 tablet 08/17/18 Citalopram [Celexa*] 20 mg PO DAILY 06/02/23 Metoprolol Tartrate [Lopressor*] 25 mg PO BID 6AM 6PM #30 tab 06/05/23 Budesonide/Formoterol Fumarate [Symbicort 160-4.5 Mcg Inhaler] 2 puff IH DAILY PRN 10/29/23 Tamsulosin [Flomax*] 0.4 mg PO DAILY 10/29/23 dexAMETHasone [Dexamethasone] 1 mg PO DAILY PRN 10/29/23 Albuterol Inhaler [Ventolin Inhaler*] 2 puff IH Q4H PRN #1 inh 11/03/23 Demeclocycline HCl [Declomycin] 300 mg PO TID #90 tab 11/03/23 Sodium Chloride Tab [Sodium Chloride*] 1 gm PO TID #90 tab 11/03/23 Urea [Ure-Na] 15 gm PO BID #60 packet 11/03/23 - Past Medical/Surgical History Diabetic: No -: Hypertension -: GERD -: chronic systolic CHF -: paroxismal A.Fib -: HTN -: COPD -: Hyponatremia -: Diagnostic laparoscopy -: exploratory laparotomy -: lysis of adhesion -: cholecystectomy -: right ankle surgery Psychosocial/ Personal History: Patient is - Family History Father -: Heart disease, Other (see notes) Notes: heart attack Mother -: Heart disease Notes: heart attack - Social History Smoking Status: Never smoker Alcohol use: Yes CD- Drugs: No Caffeine use: Yes Place of Residence: Home Review of Systems 10-point ROS is otherwise unremarkable Respiratory: Cough, Shortness of Breath, SOB with Excertion Cardiovascular: Edema Physical Examination - Vital Signs Temperature: 97 F Blood Pressure: 143/76 Pulse: 91 Respirations: 16 - Physical Exam General: Alert, In no apparent distress, Oriented x3 HEENT: Atraumatic, PERRLA, Mucous membr. moist/pink Neck: Supple, 2+ carotid pulse no bruit, No LAD Respiratory: Diminished, Crackles/rales Cardiovascular: Regular rate/rhythm, Normal S1 S2, Edema (3+ pitting edema bilateral lower extremities) Capillary refill: <2 Seconds Gastrointestinal: No tenderness Musculoskeletal: No tenderness Integumentary: No rashes Neurological: Normal speech, Normal strength at 5/5 x4 extr, Normal tone - Studies Laboratory Data (last 24 hrs) 05/12/24 05/12/24 11:57 11:57 WBC 8.40 Hgb 13.3 L Hct 38.6 L Plt Count 322 Sodium 125 L Potassium 4.1 BUN 11 Creatinine 0.90 Glucose 87 Total Bilirubin 0.9 AST 16 ALT 23 Alkaline Phosphatase 90 Assessment and Plan - Plan Assessment: Acute on chronic systolic congestive heart failure Atrial fibrillation with rapid ventricular responsehistory of paroxysmal A-fib on chronic anticoagulation Acute on chronic hyponatremia COPD Hypertension Hyperlipidemia BPH Plan: Acute on chronic systolic congestive heart failure Started on IV diuresis with Lasix Given presence of acute on chronic hyponatremia cardiology and nephrology will be consulted Previously required salt tabs and other medications for hyponatremia These were discontinued by cardiology for worsening heart failure/fluid retention previously Atrial fibrillation with rapid ventricular responsehistory of paroxysmal A-fib on chronic anticoagulation Continue Xarelto, amiodarone IV, p.o. metoprolol N.p.o. after midnight in anticipation of possible LAM cardioversion tomorrow Acute on chronic hyponatremia Continue diuresis with IV Lasix Nephrology and cardiology consulted Repeat chemistry in the morning COPD Continue patient's Trelegy-will need to bring from home As needed nebulizer treatments Hypertension Hyperlipidemia BPH Home medications continued DVT PPX: Continue Xarelto Code status: Full Discharge Plan: Home Plan to discharge in: 72 Hours - Advance Directives Does patient have a Living Will: No Does patient have a Durable POA for Healthcare: No - Code Status/Comfort Care Code Status Assessed: Yes (Full code) Critical Care: No Time Spent Managing Pts Care (In Minutes): 75
[2024-05-12 16:55] VITALS: BMI 23.4
[2024-05-12] MEDS ORDERED: RIVAROXABAN 15 MG TABLET PO SCH (17:00)
[2024-05-12] MEDS: FUROSEMIDE 40 MG/4 ML VIAL IV SCH (17:28)
[2024-05-12] MEDS: METOPROLOL TAR 25 MG TAB PO SCH (17:29)
[2024-05-12] MEDS: RIVAROXABAN 20 MG TABLET PO SCH (17:29)
[2024-05-12] MEDS: TAMSULOSIN 0.4 MG SR CAP PO SCH (20:19)
[2024-05-12] MEDS: TRAMADOL HCL 50 MG TAB PO PRN (20:19)
[2024-05-12] MEDS ORDERED: FLU (Fluarix Triv) TS24-25(6MOS UP)/PF 45 MCG/0.5 ML Syringe IM ONE (21:00)
[2024-05-12] MEDS ORDERED: PNEUMOCOCCAL VACCINE 0.5 ML IMVAC ONE (21:00)
[2024-05-12] MEDS: NICOTINE 14 MG/PAT TD ONE (23:05)
[2024-05-13] MEDS: ALPRAZOLAM 0.5 MG TABLET PO PRN (00:15)
[2024-05-13 05:50] LABS: Absolute Eosinophils 0.1 K/uL (0-0.5); Absolute Lymphocytes (CBC) 0.5 K/uL (0.7-4.9); Absolute Monocytes 0.8 K/uL (0.1-1.3); Absolute Neutrophil 3.4 K/uL (1.8-8.0); Basophils % 0.8 % (0-1.3); Eosinophils % 2.5 % (0-4.4); Hematocrit 32.4 % (39.6-49.0); Hemoglobin 11.1 g/dL (13.6-17.9); MCH 31.9 pg (27.0-35.0); MCHC 34.2 g/dL (32.0-36.0); MCV 93.2 fL (80-100); MPV 7.1 fL (7.6-11.3); Monocytes % 16.2 % (3.3-12.3); Neutrophils % 70.5 % (41.7-73.7); Platelets 289 thou/uL (152-406); RBC Red Blood Cell Count 3.47 M/uL (4.33-5.43); Red Cell Distribution Width 14.2 % (12.1-15.2)
[2024-05-13 06:19] LABS: Anion Gap 8.6 mEq/L (5.0-15.0); Magnesium 1.8 mg/dL (1.6-2.4); Potassium 3.6 mEq/L (3.5-5.1)
[2024-05-13] MEDS: CITALOPRAM 10 MG TABLET PO SCH (08:54)
[2024-05-13] MEDS: NICOTINE 14 MG/PAT TD SCH (09:53)
--- NOTE | 2024-05-13 09:55 | P.PN ---
Date of Service: 05/13/24 Subjective: Lower extremity edema improving No acute events overnight planning for LAM cardioversion today ROS: 10 point ROS as noted above, otherwise negative Physical exam GEN: Alert, oriented, NAD HEENT: Normal conjunctiva, sclera anicteric CV: Afib rate ~85, 2+ pitting edema MELISSA LE Pulm: Nonlabored respirations on room air ABD: Soft, nontender, nondistended MSK: No joint tenderness Integumentary: No rashes Neuro: Normal speech, normal affect Vitals reviewed Assessment: Acute on chronic systolic congestive heart failure Atrial fibrillation with rapid ventricular responsehistory of paroxysmal A-fib on chronic anticoagulation Acute on chronic hyponatremia COPD Hypertension Hyperlipidemia BPH Plan: Acute on chronic systolic congestive heart failure Started on IV diuresis with Lasix Given presence of acute on chronic hyponatremia cardiology and nephrology will be consulted Previously required salt tabs and other medications for hyponatremia These were discontinued by cardiology for worsening heart failure/fluid retention previously Sodium improved overnight with diuresis so far Atrial fibrillation with rapid ventricular responsehistory of paroxysmal A-fib on chronic anticoagulation Continue Xarelto, amiodarone IV, p.o. metoprolol N.p.o. after midnight in anticipation of possible LAM cardioversion tomorrow Acute on chronic hyponatremia Continue diuresis with IV Lasix Nephrology and cardiology consulted Repeat chemistry in the morning COPD Continue patient's Trelegy-will need to bring from home As needed nebulizer treatments Hypertension Hyperlipidemia BPH Home medications continued DVT PPX: Continue Xarelto Code status: Full Discharge Plan: Home Plan to discharge in: 72 Hours Time Spent Managing Pts Care (In Minutes): 35 <Colin Jennings - Last Filed: 05/13/24 09:55> Chart has been reviewed. Events of the last 24 hours have been noted. Case discussed with TAWANDA. I performed a substantial part of the MDM during this patient's care today. I personally made or approved the documented management plan and acknowledge its risk of complications. I agree with the findings and documentation provided in the TAWANDA's notes Continue with LAM with cardioversion; continue with antiplatelet therapy and statin therapy. Continue with cardiac medications. Continue with inhaler therapy. <Jason Gan - Last Filed: 05/15/24 06:51>
[2024-05-13] MEDS ORDERED: NA CHLORIDE 0.9% 500 ML ONE (10:19)
[2024-05-13] MEDS ORDERED: propofoL 200 MG/20 ML VIAL IV ONE (10:59)
[2024-05-13] MEDS ORDERED: LIDOCAINE 1% MPF 5 ML VIAL ONE (10:59)
[2024-05-13] MEDS: AMIODARONE HCL 200 MG TAB PO SCH (12:24)
--- NOTE | 2024-05-13 14:48 | P.PN ---
Subjective Date of Service: 05/13/24 Chief Complaint: CHF, A-fib, hyponatremia Subjective: No new changes, No C/O voiced, Tolerating diet, Ambulating, Improving Review of Systems 10-point ROS is otherwise unremarkable Physical Examination - Vital Signs Temperature: 97.9 F Blood Pressure: 123/55 Pulse: 75 Respirations: 16 Pulse Ox (%): 94 - Physical Exam General: Alert, In no apparent distress HEENT: Atraumatic, PERRLA, EOMI Neck: Supple, JVD not distended Respiratory: Clear to auscultation bilaterally, Normal air movement Cardiovascular: Regular rate/rhythm, Normal S1 S2 Gastrointestinal: Normal bowel sounds, No tenderness Musculoskeletal: No tenderness Integumentary: No rashes Neurological: Normal speech, Normal tone, Normal affect Lymphatics: No axilla or inguinal lymphadenopathy - Studies Medications List Reviewed: Yes Assessment And Plan - Current Problems (Diagnosis) (1) Acute on chronic combined systolic and diastolic heart failure Current Visit: Yes Status: Acute Plan: continue with lasix 40 mg IV BID for one more day, then switch to lasix 40 mg po daily add Aldactone 25 mg daily add Toprol XL 25 mg daily continue to monitor input and output and electrolytes. (2) Atrial fibrillation Current Visit: No Status: Chronic Plan: LAM was done for an attempt for DCCV but we have seen big JOYCE thrombus so procedure was aborted. stop Xarelto start Eliquis 10 mg po BID for 10 days then continue Eliquis 5 mg po BID continue amdioarone 200 mg po BID Start Toprol XL 25 mg daily Qualifiers: Atrial fibrillation type: paroxysmal Qualified Code(s): I48.0 - Paroxysmal atrial fibrillation
[2024-05-13] MEDS: APIXABAN 5 MG TABLET PO SCH (16:41)
--- NOTE | 2024-05-13 17:07 | OP ---
Date of Procedure: 05/13/2024 Surgeon: John Weir Procedure Performed: Transesophageal echo. Indication For Procedure: Atrial fibrillation. Complications: None. Estimated Blood Loss: None. Sedation: Done by Anesthesia team. Description Of Procedure: After risks, benefits, and alternatives were explained to the patient, the patient agreed to proceed with procedure and signed informed consent. The patient was brought back to the OR, prepped and draped in sterile fashion. A time-out was performed. Sedation was administer ed by Anesthesia Team. LAM probe was inserted. Images were obtained. Thrombus was seen into the le ft atrial appendage, so the LAM probe was inserted and no synchronized cardioversion was done because of the presence of the thrombus. The patient was moved to recovery in stable condition. Assessment And Plan: Atrial fibrillation with left atrial thrombus, so cardioversion was aborted. The plan will be to continue anticoagulation. MAK/FCO Voice ID: [id number] Report ID: [id number]
--- NOTE | 2024-05-14 00:43 | CON ---
Date of Consultation: 05/13/2024 History Of Present Illness: The patient is admitted to the hospital for congestive heart failure exa cerbation, atrial fibrillation. He was found to have severe hyponatremia and Nephrology is consulted . The patient is a 73-year-old man with history of chronic systolic congestive heart failure, paroxy smal atrial fibrillation, chronic hyponatremia, COPD, hypertension, GERD, BPH. He came to the emerge ncy department and was referred from his cork tipper's office for shortness of breath, progressively worse extremity edema, atrial fibrillation with rapid ventricular response. Today, he underwent car dioversion. Upon arrival to emergency room, patient's heart rate was elevated around 100 and it was irregularly irregular due to atrial fibrillation. He was noted to have pitting edema and bilateral l ower extremity edema. Lab work results revealed sodium 125, chloride 93. BNP 5702. Hemoglobin 13.3 , hematocrit 38.6. Chest x-ray showed moderately severe congestive heart failure and fluid overload. The patient was scheduled to have LAM and cardioversion. Review of Systems: Constitutional: Denies fever, chills. Eyes: Denies vision changes. Ears, Nose, Mouth, and Throat: Denies sore throat or earache. Respiratory: Denies hemoptysis, although he has dyspnea on exertion. : Denies dysuria or hematuria. All other systems reviewed and all are negative. Past Medical History: Hypertension, GERD, chronic systolic congestive heart failure, congestive hear t failure exacerbation, paroxysmal atrial fibrillation, hypertension, COPD, hyponatremia, lysis of ad hesions, cholecystectomy, right ankle surgery, diagnostic laparoscopy. Family History: Father, heart disease and heart attack. Mother; heart attack, coronary artery disea se. Social History: Never smoker. Alcohol yes, occasionally. Denies drugs. Denies caffeine. Physical Examination: General: Alert, not in apparent distress. Oriented x3. HEENT: Atraumatic, normocephalic. Neck: Supple. Cardiovascular: Irregularly irregular. S1, S2. 3+ edema. Musculoskeletal: No tenderness. Abdomen: Soft, benign. Neurologic: Normal speech. No tremor. Laboratory Work: Hemoglobin 13.3, WBC 8.4, platelet count 322. Sodium 125, potassium 4.1, BUN 11, c reatinine 0.9, glucose 87, AST 16, ALT 23, AP 90, and total bilirubin 0.9. Impression And Plan: Hyponatremia, severe in setting of acute on chronic congestive heart failure. Patient had chronic cardiorenal syndrome and chronic hyponatremia. The patient has underlying risk f or hyponatremia including congestive heart failure, chronic obstructive pulmonary disease. Patient p resented to the hospital with shortness of breath due to cardiac arrhythmia and congestive heart fail ure exacerbation. Chest x-ray showed fluid overload and congestion. The patient is on Lasix. Acute on chronic hyponatremia. The patient remains asymptomatic. The patient was diuresed with IV Lasix and sodium level is gradually improving. Plan is to continue diet and IV Lasix. Hyponatr emia on presentation is due to congestive heart failure exacerbation. The patient also has underlyin g COPD. Continue Lasix for congestive heart failure. At this point, the patient does not have COPD exacerbation. The patient will have workup including cortisol level in the morning, TSH to rule out other possible causes of hyponatremia. Avoid nonsteroidal anti-inflammatory medication. Avoid HCTZ. We will need to check also renal ultrasound to rule out obstructive uropathy and if possible abnormal urinary sedi ment and rule out proteinuria. EB/MODL Voice ID: [id number] Report ID: [id number]
[2024-05-14 07:14] LABS: Absolute Eosinophils 0.2 K/uL (0-0.5); Absolute Lymphocytes (CBC) 0.5 K/uL (0.7-4.9); Absolute Monocytes 0.9 K/uL (0.1-1.3); Absolute Neutrophil 4.3 K/uL (1.8-8.0); Basophils % 0.6 % (0-1.3); Eosinophils % 3.9 % (0-4.4); Hematocrit 34.2 % (39.6-49.0); Hemoglobin 11.4 g/dL (13.6-17.9); Lymphocytes % 7.8 % (15.3-44.8); MCH 31.1 pg (27.0-35.0); MCHC 33.3 g/dL (32.0-36.0); MCV 93.5 fL (80-100); Monocytes % 14.4 % (3.3-12.3); Neutrophils % 73.3 % (41.7-73.7); Platelets 285 thou/uL (152-406); RBC Red Blood Cell Count 3.66 M/uL (4.33-5.43); Red Cell Distribution Width 14.2 % (12.1-15.2)
[2024-05-14 07:33] LABS: ALT/SGPT 16 U/L (16-61); Albumin 2.6 g/dL (3.4-5.0); Albumin/Globulin Ratio 0.9 (1.1-1.8); Alkaline Phosphatase 75 U/L (45-117); Anion Gap 4.6 mEq/L (5.0-15.0); BUN Blood Urea Nitrogen 9 mg/dL (7-18); Bicarbonate 35 mEq/L (21-32); Bilirubin Total 0.7 mg/dL (0.2-1.0); Globulin 2.9 g/dL (2.3-3.5); Glomerular Filtration Rate 93 ml/min (=/>90); Glucose Level 86 mg/dL (74-106); Magnesium 1.7 mg/dL (1.6-2.4); Potassium 3.6 mEq/L (3.5-5.1); Protein, Total 5.5 g/dL (6.4-8.2); Sodium Level 127 mEq/L (136-145)
[2024-05-14 07:35] LABS: AST/SGOT < 10 U/L (15-37)
[2024-05-14 08:17] LABS: UR MICROALBUMIN 8.5 mg/dL (< 1.9)
[2024-05-14] MEDS: UREA 15 GM POWDER PACKET PO ONE ×2 (09:00→21:41)
[2024-05-14] MEDS: POTASSIUM CL SA 10 MEQ TAB PO SCH (09:36)
[2024-05-14] MEDS: SPIRONOLACTONE 25 MG TABLET PO SCH (09:37)
--- NOTE | 2024-05-14 11:31 | P.PN ---
Date of Service: 05/14/24 Subjective: Lower extremity edema improving No acute events overnight Had thrombus in the atrium on LAM, unable to do cardioversion ROS: 10 point ROS as noted above, otherwise negative Physical exam GEN: Alert, oriented, NAD HEENT: Normal conjunctiva, sclera anicteric CV: Afib rate ~85, edema has improved Pulm: Nonlabored respirations on room air ABD: Soft, nontender, nondistended MSK: No joint tenderness Integumentary: No rashes Neuro: Normal speech, normal affect Vitals reviewed Assessment: Acute on chronic systolic congestive heart failure Atrial fibrillation with rapid ventricular responsehistory of paroxysmal A-fib on chronic anticoagulation Acute on chronic hyponatremia COPD Hypertension Hyperlipidemia BPH Plan: Acute on chronic systolic congestive heart failure Switched to PO lasix Given presence of acute on chronic hyponatremia cardiology and nephrology will be consulted Previously required salt tabs and other medications for hyponatremia These were discontinued by cardiology for worsening heart failure/fluid retention previously Cannot do TTE cardioversion and there is an atrial thrombus Atrial fibrillation with rapid ventricular responsehistory of paroxysmal A-fib on chronic anticoagulation Patient found to have atrial thrombus Switch from Xarelto to Eliquis 10 mg twice daily for 10 days followed by Eliquis 5 mg twice daily Continue amiodarone oral for rate control Acute on chronic hyponatremia Switch to p.o. Lasix Nephrology and cardiology consulted Repeat chemistry in the morning COPD Continue patient's Trelegy-will need to bring from home As needed nebulizer treatments Hypertension Hyperlipidemia BPH Home medications continued DVT PPX: Continue Eliquis Code status: Full Discharge Plan: Home Plan to discharge in: 72 Hours Time Spent Managing Pts Care (In Minutes): 35 <Colin Jennings - Last Filed: 05/14/24 11:28> Chart has been reviewed. Events of the last 24 hours have been noted. Case discussed with TAWANDA. I performed a substantial part of the MDM during this patient's care today. I personally made or approved the documented management plan and acknowledge its risk of complications. I agree with the findings and documentation provided in the TAWANDA's notes Patient is in normal sinus rhythm at this time. Clinically patient is feeling better. Working with therapy. Wanting to go home over the next 24 hours.Continue with medication for rate control. <Jason Gan - Last Filed: 05/15/24 06:53>
--- NOTE | 2024-05-14 11:55 | RAD REPORT ---
EXAMINATION: US RENAL ULTRASOUND CLINICAL INDICATION: 05/14/2024 TECHNIQUE: Real-time ultrasonography of the abdomen was performed. COMPARISON: No prior exam. FINDINGS: RIGHT KIDNEY: Right renal length measurement: 11.0 x 5.0 x 4.6 cm. Normal in echogenicity and size. N o calculus, solid mass or hydronephrosis. LEFT KIDNEY: Left renal length measurement: 9.5 x 4.5 x 4.1 cm. Normal in echogenicity and size. No c alculus, solid mass or hydronephrosis. URINARY BLADDER: Mild echogenic material seen dependently in the bladder. ADDITIONAL FINDINGS: None. IMPRESSION: Unremarkable renal ultrasound. Mild echogenic material in the bladder is indeterminant, could be debris or blood clot.
[2024-05-14] MEDS: HYDROMORPHONE HCL 1 MG/ML INJ IV ONE (21:14)
--- NOTE | 2024-05-15 05:04 | PN ---
Date of Progress Note: 05/14/2024 Chief Complaint: Hyponatremia, congestive heart failure. The patient has history of SIADH and previ ously, he was taking demeclocycline. He is admitted for congestive heart failure exacerbation. He w as found to have a borderline hypotension, history of paroxysmal atrial fibrillation, chronic hyponat remia, COPD, hypertension, GERD, BPH. According to the emergency room, he was referred by his cardio logist for shortness of breath, progressively worse extremity edema. He has atrial fibrillation with rapid ventricular response. Upon arrival to the emergency room, heart rate was around 100, irregula r irregular due to atrial fibrillation. Sodium . Hemoglobin 13.3, hematocrit 38.6. Chest x-ray showed moderately severe congestive heart failure and fluid overload. The patient was schedul ed to have LAM and cardioversion. Cardiac echo revealed intraventricular thrombus and the patient ne eds anticoagulation. Cardioversion was not done. Review of Systems: Denies chest pain, palpitations. Physical Examination: Lungs: Clear to auscultation bilaterally. Heart: S1, S2. Abdomen: Soft, benign. Extremities: There is no edema. Impression And Plan: 1. Hyponatremia. Sodium level primarily improved and now is trending down. The patient had sodium 12 5 on admission. Plan is to continue p.o. fluid restriction to control hyponatremia. The p atient may need to resume demeclocycline. Apparently prior to this admission, the patient's stopped taking . 2. Congestive heart failure. Continue Lasix. 3. Hyponatremia on presentation due to congestive heart failure. 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 Continue Lasix for congestive heart failure. Workup is pending to rule out adrenal insufficiency and hypothyroidism as well as . EB/MODL Voice ID: [id number] Report ID: [id number]
[2024-05-15 05:22] LABS: Absolute Eosinophils 0.3 K/uL (0-0.5); Absolute Lymphocytes (CBC) 0.4 K/uL (0.7-4.9); Absolute Monocytes 0.9 K/uL (0.1-1.3); Absolute Neutrophil 3.8 K/uL (1.8-8.0); Basophils % 0.7 % (0-1.3); Eosinophils % 5.4 % (0-4.4); Hematocrit 34.1 % (39.6-49.0); Hemoglobin 11.5 g/dL (13.6-17.9); Lymphocytes % 7.4 % (15.3-44.8); MCH 31.4 pg (27.0-35.0); MCHC 33.7 g/dL (32.0-36.0); Monocytes % 16.6 % (3.3-12.3); Neutrophils % 69.9 % (41.7-73.7); Nucleated Red Blood Cells % 0.1 % (0-0); Platelets 249 thou/uL (152-406); RBC Red Blood Cell Count 3.66 M/uL (4.33-5.43); Red Cell Distribution Width 14.1 % (12.1-15.2)
[2024-05-15 05:38] LABS: Specific Gravity 1.011 (1.005-1.030); Sqamous Epithelial None Seen /HPF (None Seen); Urine Bacteria <20 /HPF (<20); Urine Bilirubin NEGATIVE (Negative); Urine Blood 1+ (Negative); Urine Clarity Extremely Turbid (Clear); Urine Color Light-Orange (Yellow); Urine Culture Reflex Order REFLEXED; Urine Glucose NEGATIVE (Negative); Urine Ketones NEGATIVE (Negative); Urine Micro Reflex YN NO BILL MICROSCOPIC; Urine Nitrite NEGATIVE (Negative); Urine Protein 1+ (Negative); Urine RBC >50 /HPF (None Seen); Urine Urobilinogen Normal (Normal); Urine WBC >50 /HPF (<5); Urine WBC Clump Moderate /HPF (None Seen)
[2024-05-15 05:43] LABS: Anion Gap 5.8 mEq/L (5.0-15.0); Magnesium 1.8 mg/dL (1.6-2.4); Potassium 4.8 mEq/L (3.5-5.1); Uric Acid 3.9 mg/dL (3.5-7.2)
[2024-05-15] MEDS: FUROSEMIDE 40 MG TABLET PO SCH (09:33)
[2024-05-15] MEDS: MAGNESIUM SULFATE 1 gm IVPB 1 GM/100 ML BAG IV ONE (09:34)
--- NOTE | 2024-05-15 10:08 | P.PN ---
Date of Service: 05/15/24 Subjective: feeling better overall reports some urinary symptoms that started around admission lower extremity edema improving in a-fib; HR 90-110s afebrile ROS: 10 point ROS as noted above, otherwise negative Physical Exam: GEN: Alert, oriented, NAD CV: Irregularly Irregular rate and rhythm, no edema Pulm: Nonlabored respirations on 3L NC, clear bilaterally ABD: soft, nontender, nondistended Neuro: Normal speech, normal affect Problem List: Acute on chronic systolic CHF exacerbation Atrial fibrillation with rapid ventricular responsehistory of paroxysmal A-fib on chronic anticoagulation Acute on chronic hyponatremia Possible UTI COPD, chronic Hypertension Hyperlipidemia BPH Acute on chronic systolic CHF exacerbation Cardiology and nephrology are following Previously required salt tabs and other medications for hyponatremia. These were discontinued by cardiology for worsening heart failure/fluid retention previously Cannot do TTE cardioversion d/t presence of atrial thrombus. continue oral lasix 40 mg bid continue spironolactone, metoprolol wean oxygen as tolerated. Patient qualified for home O2 05/14, home O2 being setup. PT consult. Atrial fibrillation with rapid ventricular responsehistory of paroxysmal A-fib on chronic anticoagulation attempted LAM-guided cardioversion on 05/13. Patient found to have atrial thrombus and procedure was aborted. continue eliquis 10 mg twice daily for 10 days (05/13-05/22) then decrease to Eliquis 5 mg twice daily Continue metoprolol, amio Acute on chronic hyponatremia continue oral lasix 40 mg bid Nephrology and cardiology consulted s/p Ure-Na x1 on 05/14 daily labs cortisol level slightly low check ACTH stim test Possible UTI patient reports urinary symptoms that started here. +UA concerning for possible UTI dysuria, concerning UA Start empiric rocephin (05/15-) follow urine culture COPD, chronic Continue patient's Trelegy-will need to bring from home nebs PRN Hypertension Hyperlipidemia BPH continue home meds as appropriate Code: Full Dispo: Home, ~2 days pending urine culture, sodium stable/improves, better rate & rhythm control Time Spent Managing Pts Care (In Minutes): 55
[2024-05-15] MEDS: CEFTRIAXONE 1,000 MG in NA CHLORIDE 0.9% 50 ML IVPB SCH (10:44)
--- NOTE | 2024-05-16 02:30 | PN ---
Date of Progress Note: 05/15/2024 Chief Complaint: Hyponatremia, congestive heart failure, cardiorenal syndrome. Subjective: Nephrology consultation is requested for hyponatremia. The patient has history of SIADH . Previously was taking demeclocycline and recently sodium chloride tablets, although due to worseni ng of the congestive heart failure exacerbation, sodium chloride tablets were stopped. The patient c otto to the hospital because of generalized weakness. He was found to have borderline hypotension. Wilfredo kirkland has history of paroxysmal atrial fibrillation, chronic hyponatremia, COPD, hypertension, GERD, and BPH. When he came to emergency room, he was found to have hyponatremia, sodium was 126. He was refe rred by his hemodialysis rn because of progressively worse shortness of breath and fluid overload, and w orsening of leg edema. He was found to have atrial fibrillation with rapid ventricular response, [place] cardioversion was not done due to new finding on LAM. It was intraventricular thrombus, and th e patient is on anticoagulation. Review of Systems: Denies chest pain, palpitations. Physical Examination: Lungs: Clear to auscultation bilaterally. Heart: S1, S2. Abdomen: Soft, benign. Extremities: No edema. Impression And Plan: 1. Hyponatremia. Sodium level primarily improved and then was trending down. The patient received s odium for treatment of hyponatremia. The patient may need to resume demeclocycline, altho ugh according to the patient, demeclocycline was not effective rule out renal insufficiency . 2. Congestive heart failure. The patient is on Lasix. The urine output has improved. The patient i s euvolemic, and Lasix is currently on hold. 3. Hyponatremia on presentation was due to congestive heart failure. gradually improving. The patient likely has evidence of syndrome of inappropriate antidiuretic hormone secretion seconda ry to chronic obstructive pulmonary disease and evidence of cardiorenal syndrome related to electroly te abnormalities. EB/MODL Voice ID: [id number] Report ID: [id number]
[2024-05-16 04:31] LABS: Absolute Eosinophils 0.3 K/uL (0-0.5); Absolute Lymphocytes (CBC) 0.5 K/uL (0.7-4.9); Absolute Monocytes 0.9 K/uL (0.1-1.3); Absolute Neutrophil 3.6 K/uL (1.8-8.0); Basophils % 0.9 % (0-1.3); Eosinophils % 6.1 % (0-4.4); Hematocrit 33.6 % (39.6-49.0); Hemoglobin 11.3 g/dL (13.6-17.9); Lymphocytes % 8.8 % (15.3-44.8); MCHC 33.8 g/dL (32.0-36.0); MCV 91.8 fL (80-100); MPV 7.1 fL (7.6-11.3); Monocytes % 16.6 % (3.3-12.3); Neutrophils % 67.6 % (41.7-73.7); Platelets 258 thou/uL (152-406); RBC Red Blood Cell Count 3.66 M/uL (4.33-5.43); Red Cell Distribution Width 14.5 % (12.1-15.2)
[2024-05-16 04:51] LABS: Magnesium 2.1 mg/dL (1.6-2.4)
[2024-05-16] MEDS: COSYNTROPIN 0.25 MG VIAL IV ONE (07:00)
--- NOTE | 2024-05-16 07:14 | TEE ---
TRANSESOPHAGEAL ECHOCARDIOGRAM REPORT CARDIOLOGY DEPARTMENT DATE OF STUDY: 05/13/2024 HEIGHT: 58'9" WEIGHT: 159 lbs DIAGNOSIS: ATRIAL FIBRILLATION WITH RAPID VENTRICULAR RESPONSE SIGNAL TECHNICIAN COMMENTS: LAM CARDIAC HISTORY: CATHERIZATION: SURGERY: PROSTHETIC VALVE: PACEMAKER: 2 DIMENSIONAL ASSESSMENT: RIGHT ATRIUM: LEFT ATRIUM: RIGHT VENTRICLE: LEFT VENTRICLE: TRICUSPID VALVE: MITRAL VALVE: PULMONIC VALVE: AORTIC VALVE: PERICARDIAL EFFUSION: AORTIC ROOT: EJECTION FRACTION: LEFT VENTRICULAR WALL MOTION: DOPPLER/COLOR FLOW: COMMENTS: 1. LARGE ECHOGENIC STRUCTURE SEEN IN THE LEFT ATRIAL APPENDAGE MEASURING (3.0 CENTIMETERS BY 1.5 CENTIMETERS) IN DIAMETER, MOST LIKELY REPRESENT A THROMBUS TECHNOLOGIST: VINCENT VILLANUEVA
--- NOTE | 2024-05-16 10:49 | P.PN ---
Date of Service: 05/16/24 Subjective: desat to 83% yesterday afternoon on room air with minimal exertion. sats improved to mid 90s within a few minutes of being placed on 3L NC in a-fib; HR 90s afebrile ROS: 10 point ROS as noted above, otherwise negative Physical Exam: GEN: Alert, oriented, NAD CV: Irregularly Irregular rate and rhythm, no edema Pulm: Nonlabored respirations on 2L NC, clear bilaterally ABD: soft, nontender, nondistended Neuro: Normal speech, normal affect Problem List: Acute on chronic systolic CHF exacerbation Atrial fibrillation with rapid ventricular responsehistory of paroxysmal A-fib on chronic anticoagulation Acute on chronic hyponatremia UTI COPD, chronic Hypertension Hyperlipidemia BPH Acute on chronic systolic CHF exacerbation Cardiology and nephrology are following Previously required salt tabs and other medications for hyponatremia. These were discontinued by cardiology for worsening heart failure/fluid retention previously Cannot do TTE cardioversion d/t presence of atrial thrombus. continue oral lasix 40 mg bid continue spironolactone, metoprolol wean oxygen as tolerated. Patient desat to 83% 05/15 on room air with minimal exertion. Sats improved to mid 90s within a few minutes of being placed on 3L NC Home O2 being setup. continue PT Atrial fibrillation with rapid ventricular responsehistory of paroxysmal A-fib on chronic anticoagulation attempted LAM-guided cardioversion on 05/13. Patient found to have atrial thrombus and procedure was aborted. continue eliquis 10 mg twice daily for 10 days (05/13-05/22) then decrease to Eliquis 5 mg twice daily Continue metoprolol, amio Acute on chronic hyponatremia continue oral lasix 40 mg bid Nephrology and cardiology consulted s/p Ure-Na x1 on 05/14 daily labs cortisol level slightly low check ACTH stim test; pending UTI patient reports urinary symptoms that started here. +UA concerning for possible UTI dysuria, concerning UA continue empiric rocephin (05/15-) urine cx (05/15): 4+ GNR preliminary COPD, chronic Continue patient's Trelegy-will need to bring from home nebs PRN Hypertension Hyperlipidemia BPH continue home meds as appropriate Code: Full Dispo: Home, ~2 days pending urine culture, sodium stable/improves, better rate & rhythm control Time Spent Managing Pts Care (In Minutes): 55
--- NOTE | 2024-05-16 11:44 | P.PN ---
Subjective Date of Service: 05/16/24 Chief Complaint: CHF, A-fib, hyponatremia Subjective: No new changes, No C/O voiced, Tolerating diet, Ambulating, Improving Review of Systems 10-point ROS is otherwise unremarkable Physical Examination - Vital Signs Temperature: 98.4 F Blood Pressure: 134/71 Pulse: 95 Respirations: 14 Pulse Ox (%): 93 - Physical Exam General: Alert, In no apparent distress HEENT: Atraumatic, PERRLA, EOMI Neck: Supple, JVD not distended Respiratory: Clear to auscultation bilaterally, Normal air movement Cardiovascular: Irregular heart rate/rhythm Gastrointestinal: Normal bowel sounds, No tenderness Musculoskeletal: No tenderness Integumentary: No rashes Neurological: Normal speech, Normal tone, Normal affect Lymphatics: No axilla or inguinal lymphadenopathy - Studies Medications List Reviewed: Yes Assessment And Plan - Current Problems (Diagnosis) (1) Acute on chronic combined systolic and diastolic heart failure Current Visit: Yes Status: Acute Plan: continue with lasix 40 mg po daily add Aldactone 25 mg daily continue to monitor input and output and electrolytes. (2) Atrial fibrillation Current Visit: No Status: Chronic Plan: LAM was done for an attempt for DCCV but we have seen big JOYCE thrombus so procedure was aborted. Xarelto stopped Eliquis 10 mg po BID for 10 days then continue Eliquis 5 mg po BID continue amdioarone 200 mg po BID increase lopressor to 50 mg po BID Qualifiers: Atrial fibrillation type: paroxysmal Qualified Code(s): I48.0 - Paroxysmal atrial fibrillation
--- NOTE | 2024-05-17 03:10 | PN ---
Date of Progress Note: 05/16/2024 Chief Complaint: Hyponatremia, congestive heart failure, cardiorenal syndrome. Subjective: The patient has history of SIADH, previously was taking demeclocycline and recently sodi um chloride tablets, although due to worsening of congestive heart failure and congestive heart failu re exacerbation, sodium chloride tablets were stopped. The patient came to the hospital because of g eneralized weakness. He was found to have borderline hypotension. He has history of atrial fibrilla tion, chronic hyponatremia, COPD, hypertension, GERD, and BPH. When he came to emergency room, lab w ork was done. Sodium level was 126. The patient was referred by his entrepreneur for progressively worse shortness of breath, fluid overload, worsening of edema. During this hospitalization, he was t reated with Lasix, p.o. fluid restriction as well as he received sodium urea for hyponatremia. Sodiu m level is somewhat improving. Fluid overload is controlled, and Lasix is on hold. The patient was found to have low cortisol level and is undergoing improved workup to rule out adrenal insufficiency. Review of Systems: Denies chest pain, palpitations. Physical Examination: Lungs: Diminished breath sounds at bases. Heart: S1, S2. Abdomen: Soft. Extremities: No edema. Impression And Plan: 1. Congestive heart failure, acute on chronic, on IV Lasix. Currently Lasix on hold. Continue p.o. fluid restriction, low-sodium diet. 2. Hyponatremia, multifactorial. The patient has history of syndrome of inappropriate antidiuretic h ormone and cardiorenal syndrome, and is undergoing workup for possible adrenal insufficiency. The colleen medrano likely has syndrome of inappropriate antidiuretic hormone due to chronic obstructive pulmonary disease. Continue p.o. fluid restriction. Sodium chloride tablets were stopped due to congestive heart failure exacerbation. EB/MODL Voice ID: [id number] Report ID: [id number]
[2024-05-17 04:03] VITALS: O2SAT 94
[2024-05-17 05:22] LABS: Albumin 2.6 g/dL (3.4-5.0); Albumin/Globulin Ratio 0.8 (1.1-1.8); Alkaline Phosphatase 67 U/L (45-117); Anion Gap 8.5 mEq/L (5.0-15.0); BUN Blood Urea Nitrogen 9 mg/dL (7-18); Bicarbonate 30 mEq/L (21-32); Bilirubin Total 0.9 mg/dL (0.2-1.0); Globulin 3.3 g/dL (2.3-3.5); Glomerular Filtration Rate 101 ml/min (=/>90); Glucose Level 96 mg/dL (74-106); Potassium 4.5 mEq/L (3.5-5.1); Protein, Total 5.9 g/dL (6.4-8.2); Sodium Level 126 mEq/L (136-145)
[2024-05-17 05:40] LABS: ALT/SGPT < 14 U/L (16-61); AST/SGOT < 10 U/L (15-37)
[2024-05-17] MEDS: UREA 15 GM POWDER PACKET PO ONE (10:51)
--- NOTE | 2024-05-17 15:31 | P.DS ---
Admission Date: 05/12/24 Discharge Date: 05/17/24 Discharge Condition: FAIR Reason for Admission: CHF, A-fib, hyponatremia Brief History of Present Illness: 73-year-old male with history of chronic systolic congestive heart failure, paroxysmal atrial fibrillation, chronic hyponatremia, COPD, hypertension, GERD, BPH presented to the emergency department after being referred from his clerical office worker for shortness of breath, lower extremity edema, atrial fibrillation with rapid ventricular response. Upon arrival to the emergency department patient's heart rate was elevated around 100 and irregular in atrial fibrillation. He was noted to have pitting edema of bilateral lower extremities. His labs were significant for a sodium of 125 chloride of 93 BNP of 5702 hemoglobin of 13.3 and hematocrit of 38.6. Chest x-ray was performed which showed moderately severe CHF versus volume overload pattern. Patient's clerical office worker recommended amiodarone infusion and likely LAM cardioversion tomorrow. Patient was admitted for CHF exacerbation, rapid A-fib and hyponatremia. Hospital Course: Diagnosis Acute on chronic systolic CHF exacerbation Atrial fibrillation with rapid ventricular responsehistory of paroxysmal A-fib on chronic anticoagulation Acute on chronic hyponatremia UTI COPD, chronic Hypertension Hyperlipidemia BPH Patient admitted to the medical floor and the following medical problems ad dressed: Acute on chronic systolic CHF exacerbation Cardiology and nephrology evaluated patient and assisted with management Previously required salt tabs and other medications for hyponatremia. These were discontinued by cardiology for worsening heart failure/fluid retention previously. Patient treated with IV Lasix and transition to oral lasix 40 mg bid when his respiratory condition improved Patient also placed on spironolactone, metoprolol Patient could not wean off oxygen. Noted is his history of COPD which is likely contributing to the hypoxia. Home O2 being setup. Patient received PT and has functionally improved to baseline. Atrial fibrillation with rapid ventricular responsehistory of paroxysmal A-fib on chronic anticoagulation attempted LAM-guided cardioversion on 05/13. Patient found to have atrial thrombus and procedure was aborted. Cardiology recommended eliquis 10 mg twice daily for 10 days (05/13-05/22) then decrease to Eliquis 5 mg twice daily Continued metoprolol at half home dose and patient started on amiodarone Acute on chronic hyponatremia Patient was treated with Lasix for diuresis. His sodium level was at baseline Nephrology evaluated patient and recommended urea sodium for hyponatremia treatment UTI patient reports urinary symptoms that started here. +UA concerning for possible UTI Urine culture grew Serratia marcescens sensitive to ceftriaxone and fluoroquinolones. Patient treated with IV Rocephin as inpatient. He is discharged with oral Vantin to complete 1 week of treatment for the UTI. COPD, chronic Stable. Patient treated with bronchodilators and neb treatments. Home bronchodilator regimen resumed on discharge. Hypertension Hyperlipidemia BPH continued home meds. Vital Signs/Physical Exam: Temp Pulse Resp BP Pulse Ox 98.1 F 96 H 18 115/74 98 05/17/24 12:00 05/17/24 12:00 05/17/24 12:00 05/17/24 12:05/17/24 12:00 General: Alert, In no apparent distress, Oriented x3 Neck: JVD not distended Respiratory: Clear to auscultation bilaterally, Normal air movement Cardiovascular: Edema (1+ bilateral lower extremity edema.) Gastrointestinal: Soft and benign, Non-distended Musculoskeletal: No swelling Integumentary: No rashes, No cyanosis Neurological: Normal strength at 5/5 x4 extr Laboratory Data at Discharge: WBC 5.30 thou/uL (4.3-10.9) 05/16/24 04:01 Hgb 11.3 g/dL (13.6-17.9) L 05/16/24 04:01 Hct 33.6 % (39.6-49.0) L 05/16/24 04:01 Plt Count 258 thou/uL (152-406) 05/16/24 04:01 Sodium 126 mEq/L (136-145) L 05/17/24 04:04 Potassium 4.5 mEq/L (3.5-5.1) 05/17/24 04:04 BUN 9 mg/dL (7-18) 05/17/24 04:04 Creatinine 0.61 mg/dL (0.70-1.30) L 05/17/24 04:04 Glucose 96 mg/dL (74-106) 05/17/24 04:04 Uric Acid 3.9 mg/dL (3.5-7.2) 05/15/24 05:04 Magnesium 2.1 mg/dL (1.6-2.4) 05/16/24 04:01 Total Bilirubin 0.9 mg/dL (0.2-1.0) 05/17/24 04:04 AST < 10 U/L (15-37) L 05/17/24 04:04 ALT < 14 U/L (16-61) L 05/17/24 04:04 Alkaline Phosphatase 67 U/L (45-117) 05/17/24 04:04 Triglycerides 64 mg/dL (<150) 05/15/24 05:04 Cholesterol 141 mg/dL (<200) 05/15/24 05:04 HDL Cholesterol 63 mg/dL (40-60) H 05/15/24 05:04 Cholesterol/HDL Ratio 2.24 05/15/24 05:04 Home Medications: Citalopram [Celexa*] 20 mg PO DAILY 06/02/23 Budesonide/Formoterol Fumarate [Symbicort 160-4.5 Mcg Inhaler] 2 puff IH DAILY PRN 10/29/23 Tamsulosin [Flomax*] 0.4 mg PO DAILY 10/29/23 dexAMETHasone [Dexamethasone] 1 mg PO DAILY PRN 10/29/23 Albuterol Inhaler [Ventolin Inhaler*] 2 puff IH Q4H PRN #1 inh 11/03/23 ALPRAZolam [Xanax*] 0.5 mg PO BID PRN 05/13/24 Fluticasone/Umeclidin/Vilanter [Trelegy Ellipta 200-62.5-25] 1 puff IH DAILY 05/13/24 Vitamin B Complex 1 tab PO SEECOM 05/13/24 traMADol HCL [Ultram*] 1 tab PO BIDP PRN 05/13/24 Amiodarone HCl [Cordarone*] 200 mg PO BID #60 tab 05/17/24 Apixaban [Eliquis] 10 mg PO BID #74 tab 05/17/24 Cefpodoxime Proxetil [Vantin] 200 mg PO BID #8 tab 05/17/24 Metoprolol Tartrate [Lopressor*] 25 mg PO BID 6AM 6PM #60 tab 05/17/24 New Medications: Amiodarone HCl [Cordarone*] 200 mg PO BID #60 tab Apixaban [Eliquis] 10 mg PO BID #74 tab Metoprolol Tartrate [Lopressor*] 25 mg PO BID 6AM 6PM #60 tab Cefpodoxime Proxetil [Vantin] 200 mg PO BID #8 tab Diet: AHA Activity: Fall precautions Followup: Logan Brewtser MD [Primary Care Provider] - 1-2 Weeks John Weir MD [ACTIVE - CAN ADMIT] - 1-2 Weeks Time spent managing pt's care (in minutes): 39
[2024-05-17 16:46] VITALS: BP 110/74; TEMP 97.7
--- NOTE | 2024-05-17 22:06 | PN ---
Date of Progress Note: 05/17/2024 Chief Complaint: Hyponatremia, congestive heart failure, cardiorenal syndrome. Subjective: The patient has history of cardiorenal syndrome. He is admitted for shortness of breath . He was found to have hyponatremia. He has history of SIADH. He is on diuretic for congestive hea rt failure. Over last 48 hours, sodium level has not improved and today he was started on sodium ure a for hyponatremia. He received 1 dose today. Lasix is on hold due to mild hypovolemia. Review of Systems: Denies chest pain, palpitations. Physical Examination: Lungs: Clear to auscultation bilaterally. Heart: S1, S2. Abdomen: Soft. Extremities: No edema. Impression And Plan: 1. Congestive heart failure. Plan is to resume maintenance dose of Lasix. 2. Hyponatremia, multifactorial. History of syndrome of inappropriate antidiuretic hormone. The pat ient is undergoing workup for adrenal insufficiency. The patient received sodium urea today to contr ol hyponatremia. EB/MODL Voice ID: [id number] Report ID: [id number]
--- NOTE | 2024-05-23 12:53 | EKG ---
Test Date: 2024-05-12 Test Time: 11:52:00 Active Directory Administrator: SAV MEASUREMENT RESULTS: Intervals: Rate: 86 LA: QRSD: 98 QT: 372 QTc: 445 [place]: P: LA: QRS: 86 T: 102 INTERPRETIVE STATEMENTS: Atrial fibrillation with premature ventricular or aberrantly conducted complexes Nonspecific ST and T wave abnormality Abnormal ECG Compared to ECG 04/25/2024 12:27:12 ST (T wave) deviation now present Prolonged QT interval no longer present Electronically Signed On 05-23-24 12:25:17 BRIM POUNCING MACHINE OPERATOR by John Weir
--- NOTE | 2024-05-24 14:40 | P.CNS ---
Date of Consult: 05/17/24 Chief Complaint: CHF, A-fib, hyponatremia History of Present Illness: Patient with PMH of CHF, AF, presented to office with worsening SOB, found to be in AF w RVR, was admitted to the hospital for diuresis and possible LAM DCCV. denies chest pain, no syncope. Allergies prednisone Allergy (Severe, Verified 04/25/24 11:05) Hives/Rash Home medications list reviewed: Yes Home Medications: Citalopram [Celexa*] 20 mg PO DAILY 06/02/23 Budesonide/Formoterol Fumarate [Symbicort 160-4.5 Mcg Inhaler] 2 puff IH DAILY PRN 10/29/23 Tamsulosin [Flomax*] 0.4 mg PO DAILY 10/29/23 dexAMETHasone [Dexamethasone] 1 mg PO DAILY PRN 10/29/23 Albuterol Inhaler [Ventolin Inhaler*] 2 puff IH Q4H PRN #1 inh 11/03/23 ALPRAZolam [Xanax*] 0.5 mg PO BID PRN 05/13/24 Fluticasone/Umeclidin/Vilanter [Trelegy Ellipta 200-62.5-25] 1 puff IH DAILY 05/13/24 Vitamin B Complex 1 tab PO SEECOM 05/13/24 traMADol HCL [Ultram*] 1 tab PO BIDP PRN 05/13/24 Amiodarone HCl [Cordarone*] 200 mg PO BID #60 tab 05/17/24 Apixaban [Eliquis] 10 mg PO BID #74 tab 05/17/24 Cefpodoxime Proxetil [Vantin] 200 mg PO BID #8 tab 05/17/24 Metoprolol Tartrate [Lopressor*] 25 mg PO BID 6AM 6PM #60 tab 05/17/24 - Past Medical/Surgical History Diabetic: No -: Hypertension -: GERD -: chronic systolic CHF -: paroxismal A.Fib -: HTN -: COPD -: Hyponatremia -: Diagnostic laparoscopy -: exploratory laparotomy -: lysis of adhesion -: cholecystectomy -: right ankle surgery Psychosocial/ Personal History: Patient is - Family History Father Medical History: Heart disease, Other (see notes) Notes: heart attack Mother Medical History: Heart disease Notes: heart attack - Social History Smoking Status: Former smoker Alcohol use: Yes CD- Drugs: No Caffeine use: Yes Place of Residence: Home Review of Systems 10-point ROS is otherwise unremarkable Physical Examination Temp Pulse Resp BP Pulse Ox 97.7 F 94 H 18 110/74 96 05/17/24 16:00 05/17/24 16:00 05/17/24 16:00 05/17/24 16:00 05/17/24 16:00 General: Alert, In no apparent distress HEENT: Atraumatic, PERRLA, Mucous membr. moist/pink, EOMI, Sclerae nonicteric Neck: Supple, 2+ carotid pulse no bruit, No LAD, Without JVD or thyroid abnormality Respiratory: Clear to auscultation bilaterally, Normal air movement Cardiovascular: Edema, Irregular heart rate/rhythm Gastrointestinal: Normal bowel sounds, No tenderness Musculoskeletal: No tenderness Integumentary: No rashes Neurological: Normal gait, Normal speech, Normal tone, Normal affect Lymphatics: No axilla or inguinal lymphadenopathy - Problems (1) Acute on chronic combined systolic and diastolic heart failure Status: Acute Plan: continue with lasix 40 mg po daily add Aldactone 25 mg daily continue to monitor input and output and electrolytes. (2) Atrial fibrillation Status: Chronic Plan: LAM was done for an attempt for DCCV but we have seen big JOYCE thrombus so procedure was aborted. Xarelto stopped Eliquis 10 mg po BID for 10 days then continue Eliquis 5 mg po BID continue amdioarone 200 mg po BID increase lopressor to 50 mg po BID Qualifiers: Atrial fibrillation type: paroxysmal Qualified Code(s): I48.0 - Paroxysmal atrial fibrillation
== END 2024-05-17 16:53 | disposition home or self-care (01) | DRG 291 ==
LOC: ER 11:35 → ERHOLD 13:33 → 2ND 14:14
PROVIDERS: ADMIT Internal Medicine; ATTEND Internal Medicine
PROC: B24BZZ4 Ultrasonography of Heart with Aorta, Transesophageal (ICD-10-PCS; principal; 2024-05-13)
DX: I11.0 Hypertensive heart disease with heart failure (principal); I50.23 Acute on chronic systolic (congestive) heart failure; N39.0 Urinary tract infection, site not specified; E22.2 Syndrome of inappropriate secretion of antidiuretic hormone; I48.0 Paroxysmal atrial fibrillation; E78.5 Hyperlipidemia, unspecified; J44.9 Chronic obstructive pulmonary disease, unspecified; K21.9 Gastro-esophageal reflux disease without esophagitis; I51.3 Intracardiac thrombosis, not elsewhere classified; N40.0 Benign prostatic hyperplasia without lower urinary tract symptoms; Z79.52 Long term (current) use of systemic steroids; Z88.8 Allergy status to other drugs, medicaments and biological substances; Z79.01 Long term (current) use of anticoagulants; Z90.49 Acquired absence of other specified parts of digestive tract; Z87.891 Personal history of nicotine dependence; Z79.899 Other long term (current) drug therapy
CPT/HCPCS: 01922; 36415; 71045; 76770; 80048; 80053; 80061; 80076; 81001; 82024; 82043; 82533; 82570; 82947; 83735; 83880; 83930; 83935; 84156; 84443; 84484; 84550; 85025; 87077; 87086; 87088; 87186; 93005; 93312; 96374; 97161; 97530; 97542; 99284; J0282; J0696; J0834; J1171; J1940; J2003; J2704; J3475; J7040; J7060

== ENCOUNTER 2024-06-07 13:13 | Inpatient (IN) | payer OTHER ==
--- OUTSIDE RECORDS SUMMARY | 2024-06-07 13:18 | XMS REPORT | Continuity of Care Document ---
Author Name Unknown Address [address] [facility] [address] [place] [address] [facility] Address [address] [facility] [place] [address] Care Team Providers Care Staff Editor Name Role Phone Aletha Riley Primary Care Physician [phone] Doctor Unassigned, Limon Attending Clinician U Nalini Norton MD Attending Clinician [phone] Pob, Adc Lab Main Attending Clinician UnavailNALINI aCrter Attending Clinician Unavailable Christiano Robles Attending Clinician UnavailNALINI Serna Admitting Clinician Unavailable Payers Payer Name Policy Type Policy Number Effective Date Expirati on Date Source Allergies, Adverse Reactions, Alerts Allergy Name Allergy Type Status Severity Reaction(s) Onset Date Inactive Date Treating Clinician Comments Source Predniso ne Propensi ty to adverse reaction s Active Rash 12-14 00:00: 00 [facility] PREDNISO NE DRUG INGREDI Active Rash 12-14 00:00: 00 [facility] No Known Drug Allergie s DA Active U 04-02 00:00: 00 [facility] predniso lone DA Active U Rash 04-02 00:00: 00 [facility] Social History Social Habit Start Date Stop Date Quantity Comments Source Sexual orientation U [facility] Sex assigned at 1950 00:00:00 1950 00:00:00 [facility] Smoking Status Start Date Stop Date Source Tobacco smoking consumption unknown [facility] Medications Ordered Medication Name Filled Medication Name Start Date Stop Date Current Medication? Ordering Clinician Indication Dosage Frequency Signature (SIG) Comments Components Source ciprofloxac in HCl 500 mg tablet 2023-03 007 00:00: 00 01-09 04:59 :00 No [id number] 500mg Take 1 tablet by mouth every 12 (twelve) hours for 5 days. [facility] sulfamethox azole-trime thoprim (BACTRIM DS) 800-160 mg per tablet 2023-03 0 00:00: 00 01-03 00:00 :00 No [id number] 1{tbl} Take 1 tablet by mouth in the morning and 1 tablet in the evening. Do all this for 7 days. [facility] metoprolol tartrate 25 mg tablet 12-14 11:15: 46 Yes 2 tablets Orally Twice a day for 90 days [facility] rivaroxaban (XARELTO) 15 mg tablet 12-14 11:15: 46 Yes TAKE 1 TABLET BY MOUTH EVERY DAY EVENING MEAL [facility] citalopram 20 mg tablet 12-14 11:15: 46 Yes TAKE 1 TABLET BY MOUTH EVERY DAY Orally Once a day for 90 days [facility] dexAMETHaso ne 1 mg tablet 12-14 11:15: 46 Yes 1 tablet Orally daily [facility] omeprazole 40 mg capsule 12-14 11:15: 46 Yes 40mg Take 1 capsule by mouth in the morning. [facility] budesonide- formoteroL 160-4.5 mcg/actuati on inhaler 12-14 11:15: 46 Yes INHALE 2 PUFFS 2 TIMES A DAY FOR 30 DAYS [facility] multivit-mi n/ferrous fumarate (MULTI VITAMIN ORAL) 12-14 11:15: 46 Yes Take by mouth. [facility] albuterol 90 mcg/actuati on inhaler 11-20 00:00: 00 Yes INHALE 1 PUFF INTO THE LUNGS EVERY 4 HOURS NEEDED FOR 30 DAYS [facility] tamsulosin 0.4 mg 24 hr capsule 3-13 00:00: 00 06-04 05:59 :00 No .4mg 1 capsule. [facility] Vital Signs Vital Name Observation Time Observation Value Comments S heidi Systolic blood pressure 2024-01-05 19:50:00 99 mm[Hg] [facility] Diastolic blood pressure 2024-01-05 19:50:00 45 mm[Hg] [facility] Heart rate 2024-01-05 19:50:00 65 /min [facility] Body temperature 2024-01-05 19:47:00 36.33 Carolyn [facility] Oxygen saturation in Arterial blood by Pulse oximetry 2024-01-05 19:47:00 93 /min [facility] Procedures Procedure Date / Time Performed Performing Clinician Source DME/SUPPLY JUSTIFICATION 2024-01-08 20:45:12 Doc tor Unassigned, Limon [facility] KHARI,POST-VOID RES,US,NON-IMAGING 2024-01-05 00:00:00 Nalini Howard [facility] CT PELVIS WO CONTRAST 2023-12-29 19:46:48 Marlon Howard [facility] Encounters Start Date/Time End Date/Time Encounter Type Admission Type Attending Clinicians Care Facility Care Department Encounter ID Source 2024-01-08 00:00:00 2024-05-14 06:50:54 Orders Only Doctor Unassigned, Limon Doctor Unassigned, Limon [facility] 1.2840.114 350.1.13.10 4.2.7.2.686 [id number] [facility] 2024-01-02 00:00:00 2024-02-06 18:24:49 Patient Secure Msg Nalini Howard [facility] 1.2.840.114 350.1.13.10 4.2.7.2.686 [id number] [facility] 2024-01-28 00:00:00 2024-01-28 13:20:57 Telephone Nalini Howard [facility] 1.2.840.114 350.1.13.10 4.2.7.2.686 [id number] [facility] 2024-01-05 14:30:00 2024-01-05 15:50:07 [facility] 1.2.840.114 350.1.13.10 4.2.7.2.686 [id number] [facility] 2024-01-03 00:00:00 2024-01-03 11:25:28 Telephone Guerrerojean-paulNalini [facility] 1.2.840.114 350.1.13.10 4.2.7.2.686 [id number] [facility] 2024-01-02 00:00:00 2024-01-02 14:44:42 Telephone Nalini Howard [facility] 1.2.840.114 350.1.13.10 4.2.7.2.686 [id number] [facility] 2023-12-31 14:00:00 2023-12-31 14:15:00 Dining Room Helper Visit Pojulius, Ad[facility] Lab Main Guerrerojean-paul Nalini Neville, [facility] Main [facility] 1.2.840.114 350.1.13.10 4.2.7.2.686 [id number] [facility] 2023-12-31 14:00:00 2023-12-31 14:00:00 [facility] [id number] 2023-12-29 14:21:54 2023-12-29 23:59:00 [facility] [id number] [facility] 2023-12-29 14:21:54 2023-12-29 23:59:00 Hospital En[facility] 1.2.840.114 350.1.13.10 4.2.7.2.686 [id number] [facility] 2023-04-02 12:31:00 2023-04-02 16:00:00 Outpatient Elective BoyareliChristiano corbett [facility] [id number] [facility] Results Test Description Test Time Test Comments Results Resul t Comments Source DME/SUPPLY JUSTIFICATION 2023-12-29 1 20:45:12 [facility] by an unspecified provider[facility] [id number] 00:56:29EXAM: CT PELVIS WO CONTRAST ORDERING PROVIDER: [...] possible avascularnecrosis ofthe right femoral head are seen.[facility] Notes Date/Time Note Provider Source 2024-01-28 13:20:17 uri [facility] - Health 2024-01-05 08:35:59 Spouse notified. POC to be discussed during office visit. Guerline Lynch RN [facility] 2024-01-05 08:18:12 Yes for assessment, will not perform cysto T [facility] 2024-01-04 17:29:01 Ok, no need to stop citalopram then Continue bactrim and repeat Ucx this week, UTI may have resolved T [facility] 2024-01-04 16:30:18 Spouse notified of recommendations. Aware I will get clarification with provider on how long he should hold citalopram and if it is safe to stop medication or should be tapered. 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 Will wait for clarification prior to taking cipro Guerline Lynch RN [facility] 2024-01-04 13:27:29 Addended by: NALINI HOWARD on: 01/04/2024 01:27 PM Modules accepted: Orders [facility] 2024-01-04 13:24:38 Stop bactrim Stop citalopram for 7 days day and 2 days priro to Cipro for 5 days and 2 days after finishing cipro [facility] 2024-01-04 10:45:26 Images from the original note were not included. Guerline Lynch RN [facility] 2024-01-02 14:40:52 UTI Other results within baseline [...] of the right femoral head are seen. [facility] 2023-04-02 14:48:00 [facility] enter [address] [place] [address] Opthalmology Operative Note Signed Patient: Arabella Garcia Medical Record#: [id number] : 1950 Acct:[id number] Age/Sex: 72 / M ADM Date: 04/02/23 Loc: [facility] Room: Report Number: [id number]: Christiano Robles MD General Surgery Operative Note Date of Procedure: 04/02/23 Time of Procedure: 14:48 Detailed Description of Procedure: PreOperative Diagnosis retinal detachment of the right eye with multiple retinal breaks PostOperative Diagnosis; same Procedure(s) Performed; vitrectomy endo photocoagulation gas fluid exchange Surgeon Christiano Robles M.D. [employer] None Anesthesia Retrobulbar Block, Monitor Anesthesia Care [...] 04/02/23 1451 DD/ 1448 TD/TT: 04/02/23 1448 Furniture Detailer: ASHLEY cc: ASHLEY; [id number]* Christiano Robles MD; Abdelrahman Brewster MD [facility] 2023-04-02 11:42:00 [facility] enter [address] [place] [address] Ophthalmology H P Signed Patient: ARABELLA GARCIA Medical Record#: [id number] : 1950 Acct:[id number] Age/Sex: 72 / M Admit/Reg Date: 04/02/23 Loc: [facility] Room: Report Number: [id number]: Christiano Robles MD Surgical HPI [...] 04/02/23 1150 DD/ 1142 TD/TT: 04/02/23 1142 Furniture Detailer: ASHLEY cc: [email or web address]* Christiano Robles MD [facility]
--- NOTE | 2024-06-07 14:00 | RAD REPORT ---
EXAM: CT brain without contrast HISTORY: AMS COMPARISON: None TECHNIQUE: Multiple contiguous axial images were obtained and a CT of the brain without contrast. Sag ittal and coronal reformats were performed. One or more of the following dose reduction techniques were used: Automated exposure control, adjust ment of the mA and/or kV according to patient size, and/or iterative reconstruction. FINDINGS: No evidence of hydrocephalus, intracranial hemorrhage, or extra-axial fluid collection. Mild brain atrophy with mild periventricular and deep white matter chronic microvascular ischemic ch anges present. No evidence of midline shift or areas of brain edema. The calvarium is intact. The visualized paranasal sinuses and mastoid air cells are essentially clear . IMPRESSION: No evidence of acute intracranial abnormality.
--- NOTE | 2024-06-07 14:08 | RAD REPORT ---
EXAM: CT CHEST, ABDOMEN AND PELVIS WITHOUT CONTRAST CLINICAL INDICATION: FALL TECHNIQUE: CT chest, abdomen and pelvis was performed without contrast, as per department protocol. A xial, sagittal and coronal reconstructions were obtained. One or more of the following dose reduction techniques were used: Automated exposure control, adjustment of the mA and/or kV according to patient size, and/or iterative reconstruction. Unless otherwise specified, incidental findings do not require dedicated imaging follow-up. Examination is limited by the lack of intravenous contrast material. COMPARISON: 06/04/2023, 06/01/2023 FINDINGS: LUNGS: Moderate bibasilar atelectasis versus infiltrate present, greater on the right. PLEURA: Small left and moderate right pleural effusion. MEDIASTINUM AND LYMPH NODES: No mediastinal mass or fluid collection. Normal size mediastinal, hilar, and axillary lymph nodes. Cardiac size is enlarged. Small hiatal hernia. OSSEOUS STRUCTURES AND CHEST WALL: Diffuse osteopenia. LIVER: Normal in size and contour. No focal lesion or biliary dilatation. Cholecystectomy clips. PANCREAS: No mass, ductal dilation, or sally-pancreatic fluid. SPLEEN: Normal size. No focal lesion. ADRENALS: Normal; no mass. KIDNEYS: Normal size and contour. No hydronephrosis. URINARY BLADDER: Normal contour. GASTROINTESTINAL TRACT: No bowel obstruction, free air, significant free fluid or abscess. Prominen t stool retention seen throughout the colon. APPENDIX: Appendix not visualized, but no inflammatory changes in region of appendix. LYMPH NODES: No lymphadenopathy. MUSCULOSKELETAL: Prominent diffuse osteopenia. Multiple compression deformities, appearing chronic in volving the thoracal lumbar spine, most severe L2. Advanced degenerative change with [id number] right hip. OTHER: Aortoiliac atherosclerosis. IMPRESSION: Moderate bibasilar segmental atelectasis with associated pleural effusion, most severe on the right. Underlying infection/infiltrate not excluded. Diffuse osteopenia is seen with several chronic compression fractures present in the spine. Most malena re compression fracture is at L2 with [id number] canal narrowing.
[2024-06-07] MEDS ORDERED: NA CHLORIDE 0.9% 250 ML ONE (14:48)
[2024-06-07] MEDS ORDERED: AZITHROMYCIN 500 MG INJ IVPB ONE (14:48)
[2024-06-07] MEDS ORDERED: CEFTRIAXONE 1000 MG/VIAL ONE (14:48)
[2024-06-07 14:54] LABS: Absolute Eosinophils 0.2 K/uL (0-0.5); Absolute Lymphocytes (CBC) 0.3 K/uL (0.7-4.9); Absolute Monocytes 0.5 K/uL (0.1-1.3); Basophils % 0.6 % (0-1.3); Eosinophils % 3.6 % (0-4.4); Hematocrit 38.1 % (39.6-49.0); Lymphocytes % 6.1 % (15.3-44.8); MCH 30.6 pg (27.0-35.0); MCHC 34.2 g/dL (32.0-36.0); MCV 89.5 fL (80-100); MPV 7.2 fL (7.6-11.3); Monocytes % 10.6 % (3.3-12.3); Neutrophils % 79.1 % (41.7-73.7); Platelets 292 thou/uL (152-406); RBC Red Blood Cell Count 4.26 M/uL (4.33-5.43); Red Cell Distribution Width 14.5 % (12.1-15.2)
[2024-06-07 15:04] LABS: PT Prothrombin Time 22.5 SECONDS (10-13.0); PTT, Activated Partial Thromb 40.7 SECONDS (27.2-37.4); Protime INR 2.04
[2024-06-07 15:06] LABS: Albumin 3.3 g/dL (3.4-5.0); Albumin/Globulin Ratio 0.9 (1.1-1.8); Anion Gap 10.3 mEq/L (5.0-15.0); Bilirubin Direct 0.4 mg/dL (0-0.2); Bilirubin Indirect, Calculated 0.6 mg/dL (0.2-0.8); Globulin 3.6 g/dL (2.3-3.5); Potassium 4.3 mEq/L (3.5-5.1); Protein, Total 6.9 g/dL (6.4-8.2)
[2024-06-07 15:16] LABS: Specific Gravity 1.023 (1.005-1.030); Sqamous Epithelial None Seen /HPF (None Seen); Urine Bacteria None Seen /HPF (<20); Urine Bilirubin NEGATIVE (Negative); Urine Blood Negative (Negative); Urine Clarity Turbid (Clear); Urine Color Yellow (Yellow); Urine Culture Reflex Order REFLEXED; Urine Glucose NEGATIVE (Negative); Urine Ketones 1+ (Negative); Urine Microscopic Reflex YN ORDER UMIC; Urine Mucus Slight /HPF (None Seen); Urine Nitrite 2+ (Negative); Urine Protein TRACE (Negative); Urine RBC <5 /HPF (None Seen); Urine Urobilinogen Normal (Normal); Urine WBC 20-50 /HPF (<5); Urine WBC Clump Rare /HPF (None Seen); Urine pH 5.5 (5.0-7.0)
[2024-06-07] MEDS ORDERED: NA CHLORIDE 0.9% 500 ML ONE ×2 (15:33→16:58)
--- NOTE | 2024-06-07 15:45 | EDPHYS ---
Physician Documentation [facility] Name: Javi Garcia Age: 73 yrs Sex: Male : 1950 Arrival Date: 06/07/2024 Time: 13:13 Bed 17 Private MD: ED Physician Amilcar Martines HPI: 06/07 15:16 This 73 yrs old Male presents to ER via EMS with complaints of hallucinations and rn agitation. 15:16 The patient presents with agitation, confusion. Onset: The symptoms/episode rn began/occurred 5 day(s) ago. Possible causes: unknown. Current symptoms: In the emergency department the patient's symptoms are unchanged from the initial presentation. The patient has experienced similar episodes in the past. The patient has not recently seen a physician. Family member reports altered mental status for 5 or 6 days. Head injury that she knows of. Patient states recurrent falls. Has had issues with hyponatremia in the past, medications recently changed. No fever or chills. No cough. No vomiting or diarrhea.. Historical: - Allergies: 13:30 Prednisone; kc6 - PMHx: 13:30 Alcohol dependence; Atrial fibrillation; Bursitis right hip; CHF; COPD; Hypertension; kc6 neuropathy; - PSHx: 13:30 Unable to Obtain; kc6 - Immunization history:: Adult Immunizations up to date. - Infectious Disease History:: Denies. - Social history:: Smoking status: Patient/guardian denies using tobacco, but has a distant history of tobacco abuse. - Family history:: not pertinent. - Hospitalizations: : No recent hospitalization is reported. ROS: 15:16 Constitutional: Negative for fever, chills, and weight loss, Cardiovascular: Negative rn for chest pain, palpitations, and edema, Respiratory: Negative for shortness of breath, cough, wheezing, and pleuritic chest pain, Abdomen/GI: Negative for abdominal pain, nausea, vomiting, diarrhea, and constipation, MS/Extremity: Negative for injury and deformity, Skin: Negative for injury, rash, and discoloration, Neuro: Negative for headache, numbness, tingling, and seizure, Exam: 15:24 Constitutional: Disheveled male, no acute distress ENT: Poor dentition with multiple rn caries and gingivitis Cardiovascular: Regular rate, irregular rhythm Respiratory: No respiratory distress or retractions Abdomen/GI: Soft, nontender 16:19 ECG was reviewed by the Attending Physician. rn Vital Signs: 13:28 BP 137 / 68; Pulse 70; Resp 16 S; Temp 97.9(O); Pulse Ox 99% on R/A; Weight 75.75 kg kc6 (M); Height 5 ft. 9 in. (R); Pain 0/10; 15:00 BP 146 / 94; Pulse 74; Resp 15; Pulse Ox 91% on R/A; cm10 15:30 BP 118 / 95; Pulse 71; Resp 15; Pulse Ox 94% on R/A; cm10 16:30 BP 143 / 80; Pulse 81; Resp 15; Pulse Ox 96% on 2 lpm NC; cm10 16:45 BP 124 / 86; Pulse 70; Resp 19; Pulse Ox 96% on 2 lpm NC; cm10 17:00 BP 117 / 71; Pulse 74; Resp 15; Pulse Ox 94% on 2 lpm NC; cm10 17:45 BP 124 / 70; Pulse 74; Resp 15; Pulse Ox 96% on 2 lpm NC; cm10 18:00 BP 130 / 78; Pulse 72; Resp 15; Pulse Ox 96% on 2 lpm NC; cm10 19:00 BP 120 / 93; Pulse 74; Resp 15; Pulse Ox 99% on 2 lpm NC; cm10 13:28 Body Mass Index 24.66 (75.75 kg, 175.26 cm) [facility] 13:28 Pain Scale: Adult kc6 MDM: 13:38 Medical Screening Exam initiated rn 15:24 Differential Diagnosis: CVA, electrolyte abnormality, intracranial bleed, pneumonia, rn UTI, volume depletion. Data reviewed: vital signs, nurses notes. 15:44 Consideration of Admission/Observation Patient was admitted/placed on observation. rn Escalation of care including admission/observation considered. Counseling: I had a detailed discussion with the patient and/or guardian regarding the historical points, exam findings, and any diagnostic results supporting the discharge/admit diagnosis, lab results, radiology results, the need for further work-up and treatment in the hospital. Response to treatment: the patient's symptoms have mildly improved after treatment, and as a result, I will admit patient. 06/07 13:39 Order name: Urinalysis w/ reflexes; Complete Time: 15:37 rn 06/07 13:39 Order name: CBC with Diff; Complete Time: 15:09 rn 06/07 13:39 Order name: Basic Metabolic Panel; Complete Time: 15:37 rn 06/07 13:39 Order name: LFT's; Complete Time: 15:37 rn 06/07 13:39 Order name: AMMONIA; Complete Time: 15: rn 06/07 14:10 Order name: Blood Culture Adult (2) rn 06/07 14:10 Order name: Lactate w/ 2H reflex if indic.; Complete Time: 15: rn 06/07 14:10 Order name: Protime (+inr); Complete Time: 15:09 rn 06/07 14:10 Order name: Ptt, Activated; Complete Time: 15: rn 06/07 15:20 Order name: Urine Culture [facility] 06/07 15:53 Order name: Osmolality, Serum [facility] 06/07 15:53 Order name: Osmolality, Urine [facility] 06/07 15:53 Order name: Thyroid Stimulating Hormone [facility] 06/07 15:53 Order name: UR CREAT [facility] 06/07 15:53 Order name: UR POTASSIUM [facility] 06/07 15:53 Order name: UR SODIUM [facility] 06/07 15:53 Order name: Uric Acid [facility] 06/07 16:41 Order name: Basic Metabolic Panel [facility] 06/07 16:41 Order name: Basic Metabolic Panel [facility] 06/07 16:41 Order name: Basic Metabolic Panel [facility] 06/07 16:41 Order name: Basic Metabolic Panel [facility] 06/07 16:41 Order name: Basic Metabolic Panel [facility] 06/07 19:33 Order name: T4 Free [facility] 06/07 13:39 Order name: CT Head Brain wo Cont; Complete Time: 14:10 rn 06/07 13:53 Order name: Chest Abd Pelvis Wo Con; Complete Time: 14:10 [facility] 06/07 14:10 Order name: EKG; Complete Time: 14:11 rn 06/07 16:32 Order name: CONS Physician Consult [facility] 06/07 13:39 Order name: IV Start; Complete Time: 15:47 rn 06/07 14:10 Order name: Cardiac monitoring; Complete Time: 15:07 rn 06/07 14:10 Order name: EKG - Nurse/Tech; Complete Time: 15:07 rn 06/07 14:10 Order name: IV Saline Lock - Large Bore; Complete Time: 15:07 rn 06/07 14:10 Order name: Labs collected and sent; Complete Time: 15: rn 06/07 14:10 Order name: O2 Per Protocol; Complete Time: : rn 06/07 14:10 Order name: O2 Sat Monitoring; Complete Time: : rn 06/07 14:10 Order name: Vital Signs; Complete Time: 15: rn EC:19 Rate is 70 beats/min. Rhythm is irregularly irregular. QRS Holt is Normal. QT interval rn is normal. No Q waves. T waves are Normal. No ST changes noted. Clinical impression: Atrial Fibrillation. Interpreted by me. Reviewed by me. Administered Medications: 15:05 Drug: Rocephin IV 1 grams IV at calculated rate once; Given slow IV push per pharmacy cm10 instructions Route: IV; Rate: calculated rate; Site: right forearm; 15:10 Follow up: Response: No adverse reaction; IV Status: Completed infusion; IV Intake: [id number] 15:07 Drug: Zithromax IVPB 500 mg IVPB once over 1 hrs; mix in 250 mL NS Route: IVPB; Infused cm10 Over: 1 hrs; Site: left forearm; 16:07 Follow up: IV Status: Completed infusion; IV Intake: 250ml cm10 15:38 Drug: NS 0.9% IV 500 ml 500 ml IV at 1 bolus once; to be given as a bolus over 30 cm10 minutes Volume: 500 ml; Route: IV; Rate: 1 bolus; Site: left forearm; 16:08 Follow up: Response: No adverse reaction; IV Status: Completed infusion; IV Intake: cm10 500ml 17:04 Drug: morphine IVP or IV 2 mg IVP once over 4 mins Route: IVP; Infused Over: 4 mins; cm10 Site: right forearm; 17:34 Follow up: Response: No adverse reaction cm10 17:04 Drug: NS 0.9% IV 300 ml IV at 100 ml/hr once; 300ml given at 100 ml/hr Route: IV; Rate: cm10 100 ml/hr; Site: left forearm; 20:18 Follow up: Response: No adverse reaction; IV Status: Completed infusion; IV Intake: cm10 300ml Disposition: 15:44 Critical Care:. 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 Total time: 35 rn minutes Signatures: Dispatcher [employer] EDMS Dee Weldon Diana RN RN Amilcar Mccrary MD MD rn Attema, Colin, CAR HIKER-C CAR HIKER-Cla1 Sabrina Easton RN RN kc6 Abby Ureña rv1 Lorelei Malhotra RN RN cm10 Corrections: (The following items were deleted from the chart) 13:40 13:40 Head Brain Wo Cont+CT.RAD.BRZ ordered. EDMS EDMS 13:40 13:40 Urinalysis+U.LAB.BRZ ordered. EDMS EDMS 13:40 13:40 CBC+H.LAB.BRZ ordered. EDMS EDMS 13:40 13:40 BASIC METABOLIC PANEL+C.LAB.BRZ ordered. EDMS EDMS 13:40 13:40 HEPATIC FUNCTION+C.LAB.BRZ ordered. EDMS EDMS 13:40 13:40 AMMONIA+C.LAB.BRZ ordered. EDMS EDMS 14:47 14:11 COMPREHENSIVE METABOLIC PANEL+C.LAB.BRZ ordered. EDMS EDMS 17:03 15:45 Telemetry/MedSurg (Inpatient) rn bd 17:03 15:45 rn bd 17:16 17:03 Intensive Care Unit bd dw 17:16 17:03 5- bd dw 18:27 17:16 dw bd 19:13 17:16 [facility] ER HOLD dw rv1 19:13 18:27 ERHOLD- bd rv1
--- NOTE | 2024-06-07 15:45 | ER ---
Nurse's Notes [facility] Name: Javi Garcia Age: 73 yrs Sex: Male : 1950 Arrival Date: 06/07/2024 Time: 13:13 Bed 17 Private MD: Diagnosis: Altered mental status, unspecified;Hypo-osmolality and hyponatremia;UTI/ Urinary tract infection, site not specified Presentation: 06/07 13:28 Chief complaint: EMS states: they were toned out by for "severe agitation and kc6 hallucinations" x5-6 days. Coronavirus screen: At this time, the client does not indicate any symptoms associated with coronavirus-19. Ebola Screen: No symptoms or risks identified at this time. Initial Sepsis Screen: Does the patient meet any 2 criteria? Altered Mental Status. Does the patient have a suspected source of infection? No. Patient's initial sepsis screen is negative. Risk Assessment: Do you want to hurt yourself or someone else? Patient reports no desire to harm self or others. Onset of symptoms was June 07, 2024. Care prior to arrival: IV initiated. 20 GA, in the right forearm, Glucose check: 71. 13:28 Method Of Arrival: EMS: [facility] kc6 13:28 Acuity: PATRICIA 3 kc6 Triage Assessment: 13:30 General: Appears in no apparent distress. comfortable, well groomed, well developed, kc6 Behavior is calm, cooperative, appropriate for age. Pain: Denies pain. Historical: - Allergies: 13:30 Prednisone; kc6 - PMHx: 13:30 Alcohol dependence; Atrial fibrillation; Bursitis right hip; CHF; COPD; Hypertension; kc6 neuropathy; - PSHx: 13:30 Unable to Obtain; kc6 - Immunization history:: Adult Immunizations up to date. - Infectious Disease History:: Denies. - Social history:: Smoking status: Patient/guardian denies using tobacco, but has a distant history of tobacco abuse. - Family history:: not pertinent. - Hospitalizations: : No recent hospitalization is reported. Screenin:39 [facility] ED Fall Risk Assessment (Adult) History of falling in the last 3 months, cm10 including since admission No falls in past 3 months (0 pts) Confusion or Disorientation Yes (5 pts) Intoxicated or Sedated No (0 pts) Impaired Gait Yes (1 pt) Mobility Assist Device Used Yes (1 pt) Altered Elimination No (0 pt) Score/Fall Risk Level 3 or more points = High Risk Oriented to surroundings, Maintained a safe environment, Hourly rounding (assess needs \\T\\ fall precautionary measures) done. Abuse screen: Denies threats or abuse. Denies injuries from another. Nutritional screening: No deficits noted. Tuberculosis screening: No symptoms or risk factors identified. Assessment: 14:30 General: Appears in no apparent distress. uncomfortable, Behavior is calm, cooperative. cm10 Neuro: No deficits noted. Level of Consciousness is awake, alert, Oriented to person, place, time. Respiratory: No deficits noted. Airway is patent Respiratory effort is even, unlabored, Respiratory pattern is regular, symmetrical, Breath sounds with wheezes bilaterally. 16:34 Reassessment: Patient appears in no apparent distress at this time. Patient and/or cm10 family updated on plan of care and expected duration. Pain level reassessed. 19:00 Reassessment: Patient appears in no apparent distress at this time. Patient and/or cm10 family updated on plan of care and expected duration. Pain level reassessed. Vital Signs: 13:28 BP 137 / 68; Pulse 70; Resp 16 S; Temp 97.9(O); Pulse Ox 99% on R/A; Weight 75.75 kg kc6 (M); Height 5 ft. 9 in. (R); Pain 0/10; 15:00 BP 146 / 94; Pulse 74; Resp 15; Pulse Ox 91% on R/A; cm10 15:30 BP 118 / 95; Pulse 71; Resp 15; Pulse Ox 94% on R/A; cm10 16:30 BP 143 / 80; Pulse 81; Resp 15; Pulse Ox 96% on 2 lpm NC; cm10 16:45 BP 124 / 86; Pulse 70; Resp 19; Pulse Ox 96% on 2 lpm NC; cm10 17:00 BP 117 / 71; Pulse 74; Resp 15; Pulse Ox 94% on 2 lpm NC; cm10 17:45 BP 124 / 70; Pulse 74; Resp 15; Pulse Ox 96% on 2 lpm NC; cm10 18:00 BP 130 / 78; Pulse 72; Resp 15; Pulse Ox 96% on 2 lpm NC; cm10 19:00 BP 120 / 93; Pulse 74; Resp 15; Pulse Ox 99% on 2 lpm NC; cm10 13:28 Body Mass Index 24.66 (75.75 kg, 175.26 cm) kc6 13:28 Pain Scale: Adult kc6 ED Course: 13:28 Patient arrived in ED. kc6 13:30 Triage completed. kc6 13:30 Arm band placed on. kc6 13:31 Patient has correct armband on for positive identification. Bed in low position. Call kc6 light in reach. Side rails up X2. Adult w/ patient. Pulse ox on. NIBP on. Door closed. Noise minimized. Lights dimmed. Pillow given. Verbal reassurance given. 13:31 Maintain EMS IV. Dressing intact. Good blood return noted. Site clean \\T\\ dry. Gauge \\T\\ carol 6 site: 20G RFA. Flushed with 10 mL NS. Patient maintains SpO2 saturation greater than 95% on room air. 13:35 Lorelei Malhotra RN is Primary Nurse. cm10 13:38 Amilcar Martines MD is Attending Physician. rn 13:53 CT Head Brain wo Cont In Process Unspecified. EDMS 13:54 Chest Abd Pelvis Wo Con In Process Unspecified. EDMS 14:30 Initial lab(s) drawn, by me, sent to lab. Inserted saline lock: 20 gauge in left cm10 forearm, using aseptic technique. Blood collected. Flushed with 10 mL NS. 15:44 Jeana Lynch MD is Hospitalizing Provider. rn 19:00 Provided Education on: Need for admit. cm10 19:00 No provider procedures requiring assistance completed. cm10 19:00 Patient admitted, IV remains in place. cm10 20:20 Report given to LUIS ALFREDO Navarro. cm10 Administered Medications: 15:05 Drug: Rocephin IV 1 grams IV at calculated rate once; Given slow IV push per pharmacy cm10 instructions Route: IV; Rate: calculated rate; Site: right forearm; 15:10 Follow up: Response: No adverse reaction; IV Status: Completed infusion; IV Intake: [id number] 15:07 Drug: Zithromax IVPB 500 mg IVPB once over 1 hrs; mix in 250 mL NS Route: IVPB; Infused cm10 Over: 1 hrs; Site: left forearm; 16:07 Follow up: IV Status: Completed infusion; IV Intake: 250ml cm10 15:38 Drug: NS 0.9% IV 500 ml 500 ml IV at 1 bolus once; to be given as a bolus over 30 cm10 minutes Volume: 500 ml; Route: IV; Rate: 1 bolus; Site: left forearm; 16:08 Follow up: Response: No adverse reaction; IV Status: Completed infusion; IV Intake: cm10 500ml 17:04 Drug: morphine IVP or IV 2 mg IVP once over 4 mins Route: IVP; Infused Over: 4 mins; cm10 Site: right forearm; 17:34 Follow up: Response: No adverse reaction cm10 17:04 Drug: NS 0.9% IV 300 ml IV at 100 ml/hr once; 300ml given at 100 ml/hr Route: IV; Rate: cm10 100 ml/hr; Site: left forearm; 20:18 Follow up: Response: No adverse reaction; IV Status: Completed infusion; IV Intake: cm10 300ml Medication: 15:40 VIS not applicable for this client. cm10 Intake: 15:10 IV: 10ml; Total: 10ml. cm10 16:07 IV: 250ml; Total: 260ml. cm10 16:08 IV: 500ml; Total: 760ml. cm10 20:18 IV: 300ml; Total: 1060ml. cm10 Outcome: 15:45 Decision to Hospitalize by Provider. rn 19:00 Admitted to ER Hold. Please see [facility] for further documentation. cm10 19:00 Condition: stable 19:00 Instructed on the need for admit, 20:38 Patient left the ED. cm10 Signatures: Dispatcher [employer] EDAmilcar Ambrocio MD MD rn Campbell, Kaitlyn, RN RN kc6 Martinez, Clarissa, RN RN cm10
[2024-06-07] MEDS ORDERED: ALPRAZOLAM 0.5 MG TABLET PO PRN (16:44)
[2024-06-07] MEDS ORDERED: TRAMADOL HCL 50 MG TAB PO PRN (16:44)
[2024-06-07] MEDS ORDERED: MORPHINE 4 MG/ML SYR ONE (16:57)
--- NOTE | 2024-06-07 17:11 | P.HP ---
Certification for Inpatient Patient admitted to: Inpatient With expected LOS: >2 Midnights Patient will require the following post-hospital care: None Practitioner: I am a practitioner with admitting privileges, knowledge of patient current condition, hospital course, and medical plan of care. Services: Services provided to patient in accordance with Admission requirements found in Title 42 Section 412.3 of the Code of Federal Regulations Patient History Date of Service: 06/07/24 Reason for admission: Acute on chronic hyponatremia History of Present Illness: 73-year-old male with history of chronic systolic congestive heart failure, paroxysmal atrial fibrillation with known left atrial thrombus on anticoagulation, chronic hyponatremia/SIADH, COPD, hypertension, GERD, BPH presented to the emergency department with chief complaint of altered mental status. He was recently seen in our hospital and discharged on 05/17/2024 for a CHF exacerbation/A-fib. On discharge from here his sodium was 126. His reports that for the last 5 or 6 days he has been progressively more confused and having less oral intake. He was evaluated in the emergency department, found to be very altered/delirious is initial sodium level is 114 chloride of 82 blood cell count is 5 urine specific gravity is 1.023, additional hyponatremia specific labs pending. Patient will see 500 cc of normal saline in ED, patient will need to be admitted to the ICU for acute on chronic hyponatremia, altered mental status. Allergies prednisone Allergy (Severe, Verified 04/25/24 11:05) Hives/Rash Home Medications: Citalopram [Celexa*] 20 mg PO DAILY 06/02/23 Budesonide/Formoterol Fumarate [Symbicort 160-4.5 Mcg Inhaler] 2 puff IH DAILY PRN 10/29/23 Tamsulosin [Flomax*] 0.4 mg PO DAILY 10/29/23 dexAMETHasone [Dexamethasone] 1 mg PO DAILY PRN 10/29/23 Albuterol Inhaler [Ventolin Inhaler*] 2 puff IH Q4H PRN #1 inh 11/03/23 ALPRAZolam [Xanax*] 0.5 mg PO BID PRN 05/13/24 Fluticasone/Umeclidin/Vilanter [Trelegy Ellipta 200-62.5-25] 1 puff IH DAILY 05/13/24 Vitamin B Complex 1 tab PO SEECOM 05/13/24 traMADol HCL [Ultram*] 1 tab PO BIDP PRN 05/13/24 Amiodarone HCl [Cordarone*] 200 mg PO BID #60 tab 05/17/24 Apixaban [Eliquis] 10 mg PO BID #74 tab 05/17/24 Cefpodoxime Proxetil [Vantin] 200 mg PO BID #8 tab 05/17/24 Metoprolol Tartrate [Lopressor*] 25 mg PO BID 6AM 6PM #60 tab 05/17/24 - Past Medical/Surgical History Diabetic: No -: Hypertension -: GERD -: chronic systolic CHF -: paroxismal A.Fib-left atrial thrombus -: HTN -: COPD -: Hyponatremia -: Diagnostic laparoscopy -: exploratory laparotomy -: lysis of adhesion -: cholecystectomy -: right ankle surgery Psychosocial/ Personal History: Patient is - Family History Father -: Heart disease, Other (see notes) Notes: heart attack Mother -: Heart disease Notes: heart attack - Social History Alcohol use: Yes CD- Drugs: No Caffeine use: Yes Place of Residence: Home Review of Systems 10-point ROS is otherwise unremarkable Neurological: Confusion Physical Examination - Physical Exam General: Alert, In no apparent distress, Oriented x1, Confused HEENT: Atraumatic, PERRLA Neck: Supple, 2+ carotid pulse no bruit, No LAD, Without JVD or thyroid abnormality Respiratory: Clear to auscultation bilaterally, Normal air movement Cardiovascular: Regular rate/rhythm, Normal S1 S2 Gastrointestinal: Normal bowel sounds Musculoskeletal: No tenderness Integumentary: No rashes Neurological: Normal speech, Normal strength at 5/5 x4 extr - Studies Laboratory Data (last 24 hrs) 06/07/24 06/07/24 06/07/24 14:35 14:35 14:35 WBC 5.00 Hgb 13.0 L Hct 38.1 L Plt Count 292 PT 22.5 H INR 2.04 APTT 40.7 H Sodium 114 L* Potassium 4.3 BUN 6 L Creatinine 0.59 L Glucose 85 Total Bilirubin 1.0 AST 20 ALT 19 Alkaline Phosphatase 98 06/07/24 14:10 WBC Hgb Hct Plt Count PT INR APTT Sodium Cancelled Potassium Cancelled BUN Cancelled Creatinine Cancelled Glucose Cancelled Total Bilirubin Cancelled AST Cancelled ALT Cancelled Alkaline Phosphatase Cancelled Assessment and Plan - Plan Assessment: Acute on chronic hyponatremia Metabolic encephalopathy secondary to above Chronic systolic congestive heart failure Atrial fibrillation on chronic anticoagulation with known left atrial thrombus COPD on chronic home O2 Hypertension Hyperlipidemia GERD BPH Plan: Acute on chronic hyponatremia Metabolic encephalopathy secondary to above Was not on Lasix or any medication specifically for sodium at discharge Poor oral intake last 5 to 6 days Does not appear grossly overloaded at this time Case discussed with nephrology-will give 300 mL of NS at 100 mL/h and repeat BMP at 8 PM Nephrology to be called with results History of SIADH Additional labs/urine studies ordered Chronic systolic congestive heart failure Atrial fibrillation on chronic anticoagulation with known left atrial thrombus Continue amiodarone, metoprolol, Eliquis Was previously on Xarelto, switched to Eliquis when left atrial thrombus was found during LAM COPD on chronic home O2 As needed nebulizer treatments Hypertension Hyperlipidemia GERD BPH Continue home medications when verified DVT PPX: Continue Eliquis Code status: Full Discharge Plan: Home Plan to discharge in: Greater than 2 days - Advance Directives Does patient have a Living Will: No Does patient have a Durable POA for Healthcare: No - Code Status/Comfort Care Code Status Assessed: Yes (Full code) Critical Care: Yes Time Spent Managing Pts Care (In Minutes): 75
[2024-06-07] MEDS ORDERED: METOPROLOL TAR 25 MG TAB ONE (18:54)
[2024-06-07] MEDS: METOPROLOL TAR 25 MG TAB PO SCH (19:03)
[2024-06-07 19:17] LABS: Uric Acid 2.1 mg/dL (3.5-7.2)
[2024-06-07 19:19] LABS: Thyroid Stimulating Hormone 4.01 uIU/mL (0.358-3.740)
[2024-06-07 20:59] LABS: Anion Gap 10.6 mEq/L (5.0-15.0)
[2024-06-07 21:00] LABS: Potassium 4.6 mEq/L (3.5-5.1)
[2024-06-07] MEDS: AMIODARONE HCL 200 MG TAB PO SCH (21:38)
[2024-06-07] MEDS: APIXABAN 5 MG TABLET PO SCH (21:38)
[2024-06-07] MEDS: NA CHLORIDE 0.9% 500 ML IV ONE (21:42)
[2024-06-07] MEDS: NA CHLORIDE 0.9% 1,000 ML IV SCH (22:16)
[2024-06-08 01:32] LABS: Anion Gap 9.4 mEq/L (5.0-15.0); Potassium 4.4 mEq/L (3.5-5.1)
[2024-06-08 02:40] LABS: Renal Epithelial <5 /HPF (None Seen); Specific Gravity 1.022 (1.005-1.030); Sqamous Epithelial None Seen /HPF (None Seen); Urine Bacteria <20 /HPF (<20); Urine Bilirubin NEGATIVE (Negative); Urine Blood Negative (Negative); Urine Clarity Extremely Turbid (Clear); Urine Color Yellow (Yellow); Urine Culture Reflex Order REFLEXED; Urine Glucose NEGATIVE (Negative); Urine Ketones 1+ (Negative); Urine Microscopic Reflex YN ORDER UMIC; Urine Mucus Slight /HPF (None Seen); Urine Nitrite NEGATIVE (Negative); Urine Protein TRACE (Negative); Urine RBC <5 /HPF (None Seen); Urine Urobilinogen Normal (Normal); Urine WBC >50 /HPF (<5)
[2024-06-08 05:01] LABS: Absolute Eosinophils 0.1 K/uL (0-0.5); Absolute Lymphocytes (CBC) 0.2 K/uL (0.7-4.9); Absolute Monocytes 0.9 K/uL (0.1-1.3); Absolute Neutrophil 6.5 K/uL (1.8-8.0); Basophils % 0.2 % (0-1.3); Eosinophils % 1.3 % (0-4.4); Hematocrit 37.8 % (39.6-49.0); Hemoglobin 12.7 g/dL (13.6-17.9); Lymphocytes % 3.1 % (15.3-44.8); MCH 30.5 pg (27.0-35.0); MCHC 33.5 g/dL (32.0-36.0); MPV 7.3 fL (7.6-11.3); Monocytes % 11.5 % (3.3-12.3); Neutrophils % 83.9 % (41.7-73.7); Platelets 258 thou/uL (152-406); RBC Red Blood Cell Count 4.16 M/uL (4.33-5.43); Red Cell Distribution Width 14.5 % (12.1-15.2)
[2024-06-08 05:49] LABS: Anion Gap 10.2 mEq/L (5.0-15.0); Magnesium 1.6 mg/dL (1.6-2.4); Potassium 4.2 mEq/L (3.5-5.1)
--- NOTE | 2024-06-08 07:48 | RAD REPORT ---
EXAMINATION:Lower Extremity Arterial Bilat CLINICAL INDICATION: Male, 73 years old. unable to detect right DP pulse with doppler,cold TECHNIQUE: Arterial duplex ultrasound was performed of the bilateral lower extremities with real-time , color-flow, and spectral wave Doppler evaluation. Ankle brachial indices were not performed. COMPARISON: No prior exam. FINDINGS: Moderate plaque throughout the evaluated arterial system. Triphasic and biphasic waveforms are seen throughout the evaluated left lower extremity arterial syst em, to the level of the dorsalis pedis artery. No other suspicious findings. Monophasic waveforms are seen throughout the evaluated right lower extremity arterial system, to the level of the dorsalis pedis artery. Amplitude of waveforms is significantly blunted. Minimal flow seen right dorsalis pedis. IMPRESSION: Diffusely monophasic waveforms right lower extremity arterial system compatible with significant flow -limiting inflow disease. No complete occlusion seen.
[2024-06-08] MEDS: Magnesium Sulfate 2gm IVPB 2 G/50 ML BAG IV ONE (08:10)
[2024-06-08 08:55] LABS: Anion Gap 12.2 mEq/L (5.0-15.0); Potassium 4.2 mEq/L (3.5-5.1)
--- NOTE | 2024-06-08 09:03 | P.PN ---
Date of Service: 06/08/24 Subjective: No acute events overnight MELISSA LE noted to be cool with poorly palpable/doppler pulses to DP and PT Sodium slowly improving with IV fluids ROS: 10 point ROS as noted above, otherwise negative Physical exam GEN: Alert, oriented, NAD HEENT: Normal conjunctiva, sclera anicteric CV: Regular rate and rhythm, no edema Pulm: Nonlabored respirations on room air ABD: Soft, nontender, nondistended MSK: No joint tenderness Integumentary: No rashes Neuro: Normal speech, normal affect Vitals reviewed Assessment: Severe acute on chronic hyponatremia Metabolic encephalopathy secondary to above PAD Chronic systolic congestive heart failure Atrial fibrillation on chronic anticoagulation with known left atrial thrombus COPD on chronic home O2 Hypertension Hyperlipidemia GERD BPH Plan: Severe acute on chronic hyponatremia Metabolic encephalopathy secondary to above Was not on Lasix or any medication specifically for sodium at most recent discharge Poor oral intake last 5 to 6 days Does not appear grossly overloaded at this time Continue NS for now as per nephrology orders Monitor chemistry closely, continue ICU level of care for now History of SIADH PAD 06/02/2023 IMPRESSION: Findings indicating moderate to advanced right and moderate left peripheral vascular disease, with concern for focal stenosis along the right mid superficial femoral artery. 06/08/24 Diffusely monophasic waveforms right lower extremity arterial system compatible with significant flowlimiting inflow disease. No complete occlusion seen. Continue eliquis, watch MELISSA LE closely, consider vascular consult if there is worsening, CAP refill sluggish but<3 seconds Chronic systolic congestive heart failure Atrial fibrillation on chronic anticoagulation with known left atrial thrombus Continue amiodarone, metoprolol, Eliquis Was previously on Xarelto, switched to Eliquis when left atrial thrombus was found during LAM COPD on chronic home O2 As needed nebulizer treatments Hypertension Hyperlipidemia GERD BPH Continue home medications when verified DVT PPX: Continue Eliquis Code status: Full Discharge Plan: Home Plan to discharge in: Greater than 2 days Time Spent Managing Pts Care (In Minutes): 35
[2024-06-08 10:43] LABS: Specific Gravity 1.022 (1.005-1.030); Sqamous Epithelial None Seen /HPF (None Seen); Urine Bacteria <20 /HPF (<20); Urine Bilirubin NEGATIVE (Negative); Urine Blood Negative (Negative); Urine Clarity Extremely Turbid (Clear); Urine Color Yellow (Yellow); Urine Culture Reflex Order REFLEXED; Urine Glucose NEGATIVE (Negative); Urine Ketones 1+ (Negative); Urine Microscopic Reflex YN ORDER UMIC; Urine Mucus Slight /HPF (None Seen); Urine Nitrite NEGATIVE (Negative); Urine Protein TRACE (Negative); Urine RBC <5 /HPF (None Seen); Urine Urobilinogen Normal (Normal); Urine WBC 20-50 /HPF (<5)
--- NOTE | 2024-06-08 11:00 | P.CNS ---
Date of Consult: 06/08/24 Chief Complaint: Acute on chronic hyponatremia History of Present Illness: Patient with PMH of atrial fibrillation, left atrial appendage thrombus, heart failure reduced EF presented with AMS, decrease acitivity and oral intake, patient is altered so can not obtain history. Allergies prednisone Allergy (Severe, Verified 04/25/24 11:05) Hives/Rash Home medications list reviewed: Yes Home Medications: Citalopram [Celexa*] 20 mg PO DAILY 06/02/23 Budesonide/Formoterol Fumarate [Symbicort 160-4.5 Mcg Inhaler] 2 puff IH DAILY PRN 10/29/23 Tamsulosin [Flomax*] 0.4 mg PO DAILY 10/29/23 dexAMETHasone [Dexamethasone] 1 mg PO DAILY PRN 10/29/23 Albuterol Inhaler [Ventolin Inhaler*] 2 puff IH Q4H PRN #1 inh 11/03/23 ALPRAZolam [Xanax*] 0.5 mg PO BID PRN 05/13/24 Fluticasone/Umeclidin/Vilanter [Trelegy Ellipta 200-62.5-25] 1 puff IH DAILY 05/13/24 Vitamin B Complex 1 tab PO SEECOM 05/13/24 traMADol HCL [Ultram*] 1 tab PO BIDP PRN 05/13/24 Amiodarone HCl [Cordarone*] 200 mg PO BID #60 tab 05/17/24 Apixaban [Eliquis] 10 mg PO BID #74 tab 05/17/24 Cefpodoxime Proxetil [Vantin] 200 mg PO BID #8 tab 05/17/24 Metoprolol Tartrate [Lopressor*] 25 mg PO BID 6AM 6PM #60 tab 05/17/24 - Past Medical/Surgical History Diabetic: No -: Hypertension -: GERD -: chronic systolic CHF -: paroxismal A.Fib-left atrial thrombus -: HTN -: COPD -: Hyponatremia -: Diagnostic laparoscopy -: exploratory laparotomy -: lysis of adhesion -: cholecystectomy -: right ankle surgery Psychosocial/ Personal History: Patient is - Family History Father Medical History: Heart disease, Other (see notes) Notes: heart attack Mother Medical History: Heart disease Notes: heart attack - Social History Smoking Status: Former smoker Alcohol use: Yes CD- Drugs: No Caffeine use: Yes Place of Residence: Home Review of Systems is unable to be obtained (altered and will open eye to command only.) Physical Examination Temp Pulse Resp BP Pulse Ox 97.9 F 72 24 H 128/71 95 06/08/24 07:00 06/08/24 10:00 06/08/24 10:00 06/08/24 10:00 06/08/24 10:00 General: Mild distress, Delirious HEENT: Atraumatic, PERRLA, Mucous membr. moist/pink, EOMI, Sclerae nonicteric Neck: Supple, 2+ carotid pulse no bruit, No LAD, Without JVD or thyroid abnormality Respiratory: Clear to auscultation bilaterally, Normal air movement Cardiovascular: Regular rate/rhythm, Normal S1 S2 Gastrointestinal: Normal bowel sounds, No tenderness Musculoskeletal: No tenderness Integumentary: No rashes Neurological: Normal gait, Normal speech, Normal tone, Normal affect Lymphatics: No axilla or inguinal lymphadenopathy Laboratory Data (last 24 hrs) 06/07/24 06/07/24 06/07/24 14:38 14:35 14:35 WBC Hgb Hct Plt Count PT 22.5 H INR 2.04 APTT 40.7 H Sodium 114 L* Potassium 4.3 BUN 6 L Creatinine 0.59 L Glucose 85 Uric Acid 2.1 L Total Bilirubin 1.0 AST 20 ALT 19 Alkaline Phosphatase 98 06/07/24 06/07/24 14:35 14:10 WBC 5.00 Hgb 13.0 L Hct 38.1 L Plt Count 292 PT INR APTT Sodium Cancelled Potassium Cancelled BUN Cancelled Creatinine Cancelled Glucose Cancelled Uric Acid Total Bilirubin Cancelled AST Cancelled ALT Cancelled Alkaline Phosphatase Cancelled - Problems (1) Chronic combined systolic and diastolic heart failure Current Visit: Yes Status: Acute Plan: Patient look euvolemic on exam, with patient significant hyponatremia, patient will benefit from Tolvaptan if OK with Nephrology. continue metoprolol continue to monitor input and output. (2) Atrial fibrillation Current Visit: No Status: Chronic Plan: continue amiodarone 200 mg po bid continue metoprolol continue Eliquis (patient with LA thrombus). continue to monitor on tele Qualifiers: Atrial fibrillation type: paroxysmal Qualified Code(s): I48.0 - Paroxysmal atrial fibrillation
--- NOTE | 2024-06-08 11:19 | CON ---
Date of Consultation: 06/08/2024 Reason For Consultation: Hyponatremia. History Of Present Illness: This is a pleasant 73-year-old gentleman. All the information has been obtained from the record as the patient has altered mental status. The patient is a 73-year-old gentleman with significant past medical history of congestive heart failure, hypertension, hyperlipidemia, COPD, benign prostate hypertrophy, recurrent hyponatremia, the patient recently admitted to the hospital with hyponatremia, altered mental status, treated with sodium urea and diuresis, responded very well. Workup for SIADH and adrenal insufficiency and hypothyroidism was ruled out. The patient came again with altered mental status, weakness, poor intake for the last few days, found to have hyponatremia, sodium upon arrival to the hospital was down to 114 that is yesterday at 2 afternoon. We started the patient on IV hydration. Sodium trend up to 118 today morning, that is after almost 18 hours. The patient raised 4 points. The patient apparently not on any diuresis in outpatient. Past Medical History: Includes: 1. Hypertension. 2. COPD. 3. CAD, complicated with congestive heart failure, ejection fraction of 40%. 4. Atrial fibrillation. 5. Benign prostate hypertrophy. 6. GERD. 7. Recurrent hyponatremia. Past Surgical History: Include adhesiolysis, cholecystectomy. Family History: Positive for hypertension. Social History: Ex-smoker. Active alcohol. Denied drugs use. Review of Systems: None obtainable. Home Medications: Include: 1. Dexamethasone. 2. Tramadol. 3. Flomax. 4. Cefepime. 5. Amiodarone. Current medications include amiodarone, metoprolol, tramadol. Physical Examination: Vital Signs: When I saw the patient, blood pressure 128/71, pulse of 72, afebrile. Chest: Wheezing bilaterally. Heart: S1, S2. Systolic murmur. Irregular. Abdomen: Soft nontender. Extremities: No edema. Neurologic: Alert. Confused. No focality. Moving 4 extremities without any deficit. No tremor. Laboratory Data: Upon arrival to the hospital yesterday at 2 p.m., sodium 114, bicarb 26, creatinine 0.9. Urine specific gravity 1.022, wbc more than 50, hemoglobin 13. Today lab data, sodium 118, potassium 4.2, bicarb 24, BUN 5, creatinine 0.5, calcium 8.3. WBC 7.7, hemoglobin 12.7, platelet 258. Urinalysis, specific gravity 1.022, wbc more than 50. Assessment And Plan: 1. Hyponatremia, mostly secondary to depletional, supported with urine electrolyte, sodium less than 15, superimposed with underlining SIADH with low uric acid. 2. I am going to go ahead and decrease IV fluid to 50 per hour. Given the history of steroid depending, we will start the patient on hydrocortisone and we will follow up the patient. 3. After the patient being more awake, I will start the patient on urea sodium and I will repeat chest x-ray for better evaluation of his fluid status. 4. Hypertension, controlled, optimal. Continue current treatment. 5. Encephalopathy, mostly secondary to metabolic secondary to hyponatremia and UTI. We will treat UTI. We will treat hyponatremia and we will follow up. 6. UTI with encephalopathy. Follow up culture. Continue current antibiotic. We will follow up with primary. 7. CHF. Currently, the patient normal volume did decrease, IV fluid. Keep holding diuresis. We will follow up. time spent examining the patient [id number] reviewing data lab and the radiology placing order discussing the case with the patient discussing the case with the steam crane operator including hospitalist and nursing staff more than 75-minute BASILIO Voice ID: [id number] Report ID: [id number] HANH
[2024-06-08] MEDS: UREA 15 GM POWDER PACKET PO SCH (11:33)
[2024-06-08] MEDS ORDERED: ALBUTEROL INHALER 200 PUFF/6.7 GM IH PRN (11:35)
[2024-06-08] MEDS ORDERED: HOME MED 1 EA UNK (Budesonide/Formoterol Fumarate [Symbicort 160-4.5 Mcg Inhaler] 10.2 GM IH PRN (11:35)
[2024-06-08 12:17] LABS: Anion Gap 10.3 mEq/L (5.0-15.0); Potassium 4.3 mEq/L (3.5-5.1)
--- NOTE | 2024-06-08 12:21 | RAD REPORT ---
EXAMINATION: ONE VIEW CHEST XR CLINICAL INDICATION: COPD TECHNIQUE: Frontal chest projection is submitted. Examination is limited by patient positioning and t echnique. COMPARISON: 05/12/2024 FINDINGS: Moderate to severe bilateral pulmonary opacities, progressive since comparison study, may represent p ulmonary edema or pneumonia. The heart is significantly enlarged. Bilateral pleural effusions likely present. IMPRESSION: Moderate to severe CHF versus volume overload pattern. Pneumonia is also a possibility in the correct clinical setting.
[2024-06-08] MEDS: ALBUTEROL 2.5 MG/3 ML NEB SOL NEB PRN (12:36)
[2024-06-08] MEDS: TRAMADOL HCL 50 MG TAB PO PRN (14:46)
[2024-06-08] MEDS: TOLVAPTAN 15 MG TABLET PO ONE (16:52)
[2024-06-08] MEDS: METOPROLOL TAR 25 MG TAB PO SCH (16:53)
[2024-06-08] MEDS: HYDROCORTISONE SUC 100 MG INJ IV SCH (16:53)
[2024-06-08 18:17] LABS: Anion Gap 9.2 mEq/L (5.0-15.0); Potassium 4.2 mEq/L (3.5-5.1)
[2024-06-08 19:52] LABS: Arterial Blood Carboxyhemoglob 1.2 % (0-1.5); Blood Gas Oxyhemoglobin 93.5 % (94-97); Blood Gas THB 12.4 g/dl (12-18); Blood O2 Saturation 95.3 % (92-98.5)
[2024-06-08] MEDS: CEFEPIME 1 GM in NA CHLORIDE 0.9% 100 ML IV SCH (21:01)
[2024-06-08] MEDS: APIXABAN 5 MG TABLET PO SCH (21:02)
[2024-06-08] MEDS: ALPRAZOLAM 0.5 MG TABLET PO PRN (21:02)
[2024-06-08] MEDS: AMIODARONE HCL 200 MG TAB PO SCH (21:03)
[2024-06-09 01:50] LABS: Anion Gap 8.4 mEq/L (5.0-15.0); Potassium 3.4 mEq/L (3.5-5.1)
[2024-06-09 06:18] LABS: Anion Gap 8.5 mEq/L (5.0-15.0); Magnesium 2.1 mg/dL (1.6-2.4); Potassium 4.5 mEq/L (3.5-5.1); Uric Acid 2.6 mg/dL (3.5-7.2)
[2024-06-09 06:26] LABS: Absolute Lymphocytes (CBC) 0.1 K/uL (0.7-4.9); Absolute Monocytes 0.2 K/uL (0.1-1.3); Absolute Neutrophil 5.1 K/uL (1.8-8.0); Hematocrit 39.5 % (39.6-49.0); Hemoglobin 13.5 g/dL (13.6-17.9); Lymphocytes % 1.7 % (15.3-44.8); MCHC 34.2 g/dL (32.0-36.0); MCV 90.7 fL (80-100); MPV 7.7 fL (7.6-11.3); Monocytes % 4.4 % (3.3-12.3); Neutrophils % 93.9 % (41.7-73.7); Platelets 267 thou/uL (152-406); RBC Red Blood Cell Count 4.36 M/uL (4.33-5.43); Red Cell Distribution Width 14.4 % (12.1-15.2)
[2024-06-09] MEDS: TAMSULOSIN 0.4 MG SR CAP PO SCH (07:53)
[2024-06-09] MEDS: HOME MED 1 EA UNK (Fluticasone/Umeclidin/Vilanter [Trelegy Ellipta 200-62.5-25] Blst.W.Dev IH SCH (07:54)
[2024-06-09] MEDS: CITALOPRAM 10 MG TABLET PO SCH (07:54)
[2024-06-09 08:31] LABS: Blood Morphology Comment NOT SEEN (NOT SEEN); Platelet Estimate ADEQ; White Blood Cell Scan OK (OK)
--- NOTE | 2024-06-09 09:17 | P.PN ---
Date of Service: 06/09/24 Subjective: Mental status improved overnight Tolerated Bipap overnight and NC today ROS: 10 point ROS as noted above, otherwise negative Physical exam GEN: Alert, oriented x 1-2, NAD HEENT: Normal conjunctiva, sclera anicteric CV: Regular rate and rhythm, no edema Pulm: Nonlabored respirations on nasal canula ABD: Soft, nontender, nondistended MSK: No joint tenderness Integumentary: No rashes Neuro: Normal speech, normal affect Vitals reviewed Assessment: Severe acute on chronic hyponatremia Metabolic encephalopathy secondary to above UTI PAD Acute on Chronic systolic congestive heart failure Atrial fibrillation on chronic anticoagulation with known left atrial thrombus COPD on chronic home O2 Hypertension Hyperlipidemia GERD BPH Plan: Severe acute on chronic hyponatremia Metabolic encephalopathy secondary to above Was not on Lasix or any medication specifically for sodium at most recent discharge Poor oral intake last 5 to 6 days Started to develop volume overload with NS IV fluids discontinued, case discussed with nephrology Given dose of tolvaptan 7.5 mg p.o. afternoon of 06/08 Sodium improved to 123 this morning, respiratory status also improved Continue to monitor sodium/volume status UTI Urine culture with Pseudomonas Sensitive to cefepimecontinue PAD 06/02/2023 IMPRESSION: Findings indicating moderate to advanced right and moderate left peripheral vascular disease, with concern for focal stenosis along the right mid superficial femoral artery. 06/08/24 Diffusely monophasic waveforms right lower extremity arterial system compatible with significant flowlimiting inflow disease. No complete occlusion seen. Continue eliquis, watch MELISSA LE closely, consider vascular consult if there is worsening, CAP refill sluggish but<3 seconds Acute on Chronic systolic congestive heart failure Atrial fibrillation on chronic anticoagulation with known left atrial thrombus Continue amiodarone, metoprolol, Eliquis Was previously on Xarelto, switched to Eliquis when left atrial thrombus was found during LAM IV fluids discontinued, supplemental oxygen as needed Tolvaptan given yesterday, await further action cardiology and nephrology COPD on chronic home O2 As needed nebulizer treatments Hypertension Hyperlipidemia GERD BPH Continue home medications when verified DVT PPX: Continue Eliquis Code status: Full Discharge Plan: Home Plan to discharge in: Greater than 2 days Time Spent Managing Pts Care (In Minutes): 35
--- NOTE | 2024-06-09 10:46 | P.PN ---
Subjective Date of Service: 06/09/24 Chief Complaint: Acute on chronic hyponatremia Subjective: No new changes, No C/O voiced, Tolerating diet, Ambulating, Improving Review of Systems 10-point ROS is otherwise unremarkable Physical Examination - Vital Signs Temperature: 97.4 F Blood Pressure: 109/56 Pulse: 84 Respirations: 18 Pulse Ox (%): 98 - Physical Exam General: Alert, In no apparent distress HEENT: Atraumatic, PERRLA, EOMI Neck: Supple, JVD not distended Respiratory: Clear to auscultation bilaterally, Normal air movement Cardiovascular: Regular rate/rhythm, Normal S1 S2 Gastrointestinal: Normal bowel sounds, No tenderness Musculoskeletal: No tenderness Integumentary: No rashes Neurological: Normal speech, Normal tone, Normal affect Lymphatics: No axilla or inguinal lymphadenopathy - Studies Microbiology Data (last 24 hrs): 06/07/24 15:00 Clean Catch Urine [place] Count - Final >100,000 CFU/ML. 06/07/24 15:00 Clean Catch Urine - Final Pseudomonas Aeruginosa Medications List Reviewed: Yes Assessment And Plan - Current Problems (Diagnosis) (1) Chronic combined systolic and diastolic heart failure Current Visit: Yes Status: Acute Plan: Patient look euvolemic on exam, with patient significant hyponatremia, that is improving, appreciate Nephrology team input. continue metoprolol continue to monitor input and output. (2) Atrial fibrillation Current Visit: No Status: Chronic Plan: continue amiodarone 200 mg po bid continue metoprolol continue Eliquis (patient with LA thrombus). continue to monitor on tele cardiology will sign off, please call with any questions. Qualifiers: Atrial fibrillation type: paroxysmal Qualified Code(s): I48.0 - Paroxysmal atrial fibrillation
[2024-06-09 12:12] LABS: Anion Gap 10.2 mEq/L (5.0-15.0); Potassium 4.2 mEq/L (3.5-5.1)
--- NOTE | 2024-06-09 12:15 | PN ---
Date of Progress Note: 06/09/2024 Chief Complaint: Hyponatremia. History Of Present Illness: The patient is a 73-year-old man who was presented to the [facility] of severe altered mental status. He was confused, and was admitted to ICU for severe hyponatremia . He has previous medical history of congestive heart failure, diastolic dysfunction; hypertension; hyperlipidemia; COPD; benign prostate hypertrophy; and history of recurrent hyponatremia. Workup for SIADH, adrenal insufficiency, and hypothyroidism was previously done. Apparently, the patient has S IADH and adrenal insufficiency, and hypothyroidism was ruled out. The patient has COPD, most likely hyponatremia is related to his COPD condition. The patient came again to emergency room with altered mental status and was admitted to the hospital. He had poor p.o. intake few days prior to admission . Upon his arrival to the hospital, sodium was down to 114 and yesterday morning was 118. The patie nt was treated with sodium urea, and sodium level is adequately improving, although one test showed i naccurate sodium level, apparently was contaminated with IV fluid. Past Medical History: Hypertension; COPD; coronary artery disease, systolic and diastolic dysfunctio n, ejection fraction 40%; atrial fibrillation; benign prostate hypertrophy; GERD; recurrent hyponatre ale. Review of Systems: The patient denies headache. He can answer simple questions, although he is lethargic, arousable. Physical Examination: Lungs: Clear to auscultation bilaterally. Heart: S1, S2. 2/6 systolic murmur. Abdomen: Soft, nontender. Extremities: No edema. Impression And Plan: 1. Hyponatremia, severe. The patient is started on treatment for hyponatremia. Previously, he had u nderlying cause related to syndrome of inappropriate antidiuretic hormone, and now uric acid level wa s indicative of syndrome of inappropriate antidiuretic hormone and previous bouts of hyponatremia. T he patient was started on IV fluids for hyponatremia. Currently, he is steroid dependent due to the history of chronic obstructive pulmonary disease, and the patient was started on hydrocortisone durin g this admission. 2. Hypertension. Continue current medication. Avoid HCTZ. Avoid thiazide diuretic. 3. Encephalopathy secondary to hyponatremia and possible urosepsis. The patient is treated for urina ry tract infection. 4. Congestive heart failure. Volemia is in acceptable range. Continue IV fluids. Avoid thiazide di uretics. 5. Hyponatremia, severe. Monitor renal panel closely. Adjust treatment according to lab results. JOSH/FCO Voice ID: [id number] Report ID: [id number]
[2024-06-09] MEDS: NICOTINE 14 MG/PAT TD SCH (17:19)
[2024-06-09] MEDS: FLU (Fluarix Triv) TS24-25(6MOS UP)/PF 45 MCG/0.5 ML Syringe IM ONE (18:00)
[2024-06-09] MEDS: PNEUMOCOCCAL VACCINE 0.5 ML IMVAC ONE (18:00)
[2024-06-09] MEDS ORDERED: MAGNESIUM CITRATE 300 ML BOT ONE (19:18)
[2024-06-09] MEDS ORDERED: FLEET ENEMA ADULT PR ONE (19:18)
[2024-06-09] MEDS: THIAMINE 200 MG/2 ML INJ IVP ONE (19:25)
[2024-06-09] MEDS: D5W 1,000 ML IV SCH (19:25)
[2024-06-09 20:34] LABS: Anion Gap 6.2 mEq/L (5.0-15.0); Potassium 4.2 mEq/L (3.5-5.1)
[2024-06-09] MEDS: ENSURE ENLIVE 237 ML CAN PO SCH (21:00)
[2024-06-10 05:59] LABS: Absolute Lymphocytes (CBC) 0.1 K/uL (0.7-4.9); Absolute Monocytes 0.7 K/uL (0.1-1.3); Absolute Neutrophil 7.4 K/uL (1.8-8.0); Basophils % 0.1 % (0-1.3); Hematocrit 34.7 % (39.6-49.0); Hemoglobin 11.8 g/dL (13.6-17.9); Lymphocytes % 1.4 % (15.3-44.8); MCH 31.1 pg (27.0-35.0); MCV 91.5 fL (80-100); MPV 7.4 fL (7.6-11.3); Monocytes % 8.6 % (3.3-12.3); Neutrophils % 89.9 % (41.7-73.7); Platelets 246 thou/uL (152-406); RBC Red Blood Cell Count 3.79 M/uL (4.33-5.43); Red Cell Distribution Width 14.6 % (12.1-15.2)
[2024-06-10 06:10] LABS: Albumin 2.8 g/dL (3.4-5.0); Anion Gap 6.7 mEq/L (5.0-15.0); Phosphorus 2.7 mg/dL (2.5-4.9); Potassium 4.7 mEq/L (3.5-5.1)
[2024-06-10] MEDS: THIAMINE 200 MG/2 ML INJ IVP SCH (07:45)
[2024-06-10] MEDS: INFLUENZA VACCINE (for 6+ mo) 0.5 ML DOSE IMVAC ONE (08:59)
--- NOTE | 2024-06-10 10:21 | P.PN ---
Date of Service: 06/10/24 Subjective: Mental status improving Stable intermittent confusion No acute events overnight ROS: 10 point ROS as noted above, otherwise negative Physical exam GEN: Alert, oriented x 1-2, NAD HEENT: Normal conjunctiva, sclera anicteric CV: Regular rate and rhythm, no edema Pulm: Nonlabored respirations on nasal canula ABD: Soft, nontender, nondistended MSK: No joint tenderness Integumentary: No rashes Neuro: Normal speech, normal affect Vitals reviewed Assessment: Severe acute on chronic hyponatremia Metabolic encephalopathy secondary to above UTI PAD Acute on Chronic systolic congestive heart failure Atrial fibrillation on chronic anticoagulation with known left atrial thrombus COPD on chronic home O2 Hypertension Hyperlipidemia GERD BPH Plan: Severe acute on chronic hyponatremia Metabolic encephalopathy secondary to above Was not on Lasix or any medication specifically for sodium at most recent discharge Poor oral intake last 5 to 6 days prior to admission Started to develop volume overload with NS IV fluids discontinued, case discussed with nephrology Given dose of tolvaptan 7.5 mg p.o. afternoon of 06/08 Sodium improved to 123 /, respiratory status also improved Sodium 124 06/10 Continue to monitor sodium/volume status/Nephrology assisting with management UTI Urine culture with Pseudomonas Sensitive to cefepimecontinue PAD 06/02/2023 IMPRESSION: Findings indicating moderate to advanced right and moderate left peripheral vascular disease, with concern for focal stenosis along the right mid superficial femoral artery. 06/08/24 Diffusely monophasic waveforms right lower extremity arterial system compatible with significant flowlimiting inflow disease. No complete occlusion seen. Continue eliquis, watch MELISSA LE closely, consider vascular consult if there is worsening, CAP refill sluggish but<3 seconds Acute on Chronic systolic congestive heart failure Atrial fibrillation on chronic anticoagulation with known left atrial thrombus Continue amiodarone, metoprolol, Eliquis Was previously on Xarelto, switched to Eliquis when left atrial thrombus was found during LAM IV fluids discontinued, supplemental oxygen as needed Tolvaptan given 06/08, await further action cardiology and nephrology COPD on chronic home O2 As needed nebulizer treatments Hypertension Hyperlipidemia GERD BPH Continue home medications when verified DVT PPX: Continue Eliquis Code status: Full Discharge Plan: Home Plan to discharge in: Greater than 2 days Time Spent Managing Pts Care (In Minutes): 35
[2024-06-10] MEDS: UREA 15 GM POWDER PACKET PO ONE (10:23)
[2024-06-10 12:14] LABS: Anion Gap 6.5 mEq/L (5.0-15.0); Potassium 4.5 mEq/L (3.5-5.1)
--- NOTE | 2024-06-10 14:52 | EKG ---
Test Date: 2024-06-07 Test Time: 14:49:02 Parts Cleaner: XI MEASUREMENT RESULTS: Intervals: Rate: 70 OH: QRSD: 124 QT: 456 QTc: 492 Martin: P: OH: QRS: 89 T: 110 INTERPRETIVE STATEMENTS: Atrial fibrillation Nonspecific intraventricular conduction delay Nonspecific ST and T wave abnormality Abnormal ECG Compared to ECG 05/12/2024 11:52:00 Intraventricular conduction delay now present Ventricular premature complex(es) no longer present ST (T wave) deviation still present Electronically Signed On 06-10-24 14:43:52 CDT by John Weir
--- NOTE | 2024-06-10 15:31 | PN ---
Date of Progress Note: 06/10/2024 Chief Complaint: Hyponatremia. History Of Present Illness: The patient is a 73-year-old male, who presented to the hospital with se sherrie altered mental status. He was confused, was admitted to ICU for severe hyponatremia. Sodium le deepak is 114. He has history of SIADH. Recently, he developed some COPD exacerbation. Apparently, hi s p.o. intake was also diminished. The patient was treated with sodium urea, received IV normal sali ne. Sodium level gradually improved. Mental status changes are gradually resolving. The patient de nies complaints, he can answer simple questions. Past Medical History: Hypertension, COPD, coronary artery disease, systolic and diastolic dysfunctio n, congestive heart failure, ejection fraction 40%, atrial fibrillation, benign prostate hypertrophy, GERD, recurrent hyponatremia. Review of Systems: No headache, no vision changes. Physical Examination: Lungs: Clear to auscultation bilaterally. Heart: S1, S2. Abdomen: Soft, benign. Extremities: No edema. Impression And Plan: 1. Hyponatremia, severe. The patient is improving with mentation. Altered mental status is graduall y resolving. Hyponatremia was treated with IV normal saline and the patient today is to receive sodi um urea for hyponatremia. 2. Hypertension. Avoid HCTZ. Avoid thiazide diuretics. Continue current medication. 3. Encephalopathy secondary to hyponatremia and possible urosepsis. Continue antibiotics and evaluat e urine culture. 4. Congestive heart failure. Volemia is in acceptable range. Avoid thiazide diuretics. The patient may have Lasix if needed. 5. Hyponatremia, severe, improving gradually. EB/MODL Voice ID: [id number] Report ID: [id number]
[2024-06-10 18:17] LABS: Anion Gap 5.4 mEq/L (5.0-15.0); Potassium 4.4 mEq/L (3.5-5.1)
[2024-06-10] MEDS: FUROSEMIDE 20 MG TABLET PO SCH (19:55)
[2024-06-10] MEDS: NA CHLORIDE 0.9% 100 ML ONE (19:56)
[2024-06-10] MEDS: UREA 15 GM POWDER PACKET PO SCH (20:02)
[2024-06-11 05:40] LABS: Absolute Lymphocytes (CBC) 0.1 K/uL (0.7-4.9); Absolute Monocytes 0.9 K/uL (0.1-1.3); Absolute Neutrophil 7.5 K/uL (1.8-8.0); Basophils % 0.1 % (0-1.3); Hematocrit 34.2 % (39.6-49.0); Hemoglobin 11.6 g/dL (13.6-17.9); Lymphocytes % 1.3 % (15.3-44.8); MCH 30.8 pg (27.0-35.0); MCHC 33.8 g/dL (32.0-36.0); MCV 91.2 fL (80-100); MPV 7.4 fL (7.6-11.3); Monocytes % 10.2 % (3.3-12.3); Neutrophils % 88.4 % (41.7-73.7); Platelets 242 thou/uL (152-406); RBC Red Blood Cell Count 3.75 M/uL (4.33-5.43); Red Cell Distribution Width 14.9 % (12.1-15.2)
[2024-06-11 06:12] LABS: Albumin 2.6 g/dL (3.4-5.0); Anion Gap 6.6 mEq/L (5.0-15.0); Magnesium 1.9 mg/dL (1.6-2.4); Phosphorus 2.9 mg/dL (2.5-4.9); Potassium 3.6 mEq/L (3.5-5.1)
[2024-06-11] MEDS: POTASSIUM 25 MEQ EFFERV TAB PO ONE ×2 (08:22→20:16)
[2024-06-11 12:15] LABS: Anion Gap 8.6 mEq/L (5.0-15.0); Potassium 3.6 mEq/L (3.5-5.1)
--- NOTE | 2024-06-11 12:46 | PN ---
Date of Progress Note: 06/11/2024 Subjective: No overnight event. Has a good urine output. Sodium improved to 127. Continue Hydrocortisone, will send for cortisol level. Objective: Vital Signs: Pulse rate 79, b General: Awake, alert, frail looking. Neck: Supple. No elevated JVD. Heart: Regular rate and rhythm. Chest: Diminished air entry bilaterally. Abdomen: Soft and nontender. Extremities: Have no edema. Laboratory Data: White count 8.5, hemoglobin 11.6, sodium 127, potassium 3.6, BUN 32, creatinine 0.5. Assessment And Plan: This is a 73-year-old man with past medical history of chronic hyponatremia, was admitted for encephalopathy acute hyponatremia. Upon admission, sodium was 114. 1. Acute on chronic hyponatremia. Serum sodium upon admission was 114, improved to 127 today likely due to congestive heart failure exacerbation and poor solute intake. Labs showed serum osmolality with high urine osmolality and low urine sodium and low uric acid of 2.1. TSH was within normal limit. Continue fluid restriction, Lasix, Ure-NA . We will check cortisol level. We will reduce cortisol 2. Atrial fibrillation, currently rate controlled. 3. Metabolic encephalopathy due to acute hyponatremia and advanced dementia. Hyponatremia management as above. Continue supportive care. Thank you for allowing me to participate in patient's care. Total time spent 55 minutes including documentation, reviewing lab, and placing orders. FLORENTINO Voice ID: [id number] Report ID: [id number] HANH
--- NOTE | 2024-06-11 12:53 | P.PN ---
Date of Service: 06/11/24 Subjective: Mental status improving Stable intermittent confusion No acute events overnight Stable for downgrade to floor ROS: 10 point ROS as noted above, otherwise negative Physical exam GEN: Alert, oriented x 1-2, NAD HEENT: Normal conjunctiva, sclera anicteric CV: Regular rate and rhythm, no edema Pulm: Nonlabored respirations on nasal canula ABD: Soft, nontender, nondistended MSK: No joint tenderness Integumentary: No rashes Neuro: Normal speech, normal affect Vitals reviewed Assessment: Severe acute on chronic hyponatremia Metabolic encephalopathy secondary to above UTI PAD Acute on Chronic systolic congestive heart failure Atrial fibrillation on chronic anticoagulation with known left atrial thrombus COPD on chronic home O2 Hypertension Hyperlipidemia GERD BPH Plan: Severe acute on chronic hyponatremia Metabolic encephalopathy secondary to above Was not on Lasix or any medication specifically for sodium at most recent discharge Poor oral intake last 5 to 6 days prior to admission Started to develop volume overload with NS IV fluids discontinued, case discussed with nephrology Given dose of tolvaptan 7.5 mg p.o. afternoon of 06/08 Sodium improved to 123 06/09, respiratory status also improved Sodium improving, on Urea-Na and lasix Stable for downgrade, will start PT as well Continue to monitor sodium/volume status/Nephrology assisting with management UTI Urine culture with Pseudomonas Sensitive to cefepimecontinue PAD 06/02/2023 IMPRESSION: Findings indicating moderate to advanced right and moderate left peripheral vascular disease, with concern for focal stenosis along the right mid superficial femoral artery. 06/08/24 Diffusely monophasic waveforms right lower extremity arterial system compatible with significant flowlimiting inflow disease. No complete occlusion seen. Continue eliquis, watch MELISSA LE closely, consider vascular consult if there is worsening, CAP refill sluggish but<3 seconds Acute on Chronic systolic congestive heart failure Atrial fibrillation on chronic anticoagulation with known left atrial thrombus Continue amiodarone, metoprolol, Eliquis Was previously on Xarelto, switched to Eliquis when left atrial thrombus was found during LAM IV fluids discontinued, supplemental oxygen as needed Tolvaptan given 06/08, await further action cardiology and nephrology COPD on chronic home O2 As needed nebulizer treatments Hypertension Hyperlipidemia GERD BPH Continue home medications DVT PPX: Continue Eliquis Code status: Full Discharge Plan: Home Plan to discharge in: Greater than 2 days Time Spent Managing Pts Care (In Minutes): 35
[2024-06-11] MEDS: CEFEPIME 2 GM in NA CHLORIDE 0.9% 100 ML IV SCH (16:22)
[2024-06-11] MEDS: HYDROCORTISONE SUC 100 MG INJ IV SCH (16:22)
[2024-06-11 17:03] VITALS: BMI 25.2
[2024-06-11] MEDS: HALOPERIDOL LACT 5 MG/ML INJ IV PRN (23:13)
[2024-06-12] MEDS: NA CHLORIDE 0.9% 100 ML ONE (00:17)
[2024-06-12 06:17] LABS: Absolute Lymphocytes (CBC) 0.1 K/uL (0.7-4.9); Absolute Monocytes 1.2 K/uL (0.1-1.3); Absolute Neutrophil 8.1 K/uL (1.8-8.0); Basophils % 0.1 % (0-1.3); Hemoglobin 11.9 g/dL (13.6-17.9); Lymphocytes % 1.4 % (15.3-44.8); MCH 31.2 pg (27.0-35.0); MCHC 34.2 g/dL (32.0-36.0); MCV 91.4 fL (80-100); MPV 7.5 fL (7.6-11.3); Monocytes % 12.7 % (3.3-12.3); Neutrophils % 85.8 % (41.7-73.7); Nucleated Red Blood Cells % 0.1 % (0-0); Platelets 229 thou/uL (152-406); RBC Red Blood Cell Count 3.83 M/uL (4.33-5.43); Red Cell Distribution Width 14.7 % (12.1-15.2)
[2024-06-12 06:46] LABS: Albumin 2.5 g/dL (3.4-5.0); Anion Gap 5.7 mEq/L (5.0-15.0); Magnesium 1.9 mg/dL (1.6-2.4); Potassium 3.7 mEq/L (3.5-5.1)
[2024-06-12] MEDS: UREA 15 GM POWDER PACKET PO SCH (09:01)
--- NOTE | 2024-06-12 09:45 | P.PN ---
Date of Service: 06/12/24 Subjective: Mental status improving intermittent confusion No acute events overnight Plan to start PT ROS: 10 point ROS as noted above, otherwise negative Physical exam GEN: Alert, oriented x 1-2, NAD HEENT: Normal conjunctiva, sclera anicteric CV: Regular rate and rhythm, no edema Pulm: Nonlabored respirations on nasal canula ABD: Soft, nontender, nondistended MSK: No joint tenderness Integumentary: No rashes Neuro: Normal speech, normal affect Vitals reviewed Assessment: Severe acute on chronic hyponatremia Metabolic encephalopathy secondary to above UTI PAD Acute on Chronic systolic congestive heart failure Atrial fibrillation on chronic anticoagulation with known left atrial thrombus COPD on chronic home O2 Hypertension Hyperlipidemia GERD BPH Plan: Severe acute on chronic hyponatremia Metabolic encephalopathy secondary to above Was not on Lasix or any medication specifically for sodium at most recent discharge Poor oral intake last 5 to 6 days prior to admission Started to develop volume overload with NS IV fluids discontinued, case discussed with nephrology Given dose of tolvaptan 7.5 mg p.o. afternoon of 06/08 Sodium improved to 123 06/09, respiratory status also improved Sodium improving up to 130, on Urea-Na and lasix will start PT Continue to monitor sodium/volume status/Nephrology assisting with management Possibly 2/2 poor oral intake and CHF UTI Urine culture with Pseudomonas Sensitive to cefepimecontinue PAD 06/02/2023 IMPRESSION: Findings indicating moderate to advanced right and moderate left peripheral vascular disease, with concern for focal stenosis along the right mid superficial femoral artery. 06/08/24 Diffusely monophasic waveforms right lower extremity arterial system compatible with significant flowlimiting inflow disease. No complete occlusion seen. Continue eliquis, watch MELISSA LE closely, consider vascular consult if there is worsening, CAP refill sluggish but<3 seconds Acute on Chronic systolic congestive heart failure Atrial fibrillation on chronic anticoagulation with known left atrial thrombus Continue amiodarone, metoprolol, Eliquis Was previously on Xarelto, switched to Eliquis when left atrial thrombus was found during LAM IV fluids discontinued, supplemental oxygen as needed Tolvaptan given 06/08, await further action cardiology and nephrology COPD on chronic home O2 As needed nebulizer treatments Hypertension Hyperlipidemia GERD BPH Continue home medications DVT PPX: Continue Eliquis Code status: Full Discharge Plan: Home Plan to discharge in: Greater than 2 days Time Spent Managing Pts Care (In Minutes): 35
--- NOTE | 2024-06-12 10:00 | RAD REPORT ---
EXAMINATION: ONE VIEW CHEST XR CLINICAL INDICATION: Male, 73 years old.,dyspnea, volume status TECHNIQUE: Frontal chest projection is submitted. Examination is limited by patient positioning and t echnique. COMPARISON: 06/08/2024 FINDINGS: Central interstitial prominence with perihilar fluffy opacities and bilateral pleural effusions, wors e on the right, stable, allowing for differences in technique and degree of patient rotation. No pneumothorax. Stable cardiomegaly. Mediastinal contours are unremarkable. IMPRESSION: Stable findings concerning for pulmonary edema.
[2024-06-12] MEDS: METOPROLOL TARTRATE 5 MG/5 ML INJ IV ONE (15:55)
[2024-06-12] MEDS: FUROSEMIDE 20 MG TABLET PO SCH (16:17)
[2024-06-12] MEDS: HYDROCORTISONE SUC 100 MG INJ IV SCH (21:02)
[2024-06-13 05:45] LABS: Absolute Lymphocytes (CBC) 0.2 K/uL (0.7-4.9); Absolute Monocytes 1.3 K/uL (0.1-1.3); Hematocrit 32.4 % (39.6-49.0); Hemoglobin 11.1 g/dL (13.6-17.9); Lymphocytes % 2.4 % (15.3-44.8); MCH 30.7 pg (27.0-35.0); MCHC 34.4 g/dL (32.0-36.0); MCV 89.4 fL (80-100); MPV 7.7 fL (7.6-11.3); Monocytes % 13.5 % (3.3-12.3); Neutrophils % 84.1 % (41.7-73.7); Platelets 209 thou/uL (152-406); RBC Red Blood Cell Count 3.62 M/uL (4.33-5.43); Red Cell Distribution Width 14.6 % (12.1-15.2)
[2024-06-13 05:48] LABS: Albumin 2.3 g/dL (3.4-5.0); Anion Gap 5.1 mEq/L (5.0-15.0); Magnesium 1.7 mg/dL (1.6-2.4); Potassium 3.1 mEq/L (3.5-5.1)
[2024-06-13] MEDS: CITALOPRAM 10 MG TABLET PO SCH (09:29)
--- NOTE | 2024-06-13 10:46 | P.PN ---
Date of Service: 06/13/24 Subjective: Mental status improving intermittent confusion No acute events overnight Plan to start PT today ROS: 10 point ROS as noted above, otherwise negative Physical exam GEN: Alert, oriented x 1-2, NAD HEENT: Normal conjunctiva, sclera anicteric CV: Regular rate and rhythm, no edema Pulm: Nonlabored respirations on nasal canula ABD: Soft, nontender, nondistended MSK: No joint tenderness Integumentary: No rashes Neuro: Normal speech, normal affect Vitals reviewed Assessment: Severe acute on chronic hyponatremia Metabolic encephalopathy secondary to above UTI PAD Acute on Chronic systolic congestive heart failure Atrial fibrillation on chronic anticoagulation with known left atrial thrombus COPD on chronic home O2 Hypertension Hyperlipidemia GERD BPH Plan: Severe acute on chronic hyponatremia Metabolic encephalopathy secondary to above Was not on Lasix or any medication specifically for sodium at most recent discharge Poor oral intake last 5 to 6 days prior to admission Started to develop volume overload with NS IV fluids discontinued, case discussed with nephrology Given dose of tolvaptan 7.5 mg p.o. afternoon of 06/08 Sodium improved to 123 06/09, respiratory status also improved Sodium improving up to 130, on Urea-Na and lasix Lasix increased to PO BID 06/12 will start PT Continue to monitor sodium/volume status/Nephrology assisting with management Possibly 2/2 poor oral intake and CHF UTI Urine culture with Pseudomonas Sensitive to cefepimecontinue PAD 06/02/2023 IMPRESSION: Findings indicating moderate to advanced right and moderate left peripheral vascular disease, with concern for focal stenosis along the right mid superficial femoral artery. 06/08/24 Diffusely monophasic waveforms right lower extremity arterial system compatible with significant flowlimiting inflow disease. No complete occlusion seen. Continue eliquis, watch MELISSA LE closely, consider vascular consult if there is worsening, CAP refill sluggish but<3 seconds Acute on Chronic systolic congestive heart failure Atrial fibrillation on chronic anticoagulation with known left atrial thrombus Continue amiodarone, metoprolol, Eliquis Was previously on Xarelto, switched to Eliquis when left atrial thrombus was found during LAM IV fluids discontinued, supplemental oxygen as needed Tolvaptan given 06/08, await further action cardiology and nephrology COPD on chronic home O2 As needed nebulizer treatments Hypertension Hyperlipidemia GERD BPH Continue home medications Reduced citalopram to 10mg per family request Will need to FU with PCP for further titration/to DC DVT PPX: Continue Eliquis Code status: Full Discharge Plan: Home Plan to discharge in: Greater than 2 days Time Spent Managing Pts Care (In Minutes): 35
[2024-06-13] MEDS: MAGNESIUM SULFATE 1 gm IVPB 1 GM/100 ML BAG IV SCH (13:13)
[2024-06-13] MEDS: METOPROLOL TARTRATE 5 MG/5 ML INJ IV STA (13:21)
--- NOTE | 2024-06-13 21:37 | PN ---
Date of Progress Note: 06/13/2024 Chief Complaint: Hyponatremia. Subjective: Sodium overall improved to 127 and is fluctuating over last 24 hours. Primarily on admi ssion, sodium level was 114. The patient has history of SIADH. During this admission, the patient w as treated with sodium chloride infusion and sodium urea as well as Lasix was started. Today, he was found to have hypokalemia. Lasix was stopped. The patient received potassium supplementation and r eceived magnesium supplementation. The patient was complaining of some shortness of breath. He was found to have tachycardia, and Primary team is managing atrial fibrillation. The patient denies PND or orthopnea. Physical Examination: Lungs: Clear to auscultation bilaterally. Heart: S1, S2. Tachycardia. Extremities: Minimal edema. Impression And Plan: Acute on chronic hyponatremia. Sodium level has improved. Encephalopathy, res olved. The patient has history of advanced dementia. Continue p.o. fluid restriction. Continue pot assium supplementation. TSH level was within normal limits. Uric acid was low corresponding with sy ndrome of inappropriate antidiuretic hormone as well as the patient was found to have congestive hear t failure exacerbation. Received Lasix for volume control. Hyponatremia is multifactorial, continue p.o. fluid restriction. Controlled atrial fibrillation. Metabolic encephalopathy. Further recomme ndation from Primary team. JOSH/JIML Voice ID: [id number] Report ID: [id number]
[2024-06-14 07:25] LABS: Absolute Lymphocytes (CBC) 0.2 K/uL (0.7-4.9); Absolute Monocytes 0.8 K/uL (0.1-1.3); Absolute Neutrophil 5.3 K/uL (1.8-8.0); Basophils % 0.1 % (0-1.3); Eosinophils % 0.1 % (0-4.4); Hematocrit 36.1 % (39.6-49.0); Hemoglobin 12.1 g/dL (13.6-17.9); MCH 30.4 pg (27.0-35.0); MCHC 33.4 g/dL (32.0-36.0); MCV 90.9 fL (80-100); MPV 7.3 fL (7.6-11.3); Monocytes % 12.1 % (3.3-12.3); Neutrophils % 84.7 % (41.7-73.7); Platelets 231 thou/uL (152-406); RBC Red Blood Cell Count 3.97 M/uL (4.33-5.43)
[2024-06-14 07:42] LABS: Anion Gap 4.3 mEq/L (5.0-15.0); Magnesium 2.1 mg/dL (1.6-2.4); Phosphorus 2.3 mg/dL (2.5-4.9); Potassium 3.3 mEq/L (3.5-5.1)
[2024-06-14] MEDS: POTASSIUM CL SA 10 MEQ TAB PO SCH (09:05)
--- NOTE | 2024-06-14 14:40 | P.PN ---
Subjective Date of Service: 06/14/24 Chief Complaint: Acute on chronic hyponatremia Patient denies any shortness of breath at rest. According to PT, patient was mobility was limited by shortness of breath and desaturating to 83% on oxygen. He is maintained on 3 to 4 L oxygen by nasal cannula. Physical Examination - Vital Signs Temperature: 98.1 F Blood Pressure: 138/68 Pulse: 100 Respirations: 20 Pulse Ox (%): 97 - Studies Medications List Reviewed: Yes Assessment And Plan - Plan Physical exam GEN: Alert, oriented x 2, NAD HEENT: Normal conjunctiva, sclera anicteric CV: Regular rate and rhythm, no edema Pulm: Nonlabored breathing, clear to auscultation bilaterally, adequate breath sounds bilaterally. ABD: Soft, nontender, nondistended MSK: No joint tenderness Integumentary: No rashes Neuro: Normal speech, normal affect Vitals reviewed Assessment: Severe acute on chronic hyponatremia SIADH Metabolic encephalopathy secondary to above UTI PAD Acute on Chronic systolic congestive heart failure Atrial fibrillation on chronic anticoagulation with known left atrial thrombus COPD on chronic home O2 Hypertension Hyperlipidemia GERD BPH Hypokalemia Plan: Severe acute on chronic hyponatremia Metabolic encephalopathy secondary to above Was not on Lasix or any medication specifically for sodium at most recent discharge Poor oral intake last 5 to 6 days prior to admission Started to develop volume overload with NS IV fluids discontinued, case discussed with nephrology Given dose of tolvaptan 7.5 mg p.o. afternoon of 06/08 Sodium improved to 123 06/09, respiratory status also improved Sodium improving up to 130, on Urea-Na and lasix Lasix increased to PO BID 06/12 will start PT Continue to monitor sodium/volume status/Nephrology assisting with management Possibly 2/2 poor oral intake and CHF UTI Urine culture with Pseudomonas Sensitive to cefepimecontinue PAD 06/02/2023 IMPRESSION: Findings indicating moderate to advanced right and moderate left peripheral vascular disease, with concern for focal stenosis along the right mid superficial femoral artery. 06/08/24 Diffusely monophasic waveforms right lower extremity arterial system compatible with significant flowlimiting inflow disease. No complete occlusion seen. Continue eliquis, watch MELISSA LE closely, consider vascular consult if there is worsening, CAP refill sluggish but<3 seconds Acute on Chronic systolic congestive heart failure Atrial fibrillation on chronic anticoagulation with known left atrial thrombus Continue amiodarone, metoprolol, Eliquis Was previously on Xarelto, switched to Eliquis when left atrial thrombus was found during LAM IV fluids discontinued, supplemental oxygen as needed Tolvaptan given 06/08, await further action cardiology and nephrology COPD on chronic home O2 As needed nebulizer treatments Hypertension Hyperlipidemia GERD BPH Continue home medications Reduced citalopram to 10mg per family request Will need to FU with PCP for further titration/to DC 06/14 Sodium level trended down to 128. Patient no longer on Lasix or tolvaptan. Hyponatremia being managed with urea-Na. Patient still requiring significant amount of oxygen. Stable renal function. Start IV Lasix which should also help with hyponatremia. Continue to monitor renal function and serum sodium. Wean down oxygen as tolerated. Repeat uric acid level Correct hypokalemia as needed. Patient is on home oxygen at baseline. DVT PPX: Continue Eliquis Code status: Full Discharge Plan: Home with home health Time Spent Managing Pts Care (In Minutes): 37
[2024-06-14] MEDS: FUROSEMIDE 40 MG/4 ML VIAL IV SCH (17:30)
--- NOTE | 2024-06-14 21:47 | PN ---
Date of Progress Note: 06/14/2024 Chief Complaint: Hyponatremia. Sodium level improved. Subjective: The patient has history of SIADH. During this admission, the patient was treated with s odium chloride infusion and sodium urea as well as Lasix. Today, he is stable. He denies chest pain , palpitations. Recently, Lasix was stopped. Review of Systems: Denies chest pain, palpitations. Physical Examination: Lungs: Clear to auscultation bilaterally. Heart: S1, S2. Abdomen: Soft. Extremities: Minimal edema. Impression And Plan: 1. Acute on chronic hyponatremia. Sodium level overall improved. Encephalopathy resolved. The isma ent has history of advanced dementia. 2. Hypokalemia. Continue supplementation. 3. Atrial fibrillation, per Primary team. 4. Metabolic encephalopathy, multifactorial. The patient also has dementia. Further recommendation from Primary team. JOSH/MODL Voice ID: [id number] Report ID: [id number]
[2024-06-15 06:45] LABS: Anion Gap 5.2 mEq/L (5.0-15.0); Potassium 3.2 mEq/L (3.5-5.1)
--- NOTE | 2024-06-15 11:05 | P.DS ---
Admission Date: 06/07/24 Discharge Date: 06/15/24 Disposition: ROUTINE DISCHARGE Discharge Condition: GOOD Reason for Admission: Acute on chronic hyponatremia Brief History of Present Illness: Diagnosis Severe acute on chronic hyponatremia SIADH Metabolic encephalopathy secondary to above UTI PAD Acute on Chronic systolic congestive heart failure Atrial fibrillation on chronic anticoagulation with known left atrial thrombus COPD on chronic home O2 Hypertension Hyperlipidemia GERD BPH Hypokalemia HPI 06/07/24 73-year-old male with history of chronic systolic congestive heart failure, pa roxysmal atrial fibrillation with known left atrial thrombus on anticoagulation, chronic hyponatremia/SIADH, COPD, hypertension, GERD, BPH presented to the emergency department with chief complaint of altered mental status. He was recently seen in our hospital and discharged on 05/17/2024 for a CHF exacerbation/A-fib. On discharge from here his sodium was 126. His reports that for the last 5 or 6 days he has been progressively more confused and having less oral intake. He was evaluated in the emergency department, found to be very altered/delirious is initial sodium level is 114 chloride of 82 blood cell count is 5 urine specific gravity is 1.023, additional hyponatremia specific labs pending. Patient will see 500 cc of normal saline in ED, patient will need to be admitted to the ICU for acute on chronic hyponatremia, altered mental status. Hospital Course: Javi was admitted and treated for the following diagnosis Severe acute on chronic hyponatremia SIADH/adrenal insufficiency Metabolic encephalopathy secondary to above Was not on Lasix or any medication specifically for sodium at most recent discharge Poor oral intake last 5 to 6 days prior to admission Nephrology consulted for fluid volume management Administered dose of tolvaptan 7.5 mg p.o. afternoon of 06/08 Sodium improving up to 130, on Urea-Na and lasix Lasix increased to PO BID 06/12 will start PT UTI Urine culture with Pseudomonas Sensitive to cefepimetolerated while inpatient Ciprofloxacin PO at discharge PAD 06/02/2023 IMPRESSION: Findings indicating moderate to advanced right and moderate left peripheral vascular disease, with concern for focal stenosis along the right mid superficial femoral artery. 06/08/24 Diffusely monophasic waveforms right lower extremity arterial system compatible with significant flowlimiting inflow disease. No complete occlusion seen. Continued eliquis, watched MELISSA LE closely, consider vascular consult if there is worsening, CAP refill sluggish but<3 seconds Acute on Chronic systolic congestive heart failure Atrial fibrillation on chronic anticoagulation with known left atrial thrombus Continue amiodarone, metoprolol, Eliquis Was previously on Xarelto, switched to Eliquis when left atrial thrombus was found during LAM IV fluids discontinued, supplemental oxygen as needed Tolvaptan given 06/08, await further action cardiology and nephrology COPD on chronic home O2 Duo nebulizer treatments administered Hypertension Hyperlipidemia GERD BPH Continue home medications Reduced citalopram to 10mg per family request Will need to FU with PCP for further titration/to DC On 06/15/2024, Javi was seen on morning rounds and deemed hemodynamically stable. Dr. Van and Dr. Weir evaluated and cleared him for discharge. Ciprofloxacin, potassium, Lasix were prescribed Physical exam GEN: AAOx 2, NAD HEENT: Normal conjunctiva, sclera anicteric CV: Afib HR 98, no edema Pulm: Nonlabored breathing, clear BBS, on 4 LNC ABD: Soft and nontender on palpation MSK: No joint tenderness Integumentary: No rashes Neuro: Normal speech, normal affect Vital Signs/Physical Exam: Temp Pulse Resp BP Pulse Ox 96.8 F 98 H 18 170/96 H 96 06/15/24 08:00 06/15/24 08:00 06/15/24 08:00 06/15/24 08:00 06/15/24 08:00 Laboratory Data at Discharge: WBC 6.30 thou/uL (4.3-10.9) 06/14/24 07:01 Hgb 12.1 g/dL (13.6-17.9) L D 06/14/24 07:01 Hct 36.1 % (39.6-49.0) L 06/14/24 07:01 Plt Count 231 thou/uL (152-406) 06/14/24 07:01 PT 22.5 SECONDS (10-13.0) H 06/07/24 14:35 INR 2.04 06/07/24 14:35 APTT 40.7 SECONDS (27.2-37.4) H 06/07/24 14:35 Sodium 131 mEq/L (136-145) L 06/15/24 05:54 Potassium 3.2 mEq/L (3.5-5.1) L 06/15/24 05:54 BUN 22 mg/dL (7-18) H 06/15/24 05:54 Creatinine 0.58 mg/dL (0.70-1.30) L 06/15/24 05:54 Glucose 137 mg/dL (74-106) H 06/15/24 05:54 Uric Acid 1.9 mg/dL (3.5-7.2) L 06/14/24 15:52 Phosphorus 2.3 mg/dL (2.5-4.9) L 06/14/24 07:01 Magnesium 2.1 mg/dL (1.6-2.4) 06/14/24 07:01 Total Bilirubin 1.0 mg/dL (0.2-1.0) 06/07/24 14:35 AST 20 U/L (15-37) 06/07/24 14:35 ALT 19 U/L (16-61) 06/07/24 14:35 Alkaline Phosphatase 98 U/L (45-117) 06/07/24 14:35 Triglycerides Cancelled 06/12/24 06:00 Cholesterol Cancelled 06/12/24 06:00 HDL Cholesterol Cancelled 06/12/24 06:00 Cholesterol/HDL Ratio Cancelled 06/12/24 06:00 Home Medications: Citalopram [Celexa*] 20 mg PO DAILY 06/02/23 Budesonide/Formoterol Fumarate [Symbicort 160-4.5 Mcg Inhaler] 2 puff IH DAILY PRN 10/29/23 Tamsulosin [Flomax*] 0.4 mg PO DAILY 10/29/23 dexAMETHasone [Dexamethasone] 1 mg PO DAILY PRN 10/29/23 Albuterol Inhaler [Ventolin Inhaler*] 2 puff IH Q4H PRN #1 inh 11/03/23 ALPRAZolam [Xanax*] 0.5 mg PO BID PRN 05/13/24 Fluticasone/Umeclidin/Vilanter [Trelegy Ellipta 200-62.5-25] 1 puff IH DAILY 05/13/24 Vitamin B Complex 1 tab PO SEECOM 05/13/24 traMADol HCL [Ultram*] 1 tab PO BIDP PRN 05/13/24 Amiodarone HCl [Cordarone*] 200 mg PO BID #60 tab 05/17/24 Cefpodoxime Proxetil [Vantin] 200 mg PO BID #8 tab 05/17/24 Metoprolol Tartrate [Lopressor*] 25 mg PO BID 6AM 6PM #60 tab 05/17/24 Apixaban [Eliquis] 5 mg PO BID 06/08/24 Ciprofloxacin HCl [Cipro 500 MG Tablet] 500 mg PO DAILY 5 Days #5 tab 06/15/24 Furosemide [Lasix] 40 mg PO DAILY 5 Days #5 tab 06/15/24 Potassium Oral Tab [Klor-Con 10 mEq Tab*] 20 meq PO DAILY 5 Days #20 tab 06/15/24 New Medications: Ciprofloxacin HCl [Cipro 500 MG Tablet] 500 mg PO DAILY 5 Days #5 tab Potassium Oral Tab [Klor-Con 10 mEq Tab*] 20 meq PO DAILY 5 Days #20 tab Furosemide [Lasix] 40 mg PO DAILY 5 Days #5 tab Physician Discharge Instructions: 1. Please call and schedule a follow-up appointment with your PCP in 3-5 days - Please follow-up with your PCP for medication refills/adjustments 2. Please call and schedule a follow-up appointment with Dr. Weir, cardiology in one week 3. Please call and schedule a follow-up appointment with Dr. Zendejas in one week 3. Continue heart healthy diet 4. activity restrictions fall precautions 5. Return to the ED if symptoms worsen New medications Lasix 40 mg daily x 5 days Potassium 20 mg daily x 5 days Diet: AHA Activity: Fall precautions Followup: Zayra Wallace MD [COURTESY - CAN ADMIT] - 1 Week John Weir MD [ACTIVE - CAN ADMIT] - 1 Week Aletha Riley MD [Primary Care Provider] - 1 Week
[2024-06-15 12:18] VITALS: BP 136/80; TEMP 97.9
--- NOTE | 2024-06-15 13:05 | PN ---
Date of Progress Note: 06/15/2024 Subjective: The patient was admitted to the hospital with hyponatremia secondary to dilutional, secondary to cardiorenal superimposed with component of SIADH. In the beginning, we held the diuresis. Started on sodium urea. The patient received single dose of tolvaptan. The patient's sodium yesterday was 128. We resumed the Lasix. Today, sodium up to 131. The patient is feeling better. Physical Examination: Vital Signs: Blood pressure 142/80, pulse of 104, afebrile. Chest: Faint rales bilateral. Heart: S1, S2. Systolic murmur. Abdomen: Soft, nontender. Extremities: Trace edema. Neurologic: Alert. No focality. Laboratory Data: WBC 6.3, hemoglobin 12.1. Sodium 131, potassium 3.2, bicarb 43, BUN 22, creatinine 0.8, calcium 8.7. Uric acid 1.9. Urine sodium 15. Current Medications: The patient is on include: 1. Flomax. 2. Nicotine. 3. Metoprolol. 4. Amiodarone. 5. Lasix 40 b.i.d. 6. Hydrocortisone 50 b.i.d. 7. Sodium urea 15 daily. Assessment And Plan: 1. Hyponatremia secondary to dilutional with component of underlying SIADH/adrenal insufficiency. I am going to agree with current sodium urea with the Lasix and we will follow up. We will consider adding Florinef . 2. Hypokalemia. We will supplement cautiously. 3. Congestive heart failure with cardiorenal syndrome. Resume Lasix. We will follow up the patient. time spent examining the patient [id number] reviewing data lab and the radiology placing order discussing the case with the patient discussing the case with the athletic team physician including hospitalist and nursing staff more than 55-minute TONIO/FCO Voice ID: [id number] Report ID: [id number] HANH
[2024-06-15 13:33] VITALS: O2SAT 93
== END 2024-06-15 15:18 | disposition home or self-care (01) | DRG 643 ==
LOC: ER 13:13 → ERHOLD 16:29 → 3RD-ICU 20:23 → 2ND 06-12 03:04
PROVIDERS: ADMIT Hospitalist; ATTEND Internal Medicine
PROC: 4A033R1 Measurement of Arterial Saturation, Peripheral, Percutaneous Approach (ICD-10-PCS; principal; 2024-06-08)
PROC: 5A09557 Assistance with Respiratory Ventilation, Greater than 96 Consecutive Hours, Continuous Positive Airway Pressure (ICD-10-PCS; 2024-06-08)
DX: E22.2 Syndrome of inappropriate secretion of antidiuretic hormone (principal); G93.41 Metabolic encephalopathy; I50.23 Acute on chronic systolic (congestive) heart failure; N39.0 Urinary tract infection, site not specified; E27.40 Unspecified adrenocortical insufficiency; I11.0 Hypertensive heart disease with heart failure; I48.0 Paroxysmal atrial fibrillation; G62.9 Polyneuropathy, unspecified; E87.6 Hypokalemia; E78.5 Hyperlipidemia, unspecified; I73.9 Peripheral vascular disease, unspecified; I51.3 Intracardiac thrombosis, not elsewhere classified; N40.0 Benign prostatic hyperplasia without lower urinary tract symptoms; K21.9 Gastro-esophageal reflux disease without esophagitis; J44.9 Chronic obstructive pulmonary disease, unspecified; F03.90 Unspecified dementia, unspecified severity, without behavioral disturbance, psychotic disturbance, mood disturbance, and anxiety; B96.5 Pseudomonas (aeruginosa) (mallei) (pseudomallei) as the cause of diseases classified elsewhere; Z23 Encounter for immunization; Z88.8 Allergy status to other drugs, medicaments and biological substances; Z79.01 Long term (current) use of anticoagulants; Z90.49 Acquired absence of other specified parts of digestive tract; Z79.899 Other long term (current) drug therapy; Z87.891 Personal history of nicotine dependence
CPT/HCPCS: 36415; 36600; 70450; 71045; 71250; 74176; 80048; 80061; 80069; 80076; 81001; 82140; 82533; 82570; 82805; 82947; 83605; 83735; 83930; 83935; 84100; 84132; 84295; 84300; 84439; 84443; 84550; 85025; 85610; 85730; 86334; 87040; 87077; 87086; 87088; 87186; 90471; 93005; 93925; 94640; 94660; 96361; 96365; 96375; 97110; 97161; 97530; 99285; J0692; J0696; J1630; J1720; J1940; J3411; J3475; J7030; J7040; J7050; J7613; J8499; Q2035

== ENCOUNTER 2024-06-16 13:26 | Inpatient (IN) | payer OTHER ==
--- OUTSIDE RECORDS SUMMARY | 2024-06-16 13:29 | XMS REPORT | Continuity of Care Document ---
Author Name Unknown Address [address] [facility] [address] [place] [address] [facility] Address [address] [facility] [place] [address] Care Team Providers Care Germination Worker Name Role Phone Aletha Riley Primary Care Physician [phone] Doctor Unassigned, [place] Attending Clinician U Nalnii Norton MD Attending Clinician [phone] Pob, [facility] Main Attending Clinician UnavailNALINI [...] reaction s Active Rash 12-14 00:00: 00 [facility] PREDNISO NE DRUG INGREDI Active Rash 12-14 00:00: 00 [facility] No Known Drug Allergie s DA Active U 04-02 00:00: 00 [facility] predniso lone DA Active U Rash 04-02 00:00: 00 [facility] Social History Social Habit Start Date Stop Date Quantity Comments Source Sexual orientation U [facility] Sex assigned at 1950 00:00:00 1950 00:00:00 [facility] Smoking Status Start Date Stop Date Source Tobacco smoking consumption unknown [facility] Medications Ordered Medication Name Filled Medication Name Start Date Stop Date Current Medication? Ordering Clinician Indication Dosage Frequency Signature (SIG) Comments Components Source ciprofloxac in HCl 500 mg tablet 2023-03 007 00:00: 00 01-09 04:59 :00 No [id number] 500mg Take 1 tablet by mouth every 12 (twelve) hours for 5 days. [facility] sulfamethox azole-trime thoprim (BACTRIM DS) 800-160 mg per tablet 2023-03 0 00:00: 00 01-03 00:00 :00 No [id number] 1{tbl} Take 1 tablet by mouth in the morning and 1 tablet in the evening. Do all this for 7 days. [facility] metoprolol tartrate 25 mg tablet 12-14 11:15: 46 Yes 2 tablets Orally Twice a day for 90 days [facility] rivaroxaban (XARELTO) 15 mg tablet 12-14 11:15: 46 Yes TAKE 1 TABLET BY MOUTH EVERY DAY EVENING MEAL [facility] citalopram 20 mg tablet 12-14 11:15: 46 Yes TAKE 1 TABLET BY MOUTH EVERY DAY Orally Once a day for 90 days [facility] dexAMETHaso ne 1 mg tablet 12-14 11:15: 46 Yes 1 tablet Orally daily [facility] omeprazole 40 mg capsule 12-14 11:15: 46 Yes 40mg Take 1 capsule by mouth in the morning. [facility] budesonide- formoteroL 160-4.5 mcg/actuati on inhaler 12-14 11:15: 46 Yes INHALE 2 PUFFS 2 TIMES A DAY FOR 30 DAYS [facility] multivit-mi n/ferrous fumarate (MULTI VITAMIN ORAL) 12-14 11:15: 46 Yes Take by mouth. [facility] albuterol 90 mcg/actuati on inhaler 11-20 00:00: 00 Yes INHALE 1 PUFF INTO THE LUNGS EVERY 4 HOURS NEEDED FOR 30 DAYS [facility] tamsulosin 0.4 mg 24 hr capsule 3-13 00:00: 00 06-04 05:59 :00 No .4mg 1 capsule. [facility] rs [facility] Vital Signs Vital Name Observation Time Observation Value Comments S heidi Systolic blood pressure 2024-01-05 19:50:00 99 mm[Hg] [facility] Diastolic blood pressure 2024-01-05 19:50:00 45 mm[Hg] [facility] Heart rate 2024-01-05 19:50:00 65 /min [facility] Body temperature 2024-01-05 19:47:00 36.33 Carolyn [facility] Oxygen saturation in Arterial blood by Pulse oximetry 2024-01-05 19:47:00 93 /min [facility] Procedures Procedure Date / Time Performed Performing Clinician Source DME/SUPPLY JUSTIFICATION 2024-01-08 20:45:12 Doc tor Unassigned, [place] [facility] KHARI,POST-VOID RES,US,NON-IMAGING 2024-01-05 00:00:00 Nalini Howard [facility] CT PELVIS WO CONTRAST 2023-12-29 19:46:48 Marlon Howard [facility] Encounters Start Date/Time End Date/Time Encounter Type Admission Type Attending Clinicians Care Facility Care Department Encounter ID Source 2024-01-08 00:00:00 2024-05-14 06:50:54 Orders Only Doctor Unassigned, [place] Doctor Unassigned, [place] [facility] [id number] 350.1.13.10 4.2.7.2.686 [id number] [facility] 2024-01-02 00:00:00 2024-02-06 18:24:49 Patient Secure Msg Nalini Howard [facility] [id number] 350.1.13.10 4.2.7.2.686 [id number] [facility] 2024-01-28 00:00:00 2024-01-28 13:20:57 Telephone Nalini Howard [facility] 1.2.840.114 350.1.13.10 4.2.7.2.686 [id number] [facility] 2024-01-05 14:30:00 2024-01-05 15:50:07 [facility] 1.2.840.114 350.1.13.10 4.2.7.2.686 [id number] [facility] 2024-01-03 00:00:00 2024-01-03 11:25:28 Telephone Guerrerojean-paulNalini [facility] 1.2.840.114 350.1.13.10 4.2.7.2.686 [id number] [facility] 2024-01-02 00:00:00 2024-01-02 14:44:42 Telephone Nalini Howard [facility] 1.2.840.114 350.1.13.10 4.2.7.2.686 [id number] [facility] 2023-12-31 14:00:00 2023-12-31 14:15:00 Loader Helper Visit Pojulius, [facility] Main Guerrerojean-paul Nalini Neville, [facility] 1.2.840.114 350.1.13.10 4.2.7.2.686 [id number] [facility] 2023-12-31 14:00:00 2023-12-31 14:00:00 [id number] 2023-12-29 14:21:54 2023-12-29 23:59:00 [facility] [id number] [facility] 2023-12-29 14:21:54 2023-12-29 23:59:00 Hospital Encounter Nalini Howard [facility] 1.2.840.114 350.1.13.10 4.2.7.2.686 [id number] [facility] 2023-04-02 12:31:00 2023-04-02 16:00:00 Outpatient Elective BoyareliChristiano corbett [facility] [id number] [facility] Results Test Description Test Time Test Comments Results Resul t Comments Source DME/SUPPLY JUSTIFICATION 2023-12-29 1 20:45:12 [id number] 00:56:29EXAM: CT PELVIS WO CONTRAST ORDERING PROVIDER: [...] possible avascularnecrosis ofthe right femoral head are seen.[facility] Notes Date/Time Note Provider Source 2024-01-28 13:20:17 uri [facility] 2024-01-05 08:35:59 Spouse notified. POC to be discussed during office visit. Guerline Lynch RN [facility] 2024-01-05 08:18:12 Yes for assessment, will not perform cysto T [facility] 2024-01-04 17:29:01 Ok, no need to stop citalopram then Continue bactrim and repeat Ucx this week, UTI may have resolved T [facility] 2024-01-04 16:30:18 Spouse notified of recommendations. Aware I will get clarification with provider on how long he should hold citalopram and if it is safe to stop medication or should be tapered. Patient will stop bactrim now and picking supervisor cipro. Will wait for clarification prior to taking cipro Guerline Lynch RN [facility] 2024-01-04 13:27:29 Addended by: NALINI HOWARD on: 01/04/2024 01:27 PM Modules accepted: Orders [facility] 2024-01-04 13:24:38 Stop bactrim Stop citalopram for 7 days day and 2 days priro to Cipro for 5 days and 2 days after finishing cipro [facility] 2024-01-04 10:45:26 Images from the original note were not included. Guerline Lynch RN [facility] 2024-01-02 14:40:52 UTI Other results within baseline [...] of the right femoral head are seen. [facility] 2023-04-02 14:48:00 [facility] enter [address] [place] [address] Opthalmology Operative Note Signed Patient: Arabella Garcia Medical Record#: [id number] : 1950 Acct:[id number] Age/Sex: 72 / M ADM Date: 04/02/23 Loc: [facility] Room: Report Number: [id number] Attending Dr: Christiano Robles MD General Surgery Operative Note Date of Procedure: 04/02/23 Time of Procedure: 14:48 Detailed Description of Procedure: PreOperative Diagnosis retinal detachment of the right eye with multiple retinal breaks PostOperative Diagnosis; same Procedure(s) Performed; vitrectomy endo photocoagulation gas fluid exchange Surgeon Christiano Robles M.D. Automotive Hardware Engineer None Anesthesia Retrobulbar Block, Monitor Anesthesia Care [...] 04/02/23 1451 DD/ 1448 TD/TT: 04/02/23 1448 Quality Compliance Manager: ASHLEY cc: ASHLEY; [id number]* Christiano Robles MD; Abdelrahman Brewster MD [facility] 2023-04-02 11:42:00 [facility] enter [address] [place] [address] Ophthalmology H P Signed Patient: ARABELLA GARCIA Medical Record#: [id number] : 1950 Acct:[id number] Age/Sex: 72 / M Admit/Reg Date: 04/02/23 Loc: [facility] Room: Report Number: [id number] Attending Dr: Christiano Robles MD Surgical HPI [...] 04/02/23 1150 DD/ 1142 TD/TT: 04/02/23 1142 Quality Compliance Manager: ASHLEY cc: [email or web address]* Christiano Robles MD [facility]
[2024-06-16] MEDS ORDERED: AMIODARONE HCL 150 MG/3 ML INJ IV ONE (14:18)
[2024-06-16] MEDS ORDERED: D5W 100 ML IV ONE (14:18)
--- NOTE | 2024-06-16 14:26 | RAD REPORT ---
Procedure: Chest Single View HISTORY: Cough COMPARISON: June 12, 2024 FINDINGS: Moderate right and small moderate left pleural effusions with bibasilar atelectasis. Mild bilateral pulmonary opacities probably pulmonary edema Cardiomegaly.
[2024-06-16] MEDS ORDERED: NA CHLORIDE 0.9% 0 ML ONE (14:45)
[2024-06-16 14:50] LABS: Absolute Eosinophils 0.1 K/uL (0-0.5); Absolute Lymphocytes (CBC) 0.3 K/uL (0.7-4.9); Absolute Monocytes 1.2 K/uL (0.1-1.3); Absolute Neutrophil 9.4 K/uL (1.8-8.0); Basophils % 0.1 % (0-1.3); Eosinophils % 0.7 % (0-4.4); Hematocrit 38.5 % (39.6-49.0); Hemoglobin 12.8 g/dL (13.6-17.9); Lymphocytes % 2.3 % (15.3-44.8); MCH 30.3 pg (27.0-35.0); MCHC 33.3 g/dL (32.0-36.0); MCV 90.8 fL (80-100); MPV 7.3 fL (7.6-11.3); Monocytes % 10.6 % (3.3-12.3); Neutrophils % 86.3 % (41.7-73.7); Platelets 246 thou/uL (152-406); RBC Red Blood Cell Count 4.24 M/uL (4.33-5.43); Red Cell Distribution Width 14.9 % (12.1-15.2)
[2024-06-16 14:53] LABS: PT Prothrombin Time 23.2 SECONDS (10-13.0); PTT, Activated Partial Thromb 26.8 SECONDS (27.2-37.4); Protime INR 2.11
[2024-06-16] MEDS ORDERED: propofoL 1,000 MG/100 ML VIAL IV ONE (14:53)
[2024-06-16] MEDS ORDERED: PIPERACIL/TAZO 3.375 GM VIAL IV ONE (14:53)
[2024-06-16] MEDS ORDERED: NA CHLORIDE 0.9% 100 ML ONE (14:53)
[2024-06-16 15:01] LABS: Albumin 2.7 g/dL (3.4-5.0); Albumin/Globulin Ratio 0.7 (1.1-1.8); Anion Gap 8.9 mEq/L (5.0-15.0); Bilirubin Total 1.4 mg/dL (0.2-1.0); Globulin 3.9 g/dL (2.3-3.5); Potassium 3.9 mEq/L (3.5-5.1); Protein, Total 6.6 g/dL (6.4-8.2); Troponin High Sensitivity 11.1 pg/mL (<58.9)
--- NOTE | 2024-06-16 15:21 | RAD REPORT ---
Procedure: Chest Single View HISTORY: Endotracheal tube placement : FINDINGS: Endotracheal tube has been place with its tip at the level of the aortic arch. Nasogastric tube with its tip approximately 4.5 cm into the stomach
[2024-06-16] MEDS ORDERED: ROCURONIUM 50 MG/5 ML VIAL IV ONE (16:16)
[2024-06-16] MEDS ORDERED: ETOMIDATE 20 MG/10 ML VIAL IV ONE (16:16)
[2024-06-16] MEDS ORDERED: KETAMINE HCL IN 0.9 % NACL 50 MG/5 ML SYRINGE IV ONE ×2 (17:00→19:04)
[2024-06-16] MEDS ORDERED: NA CHLORIDE 0.9% 500 ML ONE (17:01)
[2024-06-16] MEDS ORDERED: ALBUMIN HUMAN 25% 100 ML IV ONE (17:01)
--- NOTE | 2024-06-16 17:13 | RAD REPORT ---
EXAMINATION: CTA CHEST PE CLINICAL INDICATION: Hypoxia TECHNIQUE: 100 cc 370 Isovue administered intravenously. This examination was performed according to an angiographic protocol with 3D post-processing. This involves 3D reconstructions, MIPs, volume rendered images and/or shaded surface rendering. One or more of the following dose reduction techniqu es were used: Automated exposure control, adjustment of the mA and/or kV according to patient size, and/or iterative reconstruction. Unless otherwise specified, incidental findings do not require dedic ated imaging follow-up. [id number]. COMPARISON: No prior exam. FINDINGS: A pulmonary embolus is not seen. An aortic aneurysm not noted. Moderate to large right and moderate left pleural effusions with bibasilar atelectasis. No pericardial effusion. Mild to moderate additional bilateral pulmonary opacities. Endotracheal tube in good position. Nasogastric tube near the GE junction. Compression fractures spin e unchanged. Calcification anterior longitudinal ligament. A fracture of the anterior longitudinal ligament at the distal thoracic spine. This has progressed since the prior exam. IMPRESSION: No evidence of a pulmonary embolism Moderate to large right and moderate left pleural effusions Mild to moderate bilateral pulmonary opacities represent pulmonary edema or pneumonia NG tube near the GE junction
--- NOTE | 2024-06-16 17:18 | RAD REPORT ---
EXAM: CT brain without contrast HISTORY: Seizure COMPARISON: June 07, 2024 TECHNIQUE: Multiple contiguous axial images were obtained and a CT of the brain without contrast.. Sagittal and coronal reconstruction performed. Automated exposure control, adjustment of the mA and/or kV according to patient size, and/or iterative reconstruction. Unless otherwise specified, incidental f indings do not require dedicated imaging follow-up FINDINGS: An intracranial bleed is not seen Ventricles are normal caliber No extra-axial fluid collection noted Mild to moderate low-density paraventricular, deep and subcortical white matter probably secondary to ischemic changes secondary to small vessel disease. Air bubbles are present within subcutaneous tissues and masseter muscles. No fluid within the visualized sinuses or mastoids noted. IMPRESSION: No acute intracranial abnormality noted. If the patient continues to have symptoms to suggest an acute intracranial abnormality then MRI of th e brain would be recommended.
--- NOTE | 2024-06-16 17:22 | EDPHYS ---
Physician Documentation [facility] Name: Javi Garcia Age: 73 yrs Sex: Male : 1950 Arrival Date: 06/16/2024 Time: 13:26 Bed 3 Private MD: ED Physician Satish Pickens HPI: 06/16 14:44 This 73 yrs old Male presents to ER via EMS with complaints of Altered Mental ec2 Status, Shortness Of Breath. 14:44 Patient arrives today for deterioration in mental status as well as progressive ec2 shortness of breath. He was recently admitted to the hospital and treated for A-fib, was discharged yesterday. reports that he has been progressively more short of breath since leaving the hospital. No reported chest pain. Has been having a cough. No vomiting, no diarrhea. Has history of A-fib which he is on anticoagulation for, no recent falls or injuries. Historical: - Allergies: 13:34 Prednisone; ld1 - PMHx: 13:34 Alcohol dependence; Atrial fibrillation; Bursitis right hip; CHF; COPD; Hypertension; ld1 neuropathy; - Immunization history:: Adult Immunizations up to date. - Infectious Disease History:: Denies. - Social history:: Smoking status: Patient/guardian denies using tobacco. ROS: 14:45 Constitutional: as per hpi ec2 Exam: 14:45 Constitutional: GEN: NAD Head: atraumatic Eyes: EOMI Ears: External ears are ec2 normal. CV: Tachycardia LUNGS: Tachypnea ABD: non-distended SKIN: no evidence of rashes MSK: no evidence of trauma Vital Signs: 13:35 BP 135 / 96; Pulse 122; Resp 28; Temp 99.1(A); Pulse Ox 97% on 5 lpm NC; Weight 80.74 ld1 kg; Height 5 ft. 9 in. ; 14:03 BP 132 / 75; Pulse 123; Resp 28; Pulse Ox 97% on 5 lpm NC; ld1 14:35 BP 64 / 44; Pulse 132; Resp 20; Pulse Ox 100% on ETT ambu; ld1 14:37 BP 59 / 42; Pulse 124; ld1 14:40 BP 72 / 46; Pulse 129; Resp 22; ld1 14:45 BP 109 / 75; Pulse 118; Resp 19; ld1 14:51 BP 134 / 93; Pulse 116; Resp 18; Pulse Ox 99% on ETT vent; ld1 15:00 BP 145 / 98; Pulse 120; Resp 17; Pulse Ox 100% on ETT vent; ld1 15:09 BP 121 / 75; Pulse 103; Resp 19; Pulse Ox 100% on ETT vent; ld1 15:15 BP 123 / 79; Pulse 108; Resp 16; Pulse Ox 100% on ETT vent; ld1 16:11 BP 146 / 79; Pulse 110; Resp 16; Pulse Ox 99% on ETT vent; ld1 16:52 BP 138 / 54; Pulse 102; Resp 16; Pulse Ox 100% on ETT vent; FiO2 60 %; ld1 17:17 BP 111 / 56; Pulse 93; Resp 16; Pulse Ox 98% on ETT vent; ld1 17:41 BP 124 / 68; Pulse 99; ec2 18:47 BP 82 / 48; Pulse 86; Resp 16; Pulse Ox 100% on R/A; ld1 19:09 BP 62 / 41; Pulse 88; Resp 19; Pulse Ox 100% on ETT vent; jb4 19:45 BP 132 / 76; Pulse 102; Resp 17; Pulse Ox 99% on ETT vent; jb4 13:35 Body Mass Index 26.29 (80.74 kg, 175.26 cm) ld1 Ventilator: 16:51 Fi02: 60%; Rate: 16min; T.V.: 5ml; Peep: 5cm; ET tube: 7.5 fr; ld1 Procedures: 14:48 Intubation: Intubated orally using # 3 Ana blade with 7.5 mm ETT. was successful ec2 on first attempt. Ventilated with Ambu bag. ventilator. Tube secured with ETT márquez Placement verified by CXR, O2 saturation after procedure was 100 %. Patient tolerated. 19:49 Central Line: the site was prepped with in sterile fashion, a triple lumen catheter was sw6 inserted, in the right internal jugular vein, in 1 attempts. placement was verified, by CXR, by blood return, the site was dressed with Tegaderm, using sterile technique, the patient tolerated the procedure, well. MDM: 13:35 Medical Screening Exam initiated ec2 14:46 ED course: Patient arrives today for progression and altered mental status and ec2 worsening shortness of breath. Recent admission. Examination yields tachycardia and tachypnea. Will obtain septic workup, give the patient amiodarone. ddx includes volume overload, afib w/ rvr, electroylte abnl . 14:47 Data reviewed: vital signs, nurses notes. ec2 14:48 ED course: I was called to room for worsening respiratory status. Patient was hypoxic ec2 to the 60s, unresponsive. At this point I performed BVM, some improvement in saturation. Decided to emergently intubate the patient. Intubated him with a 7.5 ET tube without issue.. 14:53 ED course: EKG independently reviewed and interpreted by me, shows atrial flutter with ec2 normal conduction with a rate of 104, no acute ST segment elevations.. 14:53 ED course: Will place patient on profile for sedation.. ec2 15:20 ED course: CBC shows minimal leukocytosis, metabolic profile shows minimal ec2 hyponatremia, BNP elevated at 5000, ammonia level undetectable, lactic acid within normal ranges, troponin within normal ranges.. 06/16 13:34 Order name: Blood Culture Adult (2) ec2 06/16 13:34 Order name: CBC with Diff; Complete Time: 15:19 ec2 06/16 13:34 Order name: CMP; Complete Time: 15:19 ec2 06/16 13:34 Order name: Lactate w/ 2H reflex if indic.; Complete Time: 15:19 ec2 06/16 13:34 Order name: Protime (+inr); Complete Time: 15:19 ec2 06/16 13:34 Order name: Ptt, Activated; Complete Time: 15:19 ec2 06/16 13:34 Order name: BNP; Complete Time: 15:19 ec2 06/16 13:34 Order name: Troponin High Sensitivity; Complete Time: 15:19 ec2 06/16 13:35 Order name: AMMONIA; Complete Time: 15:19 ec2 06/16 13:35 Order name: UAM ec2 06/16 13:34 Order name: Chest Single View XRAY; Complete Time: 14:52 ec2 06/16 14:49 Order name: CXR XRAY; Complete Time: 15:53 ec2 06/16 15:15 Order name: CT Head Brain wo Cont; Complete Time: 17:21 ec2 06/16 15:53 Order name: CT Chest For PE Angio; Complete Time: 17:21 ec2 06/16 20:23 Order name: RAD EDNE 06/16 18:06 Order name: CONS Physician Consult EDNE 06/16 13:34 Order name: Accucheck; Complete Time: 14:20 ec2 06/16 13:34 Order name: Cardiac monitoring; Complete Time: 13:45 ec2 06/16 13:34 Order name: EKG - Nurse/Tech; Complete Time: 14:20 ec2 06/16 13:34 Order name: IV Saline Lock - Large Bore; Complete Time: 13:45 ec2 06/16 13:34 Order name: Labs collected and sent; Complete Time: 14:20 ec2 06/16 13:34 Order name: O2 Per Protocol; Complete Time: 13:45 ec2 06/16 13:34 Order name: O2 Sat Monitoring; Complete Time: 13:45 ec2 06/16 13:34 Order name: Vital Signs; Complete Time: 14:06 ec2 Administered Medications: 14:22 Drug: amiodarone IVPB 150 mg 100 ml IVPB once over 10 mins; (mix in D5W) Volume: 100 ld1 ml; Route: IVPB; Infused Over: 10 mins; Site: right hand; 14:34 Drug: Etomidate IVP 20 mg IVP once {Note: Administered by Melanie LOBATO.} Route: IVP; Site: [facility] left antecubital; 14:40 Follow up: Response: No adverse reaction ld1 14:34 Drug: Rocuronium IVP 70 mg IVP once {Note: administered by Melanie LOBATO.} Route: IVP; [facility] Site: left antecubital; 14:40 Follow up: Response: No adverse reaction ld1 15:00 Drug: NS 0.9% IV 1000 ml IV at 1 bolus Per protocol; to be given as a bolus over 60 ld1 minutes Route: IV; Rate: 1 bolus; Site: left antecubital; 15:10 Drug: Propofol IV 5 mcg/kg/min IV at calculated rate See Administration Instructions; ld1 Standard concentration 1000 mg / 100 mL; Recommended max rate 50 mcg/kg/min; Titrate 5 mcg/kg/min every 5 minutes to achieve goal (see titration policy); Goal parameter RASS score 0 to -2 Route: IV; Rate: calculated rate; Site: right wrist; 15:17 Follow up: Rate change 10 mcg/kg/min; IV Status: Infusion continued ld1 16:00 Follow up: Rate change 15 mcg/kg/min ld1 16:14 Follow up: Rate change 20 mcg/kg/min ld1 17:13 Follow up: Rate change 10 mcg/kg/min; Pt chewing on ET tube - ERP ordered to titrate ld1 propofol down and administer Ketamine 15:18 Drug: Piperacillin-Tazobactam IVPB 3.375 grams IVPB once over 60 mins; (mix in NS 100 ld1 mL) Route: IVPB; Infused Over: 60 mins; Site: left antecubital; 17:14 Drug: Ketamine IVP 100 mg IVP once Route: IVP; Site: left antecubital; ld1 17:14 Drug: Albumin IVPB 25 grams 100 ml IVPB once; (Note: Albumin 25% concentration) Volume: ld1 100 ml; Route: IVPB; Site: left antecubital; 17:14 Drug: NS 0.9% IV 500 ml 500 ml IV at 1 bolus once; to be given as a bolus over 30 ld1 minutes Volume: 500 ml; Route: IV; Rate: 1 bolus; Site: left antecubital; 19:08 Drug: Ketamine IVP 100 mg IVP once; give 1 time dose for sedation. Route: IVP; Site: [facility] left antecubital; 19:12 Follow up: Response: No adverse reaction; Marked relief of symptoms jb4 19:45 Drug: Norepinephrine IV 0.1 mcg/kg/min IV at calculated rate See Administration jb4 Instructions; (Standard concentration 4 mg / 250 mL D5W); Recommended max rate 3 mcg/kg/min; Titrate 0.05 mcg/kg/min as often as every 5 minutes to achieve goal (see titration policy); Goal parameter MAP greater than 65 mmHg. Route: IV; Rate: calculated rate; Site: left antecubital; 20:25 Follow up: Response: No adverse reaction; IV Status: Infusion continued upon admission jb4 Disposition: 14:54 Critical Care:. ec2 Disposition Summary: 06/16/24 17:22 Hospitalization Ordered Notes: Hospitalization Status: Inpatient Admission ec2 Location: Intensive Care Unit ec2 Condition: Serious ec2 Problem: an acute exacerbation ec2 Symptoms: have improved ec2 Bed/Room Type: Standard ec2 Provider: Dima Frazier(06/16/24 17:41) ec2 Room Assignment: 7-(06/16/24 18:11) bc6 Diagnosis - Acute respiratory failure ec2 - Acute respiratory failure with hypoxia ec2 - Volume Overload ec2 Forms: - Medication Reconciliation Form ec2 - SBAR form ec2 - Leadership Thank You Letter ec2 Critical care time excluding procedures: 14:54 Critical care time: Bedside Care: 30 minutes, Consultation: 5 minutes. Total time: 35 ec2 minutes Signatures: Dispatcher [employer] EDSloan Carter, RN RN jb4 Melanie Haney RN RN ld1 Xiomara Neri bc6 Satish Pickens MD MD ec2 Fransisca Quick MD MD sw6 Corrections: (The following items were deleted from the chart) 13:35 13:35 BLOOD CULTURE*+BA.LAB.BRZ ordered. EDMS EDMS 13:35 13:35 CBC+H.LAB.BRZ ordered. EDMS EDMS 13:35 13:35 COMPREHENSIVE METABOLIC PANEL+C.LAB.BRZ ordered. EDMS EDMS 13:35 13:35 LACTATE+C.LAB.BRZ ordered. EDMS EDMS 13:35 13:35 PROTIME (+INR)+COAG.LAB.BRZ ordered. EDMS EDMS 13:35 13:35 PTT, ACTIVATED+COAG.LAB.BRZ ordered. EDMS EDMS 13:35 13:35 PROBNP+C.LAB.BRZ ordered. EDMS EDMS 13:35 13:35 Troponin High Sensitivity+C.LAB.BRZ ordered. EDMS EDMS 13:35 13:35 AMMONIA+C.LAB.BRZ ordered. EDMS EDMS 13:35 13:35 Urinalysis W/Microscopic+U.LAB.BRZ ordered. EDMS EDMS 14:46 14:45 Constitutional: GEN: NAD Head: atraumatic Eyes: EOMI Ears: External ears are ec2 normal. CV: regular rate LUNGS: no respiratory distress ABD: non-distended SKIN: no evidence of rashes MSK: no evidence of trauma ec2 14:47 14:46 Data reviewed: vital signs, nurses notes, ec2 ec2 14:47 14:46 ED course: Patient arrives today for progression and altered mental status and ec2 worsening shortness of breath. Recent admission. Examination yields tachycardia and tachypnea. Will obtain septic workup, give the patient amiodarone. ddx includes volume overload, afib w/ rvr, electroylte abnl . ec2 14:48 14:46 ED course: Patient arrives today for progression and altered mental status and ec2 worsening shortness of breath. Recent admission. Examination yields tachycardia and tachypnea. Will obtain septic workup, give the patient amiodarone. ddx includes volume overload, afib w/ rvr, electroylte abnl . ec2 14:50 14:50 Chest Single View+RAD.RAD.BRZ ordered. EDMS EDMS 17:41 17:22 Oliver Augustin ec2 ec2 18:11 17:22 ec2 bc6 19:47 19:47 Chest Single View+RAD.RAD.BRZ ordered. EDMS EDMS
--- NOTE | 2024-06-16 17:22 | ER ---
Nurse's Notes [facility] Name: Javi Garcia Age: 73 yrs Sex: Male : 1950 Arrival Date: 06/16/2024 Time: 13:26 Bed 3 Private MD: Diagnosis: Acute respiratory failure;Acute respiratory failure with hypoxia;Volume Overload Presentation: 06/16 13:35 Chief complaint: EMS states: toned out for shortness of breath and altered mental ld1 status. Family reports being discharged from ICU yesterday due to electrolyte imbalance and UTI. Coronavirus screen: At this time, the client does not indicate any symptoms associated with coronavirus-19. Ebola Screen: No symptoms or risks identified at this time. Initial Sepsis Screen: Does the patient meet any 2 criteria? No. Patient's initial sepsis screen is negative. Does the patient have a suspected source of infection? No. Patient's initial sepsis screen is negative. Risk Assessment: Do you want to hurt yourself or someone else? Patient reports no desire to harm self or others. Onset of symptoms was June 16, 2024. 13:35 Method Of Arrival: EMS: [facility] ld1 13:35 Acuity: PATRICIA 3 ld1 Triage Assessment: 13:35 General: Appears in no apparent distress. comfortable, Behavior is cooperative. Pain: ld1 Denies pain. EENT: No signs and/or symptoms were reported regarding the EENT system. Neuro: Level of Consciousness is confused, Oriented to person, place, situation. Cardiovascular: Capillary refill < 3 seconds Patient's skin is warm and dry. Rhythm is atrial fibrillation. Respiratory: Airway is patent Respiratory effort is even, unlabored. GI: Abdomen is flat, non-distended. : No signs and/or symptoms were reported regarding the genitourinary system. Derm: No signs and/or symptoms reported regarding the dermatologic system. Musculoskeletal: No signs and/or symptoms reported regarding the musculoskeletal system. Historical: - Allergies: 13:34 Prednisone; ld1 - PMHx: 13:34 Alcohol dependence; Atrial fibrillation; Bursitis right hip; CHF; COPD; Hypertension; ld1 neuropathy; - Immunization history:: Adult Immunizations up to date. - Infectious Disease History:: Denies. - Social history:: Smoking status: Patient/guardian denies using tobacco. Screenin:42 [facility] ED Fall Risk Assessment (Adult) History of falling in the last 3 months, ld1 including since admission No falls in past 3 months (0 pts) Confusion or Disorientation No (0 pts) Intoxicated or Sedated No (0 pts) Impaired Gait No (0 pts) Mobility Assist Device Used No (0 pt) Altered Elimination No (0 pt) Score/Fall Risk Level 0 - 2 = Low Risk Oriented to surroundings, Hourly rounding (assess needs \\T\\ fall precautionary measures) done. Abuse screen: Denies threats or abuse. Denies injuries from another. Nutritional screening: No deficits noted. Tuberculosis screening: No symptoms or risk factors identified. Assessment: 13:42 Reassessment: See triage assessment. ld1 14:30 Reassessment: Pt noted to have seizure like activity. Became cyanotic and began having jb4 agonal respirations. Pt being bagged ER physician at bedside. RT overhead paged. 14:30 General: Appears distressed, Behavior is inappropriate for age, unresponsive. ld1 14:30 Reassessment: ERP called to bedside. RT paged at this time. Pt being bagged. ld1 Cardiovascular: Rhythm is sinus bradycardia. Respiratory: Airway is compromised Respiratory effort is unlabored, Respiratory pattern is agonal the patient has severe shortness of breath. Derm: Skin is pale. 15:00 Reassessment: Patient appears in no apparent distress at this time. Patient and/or ld1 family updated on plan of care and expected duration. Pain level reassessed. Patient states symptoms have improved. 15:29 Reassessment: Patient appears in no apparent distress at this time. Patient and/or ld1 family updated on plan of care and expected duration. Pain level reassessed. ERP at bedside speaking with family. Patient states symptoms have improved. Neuro: Nascimento Agitation-Sedation Scale (RASS): -4 Deep sedation. 16:13 Reassessment: Patient appears in no apparent distress at this time. Patient and/or ld1 family updated on plan of care and expected duration. Pain level reassessed. General:. Neuro: Nascimento Agitation-Sedation Scale (RASS): -4 Deep sedation. 18:47 Reassessment: Patient appears in no apparent distress at this time. No changes from ld1 previously documented assessment. Patient and/or family updated on plan of care and expected duration. Pain level reassessed. 19:00 Reassessment: Pt becoming more aggitated, propofol is dropping b/p. Dr mcdaniel called, jb4 received verbal order for 100mg ketamine IVP x1 dose of. 19:15 Reassessment: Received verbal order from Dr. Mcdaniel to place Pt on Levophed. jb4 19:45 Reassessment: all lines infusing. Pt remains intubated, pressures now holding with a jb4 map above 65. Vital Signs: 13:35 BP 135 / 96; Pulse 122; Resp 28; Temp 99.1(A); Pulse Ox 97% on 5 lpm NC; Weight 80.74 ld1 kg; Height 5 ft. 9 in. ; 14:03 BP 132 / 75; Pulse 123; Resp 28; Pulse Ox 97% on 5 lpm NC; ld1 14:35 BP 64 / 44; Pulse 132; Resp 20; Pulse Ox 100% on ETT ambu; ld1 14:37 BP 59 / 42; Pulse 124; ld1 14:40 BP 72 / 46; Pulse 129; Resp 22; ld1 14:45 BP 109 / 75; Pulse 118; Resp 19; ld1 14:51 BP 134 / 93; Pulse 116; Resp 18; Pulse Ox 99% on ETT vent; ld1 15:00 BP 145 / 98; Pulse 120; Resp 17; Pulse Ox 100% on ETT vent; ld1 15:09 BP 121 / 75; Pulse 103; Resp 19; Pulse Ox 100% on ETT vent; ld1 15:15 BP 123 / 79; Pulse 108; Resp 16; Pulse Ox 100% on ETT vent; ld1 16:11 BP 146 / 79; Pulse 110; Resp 16; Pulse Ox 99% on ETT vent; ld1 16:52 BP 138 / 54; Pulse 102; Resp 16; Pulse Ox 100% on ETT vent; FiO2 60 %; ld1 17:17 BP 111 / 56; Pulse 93; Resp 16; Pulse Ox 98% on ETT vent; ld1 17:41 BP 124 / 68; Pulse 99; ec2 18:47 BP 82 / 48; Pulse 86; Resp 16; Pulse Ox 100% on R/A; ld1 19:09 BP 62 / 41; Pulse 88; Resp 19; Pulse Ox 100% on ETT vent; jb4 19:45 BP 132 / 76; Pulse 102; Resp 17; Pulse Ox 99% on ETT vent; jb4 13:35 Body Mass Index 26.29 (80.74 kg, 175.26 cm) ld1 ED Course: 13:28 Patient arrived in ED. ec2 13:33 Satish Pickens MD is Attending Physician. ec2 13:35 Arm band placed on right wrist. ld1 13:39 Triage completed. ld1 13:42 Patient has correct armband on for positive identification. Placed in gown. Bed in low ld1 position. Call light in reach. Side rails up X2. groundwater monitoring technician on. Pulse ox on. NIBP on. Door closed. Noise minimized. Warm blanket given. 13:42 Maintain EMS IV. Dressing intact. Good blood return noted. Site clean \\T\\ dry. Gauge \\T\\ ld 1 site: 22g RH. 13:44 Melanie Haney, RN is Primary Nurse. ld1 14:02 Chest Single View XRAY In Process Unspecified. EDMS 14:03 Melanie Haney, RN is Primary Nurse. ld1 14:15 Inserted saline lock: 20 gauge in left antecubital area, using aseptic technique. Blood ld1 collected. Flushed with 10 mL NS. 14:20 Blood Culture Adult (2) Sent. ld1 14:20 Lactate w/ 2H reflex if indic. Sent. ld1 14:35 Assisted provider with intubation using 7.5 mm ETT via oral route. ET tube secured at jb4 23cm at the teeth. Set up intubation tray. Intubated by Satish Pickens MD Placement verified by CO2 detector w/ + color change, auscultating bilateral breath sounds, Patient tolerated well. 14:40 14 Fr OG tube inserted - placed on intermittent suction. ld1 14:40 Lopez cath inserted, using sterile technique, 16 Fr., by learning technologist, balloon inflated, ld1 urine specimen collected. returned clear yellow urine. Patient tolerated well. 15:08 CXR XRAY In Process Unspecified. EDMS 16:41 CT Head Brain wo Cont In Process Unspecified. EDMS 16:42 CT Chest For PE Angio In Process Unspecified. EDMS 17:22 Oliver Mcdaniel MD is Hospitalizing Provider. ec2 17:28 Jolynn Albright () - " Cell" " Home". ty 17:41 Hospitalizing Provider role handed off by Oliver Mcdaniel MD ec2 17:41 Dima Frazier is Hospitalizing Provider. ec2 20:27 Patient admitted, IV remains in place. jb4 Administered Medications: 14:22 Drug: amiodarone IVPB 150 mg 100 ml IVPB once over 10 mins; (mix in D5W) Volume: 100 ld1 ml; Route: IVPB; Infused Over: 10 mins; Site: right hand; 14:34 Drug: Etomidate IVP 20 mg IVP once {Note: Administered by Melanie LOBATO.} Route: IVP; Site: jb4 left antecubital; 14:40 Follow up: Response: No adverse reaction ld1 14:34 Drug: Rocuronium IVP 70 mg IVP once {Note: administered by Melanie ELAINE} Route: IVP; jb4 Site: left antecubital; 14:40 Follow up: Response: No adverse reaction ld1 15:00 Drug: NS 0.9% IV 1000 ml IV at 1 bolus Per protocol; to be given as a bolus over 60 ld1 minutes Route: IV; Rate: 1 bolus; Site: left antecubital; 15:10 Drug: Propofol IV 5 mcg/kg/min IV at calculated rate See Administration Instructions; ld1 Standard concentration 1000 mg / 100 mL; Recommended max rate 50 mcg/kg/min; Titrate 5 mcg/kg/min every 5 minutes to achieve goal (see titration policy); Goal parameter RASS score 0 to -2 Route: IV; Rate: calculated rate; Site: right wrist; 15:17 Follow up: Rate change 10 mcg/kg/min; IV Status: Infusion continued ld1 16:00 Follow up: Rate change 15 mcg/kg/min ld1 16:14 Follow up: Rate change 20 mcg/kg/min ld1 17:13 Follow up: Rate change 10 mcg/kg/min; Pt chewing on ET tube - ERP ordered to titrate ld1 propofol down and administer Ketamine 15:18 Drug: Piperacillin-Tazobactam IVPB 3.375 grams IVPB once over 60 mins; (mix in NS 100 ld1 mL) Route: IVPB; Infused Over: 60 mins; Site: left antecubital; 17:14 Drug: Ketamine IVP 100 mg IVP once Route: IVP; Site: left antecubital; ld1 17:14 Drug: Albumin IVPB 25 grams 100 ml IVPB once; (Note: Albumin 25% concentration) Volume: ld1 100 ml; Route: IVPB; Site: left antecubital; 17:14 Drug: NS 0.9% IV 500 ml 500 ml IV at 1 bolus once; to be given as a bolus over 30 ld1 minutes Volume: 500 ml; Route: IV; Rate: 1 bolus; Site: left antecubital; 19:08 Drug: Ketamine IVP 100 mg IVP once; give 1 time dose for sedation. Route: IVP; Site: jb4 left antecubital; 19:12 Follow up: Response: No adverse reaction; Marked relief of symptoms jb4 19:45 Drug: Norepinephrine IV 0.1 mcg/kg/min IV at calculated rate See Administration jb4 Instructions; (Standard concentration 4 mg / 250 mL D5W); Recommended max rate 3 mcg/kg/min; Titrate 0.05 mcg/kg/min as often as every 5 minutes to achieve goal (see titration policy); Goal parameter MAP greater than 65 mmHg. Route: IV; Rate: calculated rate; Site: left antecubital; 20:25 Follow up: Response: No adverse reaction; IV Status: Infusion continued upon admission jb4 Medication: 13:42 VIS not applicable for this client. ld1 Intake: Ventilator: 16:51 Fi02: 60%; Rate: 16min; T.V.: 5ml; Peep: 5cm; ET tube: 7.5 fr; ld1 Outcome: 17:22 Decision to Hospitalize by Provider. ec2 20:25 Admitted to ICU accompanied by nurse, via stretcher, room 1, with chart, Report called jb to LUIS ALFREDO Henriquez 20:25 Condition: stable 20:25 Discharge instructions given to family, Instructed on the need for admit, Demonstrated understanding of instructions, 20:27 Patient left the ED. 4 Signatures: Dispatcher [employer] Sloan Nascimento RN RN jb4 Melanie Haney RN RN ld1 Satish Pickens MD MD ec2 Larry Shah
[2024-06-16] MEDS ORDERED: ACETAMINOPHEN 650MG/RECT SUPP PR PRN (18:15)
[2024-06-16] MEDS ORDERED: ONDANSETRON 4 MG/2 ML VIAL IV PRN (18:15)
--- NOTE | 2024-06-16 18:37 | P.HP ---
Certification for Inpatient Patient admitted to: Inpatient With expected LOS: >2 Midnights Practitioner: I am a practitioner with admitting privileges, knowledge of patient current condition, hospital course, and medical plan of care. Services: Services provided to patient in accordance with Admission requirements found in Title 42 Section 412.3 of the Code of Federal Regulations Patient History Date of Service: 06/16/24 Reason for admission: Shortness of breath and altered mental status History of Present Illness: 73-year-old gentleman with a history of chronic systolic heart failure, paroxysmal atrial fibrillation on chronic anticoagulation, dementia, chronic respiratory failure on home oxygen, COPD recently hospitalized and treated for severe hyponatremia and UTI, and discharged yesterday return to the ED with a complaint of progressive shortness of breath. Patient was evaluated in the ED and noted to have rapid atrial flutter. According to report, patient was i nitially interactive but suddenly became unresponsive, contracted his right upper extremity, became hypoxic, SaO2 fell to the 50s, became cyanotic after amiodarone drip was started. Patient was quickly intubated and placed on mechanical ventilation. Head CT is negative for acute disease, no acute infarct or bleed. CTA chest demonstrated bilateral pleural effusion and bilateral pulmonary opacities, no evidence of PE. Hospitalist service contacted to admit patient for further management. Patient was sedated and on mechanical ventilation examination. Allergies prednisone Allergy (Severe, Verified 04/25/24 11:05) Hives/Rash Home Medications: Citalopram [Celexa*] 20 mg PO DAILY 06/02/23 Budesonide/Formoterol Fumarate [Symbicort 160-4.5 Mcg Inhaler] 2 puff IH DAILY PRN 10/29/23 Tamsulosin [Flomax*] 0.4 mg PO DAILY 10/29/23 dexAMETHasone [Dexamethasone] 1 mg PO DAILY PRN 10/29/23 Albuterol Inhaler [Ventolin Inhaler*] 2 puff IH Q4H PRN #1 inh 11/03/23 ALPRAZolam [Xanax*] 0.5 mg PO BID PRN 05/13/24 Fluticasone/Umeclidin/Vilanter [Trelegy Ellipta 200-62.5-25] 1 puff IH DAILY 05/13/24 Vitamin B Complex 1 tab PO SEECOM 05/13/24 traMADol HCL [Ultram*] 1 tab PO BIDP PRN 05/13/24 Amiodarone HCl [Cordarone*] 200 mg PO BID #60 tab 05/17/24 Cefpodoxime Proxetil [Vantin] 200 mg PO BID #8 tab 05/17/24 Metoprolol Tartrate [Lopressor*] 25 mg PO BID 6AM 6PM #60 tab 05/17/24 Apixaban [Eliquis] 5 mg PO BID 06/08/24 Ciprofloxacin HCl [Cipro 500 MG Tablet] 500 mg PO DAILY 5 Days #5 tab 06/15/24 Furosemide [Lasix] 40 mg PO DAILY 5 Days #5 tab 06/15/24 Potassium Oral Tab [Klor-Con 10 mEq Tab*] 20 meq PO DAILY 5 Days #20 tab 06/15/24 - Past Medical/Surgical History Diabetic: No -: Hypertension -: GERD -: chronic systolic CHF -: paroxismal A.Fib-left atrial thrombus -: HTN -: COPD -: Hyponatremia -: Diagnostic laparoscopy -: exploratory laparotomy -: lysis of adhesion -: cholecystectomy -: right ankle surgery Psychosocial/ Personal History: Patient is - Family History Father -: Heart disease, Other (see notes) Notes: heart attack Mother -: Heart disease Notes: heart attack - Social History Alcohol use: Yes CD- Drugs: No Caffeine use: Yes Review of Systems is unable to be obtained (Due to altered mental status.) Physical Examination - Vital Signs Pulse: 97 Pulse Ox (%): 100 - Physical Exam General: Unresponsive, Other (Sedated) HEENT: Atraumatic, Normocephalic, Other (ET tube), EOMI Neck: Supple, JVD not distended Respiratory: Diminished (Bilaterally), Other (Mild bibasilar crackles) Cardiovascular: No edema, Normal S1 S2, Irregular heart rate/rhythm Capillary refill: <2 Seconds Gastrointestinal: Normal bowel sounds, Soft and benign, Non-distended, No tenderness Musculoskeletal: No swelling, No tenderness Integumentary: No rashes, No cyanosis Neurological: Other (Sedated and on mechanical ventilation. Patient withdraws all extremities to pain.) Lymphatics: No axilla or inguinal lymphadenopathy - Studies Laboratory Data (last 24 hrs) 06/16/24 06/16/24 06/16/24 14:22 14:22 14:22 WBC 11.00 H Hgb 12.8 L Hct 38.5 L Plt Count 246 PT 23.2 H INR 2.11 APTT 26.8 L Sodium 131 L Potassium 3.9 BUN 19 H Creatinine 0.75 Glucose 97 Total Bilirubin 1.4 H AST 62 H ALT 92 H Alkaline Phosphatase 96 Assessment and Plan - Problems (Diagnosis) (1) Acute metabolic encephalopathy Current Visit: Yes Status: Acute (2) Acute respiratory failure Current Visit: No Status: Acute Qualifiers: Respiratory failure complication: hypoxia Qualified Code(s): J96.01 - Acute respiratory failure with hypoxia (3) Atrial flutter with rapid ventricular response Current Visit: Yes Status: Acute (4) Acute on chronic combined systolic and diastolic heart failure Current Visit: No Status: Acute (5) Hyponatremia Onset Date: 11/17/17 Current Visit: No Status: Resolved - Plan AMS Acute metabolic encephalopathy Seizure not ruled out due to sudden onset decreased responsiveness. Admit patient to the ICU Patient is intubated on mechanical ventilation. Head CT does not show any acute disease. Possible trigger for seizures may be CO2 retention (high bicarb noted in the BMP) Obtain arterial blood gas Empiric IV Keppra Neurochecks. Acute respiratory failure with hypoxia Acute on chronic systolic and diastolic heart failure Bilateral pleural effusion Patient intubated on mechanical ventilation. ICU event protocol initiated. Consult to pulmonary Dr. Padilla. Arterial blood gas. IV Lasix Monitor intake and output. Serial chest x-ray. May consider US guided thoracentesis if pleural effusion does not improve with diuresis. Pneumonia Chest CT is showing bilateral infiltrates. Empiric IV cefepime and vancomycin. Follow blood cultures. Tracheal suction for sputum culture. Pulmonary Dr. Padilla consulted. Atrial flutter with rapid ventricular rate I do not suspect allergy to amiodarone since patient has been on chronic amiodarone therapy. Start amiodarone drip. Cardiology consult. Replace Eliquis with full dose Lovenox for now. Hyponatremia Sodium level has been stable compared to level on discharge previous admit. Hyponatremia suspected to be multifactorial secondary to renal depletion and SIADH. Monitor BMP. Nephrology consult. DVT prophylaxis: Lovenox Advanced directive: Full code - Advance Directives Does patient have a Living Will: Yes Does patient have a Durable POA for Healthcare: No
[2024-06-16] MEDS ORDERED: FENTANYL CITR 100 MCG/2 ML IV PRN ×2 (18:50→19:30)
[2024-06-16] MEDS ORDERED: MIDAZOLAM HCL 2 MG/2 ML INJ IV PRN (18:50)
[2024-06-16] MEDS: ALBUTEROL 2.5 MG/3 ML NEB SOL NEB SCH (19:00)
[2024-06-16] MEDS: IPRATROPIUM BROM 0.5MG/2.5ML NEB SCH (19:00)
[2024-06-16] MEDS ORDERED: IPRATROPIUM BROM 0.5MG/2.5ML NEB SCH (19:00)
[2024-06-16] MEDS ORDERED: NA CHLORIDE 0.9% 1,000 ML ONE (19:24)
[2024-06-16] MEDS ORDERED: NOREPINEPHRINE BITARTRATE/D5W 4 MG/250 ML BAG IV ONE (19:28)
--- NOTE | 2024-06-16 20:22 | RAD REPORT ---
Procedure: Chest Single View HISTORY: Central line placement FINDINGS: Central venous line has been placed into the SVC. A pneumothorax is not visualized. Nasogastric tube with its tip near the GE junction. Endotracheal tube in good position
[2024-06-16] MEDS: NOREPINEPHRINE 4 MG in D5W 250 ML IV SCH (20:45)
[2024-06-16] MEDS: NA CHLORIDE 0.9% 250 ML ONE (21:03)
[2024-06-16] MEDS: NA CHLORIDE 0.9% 100 ML ONE (21:03)
[2024-06-16] MEDS: VANCOMYCIN 500 MG/VIAL ONE (21:04)
[2024-06-16] MEDS: LEVETIRACETAM 500 MG/5 ML VIAL IV ONE (21:04)
[2024-06-16] MEDS: VANCOMYCIN 1 GM/VIAL ONE (21:04)
[2024-06-16] MEDS: ENOXAPARIN 80 MG/0.8 ML SQ SCH (21:22)
[2024-06-16] MEDS: VANCOMYCIN 1.25 GM in NA CHLORIDE 0.9% 250 ML IVPB SCH (21:22)
[2024-06-16] MEDS: CEFEPIME 2 GM in NA CHLORIDE 0.9% 100 ML IV SCH (21:22)
[2024-06-16] MEDS: levETIRAcetam 1,000 MG in NA CHLORIDE 0.9% 100 ML IV ONE (21:23)
[2024-06-16] MEDS: FUROSEMIDE 40 MG/4 ML VIAL ONE (22:11)
[2024-06-16] MEDS: FUROSEMIDE 40 MG/4 ML VIAL IV SCH (22:20)
[2024-06-16 22:28] LABS: Arterial Blood Carboxyhemoglob 1.4 % (0-1.5); Blood Gas Oxyhemoglobin 95.3 % (94-97); Blood O2 Saturation 97.5 % (92-98.5)
[2024-06-16 22:29] LABS: Blood Gas THB 10.6 g/dl (12-18)
[2024-06-16] MEDS: propofoL 1,000 MG/100 ML VIAL IV SCH (23:24)
[2024-06-17] MEDS ORDERED: ALBUTEROL 2.5 MG/3 ML NEB SOL NEB PRN (02:04)
[2024-06-17] MEDS: NOREPINEPHRINE BITARTRATE/D5W 4 MG/250 ML KIT IV ONE ×2 (05:58→21:41)
[2024-06-17 06:03] LABS: Absolute Eosinophils 0.2 K/uL (0-0.5); Absolute Lymphocytes (CBC) 0.3 K/uL (0.7-4.9); Absolute Monocytes 1.1 K/uL (0.1-1.3); Basophils % 0.3 % (0-1.3); Eosinophils % 1.5 % (0-4.4); Hematocrit 32.8 % (39.6-49.0); Hemoglobin 11.1 g/dL (13.6-17.9); Lymphocytes % 3.2 % (15.3-44.8); MCH 30.7 pg (27.0-35.0); MCHC 33.8 g/dL (32.0-36.0); MCV 90.8 fL (80-100); MPV 7.3 fL (7.6-11.3); Monocytes % 10.8 % (3.3-12.3); Neutrophils % 84.2 % (41.7-73.7); Platelets 200 thou/uL (152-406); RBC Red Blood Cell Count 3.61 M/uL (4.33-5.43); Red Cell Distribution Width 15.2 % (12.1-15.2)
[2024-06-17 06:46] LABS: Albumin 2.2 g/dL (3.4-5.0); Albumin/Globulin Ratio 0.8 (1.1-1.8); Anion Gap 6.8 mEq/L (5.0-15.0); Bilirubin Total 1.3 mg/dL (0.2-1.0); Globulin 2.7 g/dL (2.3-3.5); Magnesium 1.6 mg/dL (1.6-2.4); Phosphorus 2.1 mg/dL (2.5-4.9); Potassium 2.8 mEq/L (3.5-5.1); Protein, Total 4.9 g/dL (6.4-8.2); Thyroid Stimulating Hormone 1.66 uIU/mL (0.358-3.740); Troponin High Sensitivity 15.9 pg/mL (<58.9)
[2024-06-17] MEDS: levETIRAcetam 500 MG in NA CHLORIDE 0.9% 100 ML IV SCH (07:54)
[2024-06-17] MEDS: MAGNESIUM SULFATE 1 gm IVPB 1 GM/100 ML BAG IV ONE (08:39)
[2024-06-17] MEDS: POTASSIUM PHOS IN 0.9 % NACL 15 MMOL/250 ML BAG IV ONE (08:39)
--- NOTE | 2024-06-17 09:25 | P.CNS ---
Date of Consult: 06/17/24 Reason for Consult: Respiratory failure Chief Complaint: Shortness of breath and altered mental status History of Present Illness: Patient is 73 years of age was just recently discharged with congestive heart failure atrial fibrillation left atrial thrombus came back in again altered mental status more short of breath apparently had a seizure-like activity was intubated transferred to the ICU he is awake alert on propofol on a ventilator x-ray shows bilateral pleural effusion Allergies prednisone Allergy (Severe, Verified 04/25/24 11:05) Hives/Rash Home Medications: Citalopram [Celexa*] 20 mg PO DAILY 06/02/23 Budesonide/Formoterol Fumarate [Symbicort 160-4.5 Mcg Inhaler] 2 puff IH DAILY PRN 10/29/23 Tamsulosin [Flomax*] 0.4 mg PO DAILY 10/29/23 dexAMETHasone [Dexamethasone] 1 mg PO DAILY PRN 10/29/23 Albuterol Inhaler [Ventolin Inhaler*] 2 puff IH Q4H PRN #1 inh 11/03/23 ALPRAZolam [Xanax*] 0.5 mg PO BID PRN 05/13/24 Fluticasone/Umeclidin/Vilanter [Trelegy Ellipta 200-62.5-25] 1 puff IH DAILY 05/13/24 Vitamin B Complex 1 tab PO SEECOM 05/13/24 traMADol HCL [Ultram*] 1 tab PO BIDP PRN 05/13/24 Amiodarone HCl [Cordarone*] 200 mg PO BID #60 tab 05/17/24 Cefpodoxime Proxetil [Vantin] 200 mg PO BID #8 tab 05/17/24 Metoprolol Tartrate [Lopressor*] 25 mg PO BID 6AM 6PM #60 tab 05/17/24 Apixaban [Eliquis] 5 mg PO BID 06/08/24 Ciprofloxacin HCl [Cipro 500 MG Tablet] 500 mg PO DAILY 5 Days #5 tab 06/15/24 Furosemide [Lasix] 40 mg PO DAILY 5 Days #5 tab 06/15/24 Potassium Oral Tab [Klor-Con 10 mEq Tab*] 20 meq PO DAILY 5 Days #20 tab 06/15/24 - Past Medical/Surgical History Diabetic: No -: Hypertension -: GERD -: chronic systolic CHF -: paroxismal A.Fib-left atrial thrombus -: HTN -: COPD -: Hyponatremia -: Diagnostic laparoscopy -: exploratory laparotomy -: lysis of adhesion -: cholecystectomy -: right ankle surgery Psychosocial/ Personal History: Patient is - Family History Father Medical History: Heart disease, Other (see notes) Notes: heart attack Mother Medical History: Heart disease Notes: heart attack - Social History Smoking Status: Former smoker Alcohol use: Yes CD- Drugs: No Caffeine use: Yes Place of Residence: Home Physical Examination Temp Pulse Resp BP Pulse Ox 98.4 F 105 H 18 91/59 L 95 06/17/24 08:00 06/17/24 08:27 06/17/24 08:00 06/17/24 08:00 06/17/24 08:27 General: Alert Respiratory: Crackles/rales Cardiovascular: Edema, Irregular heart rate/rhythm Gastrointestinal: Normal bowel sounds, Non-distended Musculoskeletal: Swelling Laboratory Data (last 24 hrs) 06/16/24 06/16/24 06/16/24 14:22 14:22 14:22 WBC 11.00 H Hgb 12.8 L Hct 38.5 L Plt Count 246 PT 23.2 H INR 2.11 APTT 26.8 L Sodium 131 L Potassium 3.9 BUN 19 H Creatinine 0.75 Glucose 97 Total Bilirubin 1.4 H AST 62 H ALT 92 H Alkaline Phosphatase 96 - Problems (1) CHF (congestive heart failure) Current Visit: No Status: Acute Plan: Patient is 73 years of age was just recently discharged admitted again he is got presumed severe congestive heart failure ejection fraction was low patient has bilateral pleural effusions hypokalemia abnormal LFTs elevated BNP doubt infection scan chest x-ray reviewed plan to DC the propofol will need diuretics aggressive potassium replaced need to restart his Lasix which is much as he can tolerate Qualifiers: Heart failure type: unspecified Heart failure chronicity: acute on chronic Qualified Code(s): I50.9 - Heart failure, unspecified
[2024-06-17] MEDS: DEXMEDETOMIDINE HCL 1,000 MCG in NA CHLORIDE 0.9% 490 ML IV SCH (10:30)
[2024-06-17] MEDS: POTASSIUM 25 MEQ EFFERV TAB PO SCH (10:30)
--- NOTE | 2024-06-17 14:00 | P.PN ---
Subjective Date of Service: 06/17/24 Chief Complaint: Shortness of breath and altered mental status Patient is intubated and on mechanical ventilation. Blood pressure dropped last night so patient was started on low-dose Levophed. No recorded fever. Physical Examination - Vital Signs Temperature: 97.6 F Blood Pressure: 91/61 Pulse: 89 Respirations: 22 Pulse Ox (%): 100 - Studies Laboratory Data (last 24 hrs) 06/16/24 06/16/24 06/16/24 14:22 14:22 14:22 WBC 11.00 H Hgb 12.8 L Hct 38.5 L Plt Count 246 PT 23.2 H INR 2.11 APTT 26.8 L Sodium 131 L Potassium 3.9 BUN 19 H Creatinine 0.75 Glucose 97 Total Bilirubin 1.4 H AST 62 H ALT 92 H Alkaline Phosphatase 96 Assessment And Plan - Current Problems (Diagnosis) (1) Acute metabolic encephalopathy Current Visit: Yes Status: Acute (2) Acute respiratory failure Current Visit: No Status: Acute Qualifiers: Respiratory failure complication: hypoxia Qualified Code(s): J96.01 - Acute respiratory failure with hypoxia (3) Atrial flutter with rapid ventricular response Current Visit: Yes Status: Acute (4) Acute on chronic combined systolic and diastolic heart failure Current Visit: No Status: Acute (5) Hyponatremia Onset Date: 11/17/17 Current Visit: No Status: Resolved - Plan Physical examination General: Sedated and on mechanical ventilation. HEENT: Anicteric sclera Neck: Supple, no elevated JVD Heart: Heart sounds 1 and 2 normal, irregular rhythm, normal rate, no pedal edema Lungs: Bilateral upper airway transmitted sounds, adequate breath sounds bilaterally, bibasilar crackles. Abdomen: Soft, nondistended, nontender, normal bowel sounds. Extremities: No tenderness, no deformity Skin: Normal skin turgor, no rash, no nodules or ulcers. Neuro: Unresponsive, patient is on sedation, he withdraws all extremities to pain Psychiatry: No agitation. Plan: AMS Acute metabolic encephalopathy Seizure not ruled out due to sudden onset decreased responsiveness. Patient is intubated on mechanical ventilation. Head CT does not show any acute disease. Continue empiric Keppra Patient is on sedation Acute respiratory failure with hypoxia Acute on chronic systolic and diastolic heart failure Bilateral pleural effusion Patient intubated on mechanical ventilation. ICU event protocol initiated. Pulmonary Dr. Padilla input appreciated. Continue aggressive IV Lasix Monitor intake and output. Serial chest x-ray to monitor pleural effusion for need for thoracentesis. Pneumonia Chest CT is showing bilateral infiltrates. Continue IV cefepime and vancomycin. Follow blood cultures. Sputum culture is pending. Atrial flutter with rapid ventricular rate I do not suspect allergy to amiodarone since patient has been on chronic amiodarone therapy. Heart is currently rate controlled Cardiology consulted Full dose Lovenox. Hyponatremia Hypokalemia Sodium level has been stable. Hyponatremia suspected to be multifactorial secondary to renal depletion and SIADH. Replace potassium as needed. Monitor BMP. Nephrology consulted DVT prophylaxis: Lovenox Advanced directive: Full code
--- NOTE | 2024-06-17 14:40 | RAD REPORT ---
EXAM: XR of the abdomen HISTORY: Abdominal pain NGT placement still correct COMPARISON: None FINDINGS: Very limited study is submitted. Distal tip of the NG tube is likely within the esophagus.
[2024-06-17] MEDS: LORazepam 2 MG/ML VIAL IV PRN (16:18)
[2024-06-17] MEDS: NOREPINEPHRINE BITARTRATE/D5W 4 MG/250 ML BAG IV SCH (17:30)
--- NOTE | 2024-06-17 17:57 | CON ---
Date of Consultation: 06/17/2024 Chief Complaint: Shortness of breath and altered mental status. Reason For Consultation: Hyponatremia. History Of Present Illness: The patient is unable to provide history. History mainly obtained from the chart. This is a 73-year-old man, was known to me from recent admission with past medical histor y for chronic hyponatremia, congestive heart failure, COPD, and atrial fibrillation on chronic antico agulation. The patient presented for respiratory failure and was hypoxic, required intubation. He w as recently admitted for symptomatic hyponatremia. His sodium improved on Lasix. Patient was discha rged on Lasix. As per , the patient was given Lasix for 1 day. In the ED, the patient noticed t o have atrial fibrillation with RVR and became hypoxic. The patient was intubated for further evalua tion. Upon presentation, sodium was 131. Past Medical History: COPD, chronic hyponatremia, atrial fibrillation. Past Surgical History: Diagnostic laparoscopy, exploratory laparotomy, adhesiolysis, cholecystectomy . Allergies: PATIENT IS ALLERGIC TO PREDNISONE. Family History: Noncontributory. Review of Systems: Unable to provide. The patient is intubated. Physical Examination: Vital Signs: Temperature 97.6, pulse rate 89, blood pressure 91/61. General: Patient is intubated, looks chronically ill. Neck: Supple. No elevated JVD. Heart: Regular rate and rhythm. Normal S1, S2. Chest: Clear to auscultation bilaterally. No rhonchi or wheezes. Abdomen: Soft and nontender. Extremities: No edema. : The patient has a Lopez catheter. Labs: Sodium 134, potassium 2.8, BUN 16, creatinine 0.7, calcium 7.5, phosphorus 2.1, bilirubin 1.3. Assessment And Plan: 1. History of chronic hyponatremia. Sodium improving. 2. Chronic hypervolemic hyponatremia. Sodium currently improved to 134. Continue Lasix. Potassium replacement to keep potassium more than 3.5. 3. Hypokalemia. Replace as needed. 4. Hypophosphatemia due to the metabolic alkalosis. We will monitor and replace as needed. 5. Acute respiratory failure. Patient currently intubated. Continue Lasix. Monitor volume status, INR. 6. Atrial fibrillation with RVR, on amiodarone. Cardiology consulted. Thanks for allowing me to participate in patient's care. Total time spent 75 minutes including docum entation, reviewing labs, and placing orders. FLORENTINO Voice ID: [id number] Report ID: [id number]
[2024-06-17] MEDS: CISATRACURIUM INJECTION 2 MG/ML (10 ML Vial) IV ONE (18:09)
[2024-06-17] MEDS: METOPROLOL TARTRATE 5 MG/5 ML INJ IV ONE (18:17)
[2024-06-17 18:41] LABS: Absolute Basophils 0.2 K/uL (0-0.5); Absolute Eosinophils 0.1 K/uL (0-0.5); Absolute Lymphocytes (CBC) 1.2 K/uL (0.7-4.9); Absolute Monocytes 0.8 K/uL (0.1-1.3); Absolute Neutrophil 4.3 K/uL (1.8-8.0); Basophils % 2.3 % (0-1.3); Eosinophils % 1.6 % (0-4.4); Hematocrit 34.7 % (39.6-49.0); Hemoglobin 11.7 g/dL (13.6-17.9); Lymphocytes % 18.7 % (15.3-44.8); MCH 30.6 pg (27.0-35.0); MCHC 33.8 g/dL (32.0-36.0); MCV 90.3 fL (80-100); MPV 7.4 fL (7.6-11.3); Monocytes % 12.5 % (3.3-12.3); Neutrophils % 64.9 % (41.7-73.7); Nucleated Red Blood Cells % 0.7 % (0-0); Platelets 160 thou/uL (152-406); RBC Red Blood Cell Count 3.84 M/uL (4.33-5.43); Red Cell Distribution Width 15.2 % (12.1-15.2)
[2024-06-17 18:54] LABS: Albumin 2.1 g/dL (3.4-5.0); Albumin/Globulin Ratio 0.7 (1.1-1.8); Anion Gap 8.5 mEq/L (5.0-15.0); Bilirubin Total 1.2 mg/dL (0.2-1.0); Magnesium 1.9 mg/dL (1.6-2.4); Potassium 3.5 mEq/L (3.5-5.1); Protein, Total 5.1 g/dL (6.4-8.2); Troponin High Sensitivity 18.8 pg/mL (<58.9)
[2024-06-17 18:55] LABS: D-Dimer 1.625 FEUug/mL (0-0.500); PT Prothrombin Time 20.6 SECONDS (10-13.0); PTT, Activated Partial Thromb 32.2 SECONDS (27.2-37.4); Protime INR 1.86
--- NOTE | 2024-06-17 18:57 | RAD REPORT ---
EXAMINATION: ONE VIEW CHEST XR CLINICAL INDICATION: desat TECHNIQUE: Frontal chest projection is submitted. Examination is limited by patient positioning and t echnique. COMPARISON: 06/17/2024 FINDINGS: Tip of the endotracheal tube is above the amaya. Opacity in the left apex appears new since prior st udy, may represent pneumonia or atelectasis. The heart is moderately enlarged in size. Right-sided venous catheters tip in SVC. No pneumothorax. Enteric tube tip is in the stomach.
[2024-06-17] MEDS: ALBUMIN HUMAN 25% 12.5 GM, FUROSEMIDE 100 MG in NA CHLORIDE 0.9% 40 ML IV SCH ×2 (19:00→19:15)
--- NOTE | 2024-06-17 19:02 | CON ---
Date of Consultation: 06/17/2024 Reason For Consultation: Atrial flutter. History Of Present Illness: This is a 73-year-old male who was brought into the emergency room [facility] of significant shortness of breath and altered mental condition and he is known to have chronic co ngestive heart failure, paroxysmal atrial fibrillation, dementia, and significant COPD with chronic r espiratory failure, required intubation and apparently went into atrial fibrillation with a rapid karina tricular response and the current time, I saw him by bedside, heart rate is in the low 90s and blood pressure is borderline and unable to get any information because the patient is sedated and intubated . Past Medical History: As outlined above in the HPI. Medications: Refer reconciliation sheet for detailed list. Allergies: PREDNISONE. Family History: No premature coronary artery disease or cancer. Social History: Does not smoke or drinks heavily. Does not use any drugs. Review of Systems: All systems reviewed and they were negative except as mentioned in the HPI. Physical Examination: Vital Signs: Reviewed. Head and Neck: Pupils are equal, reactive to light. No JVD. No cervical lymphadenopathy. Neck is supple. Lungs: Clear bilaterally. No accessory muscle use or muscle retraction. Heart: Irregularly irregular. No extra sounds. Abdomen: Soft, nontender. Bowel sounds are positive. No organomegaly. No masses or hernia. No ri gidity or rebound. Extremities: No clubbing, cyanosis. Intact pulses. Skin: No rashes. Neurologic: He is sedated on the vent. Lymph Nodes: No cervical or axillary lymphadenopathy. Investigations: BUN 16, creatinine 0.75. Troponin is -15.9. NT-proBNP is 50,050. Hemoglobin is 11 .1. CTA of the chest showed the following: No evidence of pulmonary embolism. There is moderate-to -large right and moderate left pleural effusion, [id number] bilateral pulmonary opacities repre sents pulmonary edema or pneumonia. Assessment And Recommendations: 1. Acute hypoxic respiratory failure, being managed on the ventilator. Definitely, congestive heart failure and pulmonary edema are in the differential diagnosis. Continue Lasix. Monitor BUN, creatin ine, electrolytes, and obtain an echocardiogram. It was not done recently. 2. Also, wide-spectrum antibiotics and vent management as per Pulmonary. 3. Congestive heart failure exacerbation. Agree with Lasix. Cardiac enzymes are negative. Obtain a n echo. 4. Atrial fibrillation, rate is controlled. Recommend to continue with Lovenox and use IV metoprolol for rate control as needed. If the heart rate goes above 100 and sustains, then we will load with a miodarone. Thank you for the consult. /FCO Voice ID: [id number] Report ID: [id number]
--- NOTE | 2024-06-17 19:04 | P.PN ---
DYAN MUSE was called, on my arrival, ROSC had been obtained, patient noted to be in A-fib with RVR. Patient with hypotensive pressures with systolics in the 80s. Heart rates in the 130s to 170s. EKG that read A-fib with conduction aberrancy. Given the tenuous blood pressure and A-fib with RVR, recommended amiodarone as well as increasing pressor management. Patient already intubated, had central line placed as well. Deferred rest of care per primary team. Satish Pickens MD
[2024-06-17] MEDS: Magnesium Sulfate 2gm IVPB 2 G/50 ML BAG IV ONE (19:13)
[2024-06-17] MEDS: AMIODARONE HCL 150 MG in D5W 100 ML IV STA (19:13)
[2024-06-17] MEDS: AMIODARONE HCL 900 MG in Dextrose 5%-Water 482 ML IV SCH (19:13)
[2024-06-17 19:19] LABS: Arterial Blood Carboxyhemoglob 1.2 % (0-1.5); Blood Gas Oxyhemoglobin 89.5 % (94-97); Blood O2 Saturation 91.3 % (92-98.5)
[2024-06-17 19:20] LABS: Blood Gas THB 11.8 g/dl (12-18)
[2024-06-17] MEDS: NA CHLORIDE 0.9% 1,000 ML IV SCH (19:36)
[2024-06-17] MEDS: ALBUMIN HUMAN 25% 200 ML IV ONE (19:36)
[2024-06-17] MEDS ORDERED: FUROSEMIDE 40 MG/4 ML VIAL IV SCH (20:00)
--- NOTE | 2024-06-17 20:12 | P.PN ---
Date of Service: 06/17/24 DYAN MUSE was called on the patient. According to report patient desaturated to about 55% suddenly, ventilator was removed and patient bagged. Patient heart rate also dropped and became pulseless. ACLS carried out, patient given a dose of epinephrine with ROSC. Patient has been on Levophed drip His blood pressure was profoundly low, along with SVT which appeared to be SVT with aberrant conduction. site monitor also showed ventricular tachycardia. Patient given a total of 300 mg IV amiodarone bolus. IV Phenylephrine drip added to Levophed drip to improve blood pressure. Patient received a couple of doses of IV bicarb. Patient heart rate and blood pressure eventually improved with these measures at which point patient was noted to have some spontaneous breathing. He remains in A-fib with aberrant ventricular conduction Patient's spouse updated on patient current clinical condition. His prognosis is poor, given second event within 24 hours. I discussed DNR with the . would like to discuss patient condition with patient's son before making a decision on DNR. also plans to bring patient's living will with her tonight to discuss goals of care with the on-call physician. Repeat chest x-ray shows left upper lobe opacities suggestive of infiltrate versus atelectasis Continue Levophed and phenylephrine drip Amiodarone drip IV antibiotics changed to IV meropenem and vancomycin. Vent management settings adjusted with increased PEEP, tidal volume. Patient currently needing 100% FiO2. Prognosis guarded. Critical care time spent managing patient hypoxia, pulseless electrical activity, pneumonia, atelectasis, ventricular tachycardia is about 78 minutes.
[2024-06-17 23:17] LABS: Sqamous Epithelial <5 /HPF (None Seen); Urine Bacteria <20 /HPF (<20); Urine Crystals Unidentified Few /HPF (None Seen); Urine Culture Reflex Order REFLEXED; Urine Micro Reflex YN NO BILL MICROSCOPIC; Urine Mucus 2+ /HPF (None Seen); Urine RBC 21-50 /HPF (None Seen); Urine WBC 20-50 /HPF (<5)
[2024-06-17] MEDS: Phenylephrine HCl 10 MG/ML 1 ML VIAL ONE (23:23)
[2024-06-17] MEDS: D5W 250 ML IV ONE (23:24)
[2024-06-18] MEDS: Meropenem 1,000 MG in NA CHLORIDE 0.9% 100 ML IV SCH (00:23)
[2024-06-18] MEDS: Phenylephrine HCl 10 MG/ML 1 ML VIAL ONE (04:50)
[2024-06-18] MEDS: D5W 250 ML IV ONE (04:50)
[2024-06-18 05:52] LABS: Absolute Lymphocytes (CBC) 0.2 K/uL (0.7-4.9); Absolute Monocytes 0.9 K/uL (0.1-1.3); Absolute Neutrophil 10.6 K/uL (1.8-8.0); Basophils % 0.1 % (0-1.3); Eosinophils % 0.1 % (0-4.4); Hematocrit 29.5 % (39.6-49.0); Hemoglobin 10.1 g/dL (13.6-17.9); MCH 30.3 pg (27.0-35.0); MCHC 34.1 g/dL (32.0-36.0); MCV 88.8 fL (80-100); Monocytes % 7.8 % (3.3-12.3); Platelets 136 thou/uL (152-406); RBC Red Blood Cell Count 3.32 M/uL (4.33-5.43); Red Cell Distribution Width 15.1 % (12.1-15.2)
[2024-06-18 06:23] LABS: Anion Gap 9.7 mEq/L (5.0-15.0); Magnesium 2.1 mg/dL (1.6-2.4); Phosphorus 3.2 mg/dL (2.5-4.9); Potassium 2.7 mEq/L (3.5-5.1)
[2024-06-18] MEDS: FENTANYL CITR 100 MCG/2 ML IV PRN (07:52)
[2024-06-18] MEDS: KCL 20 MEQ/100 mL IVPB 20 MEQ/100 ML BAG IV SCH ×2 (07:56→18:30)
[2024-06-18 08:44] LABS: Differential Total Cells Count 100
[2024-06-18 08:45] LABS: Band Neutrophils 1 % (0-1); Blood Morphology Comment NOTED (NOT SEEN); Lymphocytes 1 % (15-42); Metamyelocytes 2 % (0-0); Monocytes 7 % (0-10); Platelet Estimate DECR; Segmented Neutrophils 89 % (40-80)
--- NOTE | 2024-06-18 10:34 | P.PN ---
Subjective Date of Service: 06/18/24 Chief Complaint: Respiratory failure Patient's condition worsened yesterday evening was difficult to ventilate needed to be bagged currently he was then stabilized on a Lasix drip with vasopressors and amiodarone patient is currently responsive on a ventilator more stable overnight Review of Systems is unable to be obtained Physical Examination - Vital Signs Temperature: 97.7 F Blood Pressure: 134/79 Pulse: 85 Respirations: 16 Pulse Ox (%): 100 - Physical Exam General: Alert Respiratory: Clear to auscultation bilaterally, Diminished Cardiovascular: Regular rate/rhythm, Normal S1 S2, Edema Gastrointestinal: Normal bowel sounds Musculoskeletal: Other (Mottled feet particularly the right side) Assessment And Plan - Current Problems (Diagnosis) (1) CHF (congestive heart failure) Current Visit: No Status: Acute Plan: Patient developed respiratory failure is currently on a ventilator presumably has underlying severe CHF was started on vasopressors and Lasix drip seems to have stabilized wean off Jayro-Synephrine use Levophed repeat chest x-ray is pending at upper lobe infiltrate patient is on amiodarone has A-fib very hypokalemia continue with aggressive potassium replacement DC normal saline DC albuterol another dose of potassium repeat chest x-ray pending Vent settings reviewed PEEP of 7 FiO2 45% 100% saturation is on Precedex Qualifiers: Heart failure type: unspecified Heart failure chronicity: acute on chronic Qualified Code(s): I50.9 - Heart failure, unspecified
[2024-06-18] MEDS: POTASSIUM 25 MEQ EFFERV TAB PO ONE (10:38)
--- NOTE | 2024-06-18 12:42 | PN ---
Date of Progress Note: 06/18/2024 Subjective: The patient was admitted to the hospital with AFib with RVR, hyponatremia. The patient apparently yesterday had coded with AFib and RVR. The patient had multiple episode of hypoxemia. Physical Examination: Vital Signs: Blood pressure 134/79, pulse of 85, afebrile. The patient had good urine output of 2600, patient negative of 1900. The patient on Lasix drip. Chest: Crackles, bilateral. Heart: S1, S2. Tachycardic. Regular. Abdomen: Soft, nontender. Extremities: Plus edema. Neurologic: The patient on vent, sedated. Laboratory Data: WBC 11.7, hemoglobin 10.1, sodium 135, potassium 2.7, bicarb 36, BUN 17, creatinine 1.2, marginally elevated compared to his baseline. GFR of 63, calcium 7, phosphorus 3.2, magnesium 2.1, albumin 2.1, corrected calcium 8.6. Current Medications: The patient on Lasix drip 20 mg per hour, meropenem, vancomycin, Lovenox, amiodarone, Keppra, KCl. Imaging: Chest x-ray: Cardiomegaly with congestion. CT angio negative for PE. Right pleural effusion, left pleural effusion, bilateral pulmonary opacity, questionable pneumonia. Assessment And Plan: 1. Acute kidney injury, possible secondary to contrast-induced nephropathy, nonoliguric. No hyperkalemia or acidosis. Still the patient on overvolume, but has severe polyuria, post ATN. I am going to go ahead and decrease the Lasix to 10 mg per hour to avoid hypovolemia and we will monitor the patient closely. 2. Hyponatremia, dilutional, but sodium is trending up. I am going to go ahead and continue on the Lasix. Continue fluid restriction. We will monitor the patient. 3. Hypokalemia. Continue aggressive supplement. We will follow up. 4. Respiratory failure, multifactorial, secondary to overvolume. We will continue on the diuresis. Decrease Lasix to 10 mg per hour. Consider thoracocentesis given the large pleural effusion. I agree with current antibiotic as healthcare associated pneumonia and we will follow up response. 5. Congestive heart failure with exacerbation. We will try to optimize the fluid status for the patient. Continue diuresis. Follow up with Cardiology. 6. Atrial fibrillation with RVR, as by Cardiology. time spent examining the patient [id number] reviewing data lab and the radiology placing order discussing the case with the patient discussing the case with the support team member including hospitalist and nursing staff more than 55-minute BASILIO Voice ID: [id number] Report ID: [id number] HANH
[2024-06-18] MEDS ORDERED: SODIUM CHLORIDE 0.9% 10ML INJ IV PRN (12:45)
[2024-06-18] MEDS: ALBUMIN HUMAN 25% 12.5 GM, FUROSEMIDE 100 MG in NA CHLORIDE 0.9% 40 ML IV SCH (13:00)
--- NOTE | 2024-06-18 14:30 | P.PN ---
Subjective Date of Service: 06/18/24 Chief Complaint: Respiratory failure Patient remain on Levophed. FiO2 weaned down to 45% and patient' saturating at 100%. No recorded fever. Heart rate controlled on amiodarone drip. Physical Examination - Vital Signs Temperature: 98.0 F Blood Pressure: 115/57 Pulse: 83 Respirations: 16 Pulse Ox (%): 100 Assessment And Plan - Current Problems (Diagnosis) (1) Acute metabolic encephalopathy Current Visit: Yes Status: Acute (2) Acute respiratory failure Current Visit: No Status: Acute Qualifiers: Respiratory failure complication: hypoxia Qualified Code(s): J96.01 - Acute respiratory failure with hypoxia (3) Atrial flutter with rapid ventricular response Current Visit: Yes Status: Acute (4) Acute on chronic combined systolic and diastolic heart failure Current Visit: No Status: Acute (5) Hyponatremia Onset Date: 11/17/17 Current Visit: No Status: Resolved - Plan Physical examination General: Sedated and on mechanical ventilation. HEENT: ET tube in place. Neck: Supple, no elevated JVD Heart: Heart sounds 1 and 2 normal, irregular rhythm, normal rate, no pedal edema Lungs: Bilateral upper airway transmitted sounds, adequate breath sounds bilaterally, bilateral crackles. Abdomen: Soft, nondistended, nontender, normal bowel sounds. Extremities: No tenderness, no deformity Skin: Normal skin turgor, mottling of skin bilateral legs and feet. Neuro: Unresponsive, patient is on sedation, he withdraws all extremities to pain Psychiatry: Intermittent agitation. Plan: AMS Acute metabolic encephalopathy Seizure not ruled out due to sudden onset decreased responsiveness. Patient is intubated on mechanical ventilation. Head CT does not show any acute disease. Continue empiric Keppra Patient is on sedation Acute respiratory failure with hypoxia Acute on chronic systolic and diastolic heart failure Bilateral pleural effusion Patient intubated on mechanical ventilation. ICU event protocol initiated. Pulmonary Dr. Padilla input appreciated. Continue aggressive IV Lasix Monitor intake and output. Serial chest x-ray to monitor pleural effusion for need for thoracentesis. Pneumonia Chest CT is showing bilateral infiltrates. Continue IV cefepime and vancomycin. Follow blood cultures. Sputum culture is pending. Atrial flutter with rapid ventricular rate I do not suspect allergy to amiodarone since patient has been on chronic amiodarone therapy. Heart is currently rate controlled Cardiology consulted Full dose Lovenox. Hyponatremia Hypokalemia Sodium level has been stable. Hyponatremia suspected to be multifactorial secondary to renal depletion and SIADH. Replace potassium as needed. Monitor BMP. Nephrology consulted 06/18 Status post PEA with CPR performed. Blood pressure improved. Patient initially on 2 vasopressors-Levophed and norepinephrine. Blood pressure stable on Levophed drip. Heart rate controlled with amiodarone drip. Patient's saturation is 100% on the vent with FiO2 45%. I met with patient's son who stated patient does not want prolonged life support and family is considering withdrawal of care. Case discussed with pulm, will assess patient's level of dependence on the vent with SIMV. Further discussions regarding withdrawal of care after SIMV trial. Continue IV antibiotics for pneumonia. Continue full dose Lovenox for history of atrial thrombosis atrial fibrillation. Cardiology, pulmonary and nephrology input appreciated. DVT prophylaxis: Lovenox Advanced directive: Full code
[2024-06-19 06:06] LABS: Absolute Eosinophils 0.4 K/uL (0-0.5); Absolute Lymphocytes (CBC) 0.3 K/uL (0.7-4.9); Absolute Monocytes 0.5 K/uL (0.1-1.3); Basophils % 0.2 % (0-1.3); Eosinophils % 3.2 % (0-4.4); Hematocrit 28.3 % (39.6-49.0); Hemoglobin 9.6 g/dL (13.6-17.9); MCH 30.1 pg (27.0-35.0); MCHC 34.1 g/dL (32.0-36.0); MCV 88.2 fL (80-100); MPV 8.2 fL (7.6-11.3); Monocytes % 4.8 % (3.3-12.3); Neutrophils % 88.8 % (41.7-73.7); Nucleated Red Blood Cells % 0.1 % (0-0); Platelets 128 thou/uL (152-406); RBC Red Blood Cell Count 3.21 M/uL (4.33-5.43); Red Cell Distribution Width 15.2 % (12.1-15.2)
[2024-06-19 06:30] LABS: Anion Gap 9.9 mEq/L (5.0-15.0); Potassium 2.9 mEq/L (3.5-5.1)
[2024-06-19] MEDS: KCL 20 MEQ/100 mL IVPB 20 MEQ/100 ML BAG IV SCH ×2 (07:17→13:32)
[2024-06-19] MEDS: PANTOPRAZOLE 40 MG INJ IVP SCH (08:37)
[2024-06-19] MEDS: ALBUMIN HUMAN 25% 100 ML IV ONE (09:59)
[2024-06-19] MEDS: ALBUMIN HUMAN 25% 100 ML IV SCH (10:09)
--- NOTE | 2024-06-19 14:11 | P.PN ---
Subjective Date of Service: 06/19/24 Chief Complaint: Respiratory failure Patient remain on Levophed. FiO2 weaned down to 30% and patient' saturating at 100%. Patient tolerating spontaneous breathing trial No recorded fever. Heart rate controlled on amiodarone drip. Significant urine output with Lasix drip past [address] Don blood aspirated from the NG tube. Physical Examination - Vital Signs Temperature: 97.8 F Blood Pressure: 100/66 Pulse: 110 Respirations: 27 Pulse Ox (%): 100 Assessment And Plan - Current Problems (Diagnosis) (1) Acute metabolic encephalopathy Current Visit: Yes Status: Acute (2) Acute respiratory failure Current Visit: No Status: Acute Qualifiers: Respiratory failure complication: hypoxia Qualified Code(s): J96.01 - Acute respiratory failure with hypoxia (3) Atrial flutter with rapid ventricular response Current Visit: Yes Status: Acute (4) Acute on chronic combined systolic and diastolic heart failure Current Visit: No Status: Acute (5) Hyponatremia Onset Date: 11/17/17 Current Visit: No Status: Resolved - Plan Physical examination General: Sedated and on mechanical ventilation. HEENT: ET tube in place. Neck: Supple, no elevated JVD Heart: Heart sounds 1 and 2 normal, irregular rhythm, normal rate, no pedal edema Lungs: Bilateral upper airway transmitted sounds, adequate breath sounds bilaterally. Abdomen: Soft, nondistended, nontender, normal bowel sounds. Extremities: No tenderness, no deformity Skin: Normal skin turgor, mottling of skin bilateral legs and feet. Neuro: Unresponsive, patient is on sedation, he obeys simple instructions. Psychiatry: Sedated. Plan: AMS Acute metabolic encephalopathy Seizure not ruled out due to sudden onset decreased responsiveness. Patient is intubated on mechanical ventilation. Head CT does not show any acute disease. Continue empiric Keppra Patient is on sedation Acute respiratory failure with hypoxia Acute on chronic systolic and diastolic heart failure Bilateral pleural effusion Patient intubated on mechanical ventilation. ICU event protocol initiated. Pulmonary Dr. Padilla input appreciated. Continue aggressive IV Lasix Monitor intake and output. Serial chest x-ray to monitor pleural effusion for need for thoracentesis. Pneumonia Chest CT is showing bilateral infiltrates. Continue IV cefepime and vancomycin. Follow blood cultures. Sputum culture is pending. Atrial flutter with rapid ventricular rate I do not suspect allergy to amiodarone since patient has been on chronic amiodarone therapy. Heart is currently rate controlled Cardiology consulted Full dose Lovenox. Hyponatremia Hypokalemia Sodium level has been stable. Hyponatremia suspected to be multifactorial secondary to renal depletion and SIADH. Replace potassium as needed. Monitor BMP. Nephrology consulted 06/18 Status post PEA with CPR performed. Blood pressure improved. Patient initially on 2 vasopressors-Levophed and norepinephrine. Blood pressure stable on Levophed drip. Heart rate controlled with amiodarone drip. Patient's saturation is 100% on the vent with FiO2 45%. I met with patient's son who stated patient does not want prolonged life support and family is considering withdrawal of care. Case discussed with pulm, will assess patient's level of dependence on the vent with SIMV. Further discussions regarding withdrawal of care after SIMV trial. Continue IV antibiotics for pneumonia. Continue full dose Lovenox for history of atrial thrombosis atrial fibrillation. Cardiology, pulmonary and nephrology input appreciated. 06/19 Patient is tolerating spontaneous breathing trial. I had a long discussion with family-patient's son and and they are leaning towards keeping patient comfortable and waking forward to patient being extubated. MPOA-patient's made patient DNR and DNI Patient extubated to high flow oxygen currently tolerating 10 L. Patient is significantly diuresis with the Lasix drip. Lasix drip discontinued. Patient giving albumin infusions. Wean off Levophed as tolerated. Continue antibiotics. Hold Lovenox given GI bleed. Monitor patient's clinical course. Ongoing discussions regarding goals of care. Family is considering hospice. DVT prophylaxis: Lovenox Advanced directive: Full code
--- NOTE | 2024-06-19 14:33 | PN ---
Date of Progress Note: 06/19/2024 Subjective: The patient was admitted to the hospital with respiratory failure, AFib with RVR. The p atient had chronic hyponatremia. The patient has congestive heart failure. The patient was diuresed aggressively. Physical Examination: Vital Signs: Blood pressure of 112/61, pulse of 79, afebrile. The patient had urine output of 7400. Chest: Crackles more prominent left side. Heart: S1, S2. Systolic murmur. Irregular. Abdomen: Soft, nontender. Extremities: Trace edema. Neuro: The patient on vent. Laboratory Data: WBC 11.3, hemoglobin 9.6, sodium 133, potassium 2.9, bicarb 33, BUN 21, creatinine 1.7, calcium 7.5, phosphorus 3.2, magnesium 2.1. Current Medications: The patient on Lasix drip, meropenem, vancomycin, Keppra, breathing treatment, pantoprazole. Assessment And Plan: 1. Acute kidney injury secondary to cardiorenal, poor perfusion, ATN, low blood pressure. The patien t had significant urine output. I am going to go ahead and get chest x-ray for better evaluation of the fluid status. We will hold on the Lasix drip for the time being and we will follow up. 2. Hyponatremia, dilutional, secondary to congestive heart failure, recovered, resolved. Discontinue Lasix. 3. Hypokalemia. We will supplement of total of 100, and we will repeat level. 4. Respiratory failure, multifactorial secondary to cardiorenal syndrome/aspiration pneumonia. Marcy nue current antibiotic. We will repeat chest x-ray. Hold the Lasix. Patient overall poor prognosis. Had long discussion by the hospitalist with the family. He passed w eaning test, going to be extubated, and placed on BiPAP, possible hospice. We will follow up accordingly. TONIO/FCO Voice ID: [id number] Report ID: [id number]
--- NOTE | 2024-06-19 14:59 | RAD REPORT ---
EXAMINATION: ONE VIEW CHEST XR CLINICAL INDICATION: Male, 73 years old.,COPD TECHNIQUE: Frontal chest projection is submitted. Examination is limited by patient positioning and t echnique. COMPARISON: 06/17/2024 FINDINGS: Progressive central interstitial prominence and bibasilar hazy opacities, worsened at the bilateral l chanda bases. Opacity at the left apex shows improved aeration. Endotracheal tube, right IJ CVC, and enteric tube appear unchanged in location. No pneumothorax. Stable to mildly progressive cardiomegaly . Mediastinal contours are unremarkable. IMPRESSION: Worsened central and bibasilar opacities and interstitial thickening, may reflect worsening edema.
[2024-06-19] MEDS: FENTANYL CITR 100 MCG/2 ML IV PRN (18:32)
[2024-06-19] MEDS ORDERED: ALBUMIN HUMAN 25% 12.5 GM, FUROSEMIDE 100 MG in NA CHLORIDE 0.9% 40 ML IV SCH (19:00)
[2024-06-19] MEDS: METOPROLOL TARTRATE 5 MG/5 ML INJ IV STA (21:59)
[2024-06-19] MEDS: KCL 20 MEQ/100 mL IVPB 20 MEQ/100 ML BAG IV ONE (23:51)
[2024-06-19] MEDS: FENTANYL CITR 100 MCG/2 ML IV ONE (23:52)
[2024-06-20] MEDS: IPRATROPIUM BROM 0.5MG/2.5ML NEB PRN (02:00)
[2024-06-20] MEDS ORDERED: METOPROLOL TARTRATE 5 MG/5 ML INJ IV PRN (02:04)
[2024-06-20] MEDS: METOPROLOL TARTRATE 5 MG/5 ML INJ IV PRN (02:11)
[2024-06-20 05:34] LABS: Absolute Eosinophils 0.1 K/uL (0-0.5); Absolute Lymphocytes (CBC) 0.2 K/uL (0.7-4.9); Absolute Monocytes 0.6 K/uL (0.1-1.3); Absolute Neutrophil 9.1 K/uL (1.8-8.0); Basophils % 0.4 % (0-1.3); Eosinophils % 0.7 % (0-4.4); Hematocrit 28.2 % (39.6-49.0); Hemoglobin 9.8 g/dL (13.6-17.9); Lymphocytes % 1.6 % (15.3-44.8); MCH 30.8 pg (27.0-35.0); MCHC 34.5 g/dL (32.0-36.0); MCV 89.3 fL (80-100); MPV 8.6 fL (7.6-11.3); Monocytes % 6.3 % (3.3-12.3); Platelets 115 thou/uL (152-406); RBC Red Blood Cell Count 3.16 M/uL (4.33-5.43); Red Cell Distribution Width 15.3 % (12.1-15.2)
[2024-06-20 05:48] LABS: Albumin 2.8 g/dL (3.4-5.0); Anion Gap 8.1 mEq/L (5.0-15.0); Potassium 4.1 mEq/L (3.5-5.1)
--- NOTE | 2024-06-20 06:13 | RAD REPORT ---
EXAM DESCRIPTION: Chest Single View CLINICAL HISTORY: tachyepnea, o2 desaturation on bipap COMPARISON: 06/19/2024 FINDINGS: 1 view(s) of the chest. Tubes and lines: Right IJ central venous catheter with tip in the SVC. Leads overlie the chest. Cardiomediastinal silhouette: Stable. Lungs: Diffuse bilateral interstitial and airspace opacities. Moderate pleural effusions. No pneumoth orax. Bones: Stable. Upper abdomen: Stable. IMPRESSION: Pulmonary edema pattern with bilateral pleural effusions, by report relatively stable to mildly incre ased. Electronically signed by: Constantine Abraham DO 06/20/2024 04:35 AM CDT RP [id number] Due to temporary technical issues with the PACS/Nano [employer] reporting system, reports are being al d by the in-house radiologist without review as a courtesy to ensure prompt reporting the interpreting radiologist is fully responsible for the content of the report. Transcribed Date/Time: 06/20/2024 6:13 AM
[2024-06-20 06:25] VITALS: BMI 23.8
[2024-06-20 08:52] VITALS: O2SAT 100
[2024-06-20] MEDS: VANCOMYCIN 1 GM in NA CHLORIDE 0.9% 250 ML IVPB SCH (09:00)
[2024-06-20] MEDS: Meropenem 1,000 MG in NA CHLORIDE 0.9% 100 ML IV SCH (10:21)
--- NOTE | 2024-06-20 11:12 | P.PN ---
Subjective Date of Service: 06/20/24 Chief Complaint: Respiratory failure Subjective: No new changes Review of Systems is unable to be obtained (patient is altered on BiPAP machine) Physical Examination - Vital Signs Temperature: 99.8 F Blood Pressure: 97/71 Pulse: 109 Respirations: 29 Pulse Ox (%): 100 - Physical Exam General: Moderate distress, Other (altered on BiPAP) HEENT: Atraumatic, PERRLA, EOMI Neck: Supple, JVD not distended Respiratory: Clear to auscultation bilaterally, Normal air movement Cardiovascular: Regular rate/rhythm, Normal S1 S2 Gastrointestinal: Normal bowel sounds, No tenderness Musculoskeletal: No tenderness Integumentary: No rashes Neurological: Normal speech, Normal tone, Normal affect Lymphatics: No axilla or inguinal lymphadenopathy - Studies Medications List Reviewed: Yes Assessment And Plan - Current Problems (Diagnosis) (1) Atrial flutter with rapid ventricular response Current Visit: Yes Status: Acute Plan: rate is better controlled, continue amiodarone drip for now and PRN lopressor, patient is not taking oral medications due to altered mental status can not be palced on anticoagulation due blood in NG tube. (2) Acute on chronic combined systolic and diastolic heart failure Current Visit: No Status: Acute Plan: kidney function is owrsening, lasix is on hold, would recommend to continue diuresis if OK with Nephrology team.
--- NOTE | 2024-06-20 12:13 | EKG ---
Test Date: 2024-06-16 Test Time: 14:13:05 [employer] Scoreboard Operator: Keven VALENZUELA MEASUREMENT RESULTS: Intervals: Rate: 104 DE: QRSD: 94 QT: 434 QTc: 570 Kal[place]: P: DE: QRS: 46 T: 108 INTERPRETIVE STATEMENTS: Atrial flutter with variable AV block with premature ventricular or aberrantly conducted complexes Septal infarct, age undetermined Prolonged QT Consider right ventricular involvement in acute inferior infarct Abnormal ECG Compared to ECG 06/07/2024 14:49:02 Ventricular premature complex(es) now present Myocardial infarct finding now present Prolonged QT interval now present Atrial fibrillation no longer present Intraventricular conduction delay no longer present ST (T wave) deviation no longer present Electronically Signed On 06-20-24 12:04:44 CDT by John Weir
--- NOTE | 2024-06-20 12:52 | P.PN ---
Subjective Date of Service: 06/20/24 Chief Complaint: Respiratory failure Patient was extubated yesterday on BiPAP still very tachypneic and anxious Review of Systems is unable to be obtained Physical Examination - Vital Signs Temperature: 99.8 F Blood Pressure: 97/71 Pulse: 109 Respirations: 29 Pulse Ox (%): 100 - Physical Exam General: Unresponsive Respiratory: Clear to auscultation bilaterally, Diminished Cardiovascular: Regular rate/rhythm, Edema - Studies Medications List Reviewed: Yes Assessment And Plan - Current Problems (Diagnosis) (1) CHF (congestive heart failure) Current Visit: No Status: Acute Plan: Patient admitted with congestive heart failure respiratory failure he was extubated yesterday nor was signed is currently on BiPAP MRSA isolated in the sputum Lasix is on hold due to worsening of his kidney function slightly low blood pressure chest x-ray still shows bilateral pleural effusion patient's right upper lobe infiltrate has improved gnosis is overall poor some sedation 700% on 70% FiO2 oxygen can be weaned prognosis poor Qualifiers: Heart failure type: unspecified Heart failure chronicity: acute on chronic Qualified Code(s): I50.9 - Heart failure, unspecified
--- NOTE | 2024-06-20 13:29 | P.PN ---
Subjective Date of Service: 06/20/24 Chief Complaint: Respiratory failure Patient is verbal but confused. He is dependent on the BiPAP, FiO2 increased to 70%. No recorded fever. Physical Examination - Vital Signs Temperature: 99.8 F Blood Pressure: 97/71 Pulse: 109 Respirations: 29 Pulse Ox (%): 100 - Studies Medications List Reviewed: Yes Assessment And Plan - Current Problems (Diagnosis) (1) Acute metabolic encephalopathy Current Visit: Yes Status: Acute (2) Acute respiratory failure Current Visit: No Status: Acute Qualifiers: Respiratory failure complication: hypoxia Qualified Code(s): J96.01 - Acute respiratory failure with hypoxia (3) Atrial flutter with rapid ventricular response Current Visit: Yes Status: Acute (4) Acute on chronic combined systolic and diastolic heart failure Current Visit: No Status: Acute (5) Hyponatremia Onset Date: 11/17/17 Current Visit: No Status: Resolved - Plan Physical examination General: Confused, mild to moderate distress. HEENT: BiPAP in place Neck: Supple, elevated JVD Heart: Heart sounds 1 and 2 normal, irregular rhythm, normal rate, no pedal edema Lungs: Bilateral crackles, adequate breath sounds bilaterally. Abdomen: Soft, nondistended, nontender, normal bowel sounds. Extremities: No tenderness, no deformity Skin: Normal skin turgor, mottling of skin bilateral legs and feet. Neuro: Confused, responds verbally. Psychiatry: Confused. Plan: AMS Acute metabolic encephalopathy Seizure not ruled out due to sudden onset decreased responsiveness. Patient is intubated on mechanical ventilation. Head CT does not show any acute disease. Continue empiric Keppra Patient is on sedation Acute respiratory failure with hypoxia Acute on chronic systolic and diastolic heart failure Bilateral pleural effusion Patient intubated on mechanical ventilation. ICU event protocol initiated. Pulmonary Dr. Padilla input appreciated. Continue aggressive IV Lasix Monitor intake and output. Serial chest x-ray to monitor pleural effusion for need for thoracentesis. Pneumonia Chest CT is showing bilateral infiltrates. Continue IV cefepime and vancomycin. Follow blood cultures. Sputum culture is pending. Atrial flutter with rapid ventricular rate I do not suspect allergy to amiodarone since patient has been on chronic amiodarone therapy. Heart is currently rate controlled Cardiology consulted Full dose Lovenox. Hyponatremia Hypokalemia Sodium level has been stable. Hyponatremia suspected to be multifactorial secondary to renal depletion and SIADH. Replace potassium as needed. Monitor BMP. Nephrology consulted 06/18 Status post PEA with CPR performed. Blood pressure improved. Patient initially on 2 vasopressors-Levophed and norepinephrine. Blood pressure stable on Levophed drip. Heart rate controlled with amiodarone drip. Patient's saturation is 100% on the vent with FiO2 45%. I met with patient's son who stated patient does not want prolonged life support and family is considering withdrawal of care. Case discussed with pulm, will assess patient's level of dependence on the vent with SIMV. Further discussions regarding withdrawal of care after SIMV trial. Continue IV antibiotics for pneumonia. Continue full dose Lovenox for history of atrial thrombosis atrial fibrillation. Cardiology, pulmonary and nephrology input appreciated. 06/19 Patient is tolerating spontaneous breathing trial. I had a long discussion with family-patient's son and and they are leaning towards keeping patient comfortable and waking forward to patient being extubated. MPOA-patient's made patient DNR and DNI Patient extubated to high flow oxygen currently tolerating 10 L. Patient is significantly diuresis with the Lasix drip. Lasix drip discontinued. Patient giving albumin infusions. Wean off Levophed as tolerated. Continue antibiotics. Hold Lovenox given GI bleed. Monitor patient's clinical course. Ongoing discussions regarding goals of care. Family is considering hospice. 06/20 Had a conversation with patient's MPOA-, Jagruti Albright who is opting for comfort measures and stated this is in line with patient wishes. Patient consulted poor prognosis. His pleural effusion and respiratory status has not responded to treatment since admission. He is currently BiPAP dependent and has not tolerated high flow oxygen by nasal cannula. Patient remained on Levophed. Status post cardiac arrest/PEA with CPR performed. History of advanced dementia, currently confused without sedation. Bob would like to wait for patient's son Paul Albright to arrive to initiate comfort measures. Social service consult for inpatient hospice.
[2024-06-20] MEDS: MORPHINE 4 MG/ML SYR IV ONE (16:25)
[2024-06-20 18:03] VITALS: TEMP 98.7
[2024-06-20 19:17] VITALS: BP 124/83
--- NOTE | 2024-06-20 20:10 | P.DS ---
Admission Date: 06/16/24 Discharge Date: 06/20/24 Disposition: HOSPICE-MEDICAL FACILITY Discharge Condition: CRITICAL Reason for Admission: Respiratory failure - Problems (1) Acute metabolic encephalopathy Status: Acute (2) Acute respiratory failure Status: Acute Qualifiers: Respiratory failure complication: hypoxia Qualified Code(s): J96.01 - Acute respiratory failure with hypoxia (3) Atrial flutter with rapid ventricular response Status: Acute (4) Acute on chronic combined systolic and diastolic heart failure Status: Acute (5) Hyponatremia Onset Date: 11/17/17 Status: Resolved Brief History of Present Illness: 73-year-old gentleman with a history of chronic systolic heart failure, paroxysmal atrial fibrillation on chronic anticoagulation, dementia, chronic respiratory failure on home oxygen, COPD recently hospitalized and treated for severe hyponatremia and UTI, and discharged yesterday return to the ED with a c omplaint of progressive shortness of breath. Patient was evaluated in the ED and noted to have rapid atrial flutter. According to report, patient was initially interactive but suddenly became unresponsive, contracted his right upper extremity, became hypoxic, SaO2 fell to the 50s, became cyanotic after amiodarone drip was started. Patient was quickly intubated and placed on mechanical ventilation. Head CT is negative for acute disease, no acute infarct or bleed. CTA chest demonstrated bilateral pleural effusion and bilateral pulmonary opacities, no evidence of PE. Hospitalist service contacted to admit patient for further management. Patient was sedated and on mechanical ventilation examination. Hospital Course: Patient admitted to the medical floor and the following medical problems addressed: AMS Acute metabolic encephalopathy Seizure not ruled out due to sudden onset decreased responsiveness. Patient is intubated on mechanical ventilation. Head CT did not show any acute disease. Patient was on empiric Keppra Acute respiratory failure with hypoxia Acute on chronic systolic and diastolic heart failure Bilateral pleural effusion Patient intubated on mechanical ventilation. ICU event protocol initiated. Pulmonary Dr. Padilla evaluated patient and assisted with management He was treated aggressively with IV Lasix, at the point patient was on Lasix drip and has significant urine output, however patient pulmonary edema and bilateral pleural effusion did not respond to diuresis. Pneumonia Chest CT is showed bilateral infiltrates. Patient treated with IV cefepime and vancomycin. Blood cultures yielded no growth. Sputum culture was positive for MRSA. Atrial flutter with rapid ventricular rate Left atrial thrombus This was treated with amiodarone drip Cardiology evaluated patient and assisted with management Patient was on full dose Lovenox for A-fib and left atrial thrombus. Patient had coffee-ground NG tube aspirate concerning for GI bleed so anticoagulation was discontinued Hyponatremia Hypokalemia Sodium level was stable Hyponatremia suspected to be multifactorial secondary to renal depletion and SIADH. Nephrology evaluated patient and assisted with management. Patient developed PEA and CPR performed with return of ROSC Patient initially required 2 vasopressors. Phenylephrine drip was weaned off and patient kept on Levophed drip. Patient extubated per family request, initially was tolerating oxygen by nasal cannula but later became BiPAP dependent. I met with patient's son who stated patient does not want prolonged life support. Patient initially made DNR and DNI. Patient MPOA- Jagruti Garcia requested for comfort measures. Hospice service consulted, patient discharged to hospice for comfort measures. Vital Signs/Physical Exam: Temp Pulse Resp BP Pulse Ox 98.7 F 94 H 23 H 124/83 99 06/20/24 16:00 06/20/24 19:00 06/20/24 19:00 06/20/24 19:00 06/20/24 19:00 Laboratory Data at Discharge: WBC 10.00 thou/uL (4.3-10.9) 06/20/24 05:15 Hgb 9.8 g/dL (13.6-17.9) L 06/20/24 05:15 Hct 28.2 % (39.6-49.0) L 06/20/24 05:15 Plt Count 115 thou/uL (152-406) L 06/20/24 05:15 PT 20.6 SECONDS (10-13.0) H 06/17/24 18:22 INR 1.86 06/17/24 18:22 APTT 32.2 SECONDS (27.2-37.4) 06/17/24 18:22 Sodium 135 mEq/L (136-145) L 06/20/24 05:15 Potassium 4.1 mEq/L (3.5-5.1) 06/20/24 05:15 BUN 28 mg/dL (7-18) H 06/20/24 05:15 Creatinine 2.32 mg/dL (0.70-1.30) H 06/20/24 05:15 Glucose 80 mg/dL (74-106) 06/20/24 05:15 Phosphorus 3.0 mg/dL (2.5-4.9) 06/20/24 05:15 Magnesium 2.1 mg/dL (1.6-2.4) 06/18/24 05:05 Total Bilirubin 1.2 mg/dL (0.2-1.0) H 06/17/24 18:22 AST 79 U/L (15-37) H 06/17/24 18:22 ALT 68 U/L (16-61) H 06/17/24 18:22 Alkaline Phosphatase 89 U/L (45-117) D 06/17/24 18:22 Home Medications: Citalopram [Celexa*] 20 mg PO DAILY 06/02/23 Budesonide/Formoterol Fumarate [Symbicort 160-4.5 Mcg Inhaler] 2 puff IH DAILY PRN 10/29/23 Tamsulosin [Flomax*] 0.4 mg PO DAILY 10/29/23 dexAMETHasone [Dexamethasone] 1 mg PO DAILY PRN 10/29/23 Albuterol Inhaler [Ventolin Inhaler*] 2 puff IH Q4H PRN #1 inh 11/03/23 ALPRAZolam [Xanax*] 0.5 mg PO BID PRN 05/13/24 Fluticasone/Umeclidin/Vilanter [Trelegy Ellipta 200-62.5-25] 1 puff IH DAILY 05/13/24 Vitamin B Complex 1 tab PO SEECOM 05/13/24 traMADol HCL [Ultram*] 1 tab PO BIDP PRN 05/13/24 Amiodarone HCl [Cordarone*] 200 mg PO BID #60 tab 05/17/24 Cefpodoxime Proxetil [Vantin] 200 mg PO BID #8 tab 05/17/24 Metoprolol Tartrate [Lopressor*] 25 mg PO BID 6AM 6PM #60 tab 05/17/24 Apixaban [Eliquis] 5 mg PO BID 06/08/24 Ciprofloxacin HCl [Cipro 500 MG Tablet] 500 mg PO DAILY 5 Days #5 tab 06/15/24 Furosemide [Lasix] 40 mg PO DAILY 5 Days #5 tab 06/15/24 Potassium Oral Tab [Klor-Con 10 mEq Tab*] 20 meq PO DAILY 5 Days #20 tab 06/15/24 Followup: Logan Brewster MD [Primary Care Provider] - Time spent managing pt's care (in minutes): 38
--- NOTE | 2024-06-20 22:38 | PN ---
Date of Progress Note: 06/20/2024 Chief Complaint: Acute on chronic kidney disease, hyponatremia, cardiorenal syndrome. Subjective: The patient has chronic respiratory failure, chronic hyponatremia in the setting of bindu estive heart failure, fluid overload. He was diuresed aggressively. He remains hypoxemic and is fol lowed by pulmonary physician. Review of Systems: Denies chest pain, palpitations. Physical Examination: Heart: S1, S2. Abdomen: Soft. Extremities: Edema in both legs. Impression And Plan: 1. Acute kidney injury secondary to cardiorenal syndrome, acute tubular necrosis, nonoliguric. Respo nded to diuretic, although he remains in respiratory failure. Lasix drip is on hold. 2. Hyponatremia dilutional, resolved. Lasix was stopped. 3. Hypokalemia. Supplementation was started. Monitor potassium and magnesium levels. 4. Respiratory failure, multifactorial, secondary to cardiorenal syndrome and aspiration pneumonia. The patient is on antibiotics. Further recommendation from Primary team and Pulmonary. 5. The patient was extubated, although he remains hypoxemic and he is on BiPAP. EB/MODL Voice ID: [id number] Report ID: [id number]
[2024-06-21] MEDS ORDERED: VANCOMYCIN 1 GM in NA CHLORIDE 0.9% 250 ML IVPB SCH (09:00)
== END 2024-06-20 19:28 | disposition hospice, inpatient (51) | DRG 871 ==
LOC: ER 13:26 → 3RD-ICU 18:02
PROVIDERS: ADMIT Internal Medicine; ATTEND Internal Medicine
PROC: 4A033R1 Measurement of Arterial Saturation, Peripheral, Percutaneous Approach (ICD-10-PCS; principal; 2024-06-16)
PROC: 0DH67UZ Insertion of Feeding Device into Stomach, Via Natural or Artificial Opening (ICD-10-PCS; 2024-06-16)
PROC: 3E033XZ Introduction of Vasopressor into Peripheral Vein, Percutaneous Approach (ICD-10-PCS; 2024-06-16)
PROC: 02HV33Z Insertion of Infusion Device into Superior Vena Cava, Percutaneous Approach (ICD-10-PCS; 2024-06-16)
PROC: 5A12012 Performance of Cardiac Output, Single, Manual (ICD-10-PCS; 2024-06-17)
PROC: 5A1945Z Respiratory Ventilation, 24-96 Consecutive Hours (ICD-10-PCS; 2024-06-19)
PROC: 0BH17EZ Insertion of Endotracheal Airway into Trachea, Via Natural or Artificial Opening (ICD-10-PCS; 2024-06-19)
PROC: 5A09457 Assistance with Respiratory Ventilation, 24-96 Consecutive Hours, Continuous Positive Airway Pressure (ICD-10-PCS; 2024-06-19)
PROC: 5A0945A Assistance with Respiratory Ventilation, 24-96 Consecutive Hours, High Flow/Velocity Cannula (ICD-10-PCS; 2024-06-20)
DX: A41.9 Sepsis, unspecified organism (principal); G93.41 Metabolic encephalopathy; J96.01 Acute respiratory failure with hypoxia; I50.43 Acute on chronic combined systolic (congestive) and diastolic (congestive) heart failure; J18.9 Pneumonia, unspecified organism; N17.0 Acute kidney failure with tubular necrosis; I48.92 Unspecified atrial flutter; E87.1 Hypo-osmolality and hyponatremia; J44.0 Chronic obstructive pulmonary disease with (acute) lower respiratory infection; E87.3 Alkalosis; I47.10 Supraventricular tachycardia, unspecified; I11.0 Hypertensive heart disease with heart failure; I48.0 Paroxysmal atrial fibrillation; E83.39 Other disorders of phosphorus metabolism; F03.90 Unspecified dementia, unspecified severity, without behavioral disturbance, psychotic disturbance, mood disturbance, and anxiety; B95.62 Methicillin resistant Staphylococcus aureus infection as the cause of diseases classified elsewhere; Z66 Do not resuscitate; Z23 Encounter for immunization; Z88.8 Allergy status to other drugs, medicaments and biological substances; Z78.1 Physical restraint status; Z99.81 Dependence on supplemental oxygen; Z79.01 Long term (current) use of anticoagulants; Z79.899 Other long term (current) drug therapy; Z87.891 Personal history of nicotine dependence
CPT/HCPCS: 31500; 36415; 36556; 36600; 51702; 70450; 71045; 71275; 74018; 80048; 80053; 80069; 80202; 81015; 82140; 82805; 83605; 83735; 83880; 84100; 84132; 84145; 84443; 84484; 85025; 85379; 85610; 85730; 87040; 87070; 87077; 87086; 87088; 87186; 87205; 92950; 93005; 94002; 94003; 94640; 94660; 99291; 99292; J0282; J0692; J1940; J1953; J2185; J2371; J2470; J2543; J2704; J3010; J3370; J3475; J3480; J7030; J7040; J7050; J7060; J7644; P9047; Q9967

== ENCOUNTER 2024-06-20 19:10 | Inpatient (IN) | payer OTHER ==
--- OUTSIDE RECORDS SUMMARY | 2024-06-20 19:48 | XMS REPORT | Continuity of Care Document ---
Author Name Unknown Address [address] [facility] [address] [place] [address] [facility] Address [address] [facility] [place] [address] Care Team Providers Care Insight Leader Name Role Phone Aletha Riley Primary Care Physician [phone] Doctor Unassigned, [place] Attending Clinician U Nalini Norton MD Attending Clinician [phone] Pob, [facility] Main Attending Clinician UnavailNALINI [...] reaction s Active Rash 12-14 00:00: 00 [facility] PREDNISO NE DRUG INGREDI Active Rash 12-14 00:00: 00 [facility] No Known Drug Allergie s DA Active U 04-02 00:00: 00 [facility] predniso lone DA Active U Rash 04-02 00:00: 00 [facility] Social History Social Habit Start Date Stop Date Quantity Comments Source Sexual orientation U [facility] Sex assigned at 1950 00:00:00 1950 00:00:00 [facility] Smoking Status Start Date Stop Date Source Tobacco smoking consumption unknown [facility] Medications Ordered Medication Name Filled Medication Name Start Date Stop Date Current Medication? Ordering Clinician Indication Dosage Frequency Signature (SIG) Comments Components Source ciprofloxac in HCl 500 mg tablet 2023-03 007 00:00: 00 01-09 04:59 :00 No [id number] 500mg Take 1 tablet by mouth every 12 (twelve) hours for 5 days. [facility] sulfamethox azole-trime thoprim (BACTRIM DS) 800-160 mg per tablet 2023-03 0 00:00: 00 01-03 00:00 :00 No [id number] 1{tbl} Take 1 tablet by mouth in the morning and 1 tablet in the evening. Do all this for 7 days. [facility] metoprolol tartrate 25 mg tablet 12-14 11:15: 46 Yes 2 tablets Orally Twice a day for 90 days [facility] rivaroxaban (XARELTO) 15 mg tablet 12-14 11:15: 46 Yes TAKE 1 TABLET BY MOUTH EVERY DAY EVENING MEAL [facility] citalopram 20 mg tablet 12-14 11:15: 46 Yes TAKE 1 TABLET BY MOUTH EVERY DAY Orally Once a day for 90 days [facility] dexAMETHaso ne 1 mg tablet 12-14 11:15: 46 Yes 1 tablet Orally daily [facility] omeprazole 40 mg capsule 12-14 11:15: 46 Yes 40mg Take 1 capsule by mouth in the morning. [facility] budesonide- formoteroL 160-4.5 mcg/actuati on inhaler 12-14 11:15: 46 Yes INHALE 2 PUFFS 2 TIMES A DAY FOR 30 DAYS [facility] multivit-mi n/ferrous fumarate (MULTI VITAMIN ORAL) 12-14 11:15: 46 Yes Take by mouth. [facility] albuterol 90 mcg/actuati on inhaler 11-20 00:00: 00 Yes INHALE 1 PUFF INTO THE LUNGS EVERY 4 HOURS NEEDED FOR 30 DAYS [facility] tamsulosin 0.4 mg 24 hr capsule 3-13 00:00: 00 06-04 05:59 :00 No .4mg [address] [facility] rs [facility] Vital Signs Vital Name Observation Time Observation Value Comments S heidi Systolic blood pressure 2024-01-05 19:50:00 99 mm[Hg] [facility] Diastolic blood pressure 2024-01-05 19:50:00 45 mm[Hg] [facility] Heart rate 2024-01-05 19:50:00 65 /min [facility] Body temperature 2024-01-05 19:47:00 36.33 Carolyn [facility] Oxygen saturation in Arterial blood by Pulse oximetry 2024-01-05 19:47:00 93 /min [facility] Procedures Procedure Date / Time Performed Performing Clinician Source DME/SUPPLY JUSTIFICATION 2024-01-08 20:45:12 Doc tor Unassigned, [place] [facility] KHARI,POST-VOID RES,US,NON-IMAGING 2024-01-05 00:00:00 Nalini Howard [facility] CT PELVIS WO CONTRAST 2023-12-29 19:46:48 Marlon Howard [facility] Encounters Start Date/Time End Date/Time Encounter Type Admission Type Attending Clinicians Care Facility Care Department Encounter ID Source 2024-01-08 00:00:00 2024-05-14 06:50:54 Orders Only Doctor Unassigned, [place] Doctor Unassigned, [place] [facility] [id number] [id number] 4.2.7.2.686 [id number] [facility] 2024-01-02 00:00:00 2024-02-06 18:24:49 Patient Secure Msg Nalini Howard [facility] [id number] 350.1.13.10 4.2.7.2.686 [id number] [facility] 2024-01-28 00:00:00 2024-01-28 13:20:57 Telephone Nalini Howard [facility] [id number] 350.1.13.10 4.2.7.2.686 [id number] [facility] 2024-01-05 14:30:00 2024-01-05 15:50:07 [facility] [id number] 350.1.13.10 4.2.7.2.686 [id number] [facility] 2024-01-03 00:00:00 2024-01-03 11:25:28 Telephone Guerrerojean-paulNalini [facility] [id number] 350.1.13.10 4.2.7.2.686 [id number] [facility] 2024-01-02 00:00:00 2024-01-02 14:44:42 Telephone Nalini Howard [facility] 1.2.840.114 350.1.13.10 4.2.7.2.686 [id number] [facility] 2023-12-31 14:00:00 2023-12-31 14:15:00 Program Management Specialist Visit Pojulius, [facility] Main Guerrerojean-paul Nalini Neville, [facility] 1.2.840.114 350.1.13.10 4.2.7.2.686 [id number] [facility] 2023-12-31 14:00:00 2023-12-31 14:00:00 [facility] [id number] [facility] 2023-12-29 14:21:54 2023-12-29 23:59:00 [facility] [id number] [facility] 2023-12-29 14:21:54 2023-12-29 23:59:00 Hospital Encounter [facility] [id number] 350.1.13.10 4.2.7.2.686 [id number] [facility] 2023-04-02 12:31:00 2023-04-02 16:00:00 Outpatient Elective BoyareliChristiano corbett [facility] [id number] [facility] Results Test Description Test Time Test Comments Results Resul t Comments Source DME/SUPPLY JUSTIFICATION 2023-12-29 1 20:45:12 [facility] by an unspecified provider[facility] [id number] 00:56:29EXAM: CT PELVIS WO CONTRAST ORDERING PROVIDER: [...] possible avascularnecrosis ofthe right femoral head are seen.[facility] Notes Date/Time Note Provider Source 2024-01-28 13:20:17 uri [facility] - Health 2024-01-05 08:35:59 Spouse notified. POC to be discussed during office visit. Guerline Lynch RN [facility] 2024-01-05 08:18:12 Yes for assessment, will not perform cysto T [facility] 2024-01-04 17:29:01 Ok, no need to stop citalopram then Continue bactrim and repeat Ucx this week, UTI may have resolved T [facility] 2024-01-04 16:30:18 Spouse notified of recommendations. Aware I will get clarification with provider on how long he should hold citalopram and if it is safe to stop medication or should be tapered. Patient will stop bactrim now and pick up man cipro. Will wait for clarification prior to taking cipro Guerline Lynch RN [facility] 2024-01-04 13:27:29 Addended by: NALINI HOWARD on: 01/04/2024 01:27 PM Modules accepted: Orders [facility] 2024-01-04 13:24:38 Stop bactrim Stop citalopram for 7 days day and 2 days priro to Cipro for 5 days and 2 days after finishing cipro [facility] 2024-01-04 10:45:26 Images from the original note were not included. Guerline Lynch RN [facility] 2024-01-02 14:40:52 UTI Other results within [...] of the right femoral head are seen. [facility] 2023-04-02 14:48:00 [facility] enter [address] [place] [address] Opthalmology Operative Note Signed Patient: Arabella Garcia Medical Record#: [id number] : 1950 Acct:[id number] Age/Sex: 72 / M ADM Date: 04/02/23 Loc: [facility] Room: Report Number: [id number]: Christiano Robles MD General Surgery Operative Note Date of Procedure: 04/02/23 Time of Procedure: 14:48 Detailed Description of Procedure: PreOperative Diagnosis retinal detachment of the right eye with multiple retinal breaks PostOperative Diagnosis; same Procedure(s) Performed; vitrectomy endo photocoagulation gas fluid exchange Surgeon Christiano Robles M.D. Tape Librarian None Anesthesia Retrobulbar Block, Monitor Anesthesia Care [...] 04/02/23 1451 DD/ 1448 TD/TT: 04/02/23 1448 Negotiations Director: ASHLEY cc: ASHLEY; [id number]* Christiano Robles MD; Abdelrahman Brewster MD [facility] 2023-04-02 11:42:00 [facility] enter [address] [place] [address] Ophthalmology H P Signed Patient: ARABELLA GARCIA Medical Record#: [id number] : 1950 Acct:[id number] Age/Sex: 72 / M Admit/Reg Date: 04/02/23 Loc: [facility] Room: Report Number: [id number] Attending Dr: Christiano Robles MD Surgical HPI [...] Risk Level: Very low Dictated By: Christiano Rolbes MD Signed By: Christiano Robles MD 04/02/23 1150 DD/ 1142 TD/TT: 04/02/23 1142 Negotiations Director: ASHLEY cc: [id number]* Christiano Robles MD [facility]
[2024-06-20] MEDS ORDERED: SCOPOLAMINE HYDROBROMIDE PATCH TD PRN (19:49)
[2024-06-20] MEDS ORDERED: BISACODYL 10 MG RECTAL SUPP PR PRN (19:50)
[2024-06-20] MEDS ORDERED: ONDANSETRON 4 MG/2 ML VIAL IV PRN (19:50)
[2024-06-20] MEDS: LORazepam 2 MG/ML VIAL IV PRN (20:08)
[2024-06-20] MEDS: MORPHINE 4 MG/ML SYR IV PRN (20:15)
[2024-06-20] MEDS ORDERED: AMIODARONE HCL 150 MG/3 ML INJ IV ONE (21:49)
[2024-06-20] MEDS ORDERED: EPINEPHrine 1 MG/10 ML SYR IV ONE (21:49)
[2024-06-20] MEDS ORDERED: NA CHLORIDE 0.9% 1,000 ML IV ONE (21:49)
[2024-06-20 22:00] VITALS: O2SAT 93
[2024-06-20 22:13] VITALS: TEMP 97.1
[2024-06-20 22:16] VITALS: BP 59/39
== END 2024-06-20 21:50 | disposition expired | DRG 951 ==
LOC: 3RD-ICU 19:10
PROVIDERS: ADMIT Family Medicine; ATTEND Family Medicine
DX: Z51.5 Encounter for palliative care (principal)
CPT/HCPCS: J0171; J0282; J7030